=== PATIENT | male | born 1975 | race Caucasian/White ===

== ENCOUNTER 2018-03-09 13:47 | Inpatient (IN) | payer MEDICARE, OTHER, MEDICAID, SELFPAY ==
[2018-03-09] VITALS (19 sets, daily range): BP systolic 94–153; BP diastolic 53–87; PULSE 94–117; RESP 15–52; TEMP 37.1–37.5; O2SAT 89–100; BMI 18.5
--- NOTE | 2018-03-09 14:03 | ED.NEUROSD ---
HPI - Neuro Symptoms/Deficit General Chief Complaint: Seizure Stated Complaint: seizures Time Seen by Provider: 03/09/18 14:03 Source: family (His Mother) Mode of arrival: wheelchair Limitations: language barrier and altered mental status History of Present Illness HPI Narrative: The patient was born with cerebral palsy. He has been managed for decades with a seizure disorder. He is on valproic acid. He developed seizure activity yesterday, the 1st seizures he has had many years. His mom noted repeated tonoclonic activity, with motion toward the right side of his body he has a feeding tube in place. He can swallow. He has had no issue with swelling medication, and medications been giving the NG tube. He did vomit yesterday. He occasionally a gags when he does take in oral intake, but usually gags the item clear. He has no issue with aspiration in the past. He is experiencing low O2 sats upon arrival, requiring O2 supplementation. His mother tells me there has been no fever. He has been coughing, but does not have ongoing emesis. She has not perceived difficulty breathing. She does not think he has abdominal pain. He has recurrent UTIs, he requires repeat in out catheterization that she performs. There has been no fall or injury. Related Data Home Medications Medication Instructions Recorded Confirmed latanoprost 1 drp [facility] HS #2.5 ml 02/14/12 03/09/18 mirtazapine 15 mg PO HS #0 02/14/12 03/09/18 acetaminophen 500 mg PO BID #0 01/20/13 03/09/18 tamsulosin [Flomax] 0.4 mg PO QDAY #0 09/09/16 03/09/18 acetic acid 1 dose IRRIGATION BID PRN 03/09/18 03/09/18 baclofen 1 tab PO QPM 03/09/18 03/09/18 baclofen 5 mg PO BID 03/09/18 03/09/18 clonazepam 0.5 mg PO BID 03/09/18 03/09/18 clonazepam 1 mg PO BID 03/09/18 03/09/18 divalproex 1 cap PO QAM 03/09/18 03/09/18 divalproex 1 tab PO QAM 03/09/18 03/09/18 divalproex 1 tab PO QPM 03/09/18 03/09/18 meloxicam 1 tab PO DAILY 03/09/18 03/09/18 nitrofurantoin macrocrystal 1 cap PO DAILY 03/09/18 03/09/18 omeprazole 2 cap PO DAILY 03/09/18 03/09/18 Allergies Allergy/AdvReac Type Severity Reaction Status Date / Time codeine Allergy Intermediate FACIAL Verified 03/09/18 15:17 SWELLING, RASH phenobarbital Allergy Unknown Verified 03/09/18 15:17 Review of Systems Review of Systems other ( ROS is greater patient's medical condition. His mom reports vomiting and seizure activity. She does not perceive to be in pain. He has not vomited today. Bowel movements have been normal. There has been no fever or chills. RS was otherwise unobtainable due to the patient's medical condition.) PFSH Medical History Cervical vertebral fusion (Acute) Seizure (Acute) Congenital cerebral palsy (Acute) Surgical History History of thoracic spinal fusion (Acute) Social History Smoking Status: Never smoker Exam Initial Vital Signs Initial Vital Signs: Vital Signs Temperature 98.7 F 03/09/18 13:50 Pulse Rate 112 H 03/09/18 13:50 Respiratory Rate 20 03/09/18 13:50 Blood Pressure 116/78 03/09/18 13:50 Pulse Oximetry 89 L 03/09/18 13:50 Const General: well groomed, frail appearing and other ( the patient is having recurrent seizures upon arrival, eyes and the head deviating to the right.) Nutritional Appearance: thin and underweight [facility] Head: normocephalic and atraumatic Ears: external ears normal and TM's normal bilaterally Nose: external nose normal and No nasal discharge Face and sinus: face symmetric Mouth: oral mucosae normal and moist mucous membranes Throat: posterior oropharynx normal, tonsils normal and uvula midline Eyes General: appearance normal, both eyes and all related structures Eyelids: eyelids normal Conjunctivae: conjunctivae normal Sclera: sclerae normal Pupils: PERRL EOM: EOM intact bilaterally Neck Neck: normal visual inspection, no meningeal signs, trachea midline, No lymphadenopathy, No midline deformity and No JVD Chest Chest: normal inspection of the chest Resp Effort & Inspection: respiratory distress ( Low O2 sats.) Auscultation: breath sounds absent on the right ( Upper lung field only) Cardio Rate: regular rate Rhythm: regular rhythm Heart Sounds: no click, no gallops, no murmurs and no rubs Pulses: normal peripheral pulses GI Inspection: non-distended Palpation: soft, no hepatosplenomegaly, No guarding and No tender Auscultation: normal bowel sounds and other ( his feeding tube sees be functioning normally.) Back/Spine/Pelvis Back: No CVA tenderness Cervical Spine: No cervical ROM normal and No pain with cervical ROM Thoracic/Lumbar Spine: thoracic and lumbar spine normal to inspection Skin General: no rashes or lesions noted and No petechiae Neuro General: alert and other ( No verbal response. He communicates physical with his mother. Spasticity throughout all extremities. Recurrent seizure activity noted.) Extrem General: other ( Extremities are thin and frail. Spasticity noted in all extremities.) Course Orders Ordered: ED Orders 03/09/18 14:10 XR chest 1V Stat 03/09/18 14:34 Complete Blood Count AUTO DIFF Stat Comprehensive Metabolic Panel Stat Lactate (Lactic Acid) Stat Magnesium Stat Procalcitonin Stat Prolactin Stat Valproic Acid (Depakene) Total Stat 03/09/18 15:00 CT head/brain wo con Stat 03/09/18 15:28 Urine Culture Stat Urine Microscopic Stat 03/09/18 16:08 Blood Culture Stat 03/09/18 17:55 MRSA PCR Urgent Sodium Chloride (Normal Saline 0.9%) 1,000 mls @ 150 mls/hr IV CONT ARNOLDO Last Infusion: 03/09/18 16:18 Dose: 0 mls/hr Admin: 03/09/18 14:46 Dose: 150 mls/hr Sodium Chloride (Normal Saline 0.9%) 1,292.73 mls @ 430.91 mls/hr 30 ml/kg infuse over 3 hr (1292.73 ml) IV CONT ARNOLDO Last Infusion: 03/09/18 17:31 Dose: 430.91 mls/hr Admin: 03/09/18 16:20 Dose: 430.91 mls/hr Discontinued Medications Diazepam (Valium) 5 mg IV NOW ONE Stop: 03/09/18 14:11 Last Admin: 03/09/18 14:33 Dose: 5 mg Diazepam (Valium) 5 mg IV NOW ONE Stop: 03/09/18 14:55 Last Admin: 03/09/18 15:00 Dose: 5 mg Levetiracetam 500 mg/ Sodium (Chloride) 105 mls @ 420 mls/hr IV NOW ONE Stop: 03/09/18 14:55 Last Infusion: 03/09/18 15:45 Dose: 0 mls/hr Admin: 03/09/18 15:18 Dose: 420 mls/hr Levofloxacin (Levaquin) 500 mg in 100 mls @ 100 mls/hr IV NOW ONE Stop: 03/09/18 17:35 Last Infusion: 03/09/18 17:31 Dose: 100 mls/hr Admin: 03/09/18 16:46 Dose: 100 mls/hr Lorazepam (Ativan) 4 mg IV NOW ONE Stop: 03/09/18 17:25 Last Admin: 03/09/18 17:26 Dose: 4 mg Vital Signs - 8 hr 03/09/18 13:50 03/09/18 14:10 03/09/18 14:45 Temperature 98.7 F Pulse Rate 112 H 111 H Respiratory Rate 20 20 Blood Pressure 116/78 Blood Pressure [Right Arm] 100/71 Pulse Oximetry 89 L 98 100 03/09/18 14:50 03/09/18 14:55 03/09/18 15:00 Temperature Pulse Rate 103 H 117 H 109 H Respiratory Rate 15 18 16 Blood Pressure Blood Pressure [Right Arm] 109/69 100/66 Pulse Oximetry 100 99 99 03/09/18 15:05 03/09/18 15:20 03/09/18 15:31 Temperature Pulse Rate 100 H 96 H 98 H Respiratory Rate 15 27 H 17 Blood Pressure Blood Pressure [Right Arm] 100/66 110/83 103/72 Pulse Oximetry 99 98 98 03/09/18 16:00 03/09/18 16:31 03/09/18 17:17 Temperature Pulse Rate 95 H 96 H 94 H Respiratory Rate 20 19 18 Blood Pressure Blood Pressure [Right Arm] 113/64 108/53 L 119/68 Pulse Oximetry 98 100 98 MDM - Neuro Symptoms/Deficit Lab Data Result diagrams: 03/09/18 14:34 03/09/18 14:34 Lab Results 03/09/18 03/09/18 03/09/18 Range/Units 14:34 14:34 14:34 WBC 18.6 H (4.5-11.0) X10^3/uL RBC 4.72 (4.5-5.9) X10^6/uL Hgb 15.9 (13.5-17.5) g/dL Hct 50.0 (41-53) % MCV 106.0 H (80-100) fL MCH 33.7 (26-34) PG MCHC 31.7 (30-36) % RDW 15.3 H (11.6-14.8) % Plt Count 355 (150-400) X10^3/uL Neut % (Auto) 78.5 H (50-75) % Lymph % (Auto) 15.0 L (25-40) % [place] % (Auto) 6.3 (3-14) % Eos % (Auto) 0.0 L (2-4) % Baso % (Auto) 0.2 (0-2) % Neut # (Auto) 16332 H (5586-5839) /uL Sodium 158 H (137-145) mmol/L Potassium 4.1 (3.4-5.1) mmol/L Chloride 107 (98-107) mmol/L Carbon Dioxide 24 (22-32) mmol/L BUN 47 H (9-20) mg/dL Creatinine 1.20 (0.66-1.25) mg/dL Estimated GFR > 60.0 (>60) mL/min BUN/Creatinine Ratio 39.2 H (6-22) Glucose 149 H (70-100) mg/dL Lactate (0.7-2.1) mmol/L Calcium 10.0 (8.4-10.2) mg/dL Magnesium 2.6 H (1.6-2.3) mg/dL Total Bilirubin 0.3 (0.2-1.3) mg/dL AST 36 (17-59) IU/L ALT 16 L (21-72) IU/L Alkaline Phosphatase 73 (38-126) U/L Total Protein 9.3 H (6.3-8.2) g/dL Albumin 5.0 (3.5-5.0) g/dL Globulin 4.3 H (1.7-4.1) g/dL Albumin/Globulin Ratio 1.2 (1.0-2.8) Procalcitonin 0.06 (<0.5) ng/mL Prolactin 11.6 (3.7-17.9) ng/mL Urine RBC (0-5/HPF) Urine WBC (0-5/HPF) Ur Squamous Epith Cells Urine Bacteria (None) Ur Culture Indicated? Micro UA Comment 03/09/18 03/09/18 Range/Units 14:34 15:28 WBC (4.5-11.0) X10^3/uL RBC (4.5-5.9) X10^6/uL Hgb (13.5-17.5) g/dL Hct (41-53) % MCV (80-100) fL MCH (26-34) PG MCHC (30-36) % RDW (11.6-14.8) % Plt Count (150-400) X10^3/uL Neut % (Auto) (50-75) % Lymph % (Auto) (25-40) % [place] % (Auto) (3-14) % Eos % (Auto) (2-4) % Baso % (Auto) (0-2) % Neut # (Auto) (5295-4569) /uL Sodium (137-145) mmol/L Potassium (3.4-5.1) mmol/L Chloride (98-107) mmol/L Carbon Dioxide (22-32) mmol/L BUN (9-20) mg/dL Creatinine (0.66-1.25) mg/dL Estimated GFR (>60) mL/min BUN/Creatinine Ratio (6-22) Glucose (70-100) mg/dL Lactate 13.4 H (0.7-2.1) mmol/L Calcium (8.4-10.2) mg/dL Magnesium (1.6-2.3) mg/dL Total Bilirubin (0.2-1.3) mg/dL AST (17-59) IU/L ALT (21-72) IU/L Alkaline Phosphatase (38-126) U/L Total Protein (6.3-8.2) g/dL Albumin (3.5-5.0) g/dL Globulin (1.7-4.1) g/dL Albumin/Globulin Ratio (1.0-2.8) Procalcitonin (<0.5) ng/mL Prolactin (3.7-17.9) ng/mL Urine RBC 5-10/hpf H (0-5/HPF) Urine WBC 10-30/hpf H (0-5/HPF) Ur Squamous Epith Cells 0-1 /hpf Urine Bacteria Moderate (10-30) H (None) Ur Culture Indicated? Specimen cultured Micro UA Comment Not Reportable Point of Care Testing Glucose POC 97 Urine Dip Bedside Urine Glucose Negative Bedside Urine Bilirubin - Negative Bedside Urine Ketone - Negative Urine Specific [place] 1.025 Bedside Urine Occult Blood +++ Bedside Urine Protein +/- 15 Bedside Urine Urobilinogen - Negative Bedside Urine Nitrite - Negative Bedside Urine Leukocytes + [address] scan - head: Radiologist's impression: [address] [address] [address] Scan Report Signed Patient: Josh Weber [facility]#: [id number] : 1975Acct:[id number] Age/Sex: 42 / MDate of Service: 03/09/18 Loc: ED Accession Number: [id number] Procedure: CT head/brain wo con Ordering Provider: Mt Morales M.D. PROCEDURE: CT HEAD/BRAIN WO CON INDICATIONS: Seizures TECHNIQUE: Noncontrast 4.5 mm thick angled axial sections acquired from the foramen magnum to the vertex, with coronal and sagittal reformats. For radiation dose reduction, the following was used: automated exposure control, adjustment of mA and/or kV according to patient size. COMPARISON: [facility], CT, HEAD WITHOUT CONTRAST, 07/24/2014, 14:19. FINDINGS: Image quality: Excellent. CSF spaces: Basal cisterns are patent. No extra-axial fluid collections. Ventricles are enlarged, but not significantly changed compared to 07/24/2014. Nodularity noted along the margins of the lateral ventricles possibly related to heterotopia. 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 No midline shift. No intracranial hemorrhage. 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 Prakash-white matter interface is normal. Skull and face: Calvarium and visualized facial bones are intact, without suspicious lesions. Left globe phthisis bulbi is noted. Sinuses: Visualized sinuses and mastoids are clear. IMPRESSION: 1. No acute intracranial disease process. 2. 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 3. Severe hydrocephalus not significantly changed compared to prior examination. Dictated by: Rubi Serrano MD, PhD on 03/09/2018 at 14:51 Approved by: Rubi Serrano MD, PhD on 03/09/2018 at 15:07 Chest x-ray: Radiologist's impression: PROCEDURE: XR CHEST 1V INDICATIONS: Vomiting. Rule out aspiration TECHNIQUE: One view of the chest was acquired. COMPARISON: [facility], CHEST FOR PICC PLACEMENT, 10/11/2015, 14:05. FINDINGS: Surgical changes and devices: Extensive postsurgical changes are redemonstrated in the thoracic and visualized lumbar spine.. Lungs and pleura: There are right apical opacities consistent with consolidation, loculated effusion, or mass. Low lung finds are noted. No definite pneumothorax. Mediastinum: Mediastinal contours appear unchanged. Heart size is within normal limits. Bones and chest wall: No suspicious bony lesions. Overlying soft tissues appear unremarkable. IMPRESSION: 1. Right apical opacities consistent with consolidation, loculated effusion, or mass. Further evaluation may be obtained CT. [facility] Narrative Medical decision making narrative: The patient's mother assures me they have been compliant with medication dosing, he has not had seizure activity for years. He has been having recurrent seizures since yesterday. He did vomit. He was having frequent seizures upon arrival. He responded briefly to Valium 5 mg IV. The dose had to be repeated due to ongoing seizure activity. He was given Keppra 500 mg IV. Evaluation included a CT which showed no significant changes in the head/brain. Chest x-ray revealed a right upper lung loculation, consistent with pneumonia. This was strongly suspected by the examination. Labs confirm leukocytosis, and a significantly elevated lactate level confirming sepsis. He is having issues with O2 saturation. He has improved with oxygen. He is normotensive. He has received IV fluid boluses, IV Levaquin has been started. He will be admitted to Dr. Ric Oconnor. He is a full code. Critical Care Time Critical Care Time: Yes Total Critical Care Time: 40 Attestation: Patient's care required several assessments due to ongoing seizure activity. I interviewed his mother several times.Radiologic and lab data was interpreted. Past records were reviewed. The case was discussed with the eventual admitting physician, Dr. Oconnor. Discharge Plan Departure Patient Disposition: Admitted As Inpatient Clinical Impression: Sepsis, Pneumonia, Convulsions, status epilepticus, Cerebral palsy Discharge Date/Time: 03/09/18 17:30 Interventions: ED Discharge Assessment Last Done: 03/09/18 17:20 Admit Date/Time: 03/09/18 16:46 Admit Provider: Clem Oconnor
--- NOTE | 2018-03-09 14:10 | DI.RAD.S_ITS ---
PROCEDURE: XR CHEST 1V INDICATIONS: Vomiting. Rule out aspiration TECHNIQUE: One view of the chest was acquired. COMPARISON: [facility], , CHEST FOR PICC PLACEMENT, 10/11/2015, 14:05. FINDINGS: Surgical changes and devices: Extensive postsurgical changes are redemonstrated in the thoracic and visualized lumbar spine.. Lungs and pleura: There are right apical opacities consistent with consolidation, loculated effusion, or mass. Low lung finds are noted. No definite pneumothorax. Mediastinum: Mediastinal contours appear unchanged. Heart size is within normal limits. Bones and chest wall: No suspicious bony lesions. Overlying soft tissues appear unremarkable. IMPRESSION: 1. Right apical opacities consistent with consolidation, loculated effusion, or mass. Further evaluation may be obtained CT. Dictated by: Daniel Deleon M.D. on 03/09/2018 at 16:34 Approved by: Daniel Deleon M.D. on 03/09/2018 at 16:35
[2018-03-09] MEDS: diazePAM 10 MG/2 ML SYRINGE 5 MG IV ×2 (14:33→15:00)
[2018-03-09] MEDS: SODIUM CHLORIDE 0.9% 1,000 ML 150 ML IV (14:46)
[2018-03-09 14:57] LABS: Add Manual Diff / Slide Review NO; Basophils Percent Auto 0.2 % (0-2); Hemoglobin 15.9 g/dL (13.5-17.5); Mean Corpuscular HGB Conc 31.7 % (30-36); Mean Corpuscular Hemoglobin 33.7 PG (26-34); Monocytes Percent Auto 6.3 % (3-14); Neutrophils Absolute Auto 14600 /uL (3000-5900); Neutrophils Percent Auto 78.5 % (50-75); Platelet Count 355 X10^3/uL (150-400); Red Blood Cell Count 4.72 X10^6/uL (4.5-5.9); Red Cell Distribution Width 15.3 % (11.6-14.8); White Blood Cell Count 18.6 X10^3/uL (4.5-11.0)
--- NOTE | 2018-03-09 14:58 | PC.NURSE ---
pt has CP, neck fusion, history of seizures, chronic feeding tube x 3years, pt is having tonic clonic movements/ with gran mal seizures x 2 in [place]> pt has been seizuring all night.
--- NOTE | 2018-03-09 15:00 | DI.CT.S_ITS ---
PROCEDURE: CT HEAD/BRAIN WO CON INDICATIONS: Seizures TECHNIQUE: Noncontrast 4.5 mm thick angled axial sections acquired from the foramen magnum to the vertex, with coronal and sagittal reformats. For radiation dose reduction, the following was used: automated exposure control, adjustment of mA and/or kV according to patient size. COMPARISON: [facility], CT, HEAD WITHOUT CONTRAST, 07/24/2014, 14:19. FINDINGS: Image quality: Excellent. CSF spaces: Basal cisterns are patent. No extra-axial fluid collections. Ventricles are enlarged, but not significantly changed compared to 07/24/2014. Nodularity noted along the margins of the lateral ventricles possibly related to heterotopia. 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 No midline shift. No intracranial hemorrhage. 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 Prakash-white matter interface is normal. Skull and face: Calvarium and visualized facial bones are intact, without suspicious lesions. Left globe phthisis bulbi is noted. Sinuses: Visualized sinuses and mastoids are clear. IMPRESSION: 1. No acute intracranial disease process. 2. 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 3. Severe hydrocephalus not significantly changed compared to prior examination. Dictated by: Rubi Serrano MD, PhD on 03/09/2018 at 14:51 Approved by: Rubi Serrano MD, PhD on 03/09/2018 at 15:07
[2018-03-09] MEDS: levETIRAcetam 500 MG in SODIUM CHLORIDE 0.9% 100 ML 420 ML IV (15:18)
[2018-03-09 15:23] LABS: Alanine Aminotransferase 16 IU/L (21-72); Albumin Globulin Ratio 1.2 (1.0-2.8); Alkaline Phosphatase 73 U/L (38-126); Aspartate Aminotransferase 36 IU/L (17-59); BUN Creatinine Ratio 39.2 (6-22); Bilirubin Total 0.3 mg/dL (0.2-1.3); Blood Urea Nitrogen 47 mg/dL (9-20); Carbon Dioxide 24 mmol/L (22-32); Chloride 107 mmol/L (98-107); Estimated Glomerular Filt Rate > 60.0 mL/min (>60); Globulin 4.3 g/dL (1.7-4.1); Glucose 149 mg/dL (70-100); HEMOLYSIS < 15 (0-50); Magnesium 2.6 mg/dL (1.6-2.3); Potassium 4.1 mmol/L (3.4-5.1); Total Protein 9.3 g/dL (6.3-8.2)
[2018-03-09 15:31] LABS: Sodium 158 mmol/L (137-145)
[2018-03-09 15:32] LABS: Lactate (Lactic Acid) 13.4 mmol/L (0.7-2.1)
[2018-03-09 15:40] LABS: Prolactin 11.6 ng/mL (3.7-17.9)
[2018-03-09 15:47] LABS: Procalcitonin 0.06 ng/mL (<0.5)
[2018-03-09] MEDS: SODIUM CHLORIDE 0.9% 430.91 ML IV (16:20)
[2018-03-09 16:38] LABS: Bacteria Urine Moderate (10-30); Culture Indicated Urine Specimen Cultured; RBC Urine 5-10/HPF (0-5/HPF); Squamous Epithelial Cell Urine 0-1 /HPF; WBC Urine 10-30/HPF (0-5/HPF)
[2018-03-09] MEDS: levoFLOXacin 500 MG/100 ML PIGGYBACK 100 MG IV (16:46)
--- NOTE | 2018-03-09 16:48 | ED_ITS ---
HPI - Neuro Symptoms/Deficit General Chief Complaint: Seizure Stated Complaint: seizures Time Seen by Provider: 03/09/18 14:03 Source: family (His Mother) Mode of arrival: wheelchair Limitations: language barrier and altered mental status History of Present Illness HPI Narrative: The patient was born with cerebral palsy. He has been managed for decades with a seizure disorder. He is on valproic acid. He developed seizure activity yesterday, the 1st seizures he has had many years. His mom noted repeated tonoclonic activity, with motion toward the right side of his body he has a feeding tube in place. He can swallow. He has had no issue with swelling medication, and medications been giving the NG tube. He did vomit yesterday. He occasionally a gags when he does take in oral intake, but usually gags the item clear. He has no issue with aspiration in the past. He is experiencing low O2 sats upon arrival, requiring O2 supplementation. His mother tells me there has been no fever. He has been coughing, but does not have ongoing emesis. She has not perceived difficulty breathing. She does not think he has abdominal pain. He has recurrent UTIs, he requires repeat in out catheterization that she performs. There has been no fall or injury. Related Data Home Medications Medication Instructions Recorded Confirmed latanoprost 1 drp [facility] HS #2.5 ml 02/14/12 03/09/18 mirtazapine 15 mg PO HS #0 02/14/12 03/09/18 acetaminophen 500 mg PO BID #0 01/20/13 03/09/18 tamsulosin [Flomax] 0.4 mg PO QDAY #0 09/09/16 03/09/18 acetic acid 1 dose IRRIGATION BID PRN 03/09/18 03/09/18 baclofen 1 tab PO QPM 03/09/18 03/09/18 baclofen 5 mg PO BID 03/09/18 03/09/18 clonazepam 0.5 mg PO BID 03/09/18 03/09/18 clonazepam 1 mg PO BID 03/09/18 03/09/18 divalproex 1 cap PO QAM 03/09/18 03/09/18 divalproex 1 tab PO QAM 03/09/18 03/09/18 divalproex 1 tab PO QPM 03/09/18 03/09/18 meloxicam 1 tab PO DAILY 03/09/18 03/09/18 nitrofurantoin macrocrystal 1 cap PO DAILY 03/09/18 03/09/18 omeprazole 2 cap PO DAILY 03/09/18 03/09/18 Allergies Allergy/AdvReac Type Severity Reaction Status Date / Time codeine Allergy Intermediate FACIAL Verified 03/09/18 15:17 SWELLING, RASH phenobarbital Allergy Unknown Verified 03/09/18 15:17 Review of Systems Review of Systems other ( ROS is greater patient's medical condition. His mom reports vomiting and seizure activity. She does not perceive to be in pain. He has not vomited today. Bowel movements have been normal. There has been no fever or chills. RS was otherwise unobtainable due to the patient's medical condition.) PFSH Medical History Cervical vertebral fusion (Acute) Seizure (Acute) Congenital cerebral palsy (Acute) Surgical History History of thoracic spinal fusion (Acute) Social History Smoking Status: Never smoker Exam Initial Vital Signs Initial Vital Signs: Vital Signs Temperature 98.7 F 03/09/18 13:50 Pulse Rate 112 H 03/09/18 13:50 Respiratory Rate 20 03/09/18 13:50 Blood Pressure 116/78 03/09/18 13:50 Pulse Oximetry 89 L 03/09/18 13:50 Const General: well groomed, frail appearing and other ( the patient is having recurrent seizures upon arrival, eyes and the head deviating to the right.) Nutritional Appearance: thin and underweight [facility] Head: normocephalic and atraumatic Ears: external ears normal and TM's normal bilaterally Nose: external nose normal and No nasal discharge Face and sinus: face symmetric Mouth: oral mucosae normal and moist mucous membranes Throat: posterior oropharynx normal, tonsils normal and uvula midline Eyes General: appearance normal, both eyes and all related structures Eyelids: eyelids normal Conjunctivae: conjunctivae normal Sclera: sclerae normal Pupils: PERRL EOM: EOM intact bilaterally Neck Neck: normal visual inspection, no meningeal signs, trachea midline, No lymphadenopathy, No midline deformity and No JVD Chest Chest: normal inspection of the chest Resp Effort & Inspection: respiratory distress ( Low O2 sats.) Auscultation: breath sounds absent on the right ( Upper lung field only) Cardio Rate: regular rate Rhythm: regular rhythm Heart Sounds: no click, no gallops, no murmurs and no rubs Pulses: normal peripheral pulses GI Inspection: non-distended Palpation: soft, no hepatosplenomegaly, No guarding and No tender Auscultation: normal bowel sounds and other ( his feeding tube sees be functioning normally.) Back/Spine/Pelvis Back: No CVA tenderness Cervical Spine: No cervical ROM normal and No pain with cervical ROM Thoracic/Lumbar Spine: thoracic and lumbar spine normal to inspection Skin General: no rashes or lesions noted and No petechiae Neuro General: alert and other ( No verbal response. He communicates physical with his mother. Spasticity throughout all extremities. Recurrent seizure activity noted.) Extrem General: other ( Extremities are thin and frail. Spasticity noted in all extremities.) Course Orders Ordered: ED Orders 03/09/18 14:10 XR chest 1V Stat 03/09/18 14:34 Complete Blood Count AUTO DIFF Stat Comprehensive Metabolic Panel Stat Lactate (Lactic Acid) Stat Magnesium Stat Procalcitonin Stat Prolactin Stat Valproic Acid (Depakene) Total Stat 03/09/18 15:00 CT head/brain wo con Stat 03/09/18 15:28 Urine Culture Stat Urine Microscopic Stat 03/09/18 16:08 Blood Culture Stat 03/09/18 17:55 MRSA PCR Urgent Sodium Chloride (Normal Saline 0.9%) 1,000 mls @ 150 mls/hr IV CONT ARNOLDO Last Infusion: 03/09/18 16:18 Dose: 0 mls/hr Admin: 03/09/18 14:46 Dose: 150 mls/hr Sodium Chloride (Normal Saline 0.9%) 1,292.73 mls @ 430.91 mls/hr 30 ml/kg infuse over 3 hr (1292.73 ml) IV CONT ARNOLDO Last Infusion: 03/09/18 17:31 Dose: 430.91 mls/hr Admin: 03/09/18 16:20 Dose: 430.91 mls/hr Discontinued Medications Diazepam (Valium) 5 mg IV NOW ONE Stop: 03/09/18 14:11 Last Admin: 03/09/18 14:33 Dose: 5 mg Diazepam (Valium) 5 mg IV NOW ONE Stop: 03/09/18 14:55 Last Admin: 03/09/18 15:00 Dose: 5 mg Levetiracetam 500 mg/ Sodium (Chloride) 105 mls @ 420 mls/hr IV NOW ONE Stop: 03/09/18 14:55 Last Infusion: 03/09/18 15:45 Dose: 0 mls/hr Admin: 03/09/18 15:18 Dose: 420 mls/hr Levofloxacin (Levaquin) 500 mg in 100 mls @ 100 mls/hr IV NOW ONE Stop: 03/09/18 17:35 Last Infusion: 03/09/18 17:31 Dose: 100 mls/hr Admin: 03/09/18 16:46 Dose: 100 mls/hr Lorazepam (Ativan) 4 mg IV NOW ONE Stop: 03/09/18 17:25 Last Admin: 03/09/18 17:26 Dose: 4 mg Vital Signs - 8 hr 03/09/18 13:50 03/09/18 14:10 03/09/18 14:45 Temperature 98.7 F Pulse Rate 112 H 111 H Respiratory Rate 20 20 Blood Pressure 116/78 Blood Pressure [Right Arm] 100/71 Pulse Oximetry 89 L 98 100 03/09/18 14:50 03/09/18 14:55 03/09/18 15:00 Temperature Pulse Rate 103 H 117 H 109 H Respiratory Rate 15 18 16 Blood Pressure Blood Pressure [Right Arm] 109/69 100/66 Pulse Oximetry 100 99 99 03/09/18 15:05 03/09/18 15:20 03/09/18 15:31 Temperature Pulse Rate 100 H 96 H 98 H Respiratory Rate 15 27 H 17 Blood Pressure Blood Pressure [Right Arm] 100/66 110/83 103/72 Pulse Oximetry 99 98 98 03/09/18 16:00 03/09/18 16:31 03/09/18 17:17 Temperature Pulse Rate 95 H 96 H 94 H Respiratory Rate 20 19 18 Blood Pressure Blood Pressure [Right Arm] 113/64 108/53 L 119/68 Pulse Oximetry 98 100 98 MDM - Neuro Symptoms/Deficit Lab Data Result diagrams: 03/09/18 14:34 03/09/18 14:34 Lab Results 03/09/18 03/09/18 03/09/18 Range/Units 14:34 14:34 14:34 WBC 18.6 H (4.5-11.0) X10^3/uL RBC 4.72 (4.5-5.9) X10^6/uL Hgb 15.9 (13.5-17.5) g/dL Hct 50.0 (41-53) % MCV 106.0 H (80-100) fL MCH 33.7 (26-34) PG MCHC 31.7 (30-36) % RDW 15.3 H (11.6-14.8) % Plt Count 355 (150-400) X10^3/uL Neut % (Auto) 78.5 H (50-75) % Lymph % (Auto) 15.0 L (25-40) % [place] % (Auto) 6.3 (3-14) % Eos % (Auto) 0.0 L (2-4) % Baso % (Auto) 0.2 (0-2) % Neut # (Auto) 31126 H (5979-6416) /uL Sodium 158 H (137-145) mmol/L Potassium 4.1 (3.4-5.1) mmol/L Chloride 107 (98-107) mmol/L Carbon Dioxide 24 (22-32) mmol/L BUN 47 H (9-20) mg/dL Creatinine 1.20 (0.66-1.25) mg/dL Estimated GFR > 60.0 (>60) mL/min BUN/Creatinine Ratio 39.2 H (6-22) Glucose 149 H (70-100) mg/dL Lactate (0.7-2.1) mmol/L Calcium 10.0 (8.4-10.2) mg/dL Magnesium 2.6 H (1.6-2.3) mg/dL Total Bilirubin 0.3 (0.2-1.3) mg/dL AST 36 (17-59) IU/L ALT 16 L (21-72) IU/L Alkaline Phosphatase 73 (38-126) U/L Total Protein 9.3 H (6.3-8.2) g/dL Albumin 5.0 (3.5-5.0) g/dL Globulin 4.3 H (1.7-4.1) g/dL Albumin/Globulin Ratio 1.2 (1.0-2.8) Procalcitonin 0.06 (<0.5) ng/mL Prolactin 11.6 (3.7-17.9) ng/mL Urine RBC (0-5/HPF) Urine WBC (0-5/HPF) Ur Squamous Epith Cells Urine Bacteria (None) Ur Culture Indicated? Micro UA Comment 03/09/18 03/09/18 Range/Units 14:34 15:28 WBC (4.5-11.0) X10^3/uL RBC (4.5-5.9) X10^6/uL Hgb (13.5-17.5) g/dL Hct (41-53) % MCV (80-100) fL MCH (26-34) PG MCHC (30-36) % RDW (11.6-14.8) % Plt Count (150-400) X10^3/uL Neut % (Auto) (50-75) % Lymph % (Auto) (25-40) % [place] % (Auto) (3-14) % Eos % (Auto) (2-4) % Baso % (Auto) (0-2) % Neut # (Auto) (0860-8563) /uL Sodium (137-145) mmol/L Potassium (3.4-5.1) mmol/L Chloride (98-107) mmol/L Carbon Dioxide (22-32) mmol/L BUN (9-20) mg/dL Creatinine (0.66-1.25) mg/dL Estimated GFR (>60) mL/min BUN/Creatinine Ratio (6-22) Glucose (70-100) mg/dL Lactate 13.4 H (0.7-2.1) mmol/L Calcium (8.4-10.2) mg/dL Magnesium (1.6-2.3) mg/dL Total Bilirubin (0.2-1.3) mg/dL AST (17-59) IU/L ALT (21-72) IU/L Alkaline Phosphatase (38-126) U/L Total Protein (6.3-8.2) g/dL Albumin (3.5-5.0) g/dL Globulin (1.7-4.1) g/dL Albumin/Globulin Ratio (1.0-2.8) Procalcitonin (<0.5) ng/mL Prolactin (3.7-17.9) ng/mL Urine RBC 5-10/hpf H (0-5/HPF) Urine WBC 10-30/hpf H (0-5/HPF) Ur Squamous Epith Cells 0-1 /hpf Urine Bacteria Moderate (10-30) H (None) Ur Culture Indicated? Specimen cultured Micro UA Comment Not Reportable Point of Care Testing Glucose POC 97 Urine Dip Bedside Urine Glucose Negative Bedside Urine Bilirubin - Negative Bedside Urine Ketone - Negative Urine Specific [place] 1.025 Bedside Urine Occult Blood +++ Bedside Urine Protein +/- 15 Bedside Urine Urobilinogen - Negative Bedside Urine Nitrite - Negative Bedside Urine Leukocytes + [address] scan - head: Radiologist's impression: [address] [address] [address] Scan Report Signed Patient: Josh Weber BANNER#: [id number] : 1975Acct:[id number] Age/Sex: 42 / MDate of Service: 03/09/18 Loc: ED Accession Number: [id number] Procedure: CT head/brain wo con Ordering Provider: Mt Morales M.D. PROCEDURE: CT HEAD/BRAIN WO CON INDICATIONS: Seizures TECHNIQUE: Noncontrast 4.5 mm thick angled axial sections acquired from the foramen magnum to the vertex, with coronal and sagittal reformats. For radiation dose reduction, the following was used: automated exposure control, adjustment of mA and/or kV according to patient size. COMPARISON: [facility], CT, HEAD WITHOUT CONTRAST, 07/24/2014, 14:19. FINDINGS: Image quality: Excellent. CSF spaces: Basal cisterns are patent. No extra-axial fluid collections. Ventricles are enlarged, but not significantly changed compared to 07/24/2014. Nodularity noted along the margins of the lateral ventricles possibly related to heterotopia. 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 No midline shift. No intracranial hemorrhage. 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 Prakash-white matter interface is normal. Skull and face: Calvarium and visualized facial bones are intact, without suspicious lesions. Left globe phthisis bulbi is noted. Sinuses: Visualized sinuses and mastoids are clear. IMPRESSION: 1. No acute intracranial disease process. 2. 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 3. Severe hydrocephalus not significantly changed compared to prior examination. Dictated by: Rubi Serrano MD, PhD on 03/09/2018 at 14:51 Approved by: Rubi Serrano MD, PhD on 03/09/2018 at 15:07 Chest x-ray: Radiologist's impression: PROCEDURE: XR CHEST 1V INDICATIONS: Vomiting. Rule out aspiration TECHNIQUE: One view of the chest was acquired. COMPARISON: [facility], CHEST FOR PICC PLACEMENT, 10/11/2015, 14:05. FINDINGS: Surgical changes and devices: Extensive postsurgical changes are redemonstrated in the thoracic and visualized lumbar spine.. Lungs and pleura: There are right apical opacities consistent with consolidation, loculated effusion, or mass. Low lung finds are noted. No definite pneumothorax. Mediastinum: Mediastinal contours appear unchanged. Heart size is within normal limits. Bones and chest wall: No suspicious bony lesions. Overlying soft tissues appear unremarkable. IMPRESSION: 1. Right apical opacities consistent with consolidation, loculated effusion, or mass. Further evaluation may be obtained CT. [facility] Narrative Medical decision making narrative: The patient's mother assures me they have been compliant with medication dosing, he has not had seizure activity for years. He has been having recurrent seizures since yesterday. He did vomit. He was having frequent seizures upon arrival. He responded briefly to Valium 5 mg IV. The dose had to be repeated due to ongoing seizure activity. He was given Keppra 500 mg IV. Evaluation included a CT which showed no significant changes in the head/brain. Chest x-ray revealed a right upper lung loculation, consistent with pneumonia. This was strongly suspected by the examination. Labs confirm leukocytosis, and a significantly elevated lactate level confirming sepsis. He is having issues with O2 saturation. He has improved with oxygen. He is normotensive. He has received IV fluid boluses, IV Levaquin has been started. He will be admitted to Dr. Ric Oconnor. He is a full code. Critical Care Time Critical Care Time: Yes Total Critical Care Time: 40 Attestation: Patient's care required several assessments due to ongoing seizure activity. I interviewed his mother several times.Radiologic and lab data was interpreted. Past records were reviewed. The case was discussed with the eventual admitting physician, Dr. Oconnor. Discharge Plan Departure Patient Disposition: Admitted As Inpatient Clinical Impression: Sepsis, Pneumonia, Convulsions, status epilepticus, Cerebral palsy Discharge Date/Time: 03/09/18 17:30 Interventions: ED Discharge Assessment Last Done: 03/09/18 17:20 Admit Date/Time: 03/09/18 16:46 Admit Provider: Clem Oconnor
--- NOTE | 2018-03-09 16:50 | PC.NURSE ---
Pt continues to have twitching in upper face, eyes, to right. Lasting 5-10 min, then stops for 5-10 min. BS decreased on right significantly, left has increased airation comparatively. Pt does take po and mother states he may have aspirated but upper lobes are clear at this time. Appears to be tolerating oxygen wean to 6l via simple face mask. Continues to have upper airway noise which mother states is normal for patient. Discussed code status. Pt is currently full code. Mother states that she will revisit code status if / when it becomes necessary. Waiting transfer to ICU. Mother at bedside reading. Therapy dog on bed and comforting to patient, does not interfere w/ care.
--- NOTE | 2018-03-09 17:22 | PC.NURSE ---
Pt continues to have seizure activity which is face and eyes deviating to right w/ rythmic jaw clenching and swallowing. Spoke w/ Dr. Oconnor who ordered Lorazepam 4 mg iv push.
[2018-03-09] MEDS: LORazepam 2 MG/ML SYRINGE 4 MG IV (17:26)
[2018-03-09] MEDS: DEXTROSE 5% WATER 1,000 ML 100 ML IV (18:33)
[2018-03-09] MEDS: FOSPHENYTOIN IV (18:33)
[2018-03-09] MEDS: PIPERACILLIN-TAZO 3.375 GM/50 ML FROZ.PIGGY IV (18:33)
[2018-03-09] MEDS: SODIUM CHLORIDE IV (18:33)
--- NOTE | 2018-03-09 18:57 | P.HP_ITS ---
History of Present Illness Date Patient Seen: 03/09/18 Time Patient Seen: 17:00 Chief complaint: seizures Narrative: Patient is a 42-year-old male with history congenital quadriplegic cerebral palsy, epilepsy, dysphagia, peg tube, urinary retention requiring straight catheterization, recurrent UTI presented to the emergency department due to intractable seizures. He does not get frequent seizures. Mom noticed a seizure yesterday afternoon and evening. She kept a close eye on him. He did throw up as well. She kept a close eye on him during the night but since this morning he has been seizing nonstop. Seizures have presented as bilateral tonic colonic movements and gaze deviation. Head CT without acute findings. He was given several doses IV lorazepam and loaded with IV Keppra but continued to have persistent seizure activity while in the ER. Seizure did seem to calm down after dose of 4 mg IV lorazepam. Also noted to have right upper lung infiltrates on chest x-ray suspicious for aspiration. He appeared septic with tachypnea, hypotension, tachycardia, hypoxia, elevated WBC, lactic acidosis and elevated procalcitonin. Started on initial antibiotic management with Levaquin and transferred to ICU. In ICU he was started on loading dose of fosphenytoin and IV lorazepam being administered as needed for a current seizure activity. Also noted hypernatremic with serum sodium of 158. We do not have a recent serum sodium on him. Patient History Medical History Urinary retention (Acute) Cervical vertebral fusion (Acute) Seizure (Acute) Congenital cerebral palsy (Acute) UTI (urinary tract infection) (Acute) Surgical History S/P percutaneous endoscopic gastrostomy (PEG) tube placement (Acute) History of thoracic spinal fusion (Acute) Family & Social History Social History: household members family Prior Living Arrangements House Safety & Behavioral: Feels Safe in Current Yes Environment Been Physically Hurt or No Threatened By a Person Suicidal Ideation Description None Tobacco & Substance use: Smoking Status Never smoker alcohol intake never Substance Use Type does not use Meds Home Medications Medication Instructions Recorded Confirmed Type latanoprost 1 drp [facility] HS #2.5 ml 02/14/12 03/09/18 History mirtazapine 15 mg PO HS #0 02/14/12 03/09/18 History acetaminophen 500 mg PO BID #0 01/20/13 03/09/18 History tamsulosin [Flomax] 0.4 mg PO QDAY #0 09/09/16 03/09/18 History acetic acid 1 dose IRRIGATION BID PRN 03/09/18 03/09/18 History baclofen 1 tab PO QPM 03/09/18 03/09/18 History baclofen 5 mg PO BID 03/09/18 03/09/18 History clonazepam 0.5 mg PO BID 03/09/18 03/09/18 History clonazepam 1 mg PO BID 03/09/18 03/09/18 History divalproex 1 cap PO QAM 03/09/18 03/09/18 History divalproex 1 tab PO QAM 03/09/18 03/09/18 History divalproex 1 tab PO QPM 03/09/18 03/09/18 History meloxicam 1 tab PO DAILY 03/09/18 03/09/18 History nitrofurantoin macrocrystal 1 cap PO DAILY 03/09/18 03/09/18 History omeprazole 2 cap PO DAILY 03/09/18 03/09/18 History Allergies Allergy/AdvReac Type Severity Reaction Status Date / Time codeine Allergy Intermediate FACIAL Verified 03/09/18 15:17 SWELLING, RASH phenobarbital Allergy Unknown Verified 03/09/18 15:17 Review of Systems Review of Systems All systems reviewed & are unremarkable except as noted in HPI and below Exam Vital Signs (past 8 hours): - 03/09/18 13:50 03/09/18 14:10 03/09/18 14:45 Temperature 98.7 F Pulse Rate 112 H 111 H Respiratory Rate 20 20 Blood Pressure 116/78 Blood Pressure [Right Arm] 100/71 Pulse Oximetry 89 L 98 100 03/09/18 14:50 03/09/18 14:55 03/09/18 15:00 Temperature Pulse Rate 103 H 117 H 109 H Respiratory Rate 15 18 16 Blood Pressure Blood Pressure [Right Arm] 109/69 100/66 Pulse Oximetry 100 99 99 03/09/18 15:05 03/09/18 15:20 03/09/18 15:31 Temperature Pulse Rate 100 H 96 H 98 H Respiratory Rate 15 27 H 17 Blood Pressure Blood Pressure [Right Arm] 100/66 110/83 103/72 Pulse Oximetry 99 98 98 03/09/18 16:00 03/09/18 16:31 03/09/18 17:17 Temperature Pulse Rate 95 H 96 H 94 H Respiratory Rate 20 19 18 Blood Pressure Blood Pressure [Right Arm] 113/64 108/53 L 119/68 Pulse Oximetry 98 100 98 Oxygen Delivery Method Simple Mask Oxygen Flow Rate 6 Narrative Exam Narrative: GENERAL: Lethargic male with upper extremity tonic colonic movements HEAD: No acute trauma EYES: Right pupil round and reactive, left pupil unreactive and cloudy NECK: Trachea midline. No JVD or lymphadenopathy. CARDIOVASCULAR: Regular rate and rhythm without murmurs, gallops, or rubs. RESPIRATORY: Clear to auscultation bilaterally. GASTROINTESTINAL: Abdomen nondistended, soft, no hepatosplenomegaly. Peg tube site is clean and dry. EXTREMITIES: No edema. NEUROLOGICAL: Functional quadriplegic with contractures of upper and lower extremities, SKIN: warm, dry, no rash Objective Imaging CT scan - head: Radiologist's impression: 1. No acute intracranial disease process. 2. 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 3. Severe hydrocephalus not significantly changed compared to prior examination. Chest x-ray: Radiologist's impression: 1. Right apical opacities consistent with consolidation, loculated effusion, or mass. Further evaluation may be obtained CT. Labs Result Diagrams: 03/09/18 14:34 03/09/18 14:34 Labs: Laboratory Results - last 24 hr 03/09/18 03/09/18 03/09/18 14:34 14:34 14:34 WBC 18.6 H RBC 4.72 Hgb 15.9 Hct 50.0 MCV 106.0 H MCH 33.7 MCHC 31.7 RDW 15.3 H Plt Count 355 Neut % (Auto) 78.5 H Lymph % (Auto) 15.0 L [place] % (Auto) 6.3 Eos % (Auto) 0.0 L Baso % (Auto) 0.2 Neut # (Auto) 37430 H Sodium 158 H Potassium 4.1 Chloride 107 Carbon Dioxide 24 BUN 47 H Creatinine 1.20 Estimated GFR > 60.0 BUN/Creatinine Ratio 39.2 H Glucose 149 H Lactate Calcium 10.0 Magnesium 2.6 H Total Bilirubin 0.3 AST 36 ALT 16 L Alkaline Phosphatase 73 Total Protein 9.3 H Albumin 5.0 Globulin 4.3 H Albumin/Globulin Ratio 1.2 Procalcitonin 0.06 Prolactin 11.6 Urine RBC Urine WBC Ur Squamous Epith Cells Urine Bacteria Ur Culture Indicated? Micro UA Comment 03/09/18 03/09/18 14:34 15:28 WBC RBC Hgb Hct MCV MCH MCHC RDW Plt Count Neut % (Auto) Lymph % (Auto) [place] % (Auto) Eos % (Auto) Baso % (Auto) Neut # (Auto) Sodium Potassium Chloride Carbon Dioxide BUN Creatinine Estimated GFR BUN/Creatinine Ratio Glucose Lactate 13.4 H Calcium Magnesium Total Bilirubin AST ALT Alkaline Phosphatase Total Protein Albumin Globulin Albumin/Globulin Ratio Procalcitonin Prolactin Urine RBC 5-10/hpf H Urine WBC 10-30/hpf H Ur Squamous Epith Cells 0-1 /hpf Urine Bacteria Moderate (10-30) H Ur Culture Indicated? Specimen cultured Micro UA Comment Not Reportable Assessment & Plan Plan: Assessment/Plan Narrative: 1. Sepsis due to aspiration pneumonia: Patient had volume resuscitation and initial antibiotic in the ED. For continued antibiotics, he is on Zosyn 3.375 g q.6 hours and Levaquin 750 mg Q 24 hr. Repeat 4 hr lactic acid. Repeat CBC, procalcitonin in a.m.. Consider chest CT when patient more clinically stable to assess for loculations or abscess in the right upper lobe pneumonia. 2. Status epilepticus secondary to sepsis: Load with fosphenytoin 1 gm, lorazepam 4 mg IV every 30 min as needed, continuous pulse ox and cardiac monitoring in ICU. Patient is on valproic acid at home. Valproic acid level requested. 3. Hypernatremia, probably acute due to volume depletion: Also possible secondary cause of his acute seizures. Started on D5W at 100 cc/hour to gradually lower his serum sodium. Basic metabolic panel in a.m.. 4. DVT prophylaxis: Low-dose Lovenox 5. Code status: Full Code, per mom who is POA. 6. History of urinary retention: Boggs catheter in the hospital. Patient gets catheterized at home. Patient is critically ill due to sepsis, status epilepticus, with high risk of deterioration and mortality. Total time of 60 min in ICU Critical Care Floor management.
[2018-03-09 19:02] LABS: Reflexed Lactate in 2 Hours Y
[2018-03-09 19:26] LABS: Lactate 2HR (Lactic Acid Rflx) 1.2 mmol/L (0.7-2.1)
--- NOTE | 2018-03-09 21:24 | PC.NURSE ---
Addendum entered by Suad Dunn R.N. 03/09/18 21:50: 2150 - Offered to assist with repositioning pt. Pt mom states, not right now, it is not worth disturbing him. Original Note: Addendum entered by Suad Dunn R.N. 03/09/18 21:35: 2100 - Pt high on right side. Had been resting soundly for approximately 1.5 hours. Pt began arching head back. Pt sister states that he is trying to roll over on to abd. Pt hr increased to 120's, O2 sats decrease to 86%, O2 on simple mask increased to 8L. Attempt to assist pt for comfort. Pt mom arrived and states that he will need to be placed to abd. Discussed IV placement, Mask and Monitors, Pt mom state that she may reposition pt prn. Encourage her to call for assistance. Educated to positive MRSA swab, and contact isolation. Pt family verbalized understanding. Original Note: Addendum entered by Suad Dunn R.N. 03/09/18 21:30: 1900 - Pt turned to high left side. Intermittent weak cough. No current seizure activity. Original Note: 1744 - Pt to room from ER. Intermittent seizure type activity. Rythmic motion to the head and shoulders with eye deviation to the right. MD at bedside. 4mg of ativan given in ER prior to transfer. Seizure pads. Positioned for comfort. Pt family reports that pt snores when laying on back, routinely sleeps on abd r/t hip discomfort, which keeps his tongue forward and pt snores less. Currently on 6L simple mask at 98%. Discussed difficulty with abd sleeping with monitors and IV. Two IV's left hand and left forearm. LUE contracture. Family reports pt is able to say yes or no, however mostly non-verbal. Hr tachycardic 90-110.
[2018-03-10] VITALS (17 sets, daily range): BP systolic 79–148; BP diastolic 43–85; PULSE 84–124; RESP 13–42; TEMP 37.1–39; O2SAT 88–100
[2018-03-10] MEDS: PIPERACILLIN-TAZO 3.375 GM/50 ML FROZ.PIGGY IV ×2 (00:16→06:13)
--- NOTE | 2018-03-10 05:08 | PC.NURSE ---
Pts. mother does not want pt. to be turn at this time. She is aware of the consequences that a pressure ulcer could develop if pt. is left in same position for extended period of time. Pts. mother is the sole caregiver of pt.
[2018-03-10] MEDS: DEXTROSE 5% WATER 1,000 ML 100 ML IV ×2 (05:32→17:16)
[2018-03-10 05:40] LABS: Add Manual Diff / Slide Review NO; Basophils Percent Auto 0.1 % (0-2); Hematocrit 40.5 % (41-53); Hemoglobin 13.2 g/dL (13.5-17.5); Lymphocytes Percent Auto 6.4 % (25-40); Mean Corpuscular HGB Conc 32.5 % (30-36); Mean Corpuscular Hemoglobin 33.4 PG (26-34); Mean Corpuscular Volume 102.8 fL (80-100); Monocytes Percent Auto 2.7 % (3-14); Neutrophils Absolute Auto 13000 /uL (3000-5900); Neutrophils Percent Auto 90.8 % (50-75); Platelet Count 216 X10^3/uL (150-400); Red Blood Cell Count 3.94 X10^6/uL (4.5-5.9); Red Cell Distribution Width 14.6 % (11.6-14.8); White Blood Cell Count 14.3 X10^3/uL (4.5-11.0)
[2018-03-10 05:41] LABS: Blood Urea Nitrogen 34 mg/dL (9-20); Calcium 8.5 mg/dL (8.4-10.2); Carbon Dioxide 31 mmol/L (22-32); Chloride 107 mmol/L (98-107); Estimated Glomerular Filt Rate > 60.0 mL/min (>60); Glucose 148 mg/dL (70-100); HEMOLYSIS 46 (0-50); Potassium 4.5 mmol/L (3.4-5.1); Sodium 149 mmol/L (137-145)
--- NOTE | 2018-03-10 08:38 | CM.DANOTE ---
DCP: Case received, EMR reviewed. Information obtained from nurse and medical record. DCP template completed with information currently available. Patient is a 42 year old male who admitted yesterday afternoon via private vehicle, to the care of the hospitalist team. PCP: Dr. Oconnor. Payer: confirmed: Medicare/[employer] Patient came to hospital secondary to having seizures. Patient has history of congenital quadriplegia, cerebral palsey, as well as history of UTIs. Mom cares for patient at home, and is total care. Is a straight cath, has a peg tube as well. Mom sleeping at bedside, and patient in isolation at this time. Patient also has history of aspiration pneumonia. P: DCP to follow closely and offer any resources that family may need when getting close to discharge. Zamzam Almazan RN/[employer] President
[2018-03-10] MEDS: LORazepam 2 MG/ML SYRINGE 0.5 MG IV ×2 (08:49→22:25)
--- NOTE | 2018-03-10 11:16 | PM.PN.1 ---
Subjective Date Patient Seen: 03/10/18 Time Patient Seen: 11:16 Interval history: He has not had any seizures over the last 12 hr. His mother is at the bedside who is been caring for him diligently. Exam Vital Signs (past 8 hours): - 03/10/18 04:09 03/10/18 05:00 03/10/18 06:00 Temperature 99.0 F Pulse Rate 103 H 99 H 102 H Respiratory Rate 36 H 25 H 36 H Blood Pressure 104/62 105/65 104/59 L Pulse Oximetry 95 95 96 03/10/18 07:29 03/10/18 08:00 03/10/18 09:00 Temperature Pulse Rate 109 H 104 H 106 H Respiratory Rate 30 H 34 H 28 H Blood Pressure 101/60 99/65 107/60 Pulse Oximetry 95 94 94 03/10/18 10:00 03/10/18 10:53 Temperature Pulse Rate 104 H Respiratory Rate 34 H Blood Pressure 102/63 Pulse Oximetry 94 96 Oxygen Delivery Method Simple Mask Oxygen Flow Rate 6 Narrative Exam Narrative: Currently resting comfortably no active seizures. HEENT exam right pupil reactive round the left pupil unreactive and cloudy which is chronic Neck no JVD no bruit Heart tachycardic Lungs coarse breath sounds throughout Abdomen to PEG tube in place site clean and dry decreased bowel sounds but present Extremities no edema Neurological functional quadriplegia with contractures of upper and lower extremities Skin warm and dry Objective Labs Result Diagrams: 03/10/18 04:48 03/10/18 04:48 Labs: Laboratory Results - last 24 hr 03/09/18 03/09/18 03/09/18 14:34 14:34 14:34 WBC 18.6 H RBC 4.72 Hgb 15.9 Hct 50.0 MCV 106.0 H MCH 33.7 MCHC 31.7 RDW 15.3 H Plt Count 355 Neut % (Auto) 78.5 H Lymph % (Auto) 15.0 L [place] % (Auto) 6.3 Eos % (Auto) 0.0 L Baso % (Auto) 0.2 Neut # (Auto) 60397 H Sodium 158 H Potassium 4.1 Chloride 107 Carbon Dioxide 24 BUN 47 H Creatinine 1.20 Estimated GFR > 60.0 BUN/Creatinine Ratio 39.2 H Glucose 149 H Lactate Calcium 10.0 Magnesium 2.6 H Total Bilirubin 0.3 AST 36 ALT 16 L Alkaline Phosphatase 73 Total Protein 9.3 H Albumin 5.0 Globulin 4.3 H Albumin/Globulin Ratio 1.2 Procalcitonin 0.06 Prolactin 11.6 Urine RBC Urine WBC Ur Squamous Epith Cells Urine Bacteria Ur Culture Indicated? Micro UA Comment Nasal Screen MRSA (PCR) 03/09/18 03/09/18 03/09/18 14:34 15:28 18:00 WBC RBC Hgb Hct MCV MCH MCHC RDW Plt Count Neut % (Auto) Lymph % (Auto) [place] % (Auto) Eos % (Auto) Baso % (Auto) Neut # (Auto) Sodium Potassium Chloride Carbon Dioxide BUN Creatinine Estimated GFR BUN/Creatinine Ratio Glucose Lactate 13.4 H Calcium Magnesium Total Bilirubin AST ALT Alkaline Phosphatase Total Protein Albumin Globulin Albumin/Globulin Ratio Procalcitonin Prolactin Urine RBC 5-10/hpf H Urine WBC 10-30/hpf H Ur Squamous Epith Cells 0-1 /hpf Urine Bacteria Moderate (10-30) H Ur Culture Indicated? Specimen cultured Micro UA Comment Not Reportable Nasal Screen MRSA (PCR) Positive for mrsa H 03/09/18 03/10/18 03/10/18 19:02 04:48 04:48 WBC 14.3 H RBC 3.94 L Hgb 13.2 L Hct 40.5 L MCV 102.8 H D MCH 33.4 MCHC 32.5 RDW 14.6 Plt Count 216 Neut % (Auto) 90.8 H Lymph % (Auto) 6.4 L [place] % (Auto) 2.7 L Eos % (Auto) 0.0 L Baso % (Auto) 0.1 Neut # (Auto) 37480 H Sodium 149 H Potassium 4.5 Chloride 107 Carbon Dioxide 31 BUN 34 H Creatinine 1.00 Estimated GFR > 60.0 BUN/Creatinine Ratio 34.0 H Glucose 148 H Lactate 1.2 Calcium 8.5 Magnesium Total Bilirubin AST ALT Alkaline Phosphatase Total Protein Albumin Globulin Albumin/Globulin Ratio Procalcitonin Prolactin Urine RBC Urine WBC Ur Squamous Epith Cells Urine Bacteria Ur Culture Indicated? Micro UA Comment Nasal Screen MRSA (PCR) 03/10/18 04:48 WBC RBC Hgb Hct MCV MCH MCHC RDW Plt Count Neut % (Auto) Lymph % (Auto) [place] % (Auto) Eos % (Auto) Baso % (Auto) Neut # (Auto) Sodium Potassium Chloride Carbon Dioxide BUN Creatinine Estimated GFR BUN/Creatinine Ratio Glucose Lactate Calcium Magnesium Total Bilirubin AST ALT Alkaline Phosphatase Total Protein Albumin Globulin Albumin/Globulin Ratio Procalcitonin 0.10 Prolactin Urine RBC Urine WBC Ur Squamous Epith Cells Urine Bacteria Ur Culture Indicated? Micro UA Comment Nasal Screen MRSA (PCR) Assessment & Plan Plan: Assessment/Plan Narrative: 1. Sepsis due to aspiration pneumonia: Chest x-ray showing right apical opacities consistent with consolidation. He does have a history consistent with aspiration pneumonia with the vomiting. Plan to switch him to Unasyn antibiotic rankin continue an and oxygen as needed. 2. Status epilepticus secondary to sepsis: He did get a loading dose of fosphenytoin on the 09 of March he has had no seizures since then. The plan today is to put him back on his valproic acid. The level of valproic acid pending still 3. Hypernatremia, probably acute due to volume depletion: Also possible secondary cause of his acute seizures. Started on D5W at 100 cc/hour to gradually lower his serum sodium. Sodium mildly improved plan to continue D5W 4. DVT prophylaxis: Low-dose Lovenox 5. Code status: Full Code, per mom who is POA. 6. History of urinary retention: Boggs catheter in the hospital. Patient gets catheterized at home. 7. Urinary tract infection also possibly contributing to the sepsis. His urine growing out a gram-negative bacillus. Plan to watch for cultures continue current antibiotic the Unasyn 8. Nutrition plan to cautiously start him back on his home tube feeding regimen 9. Functional quadriplegia due to the cerebral palsy Patient is critically ill due to sepsis, status epilepticus, with high risk of deterioration and mortality. Total time of 60 min in ICU Critical Care Floor management. Time Spent With Patient Time with patient: 25 - 35 minutes
[2018-03-10] MEDS: AMPICILLIN/SULBACTAM 3 GM 3 GM in SODIUM CHLORIDE 0.9% 100 ML IV ×3 (12:02→23:19)
[2018-03-10] MEDS: ENOXAPARIN 40 MG/0.4 ML SYRINGE SUBCUT (12:02)
[2018-03-10] MEDS: VALPROIC ACID 250 MG/5 ML UDC 375 MG PO (12:02)
[2018-03-10] MEDS: ONDANSETRON 4 MG/2 ML INJ IV (12:29)
--- NOTE | 2018-03-10 13:56 | DIET.PN ---
Met w/mom who I've worked with in past. Mom is sole caregiver. Has lost wt w/not being able to eat for 2 days and has difficulty putting wt back on. Up until now has been able to maintain wt at about 90-100# w/PEG tube feedings (Nutren 2.0) plus PO intake. Is not able to take enough PO nutrition to meet needs. Wt: 81# (37kg) Lowest Wt: 74# BMI: 16 Wt Goal: 90-100# Assessment: Mom managing PEG feedings and very knowledgeable of pt's needs. Bringing in Nutren 2.0 for PEG feedings as well as some foods for PO intake. Intervention: Offered nutrition services; foods from kitchen - mom denies need plan: monitor for changes in status.
--- NOTE | 2018-03-10 14:41 | PC.NURSE ---
pt tolerates being turned prone as he does at home - staff turned with ease due to his size and his hr decreases and spo2 increased- skin looking good
[2018-03-10] MEDS: VALPROIC ACID 250 MG/5 ML UDC 500 MG PO (19:16)
--- NOTE | 2018-03-10 23:34 | PC.NURSE ---
rui note per family, pt usually sleeps prone with head turned to right. Pt found in this position. Turned pt to right side for assessment and care. Pt's RR up to 32, pt restless. Pt returned to prone position. later, pt turned to left side for care and he tolearated this positioning. Oral care done and some phegm removed after pt coughed during position change. Sister and/or mother at bedside assisting in pt's care.
[2018-03-11] VITALS (11 sets, daily range): BP systolic 88–131; BP diastolic 49–76; PULSE 90–105; RESP 16–28; TEMP 37.2–37.9; O2SAT 91–97
[2018-03-11] MEDS: DEXTROSE 5% WATER 1,000 ML 100 ML IV (04:40)
[2018-03-11] MEDS: AMPICILLIN/SULBACTAM 3 GM 3 GM in SODIUM CHLORIDE 0.9% 100 ML IV ×2 (04:40→09:56)
[2018-03-11 05:31] LABS: Add Manual Diff / Slide Review NO; Basophils Percent Auto 0.2 % (0-2); Eosinophils Percent Auto 0.1 % (2-4); Hematocrit 39.1 % (41-53); Hemoglobin 12.8 g/dL (13.5-17.5); Lymphocytes Percent Auto 10.4 % (25-40); Mean Corpuscular HGB Conc 32.7 % (30-36); Mean Corpuscular Hemoglobin 33.1 PG (26-34); Mean Corpuscular Volume 101.1 fL (80-100); Monocytes Percent Auto 2.4 % (3-14); Neutrophils Absolute Auto 13400 /uL (3000-5900); Neutrophils Percent Auto 86.9 % (50-75); Platelet Count 192 X10^3/uL (150-400); Red Blood Cell Count 3.87 X10^6/uL (4.5-5.9); Red Cell Distribution Width 14.3 % (11.6-14.8); White Blood Cell Count 15.4 X10^3/uL (4.5-11.0)
[2018-03-11 05:36] LABS: Alanine Aminotransferase 24 IU/L (21-72); Albumin 3.3 g/dL (3.5-5.0); Albumin Globulin Ratio 1.1 (1.0-2.8); Alkaline Phosphatase 55 U/L (38-126); Aspartate Aminotransferase 43 IU/L (17-59); BUN Creatinine Ratio 28.8 (6-22); Bilirubin Total 0.3 mg/dL (0.2-1.3); Blood Urea Nitrogen 23 mg/dL (9-20); Calcium 8.3 mg/dL (8.4-10.2); Carbon Dioxide 34 mmol/L (22-32); Chloride 100 mmol/L (98-107); Estimated Glomerular Filt Rate > 60.0 mL/min (>60); Glucose 146 mg/dL (70-100); HEMOLYSIS < 15 (0-50); Potassium 3.9 mmol/L (3.4-5.1); Sodium 142 mmol/L (137-145); Total Protein 6.3 g/dL (6.3-8.2)
[2018-03-11] MEDS: ENOXAPARIN 40 MG/0.4 ML SYRINGE SUBCUT (09:48)
[2018-03-11] MEDS: VALPROIC ACID 250 MG/5 ML UDC 375 MG PO (09:48)
[2018-03-11] MEDS: LORazepam 2 MG/ML SYRINGE 0.5 MG IV (09:57)
--- NOTE | 2018-03-11 10:26 | P.PN_ITS ---
Subjective Date Patient Seen: 03/11/18 Time Patient Seen: 10:20 Interval history: No seizures reported Exam Vital Signs (past 8 hours): - 03/11/18 05:00 03/11/18 05:48 03/11/18 05:52 Temperature 99.4 F Pulse Rate 99 H 94 H Respiratory Rate 26 H 27 H Blood Pressure 107/58 L Pulse Oximetry 97 95 92 03/11/18 09:49 Temperature 99.1 F Pulse Rate 90 Respiratory Rate 20 Blood Pressure 109/59 L Pulse Oximetry 97 Oxygen Delivery Method Simple Mask Oxygen Flow Rate 8 Narrative Exam Narrative: He has been afebrile he has been having normal saturations off of the oxygen this morning is currently not using oxygen and he is down about 95 % on room room air on saturation. He is more awake Exam Narrative: Currently resting comfortably no active seizures. HEENT exam right pupil reactive round the left pupil unreactive and cloudy which is chronic Neck no JVD no bruit Heart regular rhythm Lungs mild scattered rhonchi Abdomen to PEG tube in place site clean and dry decreased bowel sounds but present Extremities no edema Neurological functional quadriplegia with contractures of upper and lower extremities Skin warm and dry Objective Labs Result Diagrams: 03/11/18 04:45 03/11/18 04:45 Labs: Laboratory Results - last 24 hr 03/11/18 03/11/18 04:45 04:45 WBC 15.4 H RBC 3.87 L Hgb 12.8 L Hct 39.1 L MCV 101.1 H MCH 33.1 MCHC 32.7 RDW 14.3 Plt Count 192 Neut % (Auto) 86.9 H Lymph % (Auto) 10.4 L [place] % (Auto) 2.4 L Eos % (Auto) 0.1 L Baso % (Auto) 0.2 Neut # (Auto) 36971 H Sodium 142 Potassium 3.9 Chloride 100 Carbon Dioxide 34 H BUN 23 H Creatinine 0.80 Estimated GFR > 60.0 BUN/Creatinine Ratio 28.8 H Glucose 146 H Calcium 8.3 L Total Bilirubin 0.3 AST 43 ALT 24 Alkaline Phosphatase 55 Total Protein 6.3 Albumin 3.3 L Globulin 3.0 Albumin/Globulin Ratio 1.1 Assessment & Plan Plan: Assessment/Plan Narrative: 1. Sepsis due to aspiration pneumonia: Chest x-ray showing right apical opacities consistent with consolidation. He does have a history consistent with aspiration pneumonia with the vomiting. This has improved oxygenation is improving. He has been afebrile. The urine culture grew out enterobacter species that seems to be resistant to ampicillin it was tested against Augmentin and was resistance so I assume it is probably resistant to Unasyn so we will change antibiotic to cover both the aspiration pneumonia and urinary infection with moxifloxacin 2. Status epilepticus secondary to sepsis: He did get a loading dose of fosphenytoin on the 09 of March he has had no seizures since then. He is back on the oral valproic acid and he has had no fever no more seizures. The initial level still pending 3. Hypernatremia, probably acute due to volume depletion: Also possible secondary cause of his acute seizures. Sodium is now back to normal plan to cut back his IV fluids 4. DVT prophylaxis: Low-dose Lovenox 5. Code status: Full Code, per mom who is POA. 6. History of urinary retention: Boggs catheter in the hospital. Patient gets catheterized at home. 7. Urinary tract infection also possibly contributing to the sepsis. Enterobacter species resistant to Augmentin plan to switch him to moxifloxacin 8. Nutrition continue the tube feedings we are increasing the amount mother notes that he got a 1000 calories yesterday. 9. Functional quadriplegia due to the cerebral palsy Patient is critically ill due to sepsis, status epilepticus, with high risk of deterioration and mortality. Total time of 60 min in ICU Critical Care Floor management.
[2018-03-11] MEDS: Moxifloxacin 400 MG/250 ML PIGGYBACK 250 MG IV (11:16)
--- NOTE | 2018-03-11 13:51 | PC.NURSE ---
PT CAHNGED TO FLOOR CARE NO TELE- REQUIRING NO OXYGEN THIS ENTIRE SHIFT- WITH SPO2 92-97%, PT'S MOTHER FEEDING PT VIA HIS PEG TUBE AND LETTING US KNOW HOW MUCH TO DOCUMENT AMOUNTS IN OUR MEDICAL RECORD- HE IS TOLERATING INCREASED AMOUNTS OF LIQUID NUTRITION THAT HE RECEIVES AT HOME- ABOUT 240CC/ SHIFT - WISE PATENT AND DRAINING ADEQUATE AMOUNTS OF PALE YELLOW URINE- MORE INTERACTIVE THIS SHIFT COMPARED TO YESTERDAY AND NO EVIDENCE OF SEIZURE ACTIVITY
--- NOTE | 2018-03-11 17:50 | PC.NURSE ---
Addendum entered by Quin Gaston R.N. 03/11/18 21:18: Pt's mother feeding pt home tube feed formula via PEG tube. No oral intake. IVF at 40 ml/hr. PEG site leaked some watery tube feed around site. Area cleaned with soap and water, barrier cream applied. Pt tolerating being supine today. Has also tolerated both side laying positions. No discharge from meatus seen today. Original Note: rui note pt maintaining O2 sats of 93% on room air.
[2018-03-11] MEDS: VALPROIC ACID 250 MG/5 ML UDC 500 MG PO (20:16)
[2018-03-12] VITALS (15 sets, daily range): BP systolic 121–147; BP diastolic 71–92; PULSE 102–126; RESP 17–24; TEMP 36.8–38.4; O2SAT 91–97
[2018-03-12] MEDS: DEXTROSE 5% WATER 1,000 ML 40 ML IV (02:30)
[2018-03-12] MEDS: ACETAMINOPHEN 325 MG TABLET 650 MG PO ×2 (05:50→12:10)
[2018-03-12 06:02] LABS: Add Manual Diff / Slide Review NO; Basophils Percent Auto 0.2 % (0-2); Hematocrit 42.3 % (41-53); Hemoglobin 14.2 g/dL (13.5-17.5); Lymphocytes Percent Auto 14.3 % (25-40); Mean Corpuscular HGB Conc 33.6 % (30-36); Mean Corpuscular Hemoglobin 33.5 PG (26-34); Mean Corpuscular Volume 99.8 fL (80-100); Monocytes Percent Auto 4.6 % (3-14); Neutrophils Absolute Auto 12100 /uL (3000-5900); Neutrophils Percent Auto 80.9 % (50-75); Platelet Count 230 X10^3/uL (150-400); Red Blood Cell Count 4.24 X10^6/uL (4.5-5.9); Red Cell Distribution Width 13.8 % (11.6-14.8); White Blood Cell Count 14.9 X10^3/uL (4.5-11.0)
--- NOTE | 2018-03-12 06:08 | PC.NURSE ---
Pt. had 60 ml. of pureed pea soup last night and 120 ml of Nutrem this am per pts. mom. Pt. also mostly on prone position last night per pt's. mom discretion since she is pts. food services manager for the last 40 yrs. Repositioned pt. to semi fowlers this am. Pts. skin is intact. Temp this am is 101.2 axillary, 650 mg. of tylenol administered via pts. pegtube since pt. is NPO. Will reassess pts. temp., WBC this am is 14.9 and pt. is on Levaquin.
[2018-03-12] MEDS: levoFLOXacin 500 MG/100 ML PIGGYBACK 100 MG IV (11:18)
[2018-03-12] MEDS: ENOXAPARIN 40 MG/0.4 ML SYRINGE SUBCUT (11:18)
[2018-03-12] MEDS: VALPROIC ACID 250 MG/5 ML UDC 375 MG PO (11:19)
--- NOTE | 2018-03-12 11:30 | P.PN_ITS ---
Subjective Date Patient Seen: 03/12/18 Time Patient Seen: 11:26 Exam Vital Signs (past 8 hours): - 03/12/18 05:23 03/12/18 05:50 03/12/18 06:33 Temperature 100.5 F H 101.2 F H 100.8 F H Pulse Rate 110 H 119 H Respiratory Rate 19 Blood Pressure 131/71 Pulse Oximetry 92 93 03/12/18 08:00 Temperature 98.2 F Pulse Rate 123 H Respiratory Rate 17 Blood Pressure 141/77 H Pulse Oximetry 91 Oxygen Delivery Method Room Air Oxygen Flow Rate 0 Narrative Exam Narrative: Resting comfortably actually lying on his stomach. Mother feels that he is still little groggy less responsive than he usually is. She states that he got in about a 1000 calories yesterday HEENT exam the pupillary changes as noted before Lungs much more clear today Heart tachycardic Neuro exam he does have the contractures which are chronic for him for the cerebral pars palsy. No change there Objective Labs Result Diagrams: 03/12/18 05:32 03/11/18 04:45 Labs: Laboratory Results - last 24 hr 03/12/18 05:32 WBC 14.9 H RBC 4.24 L Hgb 14.2 Hct 42.3 MCV 99.8 MCH 33.5 MCHC 33.6 RDW 13.8 Plt Count 230 Neut % (Auto) 80.9 H Lymph % (Auto) 14.3 L [place] % (Auto) 4.6 Eos % (Auto) 0.0 L Baso % (Auto) 0.2 Neut # (Auto) 58210 H Assessment & Plan Plan: Assessment/Plan Narrative: 1. Sepsis due to aspiration pneumonia: Chest x-ray showing right apical opacities consistent with consolidation. He does have a history consistent with aspiration pneumonia with the vomiting. Clinically improving. Plan to stop the Avelox and switch him to Levaquin for better urinary coverage 2. Status epilepticus secondary to sepsis: He did get a loading dose of fosphenytoin on the 09 of March he has had no seizures since then. Now back on the valproic acid has had no seizures. The initial level that was drawn on admission still pending 3. Hypernatremia, probably acute due to volume depletion: Resolved plan to stop IV fluids 4. DVT prophylaxis: Low-dose Lovenox 5. Code status: Full Code, per mom who is POA. 6. History of urinary retention: Boggs catheter in the hospital. Patient gets catheterized at home. 7. Urinary tract infection also possibly contributing to the sepsis. Secondary to enterobacter we are switching him from the Avelox back to Levaquin for better urinary coverage. He is having some fevers over the last 12 hr so probably this needs to be treated aggressively as a pathogen. 8. Nutrition plan to cautiously start him back on his home tube feeding regimen and avoid diet as tolerated taking more orals. 9. Functional quadriplegia due to the cerebral palsy 10. Oral thrush plan to place him on nystatin 11. Cerebral palsy with muscle contractures plan to place him back on Klonopin and baclofen and the mirtazapine as at home.
--- NOTE | 2018-03-12 11:52 | PC.NURSE ---
Addendum entered by Blair Oliva R.N. 03/12/18 13:48: Report called to acute care RN. Pt transferring to 208. Original Note: Addendum entered by Blair Oliva R.N. 03/12/18 13:36: Pt has been resting comfortably since tylenol administration. Reassessed axillary temp at 99.2. No further myoclonic activity per mother. None observed by this nurse. Original Note: Addendum entered by Blair Oliva R.N. 03/12/18 12:31: 1210- Mother reports myoclonic seizure. Observed mild jerking/tremor to bilat upper thigh through bilat knee. SPO2 95% on RA, HR 110, BP 147/84, T 100.9 Axillary. Gave clonazepam per tube and then administered tylenol per tube. Will monitor. Original Note: Pt's mother (caregiver) at bedside during rounds with Dr. Perez. Dr. Perez states he will resume home medications according to home dose and schedule. Dr. Perez states pt may take PO and Per tube as tolerated. Pt's mother administered pt his home meds per tube from blister packs that were at bedside. Educated her that meds available through our pharmacy must be supplied by our pharmacy per policy. She verbalizes understanding and agrees not to administer home meds. I just wanted to get those in him. Will monitor.
[2018-03-12] MEDS: clonazePAM 0.5 MG TABLET 1.5 MG PO ×2 (12:06→20:16)
[2018-03-12] MEDS: NYSTATIN 500000 UNIT PO ×3 (12:08→20:13)
[2018-03-12 14:14] LABS: Valproic Acid (Depakene) Total 42.3 mg/L (50.0-100.0)
[2018-03-12] MEDS: VALPROIC ACID 250 MG/5 ML UDC 500 MG PO (16:37)
[2018-03-12] MEDS: ACETAMINOPHEN SUSP 650 MG/20.3 ML UDC PO ×2 (16:37→20:10)
[2018-03-12] MEDS: BACLOFEN 10 MG TABLET PO (16:41)
[2018-03-12] MEDS: LATANOPROST 0.005% OPHTH 2.5 ML 1 DROPS EYE-BOTH (20:13)
[2018-03-12] MEDS: TAMSULOSIN 0.4 MG CAPSULE PO (20:13)
[2018-03-12] MEDS: BACLOFEN 10 MG TABLET 5 MG PO (20:13)
[2018-03-12] MEDS: MIRTAZAPINE 15 MG TABLET PO (20:13)
[2018-03-12] MEDS: DEXTROSE 5%-0.45% NS 1,000 ML 65 ML IV (20:16)
--- NOTE | 2018-03-12 22:19 | PC.NURSE ---
SHIFT NOTE lethargic, occasionally responds to verbal stimuli (will nod yes to simple questions asked by mom). received pt with low-grade temp of 100.5F, tachycardic with HR in 120-130's, and slightly tachypneic with RR in 22-24. breath sounds with rhonchi throughout. Administered PRN tylenol with no effect. applied cooling measures (removed blankets and placed ice pack) also ineffective. Notified MD and received orders to restart IVF. pt's mother very involved with pt's care, prefers to administer TF and medications. during 1999 TF/med administration, pt with increased workload of breathing and with moist cough, pt's mother seen administering oral care using thin water and toothbrush. Pt desat to 84-85% and HR increased to 140's. pt orally suctioned by this RN via yan[place]ur and pt's mother asked to allow pt to rest to catch his breath to allow O2 sats to increase and HR to decrease. pt unable to bring sats up, 12L O2 applied via simple mask by RT with spO2 eventually increasing to 95% but respirations remained tachy and breath sounds with rhonchi throughout. pt's mother insisting pt be placed in prone position to help with breathing even with this RN voicing concern for pt's current status. had a meeting with RN coordinator to discuss mother's wishes. agreed to attempt to put pt in prone position, mother agreeable that if pt's respiratory/O2 status does not improve or HR increases, that pt will be placed back in semi-melgar position. pt current resting comfortably with sPo2 at 97% on 10L O2 and HR at 107. will continue to monitor.
[2018-03-13] VITALS (10 sets, daily range): BP systolic 132–145; BP diastolic 79–91; PULSE 92–126; RESP 16–19; TEMP 37.2–37.9; O2SAT 94–96
--- NOTE | 2018-03-13 | DI.RAD.S_ITS ---
PROCEDURE: XR CHEST 1V INDICATIONS: f/u pneumonia TECHNIQUE: One view of the chest was acquired. COMPARISON: [facility], , XR CHEST 1V, 03/09/2018, 15:14. FINDINGS: Surgical changes and devices: Extensive fixation hardware throughout the visualized thoracic and upper lumbar spine is seen. Lungs and pleura: No pleural effusions or pneumothorax. Ill-defined increased opacity in right lower lung field is seen suspicious for right lower lobe infiltrate. Left lung is clear. Mediastinum: Mediastinal contours appear normal. Heart size is normal. Bones and chest wall: No suspicious bony lesions. Overlying soft tissues appear unremarkable. IMPRESSION: Findings concerning for right lower lobe infiltrate. Dictated by: Joshua Sapp M.D. on 03/13/2018 at 13:25 Approved by: Joshua Sapp M.D. on 03/13/2018 at 13:26
[2018-03-13] MEDS: DEXTROSE 5%-0.45% NS 1,000 ML 65 ML IV (10:04)
[2018-03-13] MEDS: ENOXAPARIN 40 MG/0.4 ML SYRINGE SUBCUT (10:56)
[2018-03-13] MEDS: levoFLOXacin 500 MG/100 ML PIGGYBACK 100 MG IV (10:56)
[2018-03-13] MEDS: ACETAMINOPHEN SUSP 650 MG/20.3 ML UDC PO ×2 (11:12→20:55)
[2018-03-13] MEDS: NYSTATIN 500000 UNIT PO ×4 (11:13→20:55)
[2018-03-13] MEDS: BACLOFEN 10 MG TABLET 5 MG PO ×2 (11:13→20:55)
[2018-03-13] MEDS: PANTOPRAZOLE 40 MG VIAL 20 MG IV (11:13)
[2018-03-13] MEDS: MELOXICAM 7.5 MG TABLET 15 MG PO (11:13)
[2018-03-13] MEDS: VALPROIC ACID 250 MG/5 ML UDC 375 MG PO (11:14)
[2018-03-13] MEDS: clonazePAM 0.5 MG TABLET 1.5 MG PO ×2 (11:18→20:59)
--- NOTE | 2018-03-13 13:18 | PM.PN.1 ---
Subjective Date Patient Seen: 03/13/18 Time Patient Seen: 13:18 Interval history: Patient is slightly drowsy. He appears to be comfortable. He currently is satting 96% on room air. His heart rate is 116. His mother said he is heart rate is usually around 110 at home. Exam Vital Signs (past 8 hours): - 03/13/18 08:00 03/13/18 11:12 Temperature 99.4 F 99.4 F Pulse Rate 104 H Respiratory Rate 18 Blood Pressure 132/80 Pulse Oximetry 95 Oxygen Delivery Method Room Air Oxygen Flow Rate 0 Narrative Exam Narrative: General: Thin middle-aged man in no acute distress. He appears to be lethargic. : Slightly coarse breath sound bilaterally Heart: Tachycardic, no murmur appreciated Abdomen: Soft, nontender Neuro: Lethargic, muscle atrophy from cerebral palsy and contractures which is chronic for him secondary to his cerebral palsy. Objective Labs Result Diagrams: 03/12/18 05:32 03/11/18 04:45 Assessment & Plan Plan: Assessment/Plan Narrative: 1. Sepsis due to aspiration pneumonia: Chest x-ray showing right apical opacities consistent with consolidation. He does have a history consistent with aspiration pneumonia with the vomiting. Clinically improving with improvement of oxygenation and tachycardia. Plan to continue Levaquin. Recheck chest x-ray today 2. Status epilepticus secondary to sepsis: He did get a loading dose of fosphenytoin on the 09 of March he has had no seizures since then. Now back on the valproic acid has had no seizures. The initial level that was drawn on admission still pending 3. Urinary tract infection: Urine culture grew enterobacter. Continue IV Levaquin 4. Hypernatremia, probably acute due to volume depletion: Resolved after IV hydration. 5. DVT prophylaxis: Low-dose Lovenox 6. Disposition: Possible discharge home tomorrow if he continues to improve. 5. Code status: Full Code, per mom who is POA. 6. History of urinary retention: Boggs catheter in the hospital. Patient gets catheterized at home. 7. Urinary tract infection also possibly contributing to the sepsis. Secondary to enterobacter we are switching him from the Avelox back to Levaquin for better urinary coverage. He is having some fevers over the last 12 hr so probably this needs to be treated aggressively as a pathogen. 8. Nutrition plan to cautiously start him back on his home tube feeding regimen and avoid diet as tolerated taking more orals. 9. Functional quadriplegia due to the cerebral palsy 10. Oral thrush plan to place him on nystatin 11. Cerebral palsy with muscle contractures plan to place him back on Klonopin and baclofen and the mirtazapine as at home.
[2018-03-13] MEDS: BACLOFEN 10 MG TABLET PO (14:25)
--- NOTE | 2018-03-13 14:50 | PC.NURSE ---
Day Shift- Pt's mother Shara is primary caregiver in pt's room, She performs tube feedings, Med crushed by this law writer and observed Shara giving through PEG tube. Pt repositioned several times this AM by law writer and Shara, Pt sat on side of bed while Shara held Josh in front of her. Pt sat for approx 15-20 mins. IVF infusing well to left hand PIV. No seizure activity noted. Pt attempted to have liquids by mouth and after 1 sip pt had severe coughing episode. No further liquids by mouth. HR regular and 104bpm upon auscultation. Pt has anterior upper lobe coarseness and exp rhonchi. Posterior diminished with exp rhonchi. Pt/Shara has service dog in room throughout day. AM PEG TF around 1130 was liquid food/fluid volume/water flush in was a total of 240mls and approx 350 calories. Next TF around 1430 was 240 volume in and approx 160 calories.
--- NOTE | 2018-03-13 15:40 | CM.DPC ---
DCP: met at length yesterday with pt's Shara as she was caring for pt in the ICU room (pt today has moved to room 208). Confirmed the plan for a return to home with Shara's continued care. Shara says she is currently having a disagreement with the home care agency but we will work it out. She admits she is fiercely protective of pt and we have our own way of doing things.. P: home when stable for same...anticipate Shara will transport as per her usual process.
[2018-03-13] MEDS: MIRTAZAPINE 15 MG TABLET PO (20:54)
[2018-03-13] MEDS: VALPROIC ACID 250 MG/5 ML UDC 500 MG PO (20:55)
[2018-03-13] MEDS: TAMSULOSIN 0.4 MG CAPSULE PO (20:56)
[2018-03-13] MEDS: LATANOPROST 0.005% OPHTH 2.5 ML 1 DROPS EYE-BOTH (20:56)
--- NOTE | 2018-03-13 21:59 | PC.NURSE ---
SHIFT NOTE drowsy but more vocal (will occasional moan/groan/laugh) today compared to yesterday evening. respirations unlabored. breath sounds continue to have rhonchi intermittently. HR in 100-120's. Pt placed in wheelchair at approximately 2200 and mother noticed some myclonic ticks initially to RUE but only lasted briefly. mother remains at bedside to assist with care and TF/med administration.
[2018-03-14] VITALS (8 sets, daily range): BP systolic 123–142; BP diastolic 75–95; PULSE 109–124; RESP 16–22; TEMP 36.8–38.7; O2SAT 95–96
[2018-03-14] MEDS: DEXTROSE 5%-0.45% NS 1,000 ML 65 ML IV (02:43)
--- NOTE | 2018-03-14 02:46 | PC.NURSE ---
Shift: Pt mothers at bedside and doing almost all of pt's care including turning and transferring him. Pt to bed at beginning of shift in the prone position. Offered assistance to mother and she makes pt's needs known readily.
[2018-03-14] MEDS: levoFLOXacin 500 MG/100 ML PIGGYBACK 100 MG IV (11:32)
--- NOTE | 2018-03-14 12:07 | PM.PN.1 ---
Subjective Date Patient Seen: 03/14/18 Time Patient Seen: 11:45 Interval history: Patient had low-grade temp up to 100.3 last night. His mother has noticed some mild chronic contractions yesterday. Exam Vital Signs (past 8 hours): - 03/14/18 08:00 Temperature 98.2 F Pulse Rate 109 H Respiratory Rate 18 Blood Pressure 138/90 Pulse Oximetry 96 Oxygen Delivery Method Room Air Oxygen Flow Rate 0 Narrative Exam Narrative: General: Thin middle-aged man in no acute distress. He appears to be lethargic. Lungs: Slightly coarse breath sound bilaterally Heart: Tachycardic, no murmur appreciated Abdomen: Soft, nontender Neuro: Lethargic, muscle atrophy from cerebral palsy and contractures which is chronic for him secondary to his cerebral palsy. Objective Labs Result Diagrams: 03/12/18 05:32 03/11/18 04:45 Assessment & Plan Plan: Assessment/Plan Narrative: 1. Sepsis due to aspiration pneumonia: Chest x-ray from March 13, 2018 showed right lower lobe infiltrate. He did have history of vomiting prior to the onset of pneumonia. Clinically improving with improvement of oxygenation and tachycardia. Plan to continue Levaquin. 2. Status epilepticus secondary to sepsis: He did get a loading dose of fosphenytoin on the 09 of March he has had no seizures since then. Now back on the valproic acid has had no seizures. Valproic acid level on March 09, 2018 was 42.3, which was low. The normal range was 50-100 mg/L. We will draw another the valproic acid level tomorrow morning. 3. Urinary tract infection: Urine culture grew enterobacter. Continue IV Levaquin 4. Hypernatremia, probably acute due to volume depletion: Resolved after IV hydration. He is on D5 half normal saline at 65 cc an hour. Recheck electrolytes in the morning. 5. DVT prophylaxis: on Low-dose Lovenox 6. History of urinary retention: Boggs catheter in the hospital. Patient gets catheterized at home. 7. Nutrition: He is on tube feeding with nutritional supplements. 8. Functional quadriplegia due to the cerebral palsy 9. Oral thrush continue nystatin 10. Cerebral palsy with muscle contractures continue Klonopin and baclofen and the mirtazapine as at home. 11. Disposition: Possible discharge home tomorrow if he continues to improve. 12. Code status: Full Code, per mom who is POA.
[2018-03-14] MEDS: VALPROIC ACID 250 MG/5 ML UDC 375 MG PO (12:36)
[2018-03-14] MEDS: PANTOPRAZOLE 40 MG VIAL 20 MG IV (12:36)
[2018-03-14] MEDS: NYSTATIN 500000 UNIT PO (12:37)
[2018-03-14] MEDS: ACETAMINOPHEN SUSP 650 MG/20.3 ML UDC PO ×2 (12:37→22:54)
[2018-03-14] MEDS: MELOXICAM 7.5 MG TABLET 15 MG PO (12:38)
[2018-03-14] MEDS: clonazePAM 0.5 MG TABLET 1.5 MG PO ×2 (12:38→22:54)
[2018-03-14] MEDS: BACLOFEN 10 MG TABLET 5 MG PO ×2 (12:38→22:54)
[2018-03-14] MEDS: ENOXAPARIN 40 MG/0.4 ML SYRINGE SUBCUT (12:38)
[2018-03-14] MEDS: PIPERACILLIN-TAZO 3.375 GM/50 ML FROZ.PIGGY IV ×2 (13:51→21:29)
--- NOTE | 2018-03-14 14:23 | PC.NURSE ---
day shift was helping mother clean and reposition pt in bed. took temp and was 101.7 axillary. notified MD and started new IV abx and blood cultures obtained. pt remained in bed, sleepy this shift.
[2018-03-14] MEDS: VANCOMYCIN 1,000 MG/200 ML FROZ.PIGGY 200 MG IV ×2 (14:29→22:34)
--- NOTE | 2018-03-14 14:32 | CM.DPC ---
DCP Cont: Checked in with patient and his mother. Patient's eyes open. Mother stated that there was not anything she needed at this time. Did not voice any concerns of when patient is to be discharged at this time. Introduced self, and put name on white board if she has any questions, as patient gets closer to discharge. P: DCP to continue to follow closely, and offer any resources that patient's mom may need. Zamzam Almazan RN/Filler In
[2018-03-14] MEDS: VALPROIC ACID 250 MG/5 ML UDC 500 MG PO (19:08)
[2018-03-14] MEDS: MIRTAZAPINE 15 MG TABLET PO (22:55)
[2018-03-14] MEDS: TAMSULOSIN 0.4 MG CAPSULE PO (22:55)
[2018-03-14] MEDS: LATANOPROST 0.005% OPHTH 2.5 ML 1 DROPS EYE-BOTH (22:55)
--- NOTE | 2018-03-15 02:52 | PC.NURSE ---
shift note- pt has been sleeping most of the shift. Has called out a couple of times when being moved. Mother roaming in and does most of the care.
[2018-03-15] MEDS: PIPERACILLIN-TAZO 3.375 GM/50 ML FROZ.PIGGY IV ×3 (04:27→21:05)
[2018-03-15] MEDS: VANCOMYCIN 1,000 MG/200 ML FROZ.PIGGY 200 MG IV (06:11)
[2018-03-15 08:20] LABS: Add Manual Diff / Slide Review NO; Basophils Percent Auto 0.5 % (0-2); Eosinophils Percent Auto 1.7 % (2-4); Hematocrit 38.7 % (41-53); Hemoglobin 13.2 g/dL (13.5-17.5); Lymphocytes Percent Auto 21.8 % (25-40); Mean Corpuscular HGB Conc 34.2 % (30-36); Mean Corpuscular Hemoglobin 34.2 PG (26-34); Monocytes Percent Auto 10.3 % (3-14); Neutrophils Absolute Auto 6800 /uL (3000-5900); Neutrophils Percent Auto 65.7 % (50-75); Platelet Count 237 X10^3/uL (150-400); Red Blood Cell Count 3.87 X10^6/uL (4.5-5.9); Red Cell Distribution Width 13.9 % (11.6-14.8); White Blood Cell Count 10.4 X10^3/uL (4.5-11.0)
[2018-03-15 08:21] LABS: Blood Urea Nitrogen 18 mg/dL (9-20); Calcium 8.9 mg/dL (8.4-10.2); Carbon Dioxide 30 mmol/L (22-32); Chloride 102 mmol/L (98-107); Estimated Glomerular Filt Rate > 60.0 mL/min (>60); Glucose 112 mg/dL (70-100); HEMOLYSIS < 15 (0-50); Potassium 3.3 mmol/L (3.4-5.1); Sodium 141 mmol/L (137-145)
[2018-03-15 08:31] VITALS: BP 132/76; PULSE 107; RESP 19; TEMP 38.1; O2SAT 96
[2018-03-15] MEDS: VALPROIC ACID 250 MG/5 ML UDC 375 MG PO (10:50)
[2018-03-15] MEDS: ACETAMINOPHEN SUSP 650 MG/20.3 ML UDC PO ×2 (10:50→21:16)
[2018-03-15] MEDS: PANTOPRAZOLE 40 MG VIAL 20 MG IV (10:51)
[2018-03-15] MEDS: MELOXICAM 7.5 MG TABLET 15 MG PO (10:52)
[2018-03-15] MEDS: BACLOFEN 10 MG TABLET 5 MG PO (10:52)
[2018-03-15] MEDS: clonazePAM 0.5 MG TABLET 1.5 MG PO ×2 (10:53→21:52)
[2018-03-15] MEDS: VANCOMYCIN TROUGH 1 REQUEST MISC (14:51)
[2018-03-15 15:56] LABS: Vancomycin Trough 30.7 ug/mL (10-20)
[2018-03-15 16:00] VITALS: BP 121/81; PULSE 116; RESP 18; TEMP 37.5; O2SAT 97
--- NOTE | 2018-03-15 17:10 | P.PN_ITS ---
Subjective Date Patient Seen: 03/15/18 Interval history: Patient appears more back to his baseline usual self. Tolerating tube feeds. However, he is continuing to have mainly low-grade fevers on antibiotic therapy. Exam Vital Signs (past 8 hours): Oxygen Delivery Method Room Air Oxygen Flow Rate 0 Narrative Exam Narrative: General: At times dozing off but easily awakens Lungs: Crackles in the right lower lobe, no wheeze Heart: Regular rhythm Abdomen: Soft and nontender Extremities: No edema Neurological: At baseline with CP, has some very mild myoclonus in the right upper extremity Objective Labs Result Diagrams: 03/15/18 06:45 03/15/18 06:45 Labs: Laboratory Results - last 24 hr 03/15/18 03/15/18 03/15/18 06:45 06:45 14:10 WBC 10.4 RBC 3.87 L Hgb 13.2 L Hct 38.7 L MCV 100.0 MCH 34.2 H MCHC 34.2 RDW 13.9 Plt Count 237 Neut % (Auto) 65.7 Lymph % (Auto) 21.8 L [place] % (Auto) 10.3 Eos % (Auto) 1.7 L Baso % (Auto) 0.5 Neut # (Auto) 6800 H Sodium 141 Potassium 3.3 L Chloride 102 Carbon Dioxide 30 BUN 18 Creatinine 0.90 Estimated GFR > 60.0 BUN/Creatinine Ratio 20.0 Glucose 112 H Calcium 8.9 Vancomycin Trough 30.7 H* Assessment & Plan Plan: Assessment/Plan Narrative: 1. Sepsis due to aspiration pneumonia: Clinically improving though still has low-grade fever. WBC back to normal. Blood cultures negative. Antibiotic regimen was switched from Levaquin to vancomycin and Zosyn on 03/14/2018. I would like to reassess him after 48 hr on this antibiotic regimen. Repeat chest x-ray from March 13, 2018 showed right lower lobe infiltrate. He did have history of vomiting prior to the onset of pneumonia. 2. Status epilepticus secondary to sepsis: He received loading dose of fosphenytoin on the 09 of March and he has had no seizures since then. Now back on the valproic acid has had no seizures. Valproic acid level on March 09, 2018 was 42.3, which was low. The normal range was 50-100 mg/L. Repeat valproic acid level from 03/15/2018 is pending. 3. Urinary tract infection due to chronic urinary retention: Urine culture grew pansensitive enterobacter. This is covered by current antibiotic. 4. Hypernatremia, probably acute due to volume depletion: Resolved after IV hydration. He is on D5 half normal saline at 65 cc an hour. 5. DVT prophylaxis: Discontinued low-dose Lovenox in light of patient's quadriplegia without history of DVT 6. History of urinary retention: Boggs catheter in the hospital. Patient gets catheterized at home. 7. Nutrition: He is on tube feeding with nutritional supplements. 8. Functional quadriplegia due to the cerebral palsy. Continue patient's Klonopin, baclofen and other routine home medications. 9. Code status: Full Code, per mom who is POA. 10. Disposition: Continue inpatient care with IV antibiotics due to persistent fever.
[2018-03-15 20:01] VITALS: O2SAT 94
[2018-03-15] MEDS: LATANOPROST 0.005% OPHTH 2.5 ML 1 DROPS EYE-BOTH (21:49)
[2018-03-15] MEDS: BACLOFEN 10 MG TABLET PO (21:52)
[2018-03-15] MEDS: MIRTAZAPINE 15 MG TABLET PO (21:53)
[2018-03-15] MEDS: TAMSULOSIN 0.4 MG CAPSULE PO (21:54)
[2018-03-15] MEDS: VALPROIC ACID 250 MG/5 ML UDC 500 MG PO (21:57)
[2018-03-15] MEDS: POTASSIUM CHLORIDE 20 MEQ/15 ML UDC PO (21:58)
[2018-03-15 22:12] LABS: Vancomycin Random 21.1 ug/mL (10-40)
[2018-03-15 23:20] VITALS: BP 113/70; PULSE 106; RESP 16; TEMP 37.6; O2SAT 97
--- NOTE | 2018-03-16 | DI.RAD.S_ITS ---
PROCEDURE: XR CHEST 1V INDICATIONS: pneumonia TECHNIQUE: One view of the chest was acquired. COMPARISON: [facility], CR, XR CHEST 1V, 03/13/2018, 13:03. [facility], CR, XR CHEST 1V, 03/09/2018, 15:14. FINDINGS: Surgical changes and devices: Stable real-time with a visible fracture involving the bilateral Shipley rods with no appreciable change in angulation at the fracture planes. Lungs and pleura: No pleural effusions or pneumothorax. Lungs are clear. Mediastinum: Mediastinal contours appear normal. Heart size is normal. Bones and chest wall: No suspicious bony lesions. Overlying soft tissues appear unremarkable. IMPRESSION: Mildly reduced inspiratory volume, no pneumonia found. Bilateral Shipley rods are again seen to be fractured lower on the right than the left as has been previously the case. No change in malalignment. Dictated by: Som Green M.D. on 03/16/2018 at 12:05 Approved by: Som Green M.D. on 03/16/2018 at 12:14
[2018-03-16] MEDS: PIPERACILLIN-TAZO 3.375 GM/50 ML FROZ.PIGGY IV ×2 (05:33→12:58)
[2018-03-16] MEDS: DEXTROSE 5%-0.45% NS 1,000 ML 65 ML IV (05:37)
[2018-03-16 08:00] VITALS: BP 153/75; PULSE 109; RESP 16; TEMP 38.2; O2SAT 98
[2018-03-16 08:14] LABS: Vancomycin Random 12.5 ug/mL (10-40)
[2018-03-16 08:22] VITALS: TEMP 38.1
[2018-03-16] MEDS: PANTOPRAZOLE 40 MG VIAL 20 MG IV (10:10)
[2018-03-16] MEDS: clonazePAM 0.5 MG TABLET 1.5 MG PO ×2 (10:10→22:35)
[2018-03-16] MEDS: ACETAMINOPHEN SUSP 650 MG/20.3 ML UDC PO ×3 (10:10→22:34)
[2018-03-16] MEDS: VANCOMYCIN 1,250 MG in SODIUM CHLORIDE 0.9% 250 ML IV (10:10)
[2018-03-16] MEDS: BACLOFEN 10 MG TABLET PO ×2 (10:10→22:35)
[2018-03-16] MEDS: MELOXICAM 7.5 MG TABLET 15 MG PO (10:10)
[2018-03-16] MEDS: VALPROIC ACID 250 MG/5 ML UDC 375 MG PO (10:11)
--- NOTE | 2018-03-16 12:46 | PM.PN.1 ---
Subjective Date Patient Seen: 03/16/18 Interval history: Patient is clinically improving in that he seems more like himself. Tolerating tube feeds. However, he has persistent low-grade fever for unknown reason. Chest x-ray indicates mostly clearing of the right lower lobe infiltrate. Exam Vital Signs (past 8 hours): - 03/16/18 08:00 03/16/18 08:22 Temperature 100.7 F H 100.6 F H Pulse Rate 109 H Respiratory Rate 16 Blood Pressure 153/75 H Pulse Oximetry 98 Oxygen Delivery Method Room Air Oxygen Flow Rate 0 Narrative Exam Narrative: Exam Narrative: General: Alert Lungs: Difficult to examine, breathing nonlabored, Uncooperative with taking breaths but previously crackles right lower lobe on yesterday's exam Heart: Regular rhythm Abdomen: Soft and nontender Extremities: No edema Neurological: At baseline with CP, has some mild myoclonus in the right upper extremity Objective Labs Result Diagrams: 03/15/18 06:45 03/15/18 06:45 Labs: Laboratory Results - last 24 hr 03/15/18 03/15/18 03/16/18 14:10 21:37 07:42 Vancomycin Trough 30.7 H* Random Vancomycin 21.1 12.5 Assessment & Plan Plan: Assessment/Plan Narrative: 1. Sepsis due to aspiration pneumonia: Sepsis resolved but concerning he has persistent low-grade fever in spite of obvious clinical improvement. WBC back to normal. He is not actively coughing. Blood cultures from admission 03/09/2018 and and repeat cultures 03/14/2018 have been negative. Follow-up chest x-ray on 03/16/2018 shows mostly clearing of the right lower infiltrate with perhaps slight residual infiltrate. Antibiotic regimen was switched from Levaquin to vancomycin and Zosyn on 03/14/2018 but persistent fevers remain. He is having loose bowel movements associated with tube feeds but not true diarrhea. Ordered C.diff assay just to be sure. Differential diagnosis of fever is broad. He may have a drug associated fever secondary to 1 of the antibiotics. He has extensive hardware in his spine so possible he became transiently bacteremic and infected the rods. He does not have PICC line. Plan: Discontinue IV antibiotics. Obtain blood cultures for temp 101.5? or above. CBC, procalcitonin in a.m.. 2. Status epilepticus secondary to sepsis: He received loading dose of fosphenytoin on the 09 of March and he has had no seizures since then. Now back on the valproic acid has had no seizures. Valproic acid level on March 09, 2018 was 42.3, which was low. The normal range was 50-100 mg/L. Repeat valproic acid level from 03/15/2018 is pending. He has right upper extremity movements typical of myoclonus versus focal seizures. 3. Urinary tract infection due to chronic urinary retention: Urine culture grew pansensitive enterobacter. This should be adequately treated at this point. 4. Hypernatremia, probably acute due to volume depletion: Resolved after IV hydration. He is on D5 half normal saline at 65 cc an hour for maintenance IV. 5. DVT prophylaxis: Discontinued low-dose Lovenox in light of patient's quadriplegia without history of DVT 6. History of urinary retention: Boggs catheter in the hospital. Patient gets catheterized at home. 7. Nutrition: He is on tube feeding with nutritional supplements. 8. Functional quadriplegia due to the cerebral palsy. Continue patient's Klonopin, baclofen and other routine home medications. 9. Code status: Full Code, per mom who is POA. 10. Disposition: Continue inpatient care.
--- NOTE | 2018-03-16 12:57 | P.PN_ITS ---
Subjective Date Patient Seen: 03/16/18 Interval history: Patient is clinically improving in that he seems more like himself. Tolerating tube feeds. However, he has persistent low-grade fever for unknown reason. Chest x-ray indicates mostly clearing of the right lower lobe infiltrate. Exam Vital Signs (past 8 hours): - 03/16/18 08:00 03/16/18 08:22 Temperature 100.7 F H 100.6 F H Pulse Rate 109 H Respiratory Rate 16 Blood Pressure 153/75 H Pulse Oximetry 98 Oxygen Delivery Method Room Air Oxygen Flow Rate 0 Narrative Exam Narrative: Exam Narrative: General: Alert Lungs: Difficult to examine, breathing nonlabored, Uncooperative with taking breaths but previously crackles right lower lobe on yesterday's exam Heart: Regular rhythm Abdomen: Soft and nontender Extremities: No edema Neurological: At baseline with CP, has some mild myoclonus in the right upper extremity Objective Labs Result Diagrams: 03/15/18 06:45 03/15/18 06:45 Labs: Laboratory Results - last 24 hr 03/15/18 03/15/18 03/16/18 14:10 21:37 07:42 Vancomycin Trough 30.7 H* Random Vancomycin 21.1 12.5 Assessment & Plan Plan: Assessment/Plan Narrative: 1. Sepsis due to aspiration pneumonia: Sepsis resolved but concerning he has persistent low-grade fever in spite of obvious clinical improvement. WBC back to normal. He is not actively coughing. Blood cultures from admission 2017 and and repeat cultures 03/14/2018 have been negative. Follow-up chest x- ray on 03/16/2018 shows mostly clearing of the right lower infiltrate with perhaps slight residual infiltrate. Antibiotic regimen was switched from Levaquin to vancomycin and Zosyn on 03/14/2018 but persistent fevers remain. He is having loose bowel movements associated with tube feeds but not true diarrhea. Ordered C.diff assay just to be sure. Differential diagnosis of fever is broad. He may have a drug associated fever secondary to 1 of the antibiotics. He has extensive hardware in his spine so possible he became transiently bacteremic and infected the rods. He does not have PICC line. Plan : Discontinue IV antibiotics. Obtain blood cultures for temp 101.5? or above. CBC, procalcitonin in a.m.. 2. Status epilepticus secondary to sepsis: He received loading dose of fosphenytoin on the 09 of March and he has had no seizures since then. Now back on the valproic acid has had no seizures. Valproic acid level on March 09, 2018 was 42.3, which was low. The normal range was 50-100 mg/L. Repeat valproic acid level from 03/15/2018 is pending. He has right upper extremity movements typical of myoclonus versus focal seizures. 3. Urinary tract infection due to chronic urinary retention: Urine culture grew pansensitive enterobacter. This should be adequately treated at this point. 4. Hypernatremia, probably acute due to volume depletion: Resolved after IV hydration. He is on D5 half normal saline at 65 cc an hour for maintenance IV. 5. DVT prophylaxis: Discontinued low-dose Lovenox in light of patient's quadriplegia without history of DVT 6. History of urinary retention: Boggs catheter in the hospital. Patient gets catheterized at home. 7. Nutrition: He is on tube feeding with nutritional supplements. 8. Functional quadriplegia due to the cerebral palsy. Continue patient's Klonopin, baclofen and other routine home medications. 9. Code status: Full Code, per mom who is POA. 10. Disposition: Continue inpatient care.
[2018-03-16 13:07] VITALS: TEMP 38.4
--- NOTE | 2018-03-16 15:03 | CM.DPC ---
DCP: continued: Dr. Loera ok'd pt for d/c home today. Met briefly with pt and her daughter Vanessa, here to take pt home. Went over [facility]. Pt accepts RN/OT/PT/[employer]ACER. no bath aide. I do my own bathing. Pt expressed eagerness to go home and she and Vanessa left earlier today as planned. [facility] is alerted to d/c and [facility] summary as well as Face/Face and HH orders.
[2018-03-16 15:53] VITALS: BP 126/77; PULSE 105; RESP 20; TEMP 36.9; O2SAT 99
[2018-03-16 18:00] VITALS: TEMP 37.3
[2018-03-16] MEDS: VALPROIC ACID 250 MG/5 ML UDC 500 MG PO (22:34)
[2018-03-16] MEDS: TAMSULOSIN 0.4 MG CAPSULE PO (22:35)
[2018-03-16] MEDS: MIRTAZAPINE 15 MG TABLET PO (22:36)
[2018-03-16] MEDS: LATANOPROST 0.005% OPHTH 2.5 ML 1 DROPS EYE-BOTH (22:36)
[2018-03-16 23:45] VITALS: BP 130/91; PULSE 109; RESP 22; TEMP 37.1; O2SAT 97
[2018-03-17] MEDS: DEXTROSE 5%-0.45% NS 1,000 ML 65 ML IV (01:48)
[2018-03-17 09:12] LABS: Add Manual Diff / Slide Review NO; Basophils Percent Auto 0.6 % (0-2); Hematocrit 34.8 % (41-53); Lymphocytes Percent Auto 20.6 % (25-40); Mean Corpuscular HGB Conc 34.4 % (30-36); Mean Corpuscular Hemoglobin 34.5 PG (26-34); Mean Corpuscular Volume 100.3 fL (80-100); Monocytes Percent Auto 10.5 % (3-14); Neutrophils Absolute Auto 6800 /uL (3000-5900); Neutrophils Percent Auto 66.3 % (50-75); Platelet Count 312 X10^3/uL (150-400); Red Blood Cell Count 3.47 X10^6/uL (4.5-5.9); Red Cell Distribution Width 13.9 % (11.6-14.8); White Blood Cell Count 10.3 X10^3/uL (4.5-11.0)
[2018-03-17 09:15] LABS: BUN Creatinine Ratio 21.4 (6-22); Blood Urea Nitrogen 15 mg/dL (9-20); Calcium 8.8 mg/dL (8.4-10.2); Carbon Dioxide 29 mmol/L (22-32); Chloride 104 mmol/L (98-107); Estimated Glomerular Filt Rate > 60.0 mL/min (>60); Glucose 107 mg/dL (70-100); HEMOLYSIS < 15 (0-50); Potassium 3.6 mmol/L (3.4-5.1); Sodium 144 mmol/L (137-145)
[2018-03-17 09:41] LABS: Vancomycin Trough 10.8 ug/mL (10-20)
[2018-03-17 09:55] VITALS: BP 135/61; PULSE 107; RESP 16; TEMP 37; O2SAT 98
[2018-03-17] MEDS: ACETAMINOPHEN SUSP 650 MG/20.3 ML UDC PO (10:02)
[2018-03-17] MEDS: VALPROIC ACID 250 MG/5 ML UDC 375 MG PO (10:04)
[2018-03-17] MEDS: MELOXICAM 7.5 MG TABLET 15 MG PO (10:04)
[2018-03-17] MEDS: BACLOFEN 10 MG TABLET PO (10:04)
[2018-03-17] MEDS: PANTOPRAZOLE 40 MG VIAL 20 MG IV (10:05)
[2018-03-17] MEDS: clonazePAM 0.5 MG TABLET 1.5 MG PO (10:10)
[2018-03-17] MEDS: SODIUM CHLORIDE 0.9% FLUSH 10 ML IV (10:11)
--- NOTE | 2018-03-17 10:21 | PM.DS.1 ---
History of Present Illness Chief complaint: seizures Narrative: Patient is a 42-year-old male with history congenital quadriplegic cerebral palsy, epilepsy, dysphagia, peg tube, urinary retention requiring straight catheterization, recurrent UTI presented to the emergency department due to intractable seizures. He does not get frequent seizures. Mom noticed a seizure yesterday afternoon and evening. She kept a close eye on him. He did throw up as well. She kept a close eye on him during the night but since this morning he has been seizing nonstop. Seizures have presented as bilateral tonic colonic movements and gaze deviation. Head CT without acute findings. He was given several doses IV lorazepam and loaded with IV Keppra but continued to have persistent seizure activity while in the ER. Seizure did seem to calm down after dose of 4 mg IV lorazepam. Also noted to have right upper lung infiltrates on chest x-ray suspicious for aspiration. He appeared septic with tachypnea, hypotension, tachycardia, hypoxia, elevated WBC, lactic acidosis and elevated procalcitonin. Started on initial antibiotic management with Levaquin and transferred to ICU. In ICU he was started on loading dose of fosphenytoin and IV lorazepam being administered as needed for a current seizure activity. Also noted hypernatremic with serum sodium of 158. We do not have a recent serum sodium on him. Discharge Providers Date of admission: 03/09/18 16:46 Primary care physician: Clem Oconnor MD Consults: 03/09/18 18:02 Consult to Dietitian, Adult Routine Comment: Reason For Exam: assessed at high risk, peg tube. 03/09/18 21:13 Consult to Respiratory Therapy Evaluate & Treat Comment: Physician Instructions: Evaluate and treat Discharge provider: Shruthi Gaona MD Discharge Date: 03/17/18 Summary Discharge Diagnosis: 1. Sepsis due to aspiration pneumonia 2. Status epilepticus secondary to sepsis 3. Urinary tract infection due to chronic urinary tension 4. Hypernatremia 5. Fever Hospital Course: 1. Sepsis due to aspiration pneumonia: Blood cultures were negative. He was treated with IV Levaquin. Antibiotics was changed to IV vancomycin and Zosyn on March 14, 2018 due to persistent fever. He received total of 8 days of and IV antibiotics treatment. His white blood cell count normalized. Chest x-ray also showed improvement. Antibiotics was discontinued on March 16, 2018. 2. Status epilepticus secondary to sepsis: He received loading dose of fosphenytoin on March 09. He has not had seizures since hospital admission. He was continued on valproic acid per outpatient dosing. The valproic acid level on February to 2017 was 42.3, which was low. The normal range was 50-100. Repeat Valproic acid level on March 15, 2018 is pending. 3. Urinary tract infection due to chronic urinary tension: Urine culture grew aggarwal sensitive Enterobacter. He was treated with IV antibiotics as stated above 4. Hypernatremia: Secondary to free water deficit. He received IV hydration on admission. He also received D5 half normal saline at 65 cc an hour. His sodium normalized within the 1st few days of hospital admission. 5. Fever: He was noted to have fever on March 14 2018. The etiology of the fever is not quite clear. His white blood cell count remained to be normal. He clinically appears to be normal as well. Chest x-ray did not show worsening of pneumonia. Antibiotics was discontinued on March 16, 2018. He remains to be afebrile since discontinuation of the antibiotics. It is possible that he could have drug fever. He was on IV Levaquin when the fever started. Status at Discharge Cognitive/behavioral status at discharge: Back to baseline Overall status at discharge: patient is back to baseline Time Spent with Patient Greater than 30 minutes Exam Vital Signs (past 8 hours): - 03/17/18 09:55 Temperature 98.6 F Pulse Rate 107 H Respiratory Rate 16 Blood Pressure 135/61 Pulse Oximetry 98 Oxygen Delivery Method Room Air Oxygen Flow Rate 0 Objective Imaging Chest x-ray: Radiologist's impression: March 09, 2018: 1. Right apical opacities consistent with consolidation, loculated effusion, or mass. Further evaluation may be obtained CT. March 13, 2018: No pleural effusions or pneumothorax. Ill-defined increased opacity in right lower lung field is seen suspicious for right lower lobe infiltrate. Left lung is clear. March 16, 2018 Mildly reduced inspiratory volume, no pneumonia found. Bilateral Shipley rods are again seen to be fractured lower on the right than the left as has been previously the case. No change in malalignment. Labs Result Diagrams: 03/17/18 08:40 03/17/18 08:40 Labs: Laboratory Results - last 24 hr 03/17/18 03/17/18 03/17/18 08:40 08:40 08:40 WBC 10.3 RBC 3.47 L Hgb 12.0 L Hct 34.8 L MCV 100.3 H MCH 34.5 H MCHC 34.4 RDW 13.9 Plt Count 312 Neut % (Auto) 66.3 Lymph % (Auto) 20.6 L [place] % (Auto) 10.5 Eos % (Auto) 2.0 Baso % (Auto) 0.6 Neut # (Auto) 6800 H Sodium 144 Potassium 3.6 Chloride 104 Carbon Dioxide 29 BUN 15 Creatinine 0.70 Estimated GFR > 60.0 BUN/Creatinine Ratio 21.4 Glucose 107 H Calcium 8.8 Vancomycin Trough 10.8 Discharge Plan Discharge Plan Discharge Problem: Sepsis, Pneumonia, Convulsions, status epilepticus, Cerebral palsy Patient Disposition: Home Discharge Med Rec/Prescriptions Prescriptions: Continue mirtazapine 15 MG tablet 15 mg PO HS Qty: 0 RF: 0 latanoprost 0.005 % Drops 1 drp OPHTH HS Qty: 2.5 RF: 0 acetaminophen 500 mg Tablet 500 mg PO BID Qty: 0 RF: 0 tamsulosin [Flomax] 0.4 MG capsule,extended release 24hr 0.4 mg PO QDAY Qty: 0 RF: 0 nitrofurantoin macrocrystal 50 mg capsule 1 cap PO DAILY RF: 0 divalproex 250 mg tablet,delayed release (DR/EC) 1 tab PO QAM RF: 0 meloxicam 15 mg tablet 1 tab PO DAILY RF: 0 clonazepam 0.5 mg tablet 0.5 mg PO BID RF: 0 clonazepam 1 mg tablet 1 mg PO BID RF: 0 baclofen 10 mg tablet 1 tab PO QPM RF: 0 baclofen 10 mg tablet 5 mg PO BID RF: 0 divalproex 500 mg tablet extended release 24 hr 1 tab PO QPM RF: 0 acetic acid 0.25 % solution 1 dose Irrigation BID PRN (Reason: bladder irrigation) RF: 0 omeprazole 20 mg capsule,delayed release(DR/EC) 2 cap PO DAILY RF: 0 divalproex 125 mg capsule, delayed rel sprinkle 1 cap PO QAM RF: 0 Follow up/Referrals: Clem Oconnor MD [Primary Care Provider] - Provider Discharge Instructions Diet: Tube Feeding Activity: as tolerated Skin/Wound/Dressing Care Report to your healthcare provider any signs of infection, such as:: chills, fever Discharge Data Primary Care Provider: Clem Oconnor Attending Provider: Clem Oconnor Admit Date/Time: 03/09/18 16:46
[2018-03-17 12:22] LABS: Procalcitonin < 0.05 ng/mL (<0.5)
--- NOTE | 2018-03-17 13:19 | CM.DANOTE ---
DCP: continued: met with pt and his mother Shara after Dr. Gaona confirmed the d/c to home orders for today. Shara was organizing pt's items for home. His w/c was in the room and she will drive him home in their w/c van as per their usual routine. She confirmed she felt comfortable with the d/c for today. Received a call from [employer], [employer] (they provide enteral feeding supplies). He is updated re the d/c today and will reach out to Shara to see what will be needed. Shara is updated, says she did bring in pt's TF formula as [facility] does not provide the type her son uses. She will talk with [facility] when she returns home and they get settled. Family therapy dog on pt's bed, joining in on prep for the trip home.
--- NOTE | 2018-03-17 13:33 | PC.NURSE ---
Pt is dressed and ready for discharge home. Boggs and IV removed. Has been given a tube feed by his mother and tolerated well. Dressing around peg site was changed and skin cleaned. Went over d/c instructions with Pt's Mother, discussed follow up and no change in meds or diet. Pt's Mother/Caregiver denies further questions. Pt out via w/c by [employer] and Mother with all belongings.
== END 2018-03-17 13:33 | disposition home or self-care (01) | DRG 871 ==
LOC: ED 14:03 → ICU 16:47 → AC 03-12 14:56 → ICU 01-16 14:09
PROVIDERS: Internal Medicine; Admitting Provider Internal Medicine; Emergency Provider Emergency Medicine; Family Provider Internal Medicine; PCP Internal Medicine; Visit Provider Internal Medicine
DX: A41.9 Sepsis, unspecified organism (principal); J69.0 Pneumonitis due to inhalation of food and vomit; R40.2212 Coma scale, best verbal response, none, at arrival to emergency department; J96.01 Acute respiratory failure with hypoxia; J15.212 Pneumonia due to Methicillin resistant Staphylococcus aureus; R53.2 Functional quadriplegia; E87.0 Hyperosmolality and hypernatremia; G40.411 Other generalized epilepsy and epileptic syndromes, intractable, with status epilepticus; Z68.1 Body mass index [BMI] 19.9 or less, adult; N39.0 Urinary tract infection, site not specified; B37.0 Candidal stomatitis; R65.20 Severe sepsis without septic shock; R13.10 Dysphagia, unspecified; G80.8 Other cerebral palsy; Z93.1 Gastrostomy status; R33.9 Retention of urine, unspecified; E86.0 Dehydration; R40.2332 Coma scale, best motor response, abnormal flexion, at arrival to emergency department; R40.2142 Coma scale, eyes open, spontaneous, at arrival to emergency department; R63.6 Underweight; B95.2 Enterococcus as the cause of diseases classified elsewhere
CPT/HCPCS: 36415; 51701; 70450; 71045; 80048; 80053; 80164; 80202; 81003; 81015; 82962; 83605; 83735; 84145; 84146; 85025; 87040; 87077; 87086; 87186; 87797; 94762; 96361; 96365; 96366; 96375; 96376; 99285; 99291; C9113; J0295; J1650; J1953; J1956; J2060; J2280; J2405; J2543; J3360; J3370; Q2009

== ENCOUNTER → 2018-05-27 17:04 | Outpatient (CLI) | payer MEDICARE, OTHER, MEDICAID, SELFPAY ==
[2018-03-09 18:03] VITALS: BMI 18.5
--- NOTE | 2018-05-27 17:12 | DI.RAD.S_ITS ---
PROCEDURE: XR PELVIS 1-2V INDICATIONS: HIP PAIN TECHNIQUE: Single view(s) of the pelvis acquired. COMPARISON: None. FINDINGS: Bones: There is posterior dislocation of the right hip. 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 Lumbosacral hardware is grossly intact. No acute fracture. Soft tissues: Visualized bowel gas pattern is normal. No suspicious soft tissue calcifications. IMPRESSION: Dislocation of the right hip. Dictated by: Indy Lawson M.D. on 05/27/2018 at 19:24 Approved by: Indy Lawson M.D. on 05/27/2018 at 19:25
--- NOTE | 2018-05-27 17:12 | DI.RAD.S_ITS ---
PROCEDURE: XR HIP W PEL IF DONE LT 2V INDICATIONS: HIP PAIN TECHNIQUE: 2 views of the hip were acquired. COMPARISON: [facility], CR, XR PELVIS 1-2V, 05/27/2018, 17:17. FINDINGS: Bones: No fractures or dislocations. No suspicious bony lesions. The visualized pelvic ring appears intact. Soft tissues: No suspicious soft tissue calcifications or masses. A large amount of inspissated appearing stool is present in the rectosigmoid. IMPRESSION: No acute radiographic findings. Dictated by: Indy Lawson M.D. on 05/27/2018 at 19:31 Approved by: Indy Lawson M.D. on 05/27/2018 at 19:32
== END ==
PROVIDERS: Family Provider Internal Medicine; PCP Internal Medicine; Visit Provider Internal Medicine
DX: S73.014A Posterior dislocation of right hip, initial encounter (principal); M25.552 Pain in left hip
CPT/HCPCS: 72170; 73502

== ENCOUNTER 2019-10-21 22:29 | Emergency (ER) | payer MEDICARE, OTHER, MEDICAID, SELFPAY ==
[2018-03-09 18:03] VITALS: BMI 18.5
[2019-10-21 22:45] VITALS: BP 143/86; PULSE 113; RESP 20; O2SAT 97
--- NOTE | 2019-10-21 22:57 | ED.SEIZURE ---
HPI - Seizure General Chief Complaint: Seizure Stated Complaint: Seizures Time Seen by Provider: 10/21/19 22:57 History of Present Illness HPI Narrative: Patient is a 42-year-old male with history congenital quadriplegic cerebral palsy, epilepsy, dysphagia, peg tube, urinary retention requiring straight catheterization, recurrent UTI followed by urologist and treated with t.i.d. straight cathing and acid bladder rinse. He presents to the ER tonight with increased seizures. Mom notes that he frequently has seizures and typically she is able to control them with his valproic acid dosing. Recently she has been using 500 mg morning and night with 250 mg during the day as needed. The seizures are mostly controlled at this point and she is wondering if a prophylactic prescription of diazepam to use on days when seizures are particularly severe might be appropriate. She notes that he has not had significant pain behaviors, increased agitation, fevers, cough,, vomiting, diarrhea. Related Data Home Medications Medication Instructions Recorded Confirmed latanoprost 1 drp OPHTH HS #2.5 ml 02/14/12 03/09/18 mirtazapine 15 mg PO HS #0 02/14/12 03/09/18 acetaminophen 500 mg PO BID #0 01/20/13 03/09/18 tamsulosin [Flomax] 0.4 mg PO QDAY #0 09/09/16 03/09/18 acetic acid 1 dose IRRIGATION BID PRN 03/09/18 03/09/18 baclofen 1 tab PO QPM 03/09/18 03/09/18 baclofen 5 mg PO BID 03/09/18 03/09/18 clonazepam 0.5 mg PO BID 03/09/18 03/09/18 clonazepam 1 mg PO BID 03/09/18 03/09/18 divalproex 1 cap PO QAM 03/09/18 03/09/18 divalproex 1 tab PO QAM 03/09/18 03/09/18 divalproex 1 tab PO QPM 03/09/18 03/09/18 meloxicam 1 tab PO DAILY 03/09/18 03/09/18 nitrofurantoin macrocrystal 1 cap PO DAILY 03/09/18 03/09/18 omeprazole 2 cap PO DAILY 03/09/18 03/09/18 Previous Rx's Medication Instructions Recorded diazepam 5 mg PO QID PRN #30 tab 10/22/19 Allergies Allergy/AdvReac Type Severity Reaction Status Date / Time codeine Allergy Intermediate FACIAL Verified 03/09/18 15:17 SWELLING, RASH phenobarbital Allergy Unknown Verified 03/09/18 15:17 Review of Systems Review of Systems Narrative: Pertinent positive and negative findings as per HPI. Complete review of somewhat limited by patient's nonverbal status. His mother is his primary caregiver and provides excellent supplementary information Remainder of review of systems is otherwise unremarkable for Constitutional: Fevers, chills, Respiratory: Cough, wheeze, dyspnea GI: Nausea, vomiting, diarrhea, change in bowel habits, black or bloody stools : hematuria, Skin: Rashes, nonhealing lesions Neuro: Syncope, Heme: Easy bruising or bleeding Allergy: Seasonal rhinorrhea, itchy eyes Patient History Medical History (Updated 10/22/19 @ 01:45 by Lacie Macias MD) Cervical vertebral fusion (Acute) Congenital cerebral palsy (Acute) Seizure (Acute) Urinary retention (Acute) UTI (urinary tract infection) (Acute) Surgical History (Updated 03/09/18 @ 18:46 by Clem Oconnor MD) History of thoracic spinal fusion (Acute) S/P percutaneous endoscopic gastrostomy (PEG) tube placement (Acute) Social History household members: family Smoking Status: Never smoker alcohol intake: never Smoking Status: Never smoker Substance Use Type: does not use Exam Narrative Exam Narrative: General: Nonverbal severe cerebral palsy with multiple contractures. Dry and obviously clean and well cared for HEENT: Very narrow arch, mucous membranes are appropriate Neck: Torticollis to the right, chronic Chest: Clear to auscultation without wheezing or rhonchi Cardiac: Regular rate and rhythm no murmurs Abdomen: Scaphoid, no pain behaviors with palpation, peg tube site is clean and dry Skin: No skin breakdown, no rashes Neurologic: Increased overall tone. Extremities: Contractures in all extremities Psych: Nonverbal, eyes are alert Initial Vital Signs Initial Vital Signs: Vital Signs Pulse Rate 113 H 10/21/19 22:45 Respiratory Rate 20 10/21/19 22:45 Blood Pressure 143/86 H 10/21/19 22:45 Pulse Oximetry 97 10/21/19 22:45 Course Orders Ordered: ED Orders 10/21/19 23:00 Urinalysis and Microscopic Stat Urine Culture Stat 10/21/19 23:27 Complete Blood Count AUTO DIFF Stat Comprehensive Metabolic Panel Stat Magnesium Stat 10/22/19 01:14 Valproic Acid (Depakene) Total Stat Discontinued Medications Diazepam (Valium) 5 mg IV NOW ONE Stop: 10/21/19 23:08 Last Admin: 10/21/19 23:36 Dose: 5 mg Documented by: ESTEPHANIE Divalproex Sodium (Depakote Sprinkle) 500 mg PO NOW ONE Stop: 10/22/19 01:15 Last Admin: 10/22/19 01:28 Dose: 500 mg Documented by: CATIA Vital Signs Vital signs: Vital Signs - 8 hr 10/21/19 22:45 10/21/19 23:30 10/22/19 00:30 Pulse Rate 113 H 91 H 92 H Respiratory Rate 20 18 18 Blood Pressure 143/86 H Blood Pressure [Left Arm] 133/90 124/62 Pulse Oximetry 97 98 98 MDM - Seizure Medical Records Attestation: I reviewed the patient's medical records. Lab Data Attestation: I reviewed the patient's lab results. Result diagrams: 10/21/19 23:27 10/21/19 23:27 Labs: Lab Results 10/21/19 10/21/19 10/21/19 Range/Units 23:00 23:27 23:27 WBC 8.8 (4.5-11.0) X10^3/uL RBC 4.43 L (4.5-5.9) X10^6/uL Hgb 15.1 (13.5-17.5) g/dL Hct 44.6 (41-53) % MCV 100.8 H (80-100) fL MCH 34.1 H (26-34) PG MCHC 33.8 (30-36) % RDW 14.2 (11.6-14.8) % Plt Count 272 (150-400) X10^3/uL Neut % (Auto) 61.8 (50-75) % Lymph % (Auto) 28.1 (25-40) % [place] % (Auto) 8.2 (3-14) % Eos % (Auto) 1.3 L (2-4) % Baso % (Auto) 0.6 (0-2) % Neut # (Auto) 5500 (8201-4311) /uL Lymph # (Auto) 2500 (5701-5515) /uL [place] # (Auto) 700 (0-900) /uL Eos # (Auto) 100 (0-450) /uL Baso # (Auto) 0 (0-100) /uL Sodium 139 (137-145) mmol/L Potassium 4.6 (3.4-5.1) mmol/L Chloride 101 (98-107) mmol/L Carbon Dioxide 34 H (22-32) mmol/L BUN 39 H (9-20) mg/dL Creatinine 0.92 (0.66-1.25) mg/dL Estimated GFR > 60.0 (>60) mL/min BUN/Creatinine Ratio 42.4 H (6-22) Glucose 97 (70-100) mg/dL Calcium 9.7 (8.4-10.2) mg/dL Magnesium 1.9 (1.6-2.3) mg/dL Total Bilirubin 0.2 (0.2-1.3) mg/dL AST 27 (17-59) IU/L ALT 17 (<50) IU/L Alkaline Phosphatase 66 (38-126) U/L Total Protein 7.6 (6.3-8.2) g/dL Albumin 4.0 (3.5-5.0) g/dL Globulin 3.6 (1.7-4.1) g/dL Albumin/Globulin Ratio 1.1 (1.0-2.8) Urine Color Yellow Urine Appearance Clear Urine pH 7.0 (4.5-8.0) Ur Specific [place] <=1.005 (1.000-1.035) Urine Protein Negative (Negative) Urine Glucose (UA) Negative (Negative) g/dL Urine Ketones Negative (NEGATIVE) Urine Occult Blood 2+ H (Negative) Urine Nitrate Negative (Negative) Urine Bilirubin Negative (NEGATIVE) Urine Urobilinogen 0.2 (0.2) E.U./dL Ur Leukocyte Esterase 1+ H (NEGATIVE) Urine RBC 5-10/hpf H (0-5/HPF) Urine WBC 5-10/hpf H (0-5/HPF) Ur Squamous Epith Cells 0-1 /hpf (0-5/HPF) Urine Bacteria Occasional (0-1) D (None) Ur Culture Indicated? Specimen cultured Urine Dip Bedside Urine Glucose Negative Bedside Urine Bilirubin - Negative Bedside Urine Ketone +/- 5 Urine Specific [place] 1.015 Bedside Urine Occult Blood +/- Bedside Urine pH 6.5 Bedside Urine Protein +/- 15 Bedside Urine Urobilinogen - Negative Bedside Urine Nitrite - Negative Bedside Urine Leukocytes ++ 125 Esterase MDM Narrative Medical decision making narrative: 44-year-old gentleman with multiple chronic medical problems including cerebral palsy and seizure disorder. Increased tonus over the course of today. He currently is not in status and does appear closer to his baseline with just increased tone. Responded nicely to 5 mg of IV Valium in the emergency department. He was given his usual nighttime dose of valproic acid through his PEG tube. Discussed options for slightly altering his valproic acid and levels are obtained to help guide that period patient will need to follow-up with his primary care physician Dr. Mccauley to look at the valproic acid levels and make sure interventions have been appropriate. In the meantime I have given mom a prescription for 5 mg of Valium that can be crushed in administered through his PEG tube should he have days with overall increased tonus and seizure-like activity. There is no evidence for acute infection sepsis at this time. Questions are answered and patient is safe to be discharged home with his family. Discharge Plan Departure Patient Disposition: Home Clinical Impression: Seizure, Congenital cerebral palsy Instructions: DI for Seizure Disorder -- Adult Activity Restrictions/Additional Instructions: Thank you for bringing Johs in this evening His labs are reassuring and I am not seeing any evidence at an acute infection to explain the increase in his seizure activity today. We gave him Valium in the emergency department with some relief of his symptoms and then his usual 500 mg of divalproex. I think your plan to increase the divalproex to 750 mg morning and night with an additional 250 mg during the middle of the day with increased muscle tonus/seizure activity is very appropriate. I will also give you a prescription of 5 mg of diazepam/Valium to use as needed if you feel he is having increasing muscle tonus/seizure activity. I would recommend 1-2 tablets via PEG tube as needed up to 4 doses per day. Please review this medication change of Dr. Mccauley with your next visit Regarding Josh's urine test. There were some abnormalities however in light of current management with catheterization 3 times a day and bladder washes I would like to wait and see if this truly grows out bacteria suggesting a bladder infection before any additional treatment is added. If the culture comes back positive we will give you a call. You are doing a fantastic job of taking care of Josh. I wish you the best Prescriptions: New diazepam 5 mg tablet 5 mg PO QID PRN (Reason: seizure activity) Qty: 30 RF: 0 No Action mirtazapine 15 MG tablet 15 mg PO HS Qty: 0 RF: 0 latanoprost 0.005 % Drops 1 drp OPHTH HS Qty: 2.5 RF: 0 acetaminophen 500 mg Tablet 500 mg PO BID Qty: 0 RF: 0 tamsulosin [Flomax] 0.4 MG capsule,extended release 24hr 0.4 mg PO QDAY Qty: 0 RF: 0 nitrofurantoin macrocrystal 50 mg capsule 1 cap PO DAILY RF: 0 divalproex 250 mg tablet,delayed release (DR/EC) 1 tab PO QAM RF: 0 meloxicam 15 mg tablet 1 tab PO DAILY RF: 0 clonazepam 0.5 mg tablet 0.5 mg PO BID RF: 0 clonazepam 1 mg tablet 1 mg PO BID RF: 0 baclofen 10 mg tablet 1 tab PO QPM RF: 0 baclofen 10 mg tablet 5 mg PO BID RF: 0 divalproex 500 mg tablet extended release 24 hr 1 tab PO QPM RF: 0 acetic acid 0.25 % solution 1 dose Irrigation BID PRN (Reason: bladder irrigation) RF: 0 omeprazole 20 mg capsule,delayed release(DR/EC) 2 cap PO DAILY RF: 0 divalproex 125 mg capsule, delayed rel sprinkle 1 cap PO QAM RF: 0 Referrals: Clem Oconnor MD [Primary Care Provider] -
[2019-10-21 23:05] LABS: Appearance Urine UA CLEAR; Bilirubin Urine UA NEGATIVE (NEGATIVE); Color Urine UA YELLOW; Glucose Urine UA NEGATIVE (Negative); Ketones Urine UA NEGATIVE (NEGATIVE); Leukocyte Esterase Urine UA 1+ (NEGATIVE); Nitrite Urine UA NEGATIVE (Negative); Occult Blood Urine UA 2+ (Negative); Protein Urine UA NEGATIVE (Negative); Specific Gravity Urine UA <=1.005 (1.000-1.035); Urobilinogen Urine UA 0.2 E.U./dL (0.2)
[2019-10-21 23:14] LABS: Bacteria Urine Occasional (0-1); RBC Urine 5-10/HPF (0-5/HPF); Squamous Epithelial Cell Urine 0-1 /HPF (0-5/HPF); WBC Urine 5-10/HPF (0-5/HPF)
[2019-10-21 23:15] LABS: Culture Indicated Urine Specimen Cultured
[2019-10-21 23:30] VITALS: BP 133/90; PULSE 91; RESP 18; O2SAT 98
[2019-10-21] MEDS: diazePAM 10 MG/2 ML SYRINGE 5 MG IV (23:36)
[2019-10-21 23:38] LABS: Add Manual Diff / Slide Review NO; Basophils Absolute Auto 0 /uL (0-100); Basophils Percent Auto 0.6 % (0-2); Eosinophils Absolute Auto 100 /uL (0-450); Eosinophils Percent Auto 1.3 % (2-4); Hematocrit 44.6 % (41-53); Hemoglobin 15.1 g/dL (13.5-17.5); Lymphocytes Absolute Auto 2500 /uL (1100-4500); Lymphocytes Percent Auto 28.1 % (25-40); Mean Corpuscular HGB Conc 33.8 % (30-36); Mean Corpuscular Hemoglobin 34.1 PG (26-34); Mean Corpuscular Volume 100.8 fL (80-100); Monocytes Absolute Auto 700 /uL (0-900); Monocytes Percent Auto 8.2 % (3-14); Neutrophils Absolute Auto 5500 /uL (1500-7000); Neutrophils Percent Auto 61.8 % (50-75); Platelet Count 272 X10^3/uL (150-400); Red Blood Cell Count 4.43 X10^6/uL (4.5-5.9); Red Cell Distribution Width 14.2 % (11.6-14.8); White Blood Cell Count 8.8 X10^3/uL (4.5-11.0)
[2019-10-21 23:46] LABS: Alanine Aminotransferase 17 IU/L (<50); Albumin Globulin Ratio 1.1 (1.0-2.8); Alkaline Phosphatase 66 U/L (38-126); Aspartate Aminotransferase 27 IU/L (17-59); BUN Creatinine Ratio 42.4 (6-22); Bilirubin Total 0.2 mg/dL (0.2-1.3); Blood Urea Nitrogen 39 mg/dL (9-20); Calcium 9.7 mg/dL (8.4-10.2); Carbon Dioxide 34 mmol/L (22-32); Chloride 101 mmol/L (98-107); Estimated Glomerular Filt Rate > 60.0 mL/min (>60); Globulin 3.6 g/dL (1.7-4.1); Glucose 97 mg/dL (70-100); HEMOLYSIS 17 (0-50); Magnesium 1.9 mg/dL (1.6-2.3); Potassium 4.6 mmol/L (3.4-5.1); Sodium 139 mmol/L (137-145); Total Protein 7.6 g/dL (6.3-8.2)
[2019-10-22 00:30] VITALS: BP 124/62; PULSE 92; RESP 18; O2SAT 98
--- NOTE | 2019-10-22 01:02 | PC.NURSE ---
Pt mother states pt had subsided with tremors for approximately 30 minutes, however is noticing a fine tremor to his R hand and R cheek. VSS and noted, ED provider Dr. Macias made aware.
[2019-10-22] MEDS: DIVALPROEX 125 MG CAP 500 MG PO (01:28)
[2019-10-22] MEDS: diazePAM 5 MG TABLET PO (02:06)
[2019-10-22 02:07] VITALS: BP 146/69; PULSE 93; RESP 16; O2SAT 97
[2019-10-23 06:36] LABS: Valproic Acid (Depakene) Total 78 ug/mL (50-100)
== END 2019-10-22 02:07 | disposition home or self-care (01) ==
PROVIDERS: Emergency Provider Emergency Medicine; Family Provider Internal Medicine; PCP Internal Medicine
DX: G80.9 Cerebral palsy, unspecified (principal); R56.9 Unspecified convulsions
CPT/HCPCS: 36415; 80053; 80164; 81001; 81003; 83735; 85025; 87077; 87086; 87147; 87186; 96374; 99284; J3360

== ENCOUNTER 2020-02-28 23:13 | Emergency (ER) | payer MEDICARE, OTHER, MEDICAID, SELFPAY ==
[2018-03-09 18:03] VITALS: BMI 18.5
[2020-02-28] VITALS (8 sets, daily range): BP systolic 131–140; BP diastolic 70–87; PULSE 120–170; RESP 20–31; TEMP 36.8; O2SAT 96–100
[2020-02-28] MEDS: FAMOTIDINE 20 MG/50 ML PIGGYBACK 200 MG IV (23:20)
[2020-02-28] MEDS: dexAMETHasone 20 MG in SODIUM CHLORIDE 0.9% 50 ML 208 ML IV (23:21)
--- NOTE | 2020-02-28 23:21 | ED.ALLEREA ---
HPI - Allergic Reaction General Chief complaint: Allergic Reaction Stated complaint: Allergic Reaction Time Seen by Provider: 02/28/20 23:14 Source: EMS Mode of arrival: EMS Limitations: altered mental status History of Present Illness HPI narrative: 44-year-old male nonsmoker with history of cerebral palsy and various sequela presents by EMS due to an apparent allergic reaction. The patient had been in his normal state of health except for current treatment of urinary tract infection with Bactrim. His only known allergy is to codeine which his mother states he clearly has not had. This evening he started having some swelling of his face and EMS was called. On their arrival they found him to be in significant respiratory distress and noted tongue swelling and trouble managing secretions. He was given epinephrine, put on a non-rebreather and transported here for definitive care. There is no report of new food, lotion, soap her medication. Mother, who was his caregiver, states that he frequently has trouble managing his secretions and ?gurgles often, but states it is a bit worse today. In addition to epinephrine x2, EMS gave Benadryl 50 mg MD complaint: allergic reaction and facial swelling Onset (ago): minute(s) Exposure: unknown Symptoms: facial swelling, difficulty swallowing and tongue swelling Severity: moderate Treatment prior to arrival: benadryl and epinephrine Related Data Home Medications Medication Instructions Recorded Confirmed latanoprost 1 drp OPHTH HS #2.5 ml 02/14/12 03/09/18 mirtazapine 15 mg PO HS #0 02/14/12 02/29/20 acetaminophen 500 mg PO BID #0 01/20/13 02/29/20 tamsulosin [Flomax] 0.4 mg PO BID #0 09/09/16 02/29/20 acetic acid 1 dose IRRIGATION BID PRN 03/09/18 03/09/18 baclofen 1 tab PO DIRECTED 03/09/18 02/29/20 clonazepam 1.5 mg PO BID 03/09/18 02/29/20 divalproex 1 cap PO QAM 03/09/18 02/29/20 divalproex 1 tab PO BID 03/09/18 02/29/20 divalproex 1 tab PO QPM 03/09/18 02/29/20 meloxicam See Rx Instructions .ROUTE .COMPLEX 03/09/18 02/29/20 omeprazole 20 mg PO BID 03/09/18 02/29/20 divalproex 125 mg PO PRN PRN 02/29/20 02/29/20 levetiracetam 500 mg PO BID 02/29/20 02/29/20 midazolam [Nayzilam] 5 mg INTRANASAL PRN PRN 02/29/20 02/29/20 Previous Rx's Medication Instructions Recorded epinephrine [EpiPen 2-Guicho] 0.3 mg IM Q5-15M PRN #2 each 02/29/20 Allergies Allergy/AdvReac Type Severity Reaction Status Date / Time codeine Allergy Intermediate FACIAL Verified 03/09/18 15:17 SWELLING, RASH phenobarbital Allergy Unknown Verified 03/09/18 15:17 Review of Systems Review of Systems Narrative: Review of systems is through EMS and mother as patient is nonverbal ROS Unobtainable: Unobtainable due to medical condition Constitutional Constitutional: Denies chills, Denies fatigue, Denies fever(s), Denies frequent falls, Denies lethargy and Denies weakness Eyes Eyes: Denies change in vision, Denies eye discharge, Denies irritation and Denies loss of vision ENT Ears, Nose, Mouth, and Throat: Denies change in voice, Denies dizziness, Denies neck pain, Denies sore throat and Reports throat swelling Comments: Tongue swelling Cardiovascular Cardiovascular: Denies chest pain, Denies irregular heart rhythm, Denies lightheadedness, Denies palpitations, Reports dyspnea, Denies dyspnea on exertion and Denies orthopnea Respiratory Respiratory: Reports cough, Reports dyspnea, Denies dyspnea on exertion and Denies wheezing Gastrointestinal Gastrointestinal: Denies abdominal pain, Denies change in bowel habits, Denies diarrhea, Denies nausea and Denies vomiting Musculoskeletal Musculoskeletal: Denies neck pain and Denies numbness Integumentary/Breasts Skin/Breast: Denies pruritus, Denies erythema, Denies rash and Denies wounds Neurologic Neurologic: Denies behavioral changes, Denies confusion, Denies dizziness, Denies frequent falls, Denies loss of vision, Denies numbness and Denies weakness Psychiatric Psychiatric: Denies anxiety, Denies behavioral changes, Denies confusion, Denies depression, Denies homicidal ideation and Denies suicidal ideation Endocrine Endocrine: Denies fatigue, Denies flushing and Denies palpitations Hematologic/Lymphatic Hematologic/Lymphatic: Denies easy bruising Allergic/Immunologic Allergic/Immunologic: Denies urticaria, Reports throat swelling and Denies wheezing Patient History Medical History Cervical vertebral fusion (Acute) Congenital cerebral palsy (Acute) Seizure (Acute) Urinary retention (Acute) UTI (urinary tract infection) (Acute) Surgical History History of thoracic spinal fusion (Acute) S/P percutaneous endoscopic gastrostomy (PEG) tube placement (Acute) Social History household members: family Smoking Status: Never smoker alcohol intake: never Smoking Status: Never smoker Substance Use Type: does not use Exam Narrative Exam Narrative: GENERAL: [44] year old patient appears stated age. Thin, chronically ill, no obvious, significant respiratory distress, non-rebreather and place HEAD: Atraumatic. Normocephalic. EYES: Pupils equal round and reactive. Extraocular motions intact. No scleral icterus. No injection or drainage. ENT: No facial, tongue, lip or obvious throat swelling, airway patent, patient is gurgling some with secretions, apparently at baseline per mother Nose without bleeding, purulent drainage. Throat without erythema, tonsillar hypertrophy or exudate. Airway patent. NECK: Trachea midline. Non tender CARDIOVASCULAR: Tachycardic but regular rhythm without murmurs, gallops, or rubs. RESPIRATORY: Clear to auscultation. Breath sounds equal bilaterally. No wheezes, rales, or rhonchi. GASTROINTESTINAL: Abdomen soft, non-tender, nondistended. EXTREMITIES: No apparent edema or joint tenderness. BACK: Nontender without deformity or crepitance. No flank tenderness. SKIN: No rash or erythema of visible areas Initial Vital Signs Initial Vital Signs: Vital Signs Temperature 98.2 F 02/28/20 23:14 Pulse Rate 146 H 02/28/20 23:14 Respiratory Rate 31 H 02/28/20 23:14 Blood Pressure 131/87 02/28/20 23:14 Pulse Oximetry 99 02/28/20 23:14 Course Orders Ordered: ED Orders 02/28/20 23:25 Basic Metabolic Panel Urgent Complete Blood Count AUTO DIFF Stat 02/28/20 23:34 XR chest 1V Stat 02/29/20 01:07 Urinalysis and Microscopic Stat Sodium Chloride (Normal Saline 0.9%) 1,000 mls @ 150 mls/hr IV CONT ARNOLDO Last Infusion: 02/29/20 01:19 Dose: 0 mls/hr Documented by: Admin: 02/28/20 23:54 Dose: 1,000 mls/hr Documented by: AMIRA Discontinued Medications Famotidine (Pepcid) 20 mg in 50 mls @ 200 mls/hr IV NOW ONE Stop: 02/28/20 23:29 Last Infusion: 02/28/20 23:34 Dose: 0 mls/hr Documented by: Admin: 02/28/20 23:20 Dose: 200 mls/hr Documented by: AMIRA Dexamethasone 20 mg/ Sodium (Chloride) 52 mls @ 208 mls/hr IV NOW ONE Stop: 02/28/20 23:16 Last Infusion: 02/28/20 23:51 Dose: 0 mls/hr Documented by: Infusion: 02/28/20 23:34 Dose: 208 mls/hr Documented by: Infusion: 02/28/20 23:31 Dose: 0 mls/hr Documented by: Admin: 02/28/20 23:21 Dose: 208 mls/hr Documented by: AMIRA Reevaluation(s) Reevaluation #1: patient doing well, HR down to the 120s now. No longer needing supplemental oxygen. No rash or swelling hoted. Patient observed for over 2 hours, much of the time his mother is at the bedside and states he is at his baseline. His heart rate is always slightly elevated any always has some choking and sputtering with secretions. She states this is very normal for him. He has got no ongoing suggestion of allergic type symptoms. He did have a slight increase in his creatinine and as a result was given IV fluids. Urine was retract and it would appear that the antibiotics are doing job for his urinary tract infection. Return precautions are given and questions answered to her apparent satisfaction. Vital Signs Vital signs: Vital Signs - 8 hr 02/28/20 23:14 02/28/20 23:18 02/28/20 23:20 Temperature 98.2 F Pulse Rate 146 H 148 H 170 H Respiratory Rate 31 H 25 H 24 Blood Pressure 131/87 131/87 Pulse Oximetry 99 100 100 02/28/20 23:30 02/28/20 23:40 02/28/20 23:44 Temperature Pulse Rate 150 H 131 H 127 H Respiratory Rate 22 22 22 Blood Pressure 140/85 135/76 Pulse Oximetry 100 96 96 02/28/20 23:45 02/28/20 23:50 02/29/20 00:00 Temperature Pulse Rate 120 H 126 H 120 H Respiratory Rate 20 20 19 Blood Pressure 131/70 134/63 Pulse Oximetry 96 97 97 02/29/20 00:10 02/29/20 00:20 02/29/20 00:30 Temperature Pulse Rate 125 H 117 H 121 H Respiratory Rate 21 20 20 Blood Pressure 129/71 134/73 134/72 Pulse Oximetry 97 96 97 02/29/20 00:40 02/29/20 00:48 02/29/20 00:50 Temperature Pulse Rate 120 H 113 H 113 H Respiratory Rate 17 16 Blood Pressure 130/74 135/74 Pulse Oximetry 98 97 02/29/20 01:00 02/29/20 01:10 02/29/20 01:20 Temperature Pulse Rate 134 H 105 H 104 H Respiratory Rate 28 H 30 H 20 Blood Pressure 133/70 135/67 133/62 Pulse Oximetry 96 97 96 02/29/20 01:30 Temperature Pulse Rate 103 H Respiratory Rate 21 Blood Pressure 134/65 Pulse Oximetry 96 MDM - Allergic Reaction Lab Data Result diagrams: 02/28/20 23:25 02/28/20 23:25 Labs: Lab Results 02/28/20 02/28/20 02/29/20 Range/Units 23:25 23:25 01:07 WBC 13.0 H (4.5-11.0) X10^3/uL RBC 4.54 (4.5-5.9) X10^6/uL Hgb 15.4 (13.5-17.5) g/dL Hct 46.9 (41-53) % MCV 103.1 H (80-100) fL MCH 33.8 (26-34) PG MCHC 32.8 (30-36) % RDW 13.2 (11.6-14.8) % Plt Count 333 (150-400) X10^3/uL Neut % (Auto) 54.7 (50-75) % Lymph % (Auto) 34.3 (25-40) % [place] % (Auto) 10.1 (3-14) % Eos % (Auto) 0.6 L (2-4) % Baso % (Auto) 0.3 (0-2) % Neut # (Auto) 7100 H (7822-2500) /uL Lymph # (Auto) 4500 (2200-2696) /uL [place] # (Auto) 1300 H (0-900) /uL Eos # (Auto) 100 (0-450) /uL Baso # (Auto) 0 (0-100) /uL Sodium 144 (137-145) mmol/L Potassium 5.1 (3.4-5.1) mmol/L Chloride 102 (98-107) mmol/L Carbon Dioxide 35 H (22-32) mmol/L BUN 51 H (9-20) mg/dL Creatinine 1.68 H (0.66-1.25) mg/dL Estimated GFR 44.4 L (>60) mL/min BUN/Creatinine Ratio 30.4 H (6-22) Glucose 162 H (70-100) mg/dL Calcium 9.4 (8.4-10.2) mg/dL Urine Color Yellow Urine Appearance Clear Urine pH 6.5 (4.5-8.0) Ur Specific [place] 1.010 (1.000-1.035) Urine Protein Negative (Negative) Urine Glucose (UA) Negative (Negative) g/dL Urine Ketones Negative (NEGATIVE) Urine Occult Blood 1+ H (Negative) Urine Nitrate Negative (Negative) Urine Bilirubin Negative (NEGATIVE) Urine Urobilinogen 0.2 (0.2) E.U./dL Ur Leukocyte Esterase Negative (NEGATIVE) Urine RBC 1-5/hpf (0-5/HPF) Urine WBC 1-5/hpf (0-5/HPF) Ur Squamous Epith Cells 0-1 /hpf (0-5/HPF) Urine Bacteria None seen (None) Ur Culture Indicated? Cult not indicated Discharge Plan Departure Patient Disposition: Home Clinical Impression: Acute dehydration Allergic reaction Qualifiers: Encounter type: initial encounter Qualified Code(s): T78.40XA - Allergy, unspecified, initial encounter Instructions: DI for General Allergic Reactions Activity Restrictions/Additional Instructions: *You have been diagnosed with [tongue swelling, likely a consequence of an unknown allergic reaction. Very reassuring response to medications and ongoing observation. Additionally, moderate dehydration] *What to do: *Take medications as directed: A prescription for an EpiPen 2 pack was sent to [facility]. Additionally please consider using over the counter antihistamines such as benadryl, lenora, zyrtec or claritin for the next few days. *Follow up with your primary care provider in 2-3 days, call for an appointment. Let them know you were seen in the Emergency Department and that we ask that you be seen in follow up *Return to ER if you should have any new, worsening or concerning symptoms Prescriptions: New epinephrine [EpiPen 2-Guicho] 0.3 mg/0.3 mL auto-injector 0.3 mg IM Q5-15M PRN (Reason: anaphylaxis) Qty: 2 RF: 0 No Action mirtazapine 15 MG tablet 15 mg PO HS Qty: 0 RF: 0 latanoprost 0.005 % Drops 1 drp OPHTH HS Qty: 2.5 RF: 0 acetaminophen 500 mg Tablet 500 mg PO BID Qty: 0 RF: 0 tamsulosin [Flomax] 0.4 MG capsule,extended release 24hr 0.4 mg PO BID Qty: 0 RF: 0 divalproex 250 mg tablet,delayed release (DR/EC) 1 tab PO QPM RF: 0 meloxicam 15 mg tablet See Rx Instructions .ROUTE .COMPLEX RF: 0 clonazepam 1 mg tablet 1.5 mg PO BID RF: 0 baclofen 10 mg tablet 1 tab PO DIRECTED RF: 0 divalproex 500 mg tablet extended release 24 hr 1 tab PO BID RF: 0 acetic acid 0.25 % solution 1 dose Irrigation BID PRN (Reason: bladder irrigation) RF: 0 omeprazole 20 mg capsule,delayed release(DR/EC) 20 mg PO BID RF: 0 divalproex 125 mg capsule, delayed rel sprinkle 1 cap PO QAM RF: 0 levetiracetam 500 mg Tablet 500 mg PO BID RF: 0 divalproex 125 mg Tablet,Delayed Release (Dr/Ec) 125 mg PO PRN PRN (Reason: Seizure Activity) RF: 0 Nayzilam 5 mg/spray (0.1 mL) [place],Non-Aerosol 5 mg INTRANASAL PRN PRN (Reason: Seizure Activity) RF: 0 Referrals: Clem Oconnor MD [Primary Care Provider] -
[2020-02-28 23:29] LABS: Add Manual Diff / Slide Review NO; Basophils Absolute Auto 0 /uL (0-100); Basophils Percent Auto 0.3 % (0-2); Eosinophils Absolute Auto 100 /uL (0-450); Eosinophils Percent Auto 0.6 % (2-4); Hematocrit 46.9 % (41-53); Hemoglobin 15.4 g/dL (13.5-17.5); Lymphocytes Absolute Auto 4500 /uL (1100-4500); Lymphocytes Percent Auto 34.3 % (25-40); Mean Corpuscular HGB Conc 32.8 % (30-36); Mean Corpuscular Hemoglobin 33.8 PG (26-34); Mean Corpuscular Volume 103.1 fL (80-100); Monocytes Absolute Auto 1300 /uL (0-900); Monocytes Percent Auto 10.1 % (3-14); Neutrophils Absolute Auto 7100 /uL (1500-7000); Neutrophils Percent Auto 54.7 % (50-75); Platelet Count 333 X10^3/uL (150-400); Red Blood Cell Count 4.54 X10^6/uL (4.5-5.9); Red Cell Distribution Width 13.2 % (11.6-14.8)
--- NOTE | 2020-02-28 23:34 | DI.RAD.S_ITS ---
PROCEDURE: XR CHEST 1V INDICATIONS: cough, Shortness of breath TECHNIQUE: One view of the chest was acquired. COMPARISON: [facility], CR, XR CHEST 1V, 03/13/2018, 13:03. [facility], CR, XR HIP W PEL IF DONE LT 2V, 05/27/2018, 17:17. [facility], CR, XR CHEST 1V, 03/09/2018, 15:14. [facility], CR, XR PELVIS 1-2V, 05/27/2018, 17:17. [facility], CR, XR CHEST 1V, 03/16/2018, 11:37. FINDINGS: Surgical changes and devices: None. Lungs and pleura: Shallow inspiration. There is interstitial prominence. No pleural effusions or pneumothorax. Mediastinum: Suspect pneumomediastinum. Mediastinal contours appear normal. Heart size is normal. Bones and chest wall: Shipley rods and surgical fusion in thoracic and lumbar spine. The [place] rods are fractured but bilaterally but unchanged from the last exam. No suspicious bony lesions. Overlying soft tissues appear unremarkable. Subcutaneous emphysema in the upper thorax and lower neck. IMPRESSION: 1. Shallow inspiration and interstitial prominence. No focal consolidation or pleural effusions. 2. Suspect pneumomediastinum. Subcutaneous emphysema in the upper thorax and lower neck. 3. Fractured head internal rods, which appear chronic. The result was discussed with Dr. Sterling. Dictated by: Xavier Light M.D. on 02/29/2020 at 8:28 Approved by: Xavier Light M.D. on 02/29/2020 at 8:37
[2020-02-28 23:39] LABS: BUN Creatinine Ratio 30.4 (6-22); Blood Urea Nitrogen 51 mg/dL (9-20); Calcium 9.4 mg/dL (8.4-10.2); Carbon Dioxide 35 mmol/L (22-32); Chloride 102 mmol/L (98-107); Estimated Glomerular Filt Rate 44.4 mL/min (>60); Glucose 162 mg/dL (70-100); Sodium 144 mmol/L (137-145)
[2020-02-28 23:43] LABS: HEMOLYSIS 77 (0-50)
[2020-02-28 23:44] LABS: Potassium 5.1 mmol/L (3.4-5.1)
[2020-02-28] MEDS: SODIUM CHLORIDE 0.9% 1,000 ML 1000 ML IV (23:54)
[2020-02-29] VITALS (11 sets, daily range): BP systolic 129–135; BP diastolic 62–74; PULSE 103–134; RESP 16–30; O2SAT 96–98
[2020-02-29 01:23] LABS: Bacteria Urine None Seen
[2020-02-29 01:27] LABS: Appearance Urine UA CLEAR; Bilirubin Urine UA NEGATIVE (NEGATIVE); Color Urine UA YELLOW; Glucose Urine UA NEGATIVE (Negative); Ketones Urine UA NEGATIVE (NEGATIVE); Leukocyte Esterase Urine UA NEGATIVE (NEGATIVE); Nitrite Urine UA NEGATIVE (Negative); Occult Blood Urine UA 1+ (Negative); Protein Urine UA NEGATIVE (Negative); Urobilinogen Urine UA 0.2 E.U./dL (0.2); pH Urine UA 6.5 (4.5-8.0)
[2020-02-29 01:28] LABS: Culture Indicated Urine Cult Not Indicated; RBC Urine 1-5/HPF (0-5/HPF); Squamous Epithelial Cell Urine 0-1 /HPF (0-5/HPF); WBC Urine 1-5/HPF (0-5/HPF)
== END 2020-02-29 02:00 | disposition home or self-care (01) ==
PROVIDERS: Emergency Provider Emergency Medicine; Family Provider Internal Medicine; PCP Internal Medicine
DX: E86.0 Dehydration (principal); T78.40XA Allergy, unspecified, initial encounter; R05 Cough; R06.00 Dyspnea, unspecified
CPT/HCPCS: 71045; 80048; 81001; 85025; 94760; 96361; 96365; 96375; 99284; J1100

== ENCOUNTER 2020-02-29 16:15 | Emergency (ER) | payer MEDICARE, OTHER, MEDICAID, SELFPAY ==
[2018-03-09 18:03] VITALS: BMI 18.5
[2020-02-29] VITALS (12 sets, daily range): BP systolic 109–138; BP diastolic 58–75; PULSE 71–125; RESP 12–21; TEMP 37; O2SAT 87–98
--- NOTE | 2020-02-29 16:35 | DI.CT.S_ITS ---
PROCEDURE: CT CHEST W CON INDICATIONS: concern for pneumomediastinum TECHNIQUE: After the administration of intravenous contrast, 5 mm thick sections acquired from the pulmonary apices to the posterior costophrenic angles. 1 mm axial lung, 5 mm thick coronal and sagittal reformats and 7 mm axial MIP were acquired. For radiation dose reduction, the following was used: automated exposure control, adjustment of mA and/or kV according to patient size. COMPARISON: [facility], CR, XR CHEST 1V, 02/28/2020, 23:35. FINDINGS: Image quality: Excellent. Lungs and pleura: No acute air space opacities. Subpleural blebs are noted at the left lung base adjacent to the diaphragm. No pleural effusions or pneumothorax. Central and peripheral airways are patent and normal in caliber. No focal airway perforation is seen. Mediastinum: Air is seen dissecting along the fascia planes of the anterior and middle mediastinum, compatible with pneumomediastinum. Heart size is normal. No pericardial effusion or pneumopericardium. No mediastinal or hilar adenopathy by size criteria. Thoracic aorta and central pulmonary arteries are normal in size. Esophagus is normal in caliber, but not well evaluated due to metallic streak artifact. No hiatal hernia. Bones and chest wall: There is extensive subcutaneous emphysema dissecting along the fascial planes of the neck and right anterior chest. There is marked S-shaped curvature of the spine. Thoracolumbar spinal fixation hardware is seen with fractured interbody rods at the level of T9 on the right in the level of T7 on the left. There is extensive surrounding metallic artifact that limits evaluation of the adjacent structures. A cervical fusion hardware is noted at the C5-6 level. No vertebral body compression fractures. No axillary or supraclavicular adenopathy by size criteria. Thyroid gland appears normal. Abdomen: No definite pneumoperitoneum is seen in the upper abdomen. Visualized upper abdominal solid organs appear normal. Upper abdominal bowel loops are normal in caliber. IMPRESSION: 1. Pneumomediastinum and extensive subcutaneous emphysema in the right anterior chest, bilateral supraclavicular area, and extending upwards into the neck and face. No definite cause for pneumomediastinum or subcutaneous emphysema is seen. The airways are grossly patent. There is no pneumothorax or pneumopericardium or pneumoperitoneum. The esophagus is not well evaluated due to streak artifact related to spinal hardware. No acute fracture is seen. 2. Extensive spinal fixation hardware with chronic fractures of the metallic interbody rods. Dictated by: Morris Meredith M.D. on 02/29/2020 at 17:26 Approved by: Morris Meredith M.D. on 02/29/2020 at 17:43
--- NOTE | 2020-02-29 16:38 | ED.GENADULT ---
HPI - General Adult <Nafisa Sterling, DO - Last Filed: 03/03/20 07:10> General Chief complaint: Upper Respiratory Symptoms Stated complaint: issues with alleriges Time Seen by Provider: 02/29/20 16:30 Source: patient, family and other (prior note) Mode of arrival: Ambulatory Limitations: no limitations History of Present Illness HPI narrative: This is a 44-year-old male comes to the emergency department after being contacted by myself. Overnight Radiology noted there seemed to be subcutaneous emphysema on his chest x-ray. Patient last night was given of pill of Bactrim and his mother stated he had quite a bit of coughing, then he developed swelling of his right face and eye. Was suspected to be an allergic reaction was given epinephrine and Benadryl he has improved although he still has some swelling. He has not had any fevers. He has not had any change in baseline mental status. Patient has not had any new or worsening swelling. Patient has not had any vomiting or other new GI or urinary symptoms. His mother is not appreciated any worsening breathing. Patient has cerebral palsy and history of seizure disorder. Related Data Home Medications Medication Instructions Recorded Confirmed latanoprost 1 drp [facility] HS #2.5 ml 02/14/12 03/09/18 mirtazapine 15 mg PO HS #0 02/14/12 02/29/20 acetaminophen 500 mg PO BID #0 01/20/13 02/29/20 tamsulosin [Flomax] 0.4 mg PO BID #0 09/09/16 02/29/20 acetic acid 1 dose IRRIGATION BID PRN 03/09/18 03/09/18 baclofen 1 tab PO DIRECTED 03/09/18 02/29/20 clonazepam 1.5 mg PO BID 03/09/18 02/29/20 divalproex 1 cap PO QAM 03/09/18 02/29/20 divalproex 1 tab PO BID 03/09/18 02/29/20 divalproex 1 tab PO QPM 03/09/18 02/29/20 meloxicam See Rx Instructions .ROUTE .COMPLEX 03/09/18 02/29/20 omeprazole 20 mg PO BID 03/09/18 02/29/20 divalproex 125 mg PO PRN PRN 10/22/20 10/22/20 levetiracetam 500 mg PO BID 02/29/20 02/29/20 midazolam [Nayzilam] 5 mg INTRANASAL PRN PRN 02/29/20 02/29/20 Previous Rx's Medication Instructions Recorded epinephrine [EpiPen 2-Guicho] 0.3 mg IM Q5-15M PRN #2 each 02/29/20 Allergies Allergy/AdvReac Type Severity Reaction Status Date / Time codeine Allergy Intermediate FACIAL Verified 03/09/18 15:17 SWELLING, RASH phenobarbital Allergy Unknown Verified 03/09/18 15:17 Review of Systems <Nafisa Sterling DO - Last Filed: 03/03/20 07:10> Review of Systems ROS Unobtainable: Unobtainable due to medical condition Patient History <Nafisa Sterling DO - Last Filed: 03/03/20 07:10> Medical History Cervical vertebral fusion (Acute) Congenital cerebral palsy (Acute) Seizure (Acute) Urinary retention (Acute) UTI (urinary tract infection) (Acute) Surgical History History of thoracic spinal fusion (Acute) S/P percutaneous endoscopic gastrostomy (PEG) tube placement (Acute) Social History household members: family Smoking Status: Never smoker alcohol intake: never Smoking Status: Never smoker Substance Use Type: does not use Exam <Nafisa Sterling DO - Last Filed: 03/03/20 07:10> Narrative Exam Narrative: GENERAL: Alert male appearing stated age. Thin, chronically ill with no respiratory distress in motorized wheelchair. HEENT: Head normocephalic, atraumatic, EOMI, pupils reactive, patient has some swelling on the right periorbital region, moist mucous membranes, no swelling of lips or oropharynx appreciated. NECK: Supple, full range of motion CARDIOVASCULAR: Tachycardic but regular rate and rhythm without murmurs, rubs or gallops. RESPIRATORY: Breath sounds equal bilaterally, no wheezes rales or rhonchi. ABDOMEN: Soft, nontender. Normoactive bowel sounds all 4 quadrants. No guarding or rebound, rigidity, no mass EXTREMITIES: Patient has decreased use of his upper extremities particularly the right side, he has muscle atrophy in upper and lower extremities. NEUROLOGICAL: Cranial nerves II through XII grossly intact. Moving all extremities SKIN: Warm, dry, no petechiae, no rashes or lesions appreciated. Initial Vital Signs Initial Vital Signs: Vital Signs Pulse Rate 111 H 02/29/20 16:30 Respiratory Rate 21 02/29/20 16:30 Blood Pressure 109/69 02/29/20 16:30 Pulse Oximetry 97 02/29/20 16:30 <Ramesh Rodriguez, DO - Last Filed: 02/29/20 23:10> Initial Vital Signs Initial Vital Signs: Vital Signs Pulse Rate 111 H 02/29/20 16:30 Respiratory Rate 21 02/29/20 16:30 Blood Pressure 109/69 02/29/20 16:30 Pulse Oximetry 97 02/29/20 16:30 Course <Nafisa Sterling, DO - Last Filed: 03/03/20 07:10> Orders Ordered: Discontinued Medications Diphenhydramine HCl (Benadryl) 50 mg IV NOW ONE Stop: 02/29/20 17:08 Last Admin: 02/29/20 18:18 Dose: Not Given Documented by: YASMIN Piperacillin/Tazobactam/Dextrose (Zosyn) 3.375 gm in 50 mls @ 100 mls/hr IV NOW ONE Stop: 02/29/20 18:07 Last Infusion: 02/29/20 18:48 Dose: 0 mls/hr Documented by: Admin: 02/29/20 18:00 Dose: 100 mls/hr Documented by: LUCAS Sodium Chloride (Normal Saline 0.9%) 1,000 mls @ 1,000 mls/hr IV BOLUS ONE Stop: 02/29/20 18:37 Last Infusion: 02/29/20 20:18 Dose: 0 mls/hr Documented by: Admin: 02/29/20 18:01 Dose: 1,000 mls/hr Documented by: LUCAS Sodium Chloride (Normal Saline 0.9%) 1,000 mls @ 1,000 mls/hr IV BOLUS ONE Stop: 02/29/20 21:17 Last Infusion: 02/29/20 23:27 Dose: 0 mls/hr Documented by: Admin: 02/29/20 20:21 Dose: 1,000 mls/hr Documented by: YASMIN Lorazepam (Ativan) 1 mg IV NOW ONE Stop: 02/29/20 17:01 Last Admin: 02/29/20 17:03 Dose: 1 mg Documented by: YASMIN Methylprednisolone (Solu-Medrol 125 Mg Vial) 125 mg IV NOW ONE Stop: 02/29/20 17:08 Last Admin: 02/29/20 18:18 Dose: Not Given Documented by: YASMIN Consultations Consultation #1: Spoke with Dr. Duckworth, discussed CT findings and patient history. Plan for transfer, he recommends [facility] if available. Vital Signs Vital signs: Vital Signs - 8 hr 02/29/20 16:30 02/29/20 16:45 02/29/20 17:21 Temperature 98.6 F Pulse Rate 111 H 125 H 104 H Respiratory Rate 21 16 Blood Pressure 109/69 109/69 138/65 Pulse Oximetry 97 96 97 <Ramesh Rodriguez DO - Last Filed: 02/29/20 23:10> Orders Ordered: Discontinued Medications Diphenhydramine HCl (Benadryl) 50 mg IV NOW ONE Stop: 02/29/20 17:08 Last Admin: 02/29/20 18:18 Dose: Not Given Documented by: YASMIN Piperacillin/Tazobactam/Dextrose (Zosyn) 3.375 gm in 50 mls @ 100 mls/hr IV NOW ONE Stop: 02/29/20 18:07 Last Infusion: 02/29/20 18:48 Dose: 0 mls/hr Documented by: Admin: 02/29/20 18:00 Dose: 100 mls/hr Documented by: LUCAS Sodium Chloride (Normal Saline 0.9%) 1,000 mls @ 1,000 mls/hr IV BOLUS ONE Stop: 02/29/20 18:37 Last Infusion: 02/29/20 20:18 Dose: 0 mls/hr Documented by: Admin: 02/29/20 18:01 Dose: 1,000 mls/hr Documented by: AMARILYSNSO Sodium Chloride (Normal Saline 0.9%) 1,000 mls @ 1,000 mls/hr IV BOLUS ONE Stop: 02/29/20 21:17 Last Infusion: 02/29/20 23:27 Dose: 0 mls/hr Documented by: Admin: 02/29/20 20:21 Dose: 1,000 mls/hr Documented by: YASMIN Lorazepam (Ativan) 1 mg IV NOW ONE Stop: 02/29/20 17:01 Last Admin: 02/29/20 17:03 Dose: 1 mg Documented by: YASMIN Methylprednisolone (Solu-Medrol 125 Mg Vial) 125 mg IV NOW ONE Stop: 02/29/20 17:08 Last Admin: 02/29/20 18:18 Dose: Not Given Documented by: YASMIN Consultations Consultation #1: [facility] hospitalist would prefer we discuss case with denture processor given apparent illness of patient call to [facility] denture processor who agrees with need for hospitalization and transfer, but patient does not need ICU services call back to hospitalist who asks that we send patient to the ED for eyes on prior to deciding best location for admission in the hospital call to [facility] ED provider (Dr. Mendez) who is happy to accept patient. ALS transport called to provide continuous cardiac monitoring during transport. Vital Signs Vital signs: Vital Signs - 8 hr 02/29/20 16:30 02/29/20 16:45 02/29/20 17:21 Temperature 98.6 F Pulse Rate 111 H 125 H 104 H Respiratory Rate 21 16 Blood Pressure 109/69 109/69 138/65 Pulse Oximetry 97 96 97 Medical Decision Making <Nafisa Sterling DO - Last Filed: 03/03/20 07:10> Lab Data Lab results reviewed: Yes I reviewed the patient's lab results. Result diagrams: 02/29/20 16:54 02/29/20 16:54 Labs: Lab Results 02/29/20 02/29/20 02/29/20 Range/Units 16:54 16:54 16:54 WBC 9.0 (4.5-11.0) X10^3/uL RBC 4.37 L (4.5-5.9) X10^6/uL Hgb 14.9 (13.5-17.5) g/dL Hct 45.3 (41-53) % MCV 103.8 H (80-100) fL MCH 34.0 (26-34) PG MCHC 32.8 (30-36) % RDW 13.1 (11.6-14.8) % Plt Count 240 (150-400) X10^3/uL Neut % (Auto) 72.8 (50-75) % Lymph % (Auto) 16.4 L (25-40) % Blair % (Auto) 10.7 (3-14) % Eos % (Auto) 0.0 L (2-4) % Baso % (Auto) 0.1 (0-2) % Neut # (Auto) 6600 (3405-3979) /uL Lymph # (Auto) 1500 (7079-8213) /uL Blair # (Auto) 1000 H (0-900) /uL Eos # (Auto) 0 (0-450) /uL Baso # (Auto) 0 (0-100) /uL Sodium 145 (137-145) mmol/L Potassium 5.2 H (3.4-5.1) mmol/L Chloride 108 H (98-107) mmol/L Carbon Dioxide 26 (22-32) mmol/L BUN 47 H (9-20) mg/dL Creatinine 1.30 H (0.66-1.25) mg/dL Estimated GFR 59.7 L (>60) mL/min BUN/Creatinine Ratio 36.2 H (6-22) Glucose 135 H (70-100) mg/dL Lactate (0.7-2.1) mmol/L Calcium 9.6 (8.4-10.2) mg/dL Procalcitonin 0.19 (<0.5) ng/mL COVID-19 PCR (Negative) 02/29/20 02/29/20 02/29/20 Range/Units 16:54 19:22 19:57 WBC (4.5-11.0) X10^3/uL RBC (4.5-5.9) X10^6/uL Hgb (13.5-17.5) g/dL Hct (41-53) % MCV (80-100) fL MCH (26-34) PG MCHC (30-36) % RDW (11.6-14.8) % Plt Count (150-400) X10^3/uL Neut % (Auto) (50-75) % Lymph % (Auto) (25-40) % Blair % (Auto) (3-14) % Eos % (Auto) (2-4) % Baso % (Auto) (0-2) % Neut # (Auto) (7851-5044) /uL Lymph # (Auto) (6750-8989) /uL Blair # (Auto) (0-900) /uL Eos # (Auto) (0-450) /uL Baso # (Auto) (0-100) /uL Sodium (137-145) mmol/L Potassium (3.4-5.1) mmol/L Chloride (98-107) mmol/L Carbon Dioxide (22-32) mmol/L BUN (9-20) mg/dL Creatinine (0.66-1.25) mg/dL Estimated GFR (>60) mL/min BUN/Creatinine Ratio (6-22) Glucose (70-100) mg/dL Lactate 4.5 H* 2.8 H (0.7-2.1) mmol/L Calcium (8.4-10.2) mg/dL Procalcitonin (<0.5) ng/mL COVID-19 PCR Negative (Negative) Imaging Data CT scan - chest: Radiologist's Impression: [place] [address] CT Scan Report Signed Patient: Josh Weber [facility]#: [id number] : 1975Acct:[id number] Age/Sex: 44 / MDate of Service: 02/29/20 Loc: ED Accession Number: [id number] Procedure: CT chest w con Ordering Provider: Nafisa Sterling D.O. PROCEDURE: CT CHEST W CON INDICATIONS: concern for pneumomediastinum TECHNIQUE: After the administration of intravenous contrast, 5 mm thick sections acquired from the pulmonary apices to the posterior costophrenic angles. 1 mm axial lung, 5 mm thick coronal and sagittal reformats and 7 mm axial MIP were acquired. For radiation dose reduction, the following was used: automated exposure control, adjustment of mA and/or kV according to patient size. COMPARISON: [facility], CR, XR CHEST 1V, 02/28/2020, 23:35. FINDINGS: Image quality: Excellent. Lungs and pleura: No acute air space opacities. Subpleural blebs are noted at the left lung base adjacent to the diaphragm. No pleural effusions or pneumothorax. Central and peripheral airways are patent and normal in caliber. No focal airway perforation is seen. Mediastinum: Air is seen dissecting along the fascia planes of the anterior and middle mediastinum, compatible with pneumomediastinum. Heart size is normal. No pericardial effusion or pneumopericardium. No mediastinal or hilar adenopathy by size criteria. Thoracic aorta and central pulmonary arteries are normal in size. Esophagus is normal in caliber, but not well evaluated due to metallic streak artifact. No hiatal hernia. Bones and chest wall: There is extensive subcutaneous emphysema dissecting along the fascial planes of the neck and right anterior chest. There is marked S-shaped curvature of the spine. Thoracolumbar spinal fixation hardware is seen with fractured interbody rods at the level of T9 on the right in the level of T7 on the left. There is extensive surrounding metallic artifact that limits evaluation of the adjacent structures. A cervical fusion hardware is noted at the C5-6 level. No vertebral body compression fractures. No axillary or supraclavicular adenopathy by size criteria. Thyroid gland appears normal. Abdomen: No definite pneumoperitoneum is seen in the upper abdomen. Visualized upper abdominal solid organs appear normal. Upper abdominal bowel loops are normal in caliber. IMPRESSION: 1. Pneumomediastinum and extensive subcutaneous emphysema in the right anterior chest, bilateral supraclavicular area, and extending upwards into the neck and face. No definite cause for pneumomediastinum or subcutaneous emphysema is seen. The airways are grossly patent. There is no pneumothorax or pneumopericardium or pneumoperitoneum. The esophagus is not well evaluated due to streak artifact related to spinal hardware. No acute fracture is seen. 2. Extensive spinal fixation hardware with chronic fractures of the metallic interbody rods. Dictated by: Morris Meredith M.D. on 02/29/2020 at 17:26 Approved by: Morris Meredith M.D. on 02/29/2020 at 17:43 [facility] Narrative Medical decision making narrative: Patient is not currently in significant distress, labs were repeated with CBC, BMP and lactate included. CT of the chest with contrast was ordered after discussion with Radiology to evaluate for pneumomediastinum. Per patient's mother he will need some sedation for his CT. Patient CT shows extensive subcutaneous air with no clear definitive source. Meet septic criteria but does have an elevated heart rate although his mother states that is typical, he does have an elevated lactate lower, potassium is slightly elevated 5.2 with a creatinine of 1.3 and a BUN of 47. Procalcitonin is 0.19. Patient was started on fluids 30 cc/kilos and Zosyn IV. Discussed with general surgery who recommends transfer to [facility] in particular but mother is adamant she does not wish to go there. We will try [facility] first, patient vitals currently stable. Spoke with hospitalist who feels patient should be ICU, awaiting call back from ICU and signed out to Dr. Rodriguez. <Ramesh Rodriguez DO - Last Filed: 02/29/20 23:10> Lab Data Labs: Lab Results 02/29/20 02/29/20 02/29/20 Range/Units 16:54 16:54 16:54 WBC 9.0 (4.5-11.0) X10^3/uL RBC 4.37 L (4.5-5.9) X10^6/uL Hgb 14.9 (13.5-17.5) g/dL Hct 45.3 (41-53) % MCV 103.8 H (80-100) fL MCH 34.0 (26-34) PG MCHC 32.8 (30-36) % RDW 13.1 (11.6-14.8) % Plt Count 240 (150-400) X10^3/uL Neut % (Auto) 72.8 (50-75) % Lymph % (Auto) 16.4 L (25-40) % Blair % (Auto) 10.7 (3-14) % Eos % (Auto) 0.0 L (2-4) % Baso % (Auto) 0.1 (0-2) % Neut # (Auto) 6600 (0348-3894) /uL Lymph # (Auto) 1500 (7723-3219) /uL Blair # (Auto) 1000 H (0-900) /uL Eos # (Auto) 0 (0-450) /uL Baso # (Auto) 0 (0-100) /uL Sodium 145 (137-145) mmol/L Potassium 5.2 H (3.4-5.1) mmol/L Chloride 108 H (98-107) mmol/L Carbon Dioxide 26 (22-32) mmol/L BUN 47 H (9-20) mg/dL Creatinine 1.30 H (0.66-1.25) mg/dL Estimated GFR 59.7 L (>60) mL/min BUN/Creatinine Ratio 36.2 H (6-22) Glucose 135 H (70-100) mg/dL Lactate (0.7-2.1) mmol/L Calcium 9.6 (8.4-10.2) mg/dL Procalcitonin 0.19 (<0.5) ng/mL COVID-19 PCR (Negative) 02/29/20 02/29/20 02/29/20 Range/Units 16:54 19:22 19:57 WBC (4.5-11.0) X10^3/uL RBC (4.5-5.9) X10^6/uL Hgb (13.5-17.5) g/dL Hct (41-53) % MCV (80-100) fL MCH (26-34) PG MCHC (30-36) % RDW (11.6-14.8) % Plt Count (150-400) X10^3/uL Neut % (Auto) (50-75) % Lymph % (Auto) (25-40) % Blair % (Auto) (3-14) % Eos % (Auto) (2-4) % Baso % (Auto) (0-2) % Neut # (Auto) (0738-7177) /uL Lymph # (Auto) (0935-8778) /uL Blair # (Auto) (0-900) /uL Eos # (Auto) (0-450) /uL Baso # (Auto) (0-100) /uL Sodium (137-145) mmol/L Potassium (3.4-5.1) mmol/L Chloride (98-107) mmol/L Carbon Dioxide (22-32) mmol/L BUN (9-20) mg/dL Creatinine (0.66-1.25) mg/dL Estimated GFR (>60) mL/min BUN/Creatinine Ratio (6-22) Glucose (70-100) mg/dL Lactate 4.5 H* 2.8 H (0.7-2.1) mmol/L Calcium (8.4-10.2) mg/dL Procalcitonin (<0.5) ng/mL COVID-19 PCR Negative (Negative) Critical Care Time <Nafisa C Asher, DO - Last Filed: 03/03/20 07:10> Critical Care Time Critical Care Time: Yes Attestation: The high probability of a clinically significant, sudden or life threatening deterioration of the [cardiac, respiratory] system(s) required my full and direct attention, intervention and personal management. The aggregate critical care time was [] minutes. This time is in addition to time spent performing reported procedures but includes the following: [x] Data Review and interpretation [x] Patient assessment and monitoring of vital signs [x] Documentation [x] Medication orders and management <Ramesh Michael, DO - Last Filed: 02/29/20 23:10> Critical Care Time Critical Care Time: Yes Total Critical Care Time: 45 Attestation: The high probability of a clinically significant, sudden or life threatening deterioration of the [CV] system(s) required my full and direct attention, intervention and personal management. The aggregate critical care time was [45] minutes. This time is in addition to time spent performing reported procedures but includes the following: [x] Data Review and interpretation [x] Patient assessment and monitoring of vital signs [x] Documentation [x] Medication orders and management Discharge Plan Departure Patient Disposition: [facility] Clinical Impression: Pneumomediastinum Discharge Date/Time: 02/29/20 23:29 Prescriptions: No Action mirtazapine 15 MG tablet 15 mg PO HS Qty: 0 RF: 0 latanoprost 0.005 % Drops 1 drp OPHTH HS Qty: 2.5 RF: 0 acetaminophen 500 mg Tablet 500 mg PO BID Qty: 0 RF: 0 tamsulosin [Flomax] 0.4 MG capsule,extended release 24hr 0.4 mg PO BID Qty: 0 RF: 0 divalproex 250 mg tablet,delayed release (DR/EC) 1 tab PO QPM RF: 0 meloxicam 15 mg tablet See Rx Instructions .ROUTE .COMPLEX RF: 0 clonazepam 1 mg tablet 1.5 mg PO BID RF: 0 baclofen 10 mg tablet 1 tab PO DIRECTED RF: 0 divalproex 500 mg tablet extended release 24 hr 1 tab PO BID RF: 0 acetic acid 0.25 % solution 1 dose Irrigation BID PRN (Reason: bladder irrigation) RF: 0 omeprazole 20 mg capsule,delayed release(DR/EC) 20 mg PO BID RF: 0 divalproex 125 mg capsule, delayed rel sprinkle 1 cap PO QAM RF: 0 levetiracetam 500 mg Tablet 500 mg PO BID RF: 0 divalproex 125 mg Tablet,Delayed Release (Dr/Ec) 125 mg PO PRN PRN (Reason: Seizure Activity) RF: 0 Nayzilam 5 mg/spray (0.1 mL) Catherine,Non-Aerosol 5 mg INTRANASAL PRN PRN (Reason: Seizure Activity) RF: 0 epinephrine [EpiPen 2-Guicho] 0.3 mg/0.3 mL auto-injector 0.3 mg IM Q5-15M PRN (Reason: anaphylaxis) Qty: 2 RF: 0 Referrals: Prateek Mccauley MD [Primary Care Provider] -
[2020-02-29 17:00] LABS: Add Manual Diff / Slide Review NO; Basophils Absolute Auto 0 /uL (0-100); Basophils Percent Auto 0.1 % (0-2); Eosinophils Absolute Auto 0 /uL (0-450); Hematocrit 45.3 % (41-53); Hemoglobin 14.9 g/dL (13.5-17.5); Lymphocytes Absolute Auto 1500 /uL (1100-4500); Lymphocytes Percent Auto 16.4 % (25-40); Mean Corpuscular HGB Conc 32.8 % (30-36); Mean Corpuscular Volume 103.8 fL (80-100); Monocytes Absolute Auto 1000 /uL (0-900); Monocytes Percent Auto 10.7 % (3-14); Neutrophils Absolute Auto 6600 /uL (1500-7000); Neutrophils Percent Auto 72.8 % (50-75); Platelet Count 240 X10^3/uL (150-400); Red Blood Cell Count 4.37 X10^6/uL (4.5-5.9); Red Cell Distribution Width 13.1 % (11.6-14.8)
[2020-02-29] MEDS: LORazepam 2 MG/ML INJ 1 MG IV (17:03)
[2020-02-29 17:13] LABS: BUN Creatinine Ratio 36.2 (6-22); Blood Urea Nitrogen 47 mg/dL (9-20); Calcium 9.6 mg/dL (8.4-10.2); Carbon Dioxide 26 mmol/L (22-32); Chloride 108 mmol/L (98-107); Estimated Glomerular Filt Rate 59.7 mL/min (>60); Glucose 135 mg/dL (70-100); HEMOLYSIS 29 (0-50); Potassium 5.2 mmol/L (3.4-5.1); Sodium 145 mmol/L (137-145)
[2020-02-29 17:27] LABS: Lactate (Lactic Acid) 4.5 mmol/L (0.7-2.1)
[2020-02-29 17:43] LABS: Procalcitonin 0.19 ng/mL (<0.5)
[2020-02-29] MEDS: PIPERACILLIN-TAZO 3.375 GM/50 ML FROZ.PIGGY IV (18:00)
[2020-02-29] MEDS: SODIUM CHLORIDE 0.9% 1,000 ML 1000 ML IV ×2 (18:01→20:21)
[2020-02-29 18:57] LABS: Reflexed Lactate in 2 Hours Y
[2020-02-29 20:11] LABS: Lactate 2HR (Lactic Acid Rflx) 2.8 mmol/L (0.7-2.1)
[2020-02-29 20:24] LABS: COVID19 -Nasal RAPID Negative (Negative)
== END 2020-02-29 23:29 | disposition short-term general hospital (02) ==
PROVIDERS: Emergency Medicine; Emergency Provider Emergency Medicine; Family Provider Internal Medicine; PCP Internal Medicine
DX: J98.2 Interstitial emphysema (principal); T78.40XA Allergy, unspecified, initial encounter; E86.0 Dehydration; R00.0 Tachycardia, unspecified; R79.89 Other specified abnormal findings of blood chemistry
CPT/HCPCS: 36415; 71260; 80048; 83605; 84145; 85025; 87635; 96361; 96365; 96375; 99284; 99291; J2060; J2543; Q9967

== ENCOUNTER → 2020-04-21 15:10 | Outpatient (CLI) | payer MEDICARE, OTHER, MEDICAID, SELFPAY ==
[2018-03-09 18:03] VITALS: BMI 18.5
[2020-04-21 15:55] LABS: Bilirubin Urine UA NEGATIVE (NEGATIVE); Color Urine UA YELLOW; Glucose Urine UA NEGATIVE (Negative); Ketones Urine UA NEGATIVE (NEGATIVE); Leukocyte Esterase Urine UA 1+ (NEGATIVE); Nitrite Urine UA NEGATIVE (Negative); Occult Blood Urine UA 1+ (Negative); Protein Urine UA NEGATIVE (Negative); Urobilinogen Urine UA 0.2 E.U./dL (0.2); pH Urine UA 6.5 (4.5-8.0)
[2020-04-21 15:58] LABS: Appearance Urine UA Slightly Cloudy
[2020-04-21 16:03] LABS: Amorphous Sediment Urine 1+; Bacteria Urine Moderate (10-30); Culture Indicated Urine Specimen Cultured; RBC Urine 0-1/HPF (0-5/HPF); Renal Epithelial Cells Urine 0-1/HPF (0-1/HPF); Squamous Epithelial Cell Urine 0-1 /HPF (0-5/HPF); WBC Urine 30-100/HPF (0-5/HPF)
== END ==
PROVIDERS: Family Provider Internal Medicine; PCP Internal Medicine; Referring Provider Internal Medicine; Visit Provider Internal Medicine
DX: R33.9 Retention of urine, unspecified (principal)
CPT/HCPCS: 81001; 87086

== ENCOUNTER → 2020-05-31 18:50 | Outpatient (ROUT) | payer MEDICARE, OTHER, MEDICAID, SELFPAY ==
[2018-03-09 18:03] VITALS: BMI 18.5
== END ==
PROVIDERS: Family Provider Internal Medicine; PCP Internal Medicine; Visit Provider Internal Medicine
DX: N39.0 Urinary tract infection, site not specified (principal)
CPT/HCPCS: 87077; 87086; 87186

== ENCOUNTER → 2020-08-07 13:11 | Outpatient (CLI) | payer MEDICARE, OTHER, MEDICAID, SELFPAY ==
[2018-03-09 18:03] VITALS: BMI 18.5
--- NOTE | 2020-08-07 | DI.US.S_ITS ---
PROCEDURE: US RENAL COMPLETE INDICATIONS: URINARY RETENTION AND INCREASED CREATININE TECHNIQUE: Real-time scanning was performed of the kidneys and bladder, with image documentation. COMPARISON: None. FINDINGS: Kidneys: Kidneys are normal in size. Right kidney measures 8.1 cm long; left kidney could not be accurately visualized over its length and therefore exact craniocaudad dimension is not available.. Right renal cortical thickness is 0.5 cm; left renal cortical thickness is 1.0 cm. Renal cortical echotexture is normal. No hydronephrosis or nephrolithiasis. No suspicious solid mass lesions. Scattered hepatic cysts are present, the largest which measures 2.1 cm on the right and 2.7 cm on the left. Bladder: Pre-void bladder volume is 72 mL. Post-void residual is 0 mL, via caregiver catheterization. Pre-void images demonstrate no intraluminal masses or stones. On pre-void images, left but not the right ureteral jets are noted with color Doppler interrogation. (Of note, ureteral jets may not be detectable in up to 25% of cases due to insufficient differences in specific gravity between ureteral and bladder urine). Miscellaneous: No free pelvic fluid. IMPRESSION: Bowel gas and inability to suspend respiration reduced quality of visualization is specially of the left kidney. Relative renal cortical thinning to 5 mm on the right, 1 cm on the left. Several scattered simple renal cortical cysts are present. No hydronephrosis found. Bladder emptying the a caregiver catheterization was effective, with 72 cc prevoid bladder volume and 0 postvoid bladder volume. Dictated by: Som Green M.D. on 08/07/2020 at 16:12 Approved by: Som Green M.D. on 08/07/2020 at 16:15
== END ==
PROVIDERS: Family Provider Internal Medicine; PCP Internal Medicine; Referring Provider Urology; Visit Provider Urology
DX: R33.9 Retention of urine, unspecified (principal); N28.1 Cyst of kidney, acquired
CPT/HCPCS: 76770

== ENCOUNTER → 2020-09-16 20:16 | Outpatient (ROUT) | payer MEDICARE, OTHER, MEDICAID, SELFPAY ==
[2018-03-09 18:03] VITALS: BMI 18.5
[2020-09-16 22:00] LABS: Bilirubin Urine UA NEGATIVE (NEGATIVE); Color Urine UA YELLOW; Glucose Urine UA NEGATIVE (Negative); Ketones Urine UA NEGATIVE (NEGATIVE); Leukocyte Esterase Urine UA 2+ (NEGATIVE); Nitrite Urine UA NEGATIVE (Negative); Occult Blood Urine UA 2+ (Negative); Protein Urine UA TRACE (Negative); Urobilinogen Urine UA 0.2 E.U./dL (0.2)
[2020-09-16 22:02] LABS: Appearance Urine UA Cloudy
[2020-09-16 22:19] LABS: Bacteria Urine Few (2-10); RBC Urine 0-1/HPF (0-5/HPF); WBC Urine 30-100/HPF (0-5/HPF)
[2020-09-16 22:20] LABS: Culture Indicated Urine Specimen Cultured
== END ==
PROVIDERS: Family Provider Internal Medicine; PCP Internal Medicine; Visit Provider Internal Medicine
DX: N39.0 Urinary tract infection, site not specified (principal)
CPT/HCPCS: 81001; 87086

== ENCOUNTER 2021-08-21 22:41 | Emergency (ER) | payer MEDICARE, OTHER, MEDICAID, SELFPAY ==
[2018-03-09 18:03] VITALS: BMI 18.5
[2021-08-21 22:45] VITALS: BP 148/81; PULSE 102; RESP 20; TEMP 36.2; O2SAT 93
[2021-08-21 23:09] LABS: Appearance Urine UA CLEAR; Bilirubin Urine UA NEGATIVE (NEGATIVE); Color Urine UA YELLOW; Glucose Urine UA NEGATIVE (Negative); Ketones Urine UA NEGATIVE (NEGATIVE); Leukocyte Esterase Urine UA 1+ (NEGATIVE); Nitrite Urine UA NEGATIVE (Negative); Occult Blood Urine UA 3+ (Negative); Protein Urine UA TRACE (Negative); Urobilinogen Urine UA 0.2 E.U./dL (0.2); pH Urine UA 5.5 (4.5-8.0)
--- NOTE | 2021-08-21 23:09 | ED.GENADULT ---
HPI - General Adult General Chief complaint: Seizure Stated complaint: seizures Time Seen by Provider: 08/21/21 22:49 Source: family Mode of arrival: Wheelchair History of Present Illness HPI narrative: Patient is a 45-year-old male. Has a history of CP. Also has a history of seizures. Is here with his mother for concerns of potential urinary tract infection. Mother states that there is the potential that if he has an infection and is not treated that he will have he seizure. She feels like that he has been having some twitching another clonic movements throughout the day. She also thought that he had a urinary tract infection because he had some blood in his urine earlier today. No fevers. Patient is currently unable to provide any Hpi or review of systems. Related Data Home Medications Medication Instructions Recorded Confirmed latanoprost 0.005 % eye drops 1 drp OPHTH HS #2.5 ml 02/14/12 03/09/18 mirtazapine 15 mg tablet 15 mg PO HS #0 02/14/12 02/29/20 acetaminophen 500 mg tablet 500 mg PO BID #0 01/20/13 02/29/20 tamsulosin 0.4 mg capsule (Flomax) 0.4 mg PO BID #0 09/09/16 02/29/20 acetic acid 0.25 % irrigation 1 dose IRRIGATION BID PRN 03/09/18 03/09/18 solution baclofen 10 mg tablet 1 tab PO DIRECTED 03/09/18 02/29/20 clonazepam 1 mg tablet 1.5 mg PO BID 03/09/18 02/29/20 divalproex 125 mg capsule,delayed 1 cap PO QAM 03/09/18 02/29/20 release sprinkle divalproex 250 mg tablet,delayed 1 tab PO QPM 03/09/18 02/29/20 release divalproex 500 mg tablet,extended 1 tab PO BID 03/09/18 02/29/20 release 24 hr meloxicam 15 mg tablet See Rx Instructions .ROUTE .COMPLEX 03/09/18 02/29/20 omeprazole 20 mg capsule,delayed 20 mg PO BID 03/09/18 02/29/20 release divalproex 125 mg tablet,delayed 125 mg PO PRN PRN 02/29/20 02/29/20 release levetiracetam 500 mg tablet 500 mg PO BID 02/29/20 02/29/20 midazolam 5 mg/spray (0.1 mL) 5 mg INTRANASAL PRN PRN 02/29/20 02/29/20 nasal spray (Nayzilam) Previous Rx's Medication Instructions Recorded epinephrine 0.3 mg/0.3 mL 0.3 mg (0.3 mL) IM Q5-15M PRN #2 02/29/20 injection, auto-injector (EpiPen each 2-Guicho) nitrofurantoin 100 mg PO Q12H 5 Days #10 cap 08/22/21 monohydrate/macrocrystals 100 mg capsule (Macrobid) Allergies Allergy/AdvReac Type Severity Reaction Status Date / Time codeine Allergy Intermediate FACIAL Verified 03/09/18 15:17 SWELLING, RASH phenobarbital Allergy Unknown Verified 03/09/18 15:17 cephalexin Allergy Verified 08/21/21 23:25 Review of Systems Review of Systems ROS Unobtainable: Unobtainable due to medical condition Patient History Medical History Cervical vertebral fusion Congenital cerebral palsy Seizure Urinary retention UTI (urinary tract infection) Surgical History History of thoracic spinal fusion S/P percutaneous endoscopic gastrostomy (PEG) tube placement Social History household members: family Smoking Status: Never smoker alcohol intake: never Smoking Status: Never smoker Substance Use Type: does not use Exam Initial Vital Signs Initial Vital Signs: Vital Signs Temperature 97.1 F L 08/21/21 22:45 Pulse Rate 102 H 08/21/21 22:45 Respiratory Rate 20 08/21/21 22:45 Blood Pressure 148/81 H 08/21/21 22:45 Pulse Oximetry 93 08/21/21 22:45 Const General: frail appearing and No ill appearing HENMT Head: normal to inspection and normocephalic Resp Effort & Inspection: normal respiratory effort Cardio Rate: regular rate GI Other: G-tube in place left side abdomen Other: Normal external male genitalia Neuro Other: Patient did have some periods of time where it appeared that he had twitching movements specifically turning his head to the right. He did squeeze with his right hand on command. Other neurologic findings consistent with his chronic CP. Course Orders Ordered: ED Orders 08/21/21 23:00 Urinalysis and Microscopic Stat Urine Culture Stat 08/21/21 23:15 Basic Metabolic Panel Stat Complete Blood Count AUTO DIFF Stat Discontinued Medications Lorazepam (Lorazepam 2 Mg/Ml Inj) 1 mg IV NOW ONE Stop: 08/21/21 23:11 Last Admin: 08/21/21 23:20 Dose: 1 mg Documented by: RUBEN Lorazepam (Lorazepam 2 Mg/Ml Inj) 0.5 mg IV NOW ONE Stop: 08/22/21 00:21 Last Admin: 08/22/21 00:28 Dose: 0.5 mg Documented by: RUBEN Nitrofurantoin Macrocrystals (Nitrofurantoin Er 100 Mg Capsule) 100 mg PO NOW ONE Stop: 08/21/21 23:36 Last Admin: 08/21/21 23:48 Dose: 100 mg Documented by: RUBEN Vital Signs Vital signs: Vital Signs - 8 hr 08/21/21 22:45 08/22/21 00:00 08/22/21 00:30 Temperature 97.1 F L Pulse Rate 102 H 85 72 Respiratory Rate 20 16 14 Blood Pressure 148/81 H 119/70 117/77 Pulse Oximetry 93 99 98 08/22/21 01:00 08/22/21 01:04 08/22/21 01:30 Temperature Pulse Rate 72 69 67 Respiratory Rate 16 15 18 Blood Pressure 115/66 115/72 Pulse Oximetry 96 96 96 Medical Decision Making Lab Data Result diagrams: 08/21/21 23:15 08/21/21 23:15 Labs: Lab Results 08/21/21 08/21/21 08/21/21 Range/Units 23:00 23:15 23:15 WBC 6.9 (4.5-11.0) X10^3/uL RBC 4.61 (4.5-5.9) X10^6/uL Hgb 15.4 (13.5-17.5) g/dL Hct 46.7 (41-53) % MCV 101.4 H (80-100) fL MCH 33.5 (26-34) PG MCHC 33.1 (30-36) % RDW 14.0 (11.6-14.8) % Plt Count 235 (150-400) X10^3/uL Neut % (Auto) 54.0 (50-75) % Lymph % (Auto) 38.8 (25-40) % Garden % (Auto) 5.5 (3-14) % Eos % (Auto) 1.4 L (2-4) % Baso % (Auto) 0.3 (0-2) % Neut # (Auto) 3700 (3139-6743) /uL Lymph # (Auto) 2700 (4522-2905) /uL [place] # (Auto) 400 (0-900) /uL Eos # (Auto) 100 (0-450) /uL Baso # (Auto) 0 (0-100) /uL Sodium 144 (137-145) mmol/L Potassium 4.8 (3.4-5.1) mmol/L Chloride 103 (98-107) mmol/L Carbon Dioxide 35 H (22-32) mmol/L BUN 44 H (9-20) mg/dL Creatinine 1.22 (0.66-1.25) mg/dL Estimated GFR > 60 (>60) mL/min BUN/Creatinine Ratio 36.1 H (6-22) Glucose 132 H (70-100) mg/dL Calcium 9.2 (8.4-10.2) mg/dL Urine Color Yellow Urine Appearance Clear Urine pH 5.5 (4.5-8.0) Ur Specific [place] 1.010 (1.000-1.035) Urine Protein Trace H (Negative) Urine Glucose (UA) Negative (Negative) g/dL Urine Ketones Negative (NEGATIVE) Urine Occult Blood 3+ H (Negative) Urine Nitrate Negative (Negative) Urine Bilirubin Negative (NEGATIVE) Urine Urobilinogen 0.2 (0.2) E.U./dL Ur Leukocyte Esterase 1+ H (NEGATIVE) Urine RBC 30-100/hpf H (0-5/HPF) Urine WBC 10-30/hpf H (0-5/HPF) Ur Squamous Epith Cells 0-1 /hpf (0-5/HPF) Urine Bacteria Few (2-10) H (None) Ur Culture Indicated? Specimen cultured MDM Narrative Medical decision making narrative: Patient is afebrile. Not tachycardic. Not hypotensive. No leukocytosis. Urinalysis which is a cath urine is consistent with an infection. Review of his prior urine cultures shows that he has Staph aureus that does have quite a few resistance his but is susceptible to Macrobid. Patient's mother states that he is able to take oral tablets but not currently so a dose of Macrobid was given here through his G-tube. After period of time and Ativan his twitching seem to stop. Mother was comfortable taking patient home to continue to give him his home medication and provide antibiotics at home. Mother was given return precautions. She expressed understanding and agreement. Discharge Plan Departure Patient Disposition: Home Clinical Impression: UTI (urinary tract infection) Instructions: DI for Urinary Tract Infection (UTI) Activity Restrictions/Additional Instructions: A prescription for antibiotics was transmitted to [facility]. Please start taking them as directed. Urine culture was pending at the time of Josh's discharge that we will contact you we need to change any antibiotics. Return to the emergency department for any new or worsening symptoms. Prescriptions: New nitrofurantoin monohyd/m-cryst [Macrobid] 100 mg capsule 100 mg PO Q12H 5 Days Qty: 10 0RF Rx Instructions: must administer with a meal/food No Action mirtazapine 15 MG tablet 15 mg PO HS Qty: 0 0RF latanoprost 0.005 % Drops 1 drp OPHTH HS Qty: 2.5 0RF acetaminophen 500 mg Tablet 500 mg PO BID Qty: 0 0RF tamsulosin [Flomax] 0.4 MG capsule,extended release 24hr 0.4 mg PO BID Qty: 0 0RF divalproex 250 mg tablet,delayed release (DR/EC) 1 tab PO QPM 0RF Label Comments: mother indicated 3 given meloxicam 15 mg tablet See Rx Instructions .ROUTE .COMPLEX 0RF Rx Instructions: Half tab in AM One tab afternoon One tab PM clonazepam 1 mg tablet 1.5 mg PO BID 0RF Label Comments: TAKE 1 TABLET BY MOUTH TWICE DAILY ALONG WITH 0.5MG TABLET baclofen 10 mg tablet 1 tab PO DIRECTED 0RF Label Comments: Takes at 3PM divalproex 500 mg tablet extended release 24 hr 1 tab PO BID 0RF acetic acid 0.25 % solution 1 dose Irrigation BID PRN (Reason: bladder irrigation) 0RF Label Comments: 60CC FLUSH INTO BLADDER TWICE DAILY NEEDED omeprazole 20 mg capsule,delayed release(DR/EC) 20 mg PO BID 0RF Label Comments: TAKE 2 CAPSULES EVERY DAY divalproex 125 mg capsule, delayed rel sprinkle 1 cap PO QAM 0RF Label Comments: TAKE 1 CAPSULE BY MOUTH EVERY MORNING levetiracetam 500 mg Tablet 500 mg PO BID 0RF divalproex 125 mg Tablet,Delayed Release (Dr/Ec) 125 mg PO PRN PRN (Reason: Seizure Activity) 0RF Nayzilam 5 mg/spray (0.1 mL) [place],Non-Aerosol 5 mg INTRANASAL PRN PRN (Reason: Seizure Activity) 0RF epinephrine [EpiPen 2-Guicho] 0.3 mg/0.3 mL auto-injector 0.3 mg IM Q5-15M PRN (Reason: anaphylaxis) Qty: 2 0RF Rx Instructions: do not exceed 3 doses per episode Referrals: Prateek Mccauley MD [Primary Care Provider] -
[2021-08-21] MEDS: LORazepam 2 MG/ML INJ 1 MG IV (23:20)
[2021-08-21 23:21] LABS: Bacteria Urine Few (2-10); Culture Indicated Urine Specimen Cultured; RBC Urine 30-100/HPF (0-5/HPF); Squamous Epithelial Cell Urine 0-1 /HPF (0-5/HPF); WBC Urine 10-30/HPF (0-5/HPF)
[2021-08-21 23:29] LABS: Add Manual Diff / Slide Review NO; Basophils Absolute Auto 0 /uL (0-100); Basophils Percent Auto 0.3 % (0-2); Eosinophils Absolute Auto 100 /uL (0-450); Eosinophils Percent Auto 1.4 % (2-4); Hematocrit 46.7 % (41-53); Hemoglobin 15.4 g/dL (13.5-17.5); Lymphocytes Absolute Auto 2700 /uL (1100-4500); Lymphocytes Percent Auto 38.8 % (25-40); Mean Corpuscular HGB Conc 33.1 % (30-36); Mean Corpuscular Hemoglobin 33.5 PG (26-34); Mean Corpuscular Volume 101.4 fL (80-100); Monocytes Absolute Auto 400 /uL (0-900); Monocytes Percent Auto 5.5 % (3-14); Neutrophils Absolute Auto 3700 /uL (1500-7000); Platelet Count 235 X10^3/uL (150-400); Red Blood Cell Count 4.61 X10^6/uL (4.5-5.9); White Blood Cell Count 6.9 X10^3/uL (4.5-11.0)
[2021-08-21 23:41] LABS: BUN Creatinine Ratio 36.1 (6-22); Blood Urea Nitrogen 44 mg/dL (9-20); Calcium 9.2 mg/dL (8.4-10.2); Carbon Dioxide 35 mmol/L (22-32); Chloride 103 mmol/L (98-107); Estimated Glomerular Filt Rate > 60 mL/min (>60); Glucose 132 mg/dL (70-100); HEMOLYSIS 16 (0-50); Potassium 4.8 mmol/L (3.4-5.1); Sodium 144 mmol/L (137-145)
[2021-08-21] MEDS: NITROFURANTOIN ER 100 MG CAPSULE PO (23:48)
[2021-08-22] VITALS: BP 119/70; PULSE 85; RESP 16; O2SAT 99
[2021-08-22] MEDS: LORazepam 2 MG/ML INJ 0.5 MG IV (00:28)
[2021-08-22 00:30] VITALS: BP 117/77; PULSE 72; RESP 14; O2SAT 98
[2021-08-22 01:00] VITALS: BP 115/66; PULSE 72; RESP 16; O2SAT 96
[2021-08-22 01:04] VITALS: PULSE 69; RESP 15; O2SAT 96
[2021-08-22 01:30] VITALS: BP 115/72; PULSE 67; RESP 18; O2SAT 96
--- NOTE | 2021-08-22 02:08 | PC.NURSE ---
0130: Pt's episodes or body tremors has decreased and pt is sleeping calmly in bed. Pt's mother agrees that she sees an improvement.
== END 2021-08-22 01:55 | disposition home or self-care (01) ==
PROVIDERS: Emergency Provider Emergency Medicine; Family Provider Internal Medicine; PCP Internal Medicine
DX: N39.0 Urinary tract infection, site not specified (principal); R25.3 Fasciculation
CPT/HCPCS: 36415; 80048; 81001; 85025; 87086; 96374; 96376; 99284; J2060

== ENCOUNTER → 2021-10-15 14:36 | Outpatient (CLI) | payer MEDICARE, OTHER, MEDICAID, SELFPAY ==
[2018-03-09 18:03] VITALS: BMI 18.5
--- NOTE | 2021-10-15 14:40 | DI.US.S_ITS ---
PROCEDURE: US RENAL COMPLETE INDICATIONS: NEURODYSFUNCTION OF BLADDER TECHNIQUE: Real-time scanning was performed of the kidneys and bladder, with image documentation. COMPARISON: [facility], , US RENAL COMPLETE, 08/07/2020, 13:38. FINDINGS: Limited examination secondary to body habitus and inability to communicate with the examination. Kidneys: Kidneys are normal in size. Right kidney measures 7.5 cm long; left kidney measures 6.8 cm long. Right renal cortical thickness is 0.7 cm; left renal cortical thickness is 0.8 cm. Renal cortical echotexture is normal. No hydronephrosis or nephrolithiasis. No suspicious solid mass lesions. Anechoic focus within the superior pole right kidney with internal septations measuring 22 mm. Anechoic region within the right interpolar kidney measuring 7 mm. Anechoic focus within the superior left kidney measuring 29 mm. Inferior left kidney not well seen. Bladder: Pre-void bladder volume is 150 mL. Post-void residual is 0 mL. Pre-void images demonstrate no intraluminal masses or stones. On pre-void images, no ureteral jets are noted with color Doppler interrogation. (Of note, ureteral jets may not be detectable in up to 25% of cases due to insufficient differences in specific gravity between ureteral and bladder urine). Miscellaneous: No free pelvic fluid. IMPRESSION: No hydronephrosis. Bilateral renal cysts. Dictated by: Garrett Leal M.D. on 10/15/2021 at 16:16 Approved by: Garrett Leal M.D. on 10/15/2021 at 16:50
== END ==
PROVIDERS: Family Provider Internal Medicine; PCP Internal Medicine; Referring Provider Physician Assistant; Visit Provider Physician Assistant
DX: N31.9 Neuromuscular dysfunction of bladder, unspecified (principal); N39.0 Urinary tract infection, site not specified; Q61.02 Congenital multiple renal cysts
CPT/HCPCS: 76770

== ENCOUNTER 2022-01-22 00:08 | Emergency (ER) | payer MEDICARE, OTHER, MEDICAID, SELFPAY ==
[2018-03-09 18:03] VITALS: BMI 18.5
[2022-01-22 00:36] VITALS: BP 143/83; PULSE 79; RESP 22; TEMP 36.6; O2SAT 98
[2022-01-22 01:40] LABS: Appearance Urine UA CLEAR; Bilirubin Urine UA NEGATIVE (NEGATIVE); Color Urine UA YELLOW; Glucose Urine UA NEGATIVE (Negative); Ketones Urine UA NEGATIVE (NEGATIVE); Leukocyte Esterase Urine UA TRACE (NEGATIVE); Nitrite Urine UA NEGATIVE (Negative); Occult Blood Urine UA 3+ (Negative); Protein Urine UA NEGATIVE (Negative); Urobilinogen Urine UA 0.2 E.U./dL (0.2); pH Urine UA 7.5 (4.5-8.0)
[2022-01-22 02:10] LABS: RBC Urine 30-100/HPF (0-5/HPF); WBC Urine 1-5/HPF (0-5/HPF)
[2022-01-22 02:11] LABS: Bacteria Urine Few (2-10); Culture Indicated Urine Specimen Cultured
--- NOTE | 2022-01-22 03:18 | ED_ITS ---
HPI - Male Genitourinary General Chief complaint: Urogenital-Male Stated complaint: UTI AND PRESEIZURE SHAKES Time Seen by Provider: 01/22/22 00:42 Source: family Mode of arrival: Wheelchair Limitations: no limitations History of Present Illness HPI Narrative: This is a 46-year-old male with history of cerebral palsy and seizures. Mom presents with concerns for for potential urinary tract infection. She states that she is noticed some changes to the smell of his urine and that he seemed a little bit more twitchy she has not appreciated any actual seizures but states sort of prodromal changes that she expects. No fevers at home, she has not appreciated any respiratory infection, nasal congestion, no vomiting, he does seem like he is had some abdominal discomfort. She has not changes noticed changes to stooling. Patient is unable to provide any HPI review of systems patient's history is provided fully by his mother who is his main caregiver. Related Data Home Medications Medication Instructions Recorded Confirmed latanoprost 0.005 % eye drops 1 drp OPHTH HS #2.5 mL 02/14/12 03/09/18 mirtazapine 15 mg tablet 15 mg PO HS ##0 02/14/12 02/29/20 acetaminophen 500 mg tablet 500 mg PO BID ##0 01/20/13 02/29/20 tamsulosin 0.4 mg capsule (Flomax) 0.4 mg PO BID ##0 09/09/16 02/29/20 acetic acid 0.25 % irrigation 1 dose irrigation BID PRN bladder 03/09/18 03/09/18 solution irrigation baclofen 10 mg tablet 1 tab PO DIRECTED 03/09/18 02/29/20 clonazepam 1 mg tablet 1.5 mg PO BID 03/09/18 02/29/20 divalproex 125 mg capsule,delayed 1 cap PO QAM 03/09/18 02/29/20 release sprinkle divalproex 250 mg tablet,delayed 1 tab PO QPM 03/09/18 02/29/20 release divalproex 500 mg tablet,extended 1 tab PO BID 03/09/18 02/29/20 release 24 hr meloxicam 15 mg tablet See Rx Instructions .Route .COMPLEX 03/09/18 02/29/20 omeprazole 20 mg capsule,delayed 20 mg PO BID 03/09/18 02/29/20 release divalproex 125 mg tablet,delayed 125 mg PO PRN PRN Seizure Activity 02/29/20 02/29/20 release levetiracetam 500 mg tablet 500 mg PO BID 02/29/20 02/29/20 midazolam 5 mg/spray (0.1 mL) 5 mg intranasal PRN PRN Seizure 02/29/20 02/29/20 nasal spray (Nayzilam) Activity Previous Rx's Medication Instructions Recorded epinephrine 0.3 mg/0.3 mL 0.3 mg (0.3 mL) IM Q5-15M PRN 02/29/20 injection, auto-injector (EpiPen anaphylaxis #2 ea 2-Guicho) levofloxacin 500 mg tablet 500 mg PO DAILY 7 days #7 tabs 01/22/22 Allergies Allergy/AdvReac Type Severity Reaction Status Date / Time codeine Allergy Intermediate FACIAL Verified 03/09/18 15:17 SWELLING, RASH phenobarbital Allergy Unknown Verified 03/09/18 15:17 cephalexin Allergy Verified 08/21/21 23:25 Review of Systems Review of Systems ROS Unobtainable: All systems reviewed & are unremarkable except as noted in HPI and below Patient History Medical History Cervical vertebral fusion Congenital cerebral palsy Seizure Urinary retention UTI (urinary tract infection) Surgical History History of thoracic spinal fusion S/P percutaneous endoscopic gastrostomy (PEG) tube placement Social History household members: family Smoking Status: Never smoker alcohol intake: never Smoking Status: Never smoker Substance Use Type: does not use Exam Narrative Exam Narrative: GENERAL: Frail appearing male in mild distress. HEENT: Head atraumatic, face symmetric, moist mucous membranes NECK: Supple, full range of motion CARDIOVASCULAR: Regular rate and rhythm without murmurs, rubs or gallops. No JVD. RESPIRATORY: Breath sounds equal bilaterally, no wheezes rales or rhonchi. No tachypnea accessory muscle use. ABDOMEN: Soft, nontender to palpation. Nondistended. Normoactive bowel sounds all 4 quadrants. No guarding or rebound, rigidity, no mass, G-tube place on the abdomen. : No CVA tenderness EXTREMITIES: Patient does have contractures bilateral lower extremities. Patient is gripping a cell phone with his right upper extremity. Neurovascularly intact NEUROLOGICAL: Cranial nerves II through XII grossly intact. Patient's neuro exam appears consistent with prior visits when seen by myself. SKIN: Warm, dry, no petechiae, no rashes or lesions. Initial Vital Signs Initial Vital Signs: Vital Signs Temperature 97.9 F 01/22/22 00:36 Pulse Rate 79 01/22/22 00:36 Respiratory Rate 22 01/22/22 00:36 Blood Pressure 143/83 H 01/22/22 00:36 Pulse Oximetry 98 01/22/22 00:36 Oxygen Delivery Method 01/22/22 00:36 Course Orders Ordered: ED Orders 01/22/22 00:30 Urinalysis and Microscopic Stat Urine Culture Stat Vital Signs Vital signs: Vital Signs - 8 hr 01/22/22 00:36 01/22/22 03:27 Temperature 97.9 F 97.1 F L Pulse Rate 79 Respiratory Rate 22 Blood Pressure 143/83 H Pulse Oximetry 98 Oxygen Delivery Method Room Air MDM - Male Genitourinary Lab Data Labs: Lab Results 01/22/22 Range/Units 00:30 Urine Color Yellow Urine Appearance Clear Urine pH 7.5 (4.5-8.0) Ur Specific [place] 1.020 (1.000-1.035) Urine Protein Negative (Negative) Urine Glucose (UA) Negative (Negative) g/dL Urine Ketones Negative (NEGATIVE) Urine Occult Blood 3+ H (Negative) Urine Nitrate Negative (Negative) Urine Bilirubin Negative (NEGATIVE) Urine Urobilinogen 0.2 (0.2) E.U./dL Ur Leukocyte Esterase Trace H (NEGATIVE) Urine RBC 30-100/hpf H (0-5/HPF) Urine WBC 1-5/hpf (0-5/HPF) Urine Bacteria Few (2-10) H (None) Ur Culture Indicated? Specimen cultured MDM Narrative Medical decision making narrative: This is a 46-year-old male who presents with concern for UTI. Patient's urine does show leuks, bacteria and has been cultured and is suspicious for infection. Patient is unable to give much history based on his current neurologic state which is his baseline. He is afebrile. Vitals and exam do not suggest any signs of sepsis. Discussed with mother about further workup but defers she has initial dose of Levaquin 500 mg at home will send a prescription for additional x1 week. Return precautions discussed. Discharge Plan Departure Patient Disposition: Home Clinical Impression: UTI (urinary tract infection) Instructions: DI for Urinary Tract Infection (UTI) Activity Restrictions/Additional Instructions: You may start Levaquin 500 mg at home this evening. Prescription sent to [facility]. Please return for worsening symptoms, changes in mental status, persistent vomiting, new or increasing pain, new changes or difficulty with urination or black or bloody stools. Prescriptions: New levofloxacin 500 mg tablet 500 mg PO DAILY 7 Days Qty: 7 0RF No Action mirtazapine 15 MG tablet 15 mg PO HS Qty: 0 latanoprost 0.005 % Drops 1 drp OPHTH HS Qty: 2.5 acetaminophen 500 mg Tablet 500 mg PO BID Qty: 0 tamsulosin [Flomax] 0.4 MG capsule,extended release 24hr 0.4 mg PO BID Qty: 0 divalproex 250 mg tablet,delayed release (DR/EC) 1 tab PO QPM Label Comments: mother indicated 3 given meloxicam 15 mg tablet See Rx Instructions .ROUTE .COMPLEX Rx Instructions: Half tab in AM One tab afternoon One tab PM clonazepam 1 mg tablet 1.5 mg PO BID Label Comments: TAKE 1 TABLET BY MOUTH TWICE DAILY ALONG WITH 0.5MG TABLET baclofen 10 mg tablet 1 tab PO DIRECTED Label Comments: Takes at 3PM divalproex 500 mg tablet extended release 24 hr 1 tab PO BID acetic acid 0.25 % solution 1 dose Irrigation BID PRN (Reason: bladder irrigation) Label Comments: 60CC FLUSH INTO BLADDER TWICE DAILY NEEDED omeprazole 20 mg capsule,delayed release(DR/EC) 20 mg PO BID Label Comments: TAKE 2 CAPSULES EVERY DAY divalproex 125 mg capsule, delayed rel sprinkle 1 cap PO QAM Label Comments: TAKE 1 CAPSULE BY MOUTH EVERY MORNING levetiracetam 500 mg Tablet 500 mg PO BID divalproex 125 mg Tablet,Delayed Release (Dr/Ec) 125 mg PO PRN PRN (Reason: Seizure Activity) Nayzilam 5 mg/spray (0.1 mL) [place],Non-Aerosol 5 mg INTRANASAL PRN PRN (Reason: Seizure Activity) epinephrine [EpiPen 2-Guicho] 0.3 mg/0.3 mL auto-injector 0.3 mg IM Q5-15M PRN (Reason: anaphylaxis) Qty: 2 0RF Rx Instructions: do not exceed 3 doses per episode Referrals: Prateek Mccauley MD [Primary Care Provider] - Visit Report Forms: Patient Portal/API
[2022-01-22 03:27] VITALS: TEMP 36.2
== END 2022-01-22 03:57 | disposition home or self-care (01) ==
PROVIDERS: Emergency Provider Emergency Medicine; Family Provider Internal Medicine; PCP Internal Medicine
DX: N39.0 Urinary tract infection, site not specified (principal)
CPT/HCPCS: 81001; 87077; 87086; 87186; 99282

== ENCOUNTER → 2022-05-29 15:45 | Outpatient (CLI) | payer MEDICARE, OTHER, MEDICAID, SELFPAY ==
[2018-03-09 18:03] VITALS: BMI 18.5
[2022-05-29 17:58] LABS: Hematocrit 46.9 % (41-53); Hemoglobin 15.5 g/dL (13.5-17.5); Mean Corpuscular HGB Conc 33.1 % (30-36); Mean Corpuscular Hemoglobin 34.2 PG (26-34); Mean Corpuscular Volume 103.2 fL (80-100); Platelet Count 199 X10^3/uL (150-400); Red Blood Cell Count 4.55 X10^6/uL (4.5-5.9); Red Cell Distribution Width 14.4 % (11.6-14.8); White Blood Cell Count 6.1 X10^3/uL (4.5-11.0)
[2022-05-29 19:24] LABS: Alanine Aminotransferase 17 IU/L (<50); Albumin Globulin Ratio 1.2 (1.0-2.8); Alkaline Phosphatase 66 U/L (38-126); Aspartate Aminotransferase 20 IU/L (17-59); BUN Creatinine Ratio 41.2 (6-22); Bilirubin Total 0.2 mg/dL (0.2-1.3); Blood Urea Nitrogen 40 mg/dL (9-20); Calcium 9.6 mg/dL (8.4-10.2); Carbon Dioxide 36 mmol/L (22-32); Chloride 102 mmol/L (98-107); Cholesterol 194 mg/dL (140-199); Estimated Glomerular Filt Rate > 60 mL/min (>60); Globulin 3.4 g/dL (1.7-4.1); Glucose 101 mg/dL (70-100); HDL Cholesterol 39 mg/dL (40-60); HEMOLYSIS < 15 (0-50); LDL Cholesterol Calculated 117 mg/dL (<100); Potassium 4.9 mmol/L (3.4-5.1); Sodium 147 mmol/L (137-145); Total Protein 7.4 g/dL (6.3-8.2); Triglycerides 192 mg/dL (35-150)
[2022-05-29 19:54] LABS: Prostate Specific Antigen Scrn 0.509 ng/mL (0.1-4.0)
[2022-05-29 19:57] LABS: TSH w/ Reflex to FT4 1.72 uIU/mL (0.47-4.68)
[2022-05-31 09:07] LABS: Valproic Acid (Depakene) Total 63 ug/mL (50-100)
== END ==
PROVIDERS: Family Provider Internal Medicine; PCP Internal Medicine; Referring Provider Internal Medicine; Visit Provider Internal Medicine
DX: Z00.00 Encounter for general adult medical examination without abnormal findings (principal); G40.909 Epilepsy, unspecified, not intractable, without status epilepticus; Z12.5 Encounter for screening for malignant neoplasm of prostate; G91.9 Hydrocephalus, unspecified
CPT/HCPCS: 36415; 80053; 80061; 80164; 84443; 85027; G0103

== ENCOUNTER → 2022-06-13 19:51 | Outpatient (ROUT) | payer MEDICARE, OTHER, MEDICAID, SELFPAY ==
[2018-03-09 18:03] VITALS: BMI 18.5
[2022-06-13 19:54] LABS: Appearance Urine UA SL CLOUDY; Bilirubin Urine UA NEGATIVE (NEGATIVE); Color Urine UA YELLOW; Glucose Urine UA NEGATIVE (Negative); Ketones Urine UA NEGATIVE (NEGATIVE); Leukocyte Esterase Urine UA 2+ (NEGATIVE); Nitrite Urine UA POSITIVE (Negative); Occult Blood Urine UA TRACE-INTACT (Negative); Protein Urine UA NEGATIVE (Negative); Urobilinogen Urine UA 0.2 E.U./dL (0.2)
[2022-06-13 20:05] LABS: Bacteria Urine Many (>30); Culture Indicated Urine Specimen Cultured; RBC Urine 0-1/HPF (0-5/HPF); Renal Epithelial Cells Urine 0-1/HPF (0-1/HPF); Squamous Epithelial Cell Urine 0-1 /HPF (0-5/HPF); Transitional Epi Cells Urine 0-1/HPF (0-5/HPF); WBC Urine 30-100/HPF (0-5/HPF)
== END ==
PROVIDERS: Family Provider Internal Medicine; PCP Internal Medicine; Visit Provider Internal Medicine
DX: N39.0 Urinary tract infection, site not specified (principal)
CPT/HCPCS: 81001; 87077; 87086; 87186

== ENCOUNTER → 2022-10-12 15:36 | Outpatient (CLI) | payer MEDICARE, OTHER, MEDICAID, SELFPAY ==
[2018-03-09 18:03] VITALS: BMI 18.5
[2022-10-12 16:22] LABS: Ammonia (NH3) 31 umol/L (9-30)
[2022-10-12 17:08] LABS: Add Manual Diff / Slide Review NO; Basophils Absolute Auto 0 /uL (0-100); Basophils Percent Auto 0.3 % (0-2); Eosinophils Absolute Auto 100 /uL (0-450); Eosinophils Percent Auto 1.1 % (2-4); Hematocrit 44.9 % (41-53); Hemoglobin 15.1 g/dL (13.5-17.5); Lymphocytes Absolute Auto 3000 /uL (1100-4500); Lymphocytes Percent Auto 41.4 % (25-40); Mean Corpuscular HGB Conc 33.7 % (30-36); Mean Corpuscular Volume 101.1 fL (80-100); Monocytes Absolute Auto 600 /uL (0-900); Monocytes Percent Auto 8.5 % (3-14); Neutrophils Absolute Auto 3500 /uL (1500-7000); Neutrophils Percent Auto 48.7 % (50-75); Platelet Count 173 X10^3/uL (150-400); Red Blood Cell Count 4.44 X10^6/uL (4.5-5.9); Red Cell Distribution Width 14.2 % (11.6-14.8); White Blood Cell Count 7.2 X10^3/uL (4.5-11.0)
[2022-10-12 17:22] LABS: Alanine Aminotransferase 18 IU/L (<50); Albumin Globulin Ratio 1.1 (1.0-2.8); Alkaline Phosphatase 63 U/L (38-126); Aspartate Aminotransferase 19 IU/L (17-59); BUN Creatinine Ratio 41.9 (6-22); Bilirubin Total 0.3 mg/dL (0.2-1.3); Blood Urea Nitrogen 39 mg/dL (9-20); Calcium 9.5 mg/dL (8.4-10.2); Carbon Dioxide 34 mmol/L (22-32); Chloride 101 mmol/L (98-107); Estimated Glomerular Filt Rate > 60 mL/min (>60); Globulin 3.5 g/dL (1.7-4.1); Glucose 118 mg/dL (70-100); HEMOLYSIS < 15 (0-50); Potassium 4.4 mmol/L (3.4-5.1); Sodium 143 mmol/L (137-145); Total Protein 7.5 g/dL (6.3-8.2)
[2022-10-13 05:18] LABS: Valproic Acid (Depakene) Total 38 ug/mL (50-100)
[2022-10-14 14:24] LABS: Levetiracetam Keppra 38.3 ug/mL (10.0-40.0)
[2022-10-26 17:06] LABS: 1,25-Dihydroxy, Vitamin D-2 <10 pg/mL (.)
== END ==
PROVIDERS: Family Provider Internal Medicine; PCP Internal Medicine; Referring Provider Psychiatry & Neurology Neurology; Visit Provider Psychiatry & Neurology Neurology
DX: Z51.81 Encounter for therapeutic drug level monitoring (principal); E55.9 Vitamin D deficiency, unspecified; G40.319 Generalized idiopathic epilepsy and epileptic syndromes, intractable, without status epilepticus
CPT/HCPCS: 36415; 80053; 80164; 80177; 82140; 82306; 82652; 85025

== ENCOUNTER 2023-02-05 00:58 | Emergency (ER) | payer MEDICARE, OTHER, MEDICAID, SELFPAY ==
[2018-03-09 18:03] VITALS: BMI 18.5
[2023-02-05] VITALS (12 sets, daily range): BP systolic 115–175; BP diastolic 56–68; PULSE 74–123; RESP 18–24; TEMP 37.2; O2SAT 95–98; BMI 17.6
--- NOTE | 2023-02-05 01:02 | ED_ITS ---
HPI - General Adult General Chief complaint: Urogenital-Male Stated complaint: Seizures, possible UTI Time Seen by Provider: 02/05/23 01:02 History of Present Illness HPI narrative: 47-year-old male nonsmoker is wheelchair-bound, blind, with history of agenesis of the corpus callosum, cerebellar and cerebral atrophy and frequent UTIs presents with his mother and caregiver and the concern for a UTI. She provides excellent care and frequently will test his urine at home for signs of infection when he shows his classic symptoms and she performed a POC at home that was convincing for infection. He typically does not get fever and has a heart rate in the upper 90s which has been slightly higher than normal lately. She denies any upper respiratory complaints such as nasal congestion, sneezing, cough or perception of pain. He is had no vomiting or diarrhea. Related Data Home Medications Medication Instructions Recorded Confirmed latanoprost 0.005 % eye drops 1 drp OPHTH HS #2.5 mL 02/14/12 05/29/22 mirtazapine 15 mg tablet 15 mg PO HS ##0 02/14/12 05/29/22 acetaminophen 500 mg tablet 500 mg PO BID ##0 01/20/13 05/29/22 tamsulosin 0.4 mg capsule (Flomax) 0.4 mg PO BID ##0 09/09/16 05/29/22 acetic acid 0.25 % irrigation 1 dose irrigation BID PRN bladder 03/09/18 05/29/22 solution irrigation baclofen 10 mg tablet 1 tab PO DIRECTED 03/09/18 05/29/22 midazolam 5 mg/spray (0.1 mL) 5 mg intranasal PRN PRN Seizure 02/29/20 05/29/22 nasal spray (Nayzilam) Activity ascorbic acid (vitamin C) 500 mg 500 mg PO DAILY 05/29/22 05/29/22 tablet clonazepam 1 mg tablet 1 mg PO .COMPLEX 05/29/22 05/29/22 divalproex 500 mg tablet,delayed 500 mg PO BID 05/29/22 05/29/22 release folic acid 400 mcg tablet 0.4 mg PO DAILY 05/29/22 05/29/22 levetiracetam 750 mg tablet 750 mg PO BID 05/29/22 05/29/22 methenamine hippurate 1 gram tablet 1 g feeding tube DAILY 05/29/22 05/29/22 nutritional supplements 0.08 1 ea feeding tube DAILY 05/29/22 05/29/22 gram-2 kcal/mL liquid for tube feed (Nutren 2.0) water for irrigation, sterile ml irrigation 05/29/22 05/29/22 Previous Rx's Medication Instructions Recorded epinephrine 0.3 mg/0.3 mL 0.3 mg (0.3 mL) IM Q5-15M PRN 02/29/20 injection, auto-injector (EpiPen anaphylaxis #2 ea 2-Guicho) sulfamethoxazole 800 1 tab PO BID #14 tabs 06/15/22 mg-trimethoprim 160 mg tablet omeprazole 20 mg capsule,delayed 20 mg PO BID #180 caps 06/24/22 release sulfamethoxazole 800 1 tab PO BID #14 tabs 09/11/22 mg-trimethoprim 160 mg tablet levofloxacin 500 mg tablet 500 mg PO DAILY UTI #7 tabs 10/16/22 meloxicam 15 mg tablet 15 mg PO .daily with meal #90 tabs 10/16/22 levofloxacin 750 mg tablet 750 mg PO DAILY 7 days #7 tabs 02/05/23 Allergies Allergy/AdvReac Type Severity Reaction Status Date / Time codeine Allergy Intermediate FACIAL Verified 02/05/23 01:40 SWELLING, RASH phenobarbital Allergy Unknown Verified 02/05/23 01:40 cephalexin Allergy Verified 02/05/23 01:40 Review of Systems Review of Systems ROS Unobtainable: Unobtainable due to mental status/LOC Patient History Medical History 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 Cataracts, bilateral Cerebellar atrophy Cerebral atrophy Cervical spine disease Cervical vertebral fusion Chicken pox (~1977) History of developmental delay Hydrocephalus, adult Impaired mobility and ADLs Leukomalacia, periventricular Neurogenic bladder Recurrent UTI Seizure disorder Spastic quadriplegia Total blindness Urinary retention Surgical History Anesthesia History of thoracic spinal fusion S/P percutaneous endoscopic gastrostomy (PEG) tube placement Family History Mother Hyperlipidemia Autoimmune disorder Sister Multiple myeloma History of kidney cancer History of Graves' disease Grandfather Diabetes mellitus Grandmother Alcoholism Tuberculosis Social History household members: family Smoking Status: Never smoker alcohol intake: never Smoking Status: Never smoker Substance Use Type: does not use Exam Narrative Exam Narrative: GENERAL: [47] year old patient appears stated age. Mild resting tremor, typical when he is agitated or feels unwell per mother HEAD: Atraumatic. Normocephalic. EYES: Pupils equal round and reactive. Extraocular motions intact. No scleral icterus. No injection or drainage. ENT: Nose without bleeding, purulent drainage. Throat without erythema, tonsillar hypertrophy or exudate. Airway patent. NECK: Trachea midline. Non tender CARDIOVASCULAR: Tachycardic but regular rhythm without murmurs, gallops, or rubs. RESPIRATORY: Clear to auscultation. Breath sounds equal bilaterally. No wheezes, rales, or rhonchi. GASTROINTESTINAL: Abdomen soft, non-tender, nondistended. EXTREMITIES: No edema or joint tenderness. BACK: Nontender without deformity or crepitance. No flank tenderness. SKIN: No rash or erythema of visible areas Initial Vital Signs Initial Vital Signs: Vital Signs Temperature 99 F 02/05/23 01:15 Pulse Rate 123 H 02/05/23 01:15 Respiratory Rate 24 02/05/23 01:15 Blood Pressure 175/65 H 02/05/23 01:15 Pulse Oximetry 95 02/05/23 01:15 Oxygen Delivery Method Room Air 02/05/23 01:15 Course Orders Ordered: ED Orders 02/05/23 01:25 BMP [Basic Metabolic Panel] Stat Complete Blood Count AUTO DIFF Stat D Dimer Stat Lactate (Lactic Acid) Stat Troponin & CK Cardiac Panel Stat 02/05/23 01:33 Urine Culture Stat Urine Microscopic Stat 02/05/23 02:17 Covid-19 + FLU A/B + RSV - PCR Stat 02/05/23 02:25 Blood Culture Stat 02/05/23 02:33 CT angio chest PE protocol Stat Ondansetron HCl (Ondansetron 4 Mg/2 Ml Inj) 4 mg IV NOW PRN PRN Reason: Nausea And Vomiting Ondansetron HCl (Ondansetron 4 Mg Odt) 4 mg SL NOW PRN PRN Reason: Nausea And Vomiting Discontinued Medications Sodium Chloride (Normal Saline 0.9%) 1,230.15 mls @ 410.05 mls/hr 30 ml/kg infuse over 3 hr (1230.15 ml) IV NOW ONE Stop: 02/05/23 04:55 Last Admin: 02/05/23 02:13 Dose: 410.05 mls/hr Documented By: RACHEL Levofloxacin (Levaquin) 500 mg in 100 mls @ 100 mls/hr IV NOW ONE Stop: 02/05/23 02:55 Last Admin: 02/05/23 03:00 Dose: 100 mls/hr Documented By: RACHEL Midazolam HCl (Midazolam 2 Mg/2 Ml Vial) 2 mg IV NOW ONE Stop: 02/05/23 02:34 Last Admin: 02/05/23 03:10 Dose: 2 mg Documented By: RACHEL Vital Signs Vital signs: Vital Signs - 8 hr 02/05/23 01:15 02/05/23 03:19 02/05/23 03:21 Temperature 99 F Pulse Rate 123 H 104 H Respiratory Rate 24 Blood Pressure 175/65 H 115/59 L Pulse Oximetry 95 97 Oxygen Delivery Method Room Air 02/05/23 03:21 02/05/23 03:30 02/05/23 03:30 Temperature Pulse Rate 104 H 101 H Respiratory Rate Blood Pressure 122/57 L Pulse Oximetry 96 96 Oxygen Delivery Method 02/05/23 04:00 02/05/23 04:00 Temperature Pulse Rate 102 H Respiratory Rate Blood Pressure 132/56 L Pulse Oximetry 96 Oxygen Delivery Method Medical Decision Making Lab Data 02/05/23 01:25 02/05/23 01:25 Labs: Lab Results 02/05/23 02/05/23 02/05/23 Range/Units 01:25 01:25 01:25 WBC 7.4 (4.5-11.0) X10^3/uL RBC 4.28 L (4.5-5.9) X10^6/uL Hgb 14.8 (13.5-17.5) g/dL Hct 44.0 (41-53) % MCV 102.9 H (80-100) fL MCH 34.6 H (26-34) PG MCHC 33.6 (30-36) % RDW 13.4 (11.6-14.8) % Plt Count 304 (150-400) X10^3/uL Neut % (Auto) 50.2 (50-75) % Lymph % (Auto) 41.5 H (25-40) % [place] % (Auto) 6.2 (3-14) % Eos % (Auto) 1.7 L (2-4) % Baso % (Auto) 0.4 (0-2) % Neut # (Auto) 3700 (3274-7113) /uL Lymph # (Auto) 3100 (7617-6927) /uL [place] # (Auto) 500 (0-900) /uL Eos # (Auto) 100 (0-450) /uL Baso # (Auto) 0 (0-100) /uL D-Dimer (<500) ng/ml Sodium 141 (137-145) mmol/L Potassium 4.6 (3.4-5.1) mmol/L Chloride 101 (98-107) mmol/L Carbon Dioxide 30 (22-32) mmol/L BUN 34 H (9-20) mg/dL Creatinine 0.86 (0.66-1.25) mg/dL Estimated GFR > 60 (>60) mL/min BUN/Creatinine Ratio 39.5 H (6-22) Glucose 110 H (70-100) mg/dL Lactate 3.2 H (0.7-2.1) mmol/L Calcium 9.8 (8.4-10.2) mg/dL Total Creatine Kinase (55-170) U/L Troponin I (0.01-0.034) ng/mL Urine RBC (0-5/HPF) Urine WBC (0-5/HPF) Ur Squamous Epith Cells (0-5/HPF) Urine Bacteria (None) Ur Culture Indicated? SARS-CoV-2 (PCR) (Negative) Influenza A (RT-PCR) (NEGATIVE) Influenza B (RT-PCR) (NEGATIVE) RSV (PCR) (Negative) 02/05/23 02/05/23 02/05/23 Range/Units 01:25 01:25 01:33 WBC (4.5-11.0) X10^3/uL RBC (4.5-5.9) X10^6/uL Hgb (13.5-17.5) g/dL Hct (41-53) % MCV (80-100) fL MCH (26-34) PG MCHC (30-36) % RDW (11.6-14.8) % Plt Count (150-400) X10^3/uL Neut % (Auto) (50-75) % Lymph % (Auto) (25-40) % [place] % (Auto) (3-14) % Eos % (Auto) (2-4) % Baso % (Auto) (0-2) % Neut # (Auto) (6177-6851) /uL Lymph # (Auto) (6873-0356) /uL [place] # (Auto) (0-900) /uL Eos # (Auto) (0-450) /uL Baso # (Auto) (0-100) /uL D-Dimer 624 H (<500) ng/ml Sodium (137-145) mmol/L Potassium (3.4-5.1) mmol/L Chloride (98-107) mmol/L Carbon Dioxide (22-32) mmol/L BUN (9-20) mg/dL Creatinine (0.66-1.25) mg/dL Estimated GFR (>60) mL/min BUN/Creatinine Ratio (6-22) Glucose (70-100) mg/dL Lactate (0.7-2.1) mmol/L Calcium (8.4-10.2) mg/dL Total Creatine Kinase 47 L (55-170) U/L Troponin I < 0.012 (0.01-0.034) ng/mL Urine RBC 1-5/hpf (0-5/HPF) Urine WBC 10-30/hpf H (0-5/HPF) Ur Squamous Epith Cells 0-1 /hpf (0-5/HPF) Urine Bacteria Many (>30) H (None) Ur Culture Indicated? Specimen cultured SARS-CoV-2 (PCR) (Negative) Influenza A (RT-PCR) (NEGATIVE) Influenza B (RT-PCR) (NEGATIVE) RSV (PCR) (Negative) 02/05/23 02/05/23 Range/Units 02:17 04:06 WBC (4.5-11.0) X10^3/uL RBC (4.5-5.9) X10^6/uL Hgb (13.5-17.5) g/dL Hct (41-53) % MCV (80-100) fL MCH (26-34) PG MCHC (30-36) % RDW (11.6-14.8) % Plt Count (150-400) X10^3/uL Neut % (Auto) (50-75) % Lymph % (Auto) (25-40) % [place] % (Auto) (3-14) % Eos % (Auto) (2-4) % Baso % (Auto) (0-2) % Neut # (Auto) (1414-3772) /uL Lymph # (Auto) (6159-3656) /uL [place] # (Auto) (0-900) /uL Eos # (Auto) (0-450) /uL Baso # (Auto) (0-100) /uL D-Dimer (<500) ng/ml Sodium (137-145) mmol/L Potassium (3.4-5.1) mmol/L Chloride (98-107) mmol/L Carbon Dioxide (22-32) mmol/L BUN (9-20) mg/dL Creatinine (0.66-1.25) mg/dL Estimated GFR (>60) mL/min BUN/Creatinine Ratio (6-22) Glucose (70-100) mg/dL Lactate 1.4 (0.7-2.1) mmol/L Calcium (8.4-10.2) mg/dL Total Creatine Kinase (55-170) U/L Troponin I (0.01-0.034) ng/mL Urine RBC (0-5/HPF) Urine WBC (0-5/HPF) Ur Squamous Epith Cells (0-5/HPF) Urine Bacteria (None) Ur Culture Indicated? SARS-CoV-2 (PCR) Negative (Negative) Influenza A (RT-PCR) Flu a negative (NEGATIVE) Influenza B (RT-PCR) Flu b negative (NEGATIVE) RSV (PCR) Negative (Negative) Urine Dip Bedside Urine Glucose Negative Bedside Urine Bilirubin - Negative Bedside Urine Ketone - Negative Urine Specific [place] 1.01 Bedside Urine Occult Blood ++ Bedside Urine pH 6 Bedside Urine Protein - Negative Bedside Urine Urobilinogen - Negative Bedside Urine Nitrite + Positive Bedside Urine Leukocytes +/- 15 Esterase Point of care testing: Urine Dip Bedside Urine Glucose Negative Bedside Urine Bilirubin - Negative Bedside Urine Ketone - Negative Urine Specific [place] 1.01 Bedside Urine Occult Blood ++ Bedside Urine pH 6 Bedside Urine Protein - Negative Bedside Urine Urobilinogen - Negative Bedside Urine Nitrite + Positive Bedside Urine Leukocytes +/- 15 Esterase MDM Narrative Medical decision making narrative: CC: 47-year-old male with concern for UTI Complicating co-morbidities: Wheelchair-bound, agenesis of corpus callosum, frequent UTI Data collected from: Patient's mother Medical records reviewed: Prior notes reviewed in our EMR Differential considered, but not limited to: UTI versus viral infection versus pulmonary embolism versus other Exam documented above, pertinent findings include: Resting tremor, tachycardic but regular heart rate, no labored breathing, abdomen soft, no obvious skin breakdown Lab Test results independently reviewed as above. Pertinent findings: No leukocytosis or left shift, no anemia, D-dimer elevated at 624, lactate elevated at 3.2 Imaging studies independently reviewed: CTA demonstrates no infiltrate or pulm onary embolism Treatments: Sepsis fluids at 30 cc/kilogram, Levaquin, Versed 4 CT Re-evaluations: Patient with improved vitals over the course of the visit, initially heart rate in the 120s and 130s and improves to the low 1 100s and upper 90s which mother states is baseline Discussion: Patient presents with concern for UTI, initially does meet septic criteria, treated with 30 cc/kilogram of IV fluids, blood cultures, lactate, early antibiotics. Multiple diagnoses considered, UTI seemingly most likely, patient does have a slightly elevated D-dimer and CT angiogram demonstrates no evidence of infiltrate or pulmonary embolism. Vital signs improved. I did have a discussion with mother about admission criteria and she understands the concern but is very worried about him being in the hospital and possible exposure to other infectious ailments. Over the course of the visit is vital signs improve, Disposition: see below, along with detailed discharge instructions that have been reviewed with patient as well as indications for ED re-evaluation and additional outpatient follow up Discharge Plan Departure Patient Disposition: Home Clinical Impression: Recurrent UTI Instructions: DI for Urinary Tract Infection (UTI) Activity Restrictions/Additional Instructions: *You have been diagnosed with [urinary tract infection] *What to do: *Please continue to take your regular medications as directed. [ x] New medication prescriptions sent to your pharmacy: [[facility] ] [ ] New medication written as a paper prescription [ ] No new medications given *Please follow up with your primary care provider in 2-3 days, call for an appointment. Let them know you were seen in the Emergency Department and that we ask that you be seen in follow up. We will electronically transmit a record of today's note if your PCP is in our system *If you do not have a primary care provider please contact the [facility] Resource line at [phone]. They will ask some questions about your medical history and help get you set up with a doctor in the community. *Return to Emergency Department if you should have any new, worsening or concerning symptoms, such as [fever greater than 101 F, shaking chills, worsening pain, persistent vomiting or other bothersome symptoms] Prescriptions: New levofloxacin 750 mg tablet 750 mg PO DAILY 7 Days Qty: 7 0RF No Action mirtazapine 15 MG tablet 15 mg PO HS Qty: 0 latanoprost 0.005 % Drops 1 drp OPHTH HS Qty: 2.5 acetaminophen 500 mg Tablet 500 mg PO BID Qty: 0 tamsulosin [Flomax] 0.4 MG capsule,extended release 24hr 0.4 mg PO BID Qty: 0 sulfamethoxazole-trimethoprim 800-160 mg tablet 1 tab PO BID Qty: 14 2RF omeprazole 20 mg capsule,delayed release(DR/EC) 20 mg PO BID Qty: 180 3RF sulfamethoxazole-trimethoprim 800-160 mg tablet 1 tab PO BID Qty: 14 2RF meloxicam 15 mg tablet 15 mg PO .daily with meal Qty: 90 3RF levofloxacin 500 mg tablet 500 mg PO DAILY Qty: 7 0RF ascorbic acid (vitamin C) 500 mg tablet 500 mg PO DAILY folic acid 400 mcg tablet 0.4 mg PO DAILY Nutren 2.0 0.08 gram-2 kcal/mL liquid 1 ea feeding tube DAILY water for irrigation, sterile Solution irrigation methenamine hippurate 1 gram tablet 1 g feeding tube DAILY levetiracetam 750 mg tablet 750 mg PO BID divalproex 500 mg tablet,delayed release (DR/EC) 500 mg PO BID baclofen 10 mg tablet 1 tab PO DIRECTED Patient Comments: Takes at 3PM acetic acid 0.25 % solution 1 dose Irrigation BID PRN (Reason: bladder irrigation) Patient Comments: 60CC FLUSH INTO BLADDER TWICE DAILY NEEDED clonazepam 1 mg tablet 1 mg PO .COMPLEX Rx Instructions: 1 mg in am and 1.5 mg in pm. Nayzilam 5 mg/spray (0.1 mL) [place],Non-Aerosol 5 mg INTRANASAL PRN PRN (Reason: Seizure Activity) epinephrine [EpiPen 2-Guicho] 0.3 mg/0.3 mL auto-injector 0.3 mg IM Q5-15M PRN (Reason: anaphylaxis) Qty: 2 0RF Rx Instructions: do not exceed 3 doses per episode Referrals: Prateek Mccauley MD [Primary Care Provider] - Stand Alone Forms: Patient Portal/API
[2023-02-05 01:49] LABS: Add Manual Diff / Slide Review NO; Basophils Absolute Auto 0 /uL (0-100); Basophils Percent Auto 0.4 % (0-2); Eosinophils Absolute Auto 100 /uL (0-450); Eosinophils Percent Auto 1.7 % (2-4); Hemoglobin 14.8 g/dL (13.5-17.5); Lymphocytes Absolute Auto 3100 /uL (1100-4500); Lymphocytes Percent Auto 41.5 % (25-40); Mean Corpuscular HGB Conc 33.6 % (30-36); Mean Corpuscular Hemoglobin 34.6 PG (26-34); Mean Corpuscular Volume 102.9 fL (80-100); Monocytes Absolute Auto 500 /uL (0-900); Monocytes Percent Auto 6.2 % (3-14); Neutrophils Absolute Auto 3700 /uL (1500-7000); Neutrophils Percent Auto 50.2 % (50-75); Platelet Count 304 X10^3/uL (150-400); Red Blood Cell Count 4.28 X10^6/uL (4.5-5.9); Red Cell Distribution Width 13.4 % (11.6-14.8); White Blood Cell Count 7.4 X10^3/uL (4.5-11.0)
[2023-02-05 01:53] LABS: Bacteria Urine Many (>30); Culture Indicated Urine Specimen Cultured; RBC Urine 1-5/HPF (0-5/HPF); Squamous Epithelial Cell Urine 0-1 /HPF (0-5/HPF); WBC Urine 10-30/HPF (0-5/HPF)
[2023-02-05 01:53] LABS: BUN Creatinine Ratio 39.5 (6-22); Blood Urea Nitrogen 34 mg/dL (9-20); Calcium 9.8 mg/dL (8.4-10.2); Carbon Dioxide 30 mmol/L (22-32); Chloride 101 mmol/L (98-107); Estimated Glomerular Filt Rate > 60 mL/min (>60); Glucose 110 mg/dL (70-100); HEMOLYSIS < 15 (0-50); Potassium 4.6 mmol/L (3.4-5.1); Sodium 141 mmol/L (137-145)
[2023-02-05] MEDS: SODIUM CHLORIDE 0.9% 410.05 ML IV (02:13)
[2023-02-05 02:16] LABS: Creatine Kinase 47 U/L (55-170)
[2023-02-05 02:17] LABS: Lactate (Lactic Acid) 3.2 mmol/L (0.7-2.1)
[2023-02-05 02:19] LABS: D Dimer 624 ng/ml (<500)
[2023-02-05 02:29] LABS: Troponin I < 0.012 ng/mL (0.01-0.034)
--- NOTE | 2023-02-05 02:33 | DI.CT.S_ITS ---
PROCEDURE: CT ANGIO CHEST PE PROTOCOL INDICATIONS: tachycardia, tachypnea, sedentary, elevated Dimer TECHNIQUE: After the administration of intravenous contrast, 2 mm thick sections acquired from the pulmonary apices to the posterior costophrenic angles. 3-dimensional maximum intensity projection (MIP) coronal and sagittal reformats were then acquired through the thorax. For radiation dose reduction, the following was used: automated exposure control, adjustment of mA and/or kV according to patient size. COMPARISON: [facility], CR, XR CHEST 1V, 02/28/2020, 23:35. [facility], CR, XR CHEST 1V, 03/16/2018, 11:37. [facility], CT, CT CHEST W CON, 02/29/2020, 17:11. FINDINGS: Image quality: Excellent. Pulmonary arteries: Pulmonary outflow tract is enlarged measuring 3.2 cm. There are no intraluminal filling defects to suggest central pulmonary embolism. Lungs and pleura: Lungs are clear. No pleural effusions or pneumothorax. Central and peripheral airways are patent. Mediastinum: Heart size is normal, without pericardial effusion. No mediastinal or hilar adenopathy. Thoracic aorta is normal in caliber and enhancement. Esophagus is normal in caliber, without hiatal hernia. Bones and chest wall: No suspicious bony lesions. Ribs and thoracic spine appear intact throughout. Thyroid gland is unremarkable. No axillary or supraclavicular adenopathy. Abdomen: Visualized upper abdominal solid organs appear normal in the early arterial phase of enhancement. IMPRESSION: 1. No evidence for pulmonary embolism. 2. Mild enlargement of central pulmonary outflow tract suggesting mild pulmonary hypertension. Recommend clinical correlation. 3. Mild bronchial wall thickening suggesting bronchitis or reactive airway disease. 4. Scoliosis. Degenerative changes in thoracic and lumbar spine. There are chronic fractures of the surgical rods. No significant discrepancy with the cage shift manager radiology preliminary report. Dictated by: Xavier Light M.D. on 02/05/2023 at 8:25 Approved by: Xavier Light M.D. on 02/05/2023 at 8:35
[2023-02-05] MEDS: levoFLOXacin 500 MG/100 ML PIGGYBACK 100 MG IV (03:00)
[2023-02-05 03:01] LABS: Influenza A - CEPHEID Flu A NEGATIVE (NEGATIVE); Influenza B - CEPHEID Flu B NEGATIVE (NEGATIVE); Respiratory Syncytial Virus Negative (Negative)
[2023-02-05 03:05] LABS: COVID-19 CEPHEID 4-PLEX PCR Negative (Negative)
[2023-02-05] MEDS: MIDAZOLAM 2 MG/2 ML VIAL IV (03:10)
[2023-02-05 04:08] LABS: Reflexed Lactate in 2 Hours Y
[2023-02-05 04:36] LABS: Lactate 2HR (Lactic Acid Rflx) 1.4 mmol/L (0.7-2.1)
== END 2023-02-05 07:06 | disposition home or self-care (01) ==
PROVIDERS: Emergency Provider Emergency Medicine; Family Provider Internal Medicine; PCP Internal Medicine
DX: N39.0 Urinary tract infection, site not specified (principal); R00.0 Tachycardia, unspecified; Z79.899 Other long term (current) drug therapy; Z20.822 Contact with and (suspected) exposure to COVID-19
CPT/HCPCS: 0241U; 36415; 71275; 80048; 81003; 81015; 82550; 83605; 84484; 85025; 85379; 87040; 87077; 87086; 87186; 96365; 96375; 99284; J1956; J2250; Q9967

== ENCOUNTER → 2023-03-01 14:22 | Outpatient (CLI) | payer MEDICARE, OTHER, MEDICAID, SELFPAY ==
[2018-03-09 18:03] VITALS: BMI 18.5
[2023-03-01 16:12] LABS: Add Manual Diff / Slide Review NO; Basophils Absolute Auto 0 /uL (0-100); Basophils Percent Auto 0.4 % (0-2); Eosinophils Absolute Auto 300 /uL (0-450); Hemoglobin 16.8 g/dL (13.5-17.5); Lymphocytes Absolute Auto 2800 /uL (1100-4500); Lymphocytes Percent Auto 26.2 % (25-40); Mean Corpuscular HGB Conc 33.6 % (30-36); Mean Corpuscular Hemoglobin 34.8 PG (26-34); Mean Corpuscular Volume 103.3 fL (80-100); Monocytes Absolute Auto 700 /uL (0-900); Monocytes Percent Auto 6.5 % (3-14); Neutrophils Absolute Auto 6800 /uL (1500-7000); Neutrophils Percent Auto 63.9 % (50-75); Platelet Count 223 X10^3/uL (150-400); Red Blood Cell Count 4.84 X10^6/uL (4.5-5.9); Red Cell Distribution Width 13.2 % (11.6-14.8); White Blood Cell Count 10.6 X10^3/uL (4.5-11.0)
[2023-03-01 16:32] LABS: Alanine Aminotransferase 18 IU/L (<50); Albumin 4.2 g/dL (3.5-5.0); Albumin Globulin Ratio 1.1 (1.0-2.8); Alkaline Phosphatase 64 U/L (38-126); Aspartate Aminotransferase 23 IU/L (17-59); BUN Creatinine Ratio 59.7 (6-22); Bilirubin Total 0.4 mg/dL (0.2-1.3); Blood Urea Nitrogen 74 mg/dL (9-20); Calcium 10.2 mg/dL (8.4-10.2); Carbon Dioxide 33 mmol/L (22-32); Chloride 113 mmol/L (98-107); Estimated Glomerular Filt Rate > 60 mL/min (>60); Globulin 3.7 g/dL (1.7-4.1); Glucose 135 mg/dL (70-100); HEMOLYSIS 21 (0-50); Potassium 4.5 mmol/L (3.4-5.1); Sodium 158 mmol/L (137-145); Total Protein 7.9 g/dL (6.3-8.2)
[2023-03-02 02:35] LABS: Valproic Acid (Depakene) Total 38 ug/mL (50-100)
[2023-03-04 08:54] LABS: Levetiracetam Keppra 45.9 ug/mL (10.0-40.0)
[2023-03-06 14:34] LABS: Calcitonin 5.8 pg/mL (0.0-8.4)
== END ==
PROVIDERS: Family Provider Internal Medicine; PCP Internal Medicine; Referring Provider Psychiatry & Neurology Neurology; Visit Provider Psychiatry & Neurology Neurology
DX: Z51.81 Encounter for therapeutic drug level monitoring (principal); E55.9 Vitamin D deficiency, unspecified; G40.319 Generalized idiopathic epilepsy and epileptic syndromes, intractable, without status epilepticus
CPT/HCPCS: 36415; 80053; 80164; 80177; 82308; 85025

== ENCOUNTER 2023-03-20 22:24 | Inpatient (IN) | payer MEDICARE, OTHER, MEDICAID, SELFPAY ==
[2018-03-09 18:03] VITALS: BMI 18.5
[2023-03-20 22:30] VITALS: BP 111/79; PULSE 108; TEMP 36.6; O2SAT 96
--- NOTE | 2023-03-20 22:31 | DI.RAD.S_ITS ---
PROCEDURE: XR CHEST 1V INDICATIONS: lethargy TECHNIQUE: One view of the chest was acquired. COMPARISON: [facility], CR, XR CHEST 1V, 02/28/2020, 23:35. [facility], CR, XR CHEST 1V, 03/16/2018, 11:37. FINDINGS: Surgical changes and devices: None. Lungs and pleura: Lungs are abnormal with a pneumonia pattern mild on the left and moderate on the right.. No pleural effusions or pneumothorax. Mediastinum: Mediastinal contours appear normal. Heart size is normal. Bones and chest wall: No suspicious bony lesions. Overlying soft tissues appear unremarkable. Bilateral Shipley rods noted with a previously identified fracture at the middle 3rd of the right Shipley jorge l. A left-sided jorge l fracture also has been previously present on plain film imaging from 2018 IMPRESSION: Bilateral pneumonia, right greater than left. Incidental note again made of previously documented bilateral [place]ley jorge l fractures at the low thoracic and thoracolumbar junction areas. Dictated by: Som Green M.D. on 03/20/2023 at 22:52 Approved by: Som Green M.D. on 03/20/2023 at 22:54
[2023-03-20 22:35] VITALS: BP 113/76
[2023-03-20 22:57] LABS: Add Manual Diff / Slide Review YES; Hematocrit 55.1 % (41-53); Hemoglobin 17.7 g/dL (13.5-17.5); Mean Corpuscular HGB Conc 32.2 % (30-36); Mean Corpuscular Hemoglobin 34.3 PG (26-34); Mean Corpuscular Volume 106.5 fL (80-100); Platelet Count 202 X10^3/uL (150-400); Red Blood Cell Count 5.17 X10^6/uL (4.5-5.9); Red Cell Distribution Width 15.5 % (11.6-14.8); White Blood Cell Count 14.1 X10^3/uL (4.5-11.0)
[2023-03-20 23:00] VITALS: BP 109/81; PULSE 109; RESP 16; O2SAT 93
[2023-03-20 23:04] LABS: Alanine Aminotransferase 44 IU/L (<50); Albumin 3.7 g/dL (3.5-5.0); Albumin Globulin Ratio 0.9 (1.0-2.8); Alkaline Phosphatase 99 U/L (38-126); Aspartate Aminotransferase 41 IU/L (17-59); Bilirubin Total 0.5 mg/dL (0.2-1.3); Carbon Dioxide 32 mmol/L (22-32); Estimated Glomerular Filt Rate 44 mL/min (>60); Globulin 4.1 g/dL (1.7-4.1); Glucose 248 mg/dL (70-100); Lipase 155 U/L (23-300); Magnesium 3.8 mg/dL (1.6-2.3); Potassium 4.9 mmol/L (3.4-5.1); Total Protein 7.8 g/dL (6.3-8.2)
[2023-03-20 23:07] LABS: Ketones (Beta-Hydroxybutyrate) 0.36 mmol/L (<0.27)
[2023-03-20] MEDS: SODIUM CHLORIDE 0.9% 1,000 ML 1000 ML IV (23:17)
[2023-03-20 23:18] LABS: Troponin I 0.019 ng/mL (0.01-0.034)
[2023-03-20 23:21] LABS: Neutrophils Absolute Manual 12549 /uL (3000-5900); Total Cells Counted 100
[2023-03-20 23:22] LABS: Anisocytosis 1+; Macrocytosis 1+
[2023-03-20 23:23] LABS: Procalcitonin 0.55 ng/mL (<0.5)
[2023-03-20 23:26] LABS: BUN Creatinine Ratio 76.6 (6-22)
[2023-03-20 23:27] LABS: Sodium 172 mmol/L (137-145)
[2023-03-20 23:28] LABS: Blood Urea Nitrogen 144 mg/dL (9-20); Chloride 126 mmol/L (98-107); HEMOLYSIS 32 (0-50)
[2023-03-20 23:30] VITALS: BP 117/75; PULSE 98; O2SAT 96
[2023-03-20 23:37] LABS: Lactate (Lactic Acid) 3.7 mmol/L (0.7-2.1)
[2023-03-20 23:46] LABS: Appearance Urine UA CLOUDY; Bilirubin Urine UA NEGATIVE (NEGATIVE); Color Urine UA YELLOW; Glucose Urine UA NEGATIVE (Negative); Ketones Urine UA NEGATIVE (NEGATIVE); Leukocyte Esterase Urine UA 2+ (NEGATIVE); Nitrite Urine UA NEGATIVE (Negative); Occult Blood Urine UA 2+ (Negative); Protein Urine UA NEGATIVE (Negative); Urobilinogen Urine UA 0.2 E.U./dL (0.2)
--- NOTE | 2023-03-20 23:46 | ED_ITS ---
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 He has been increasingly lethargic according to his mother over the last 3 days and she eventually called 911 to transport him to the emergency department for further evaluation. Mom notes that he finished a course of Keflex for recurrent urinary tract infections approximately 24 hours ago. She has been in increasingly concerned with his hydration status and has been increasing his fluid intake per his G-tube. She also notes that he has been drinking less and she is worried that his oral thrush is now esophageal thrush. She is been using nystatin and allowing swallowing to prevent esophageal thrush. She has not noticed any fevers. She notes that he had a large volume of urine this morning but was still concerned about increasing dehydration. Related Data Home Medications Medication Instructions Recorded Confirmed latanoprost 0.005 % eye drops 1 drp OPHTH HS #2.5 mL 02/14/12 05/29/22 mirtazapine 15 mg tablet 15 mg PO HS ##0 02/14/12 05/29/22 acetaminophen 500 mg tablet 500 mg PO BID ##0 01/20/13 05/29/22 tamsulosin 0.4 mg capsule (Flomax) 0.4 mg PO BID ##0 09/09/16 05/29/22 acetic acid 0.25 % irrigation 1 dose irrigation BID PRN bladder 03/09/18 05/29/22 solution irrigation baclofen 10 mg tablet 1 tab PO DIRECTED 03/09/18 05/29/22 midazolam 5 mg/spray (0.1 mL) 5 mg intranasal PRN PRN Seizure 02/29/20 05/29/22 nasal spray (Nayzilam) Activity ascorbic acid (vitamin C) 500 mg 500 mg PO DAILY 05/29/22 05/29/22 tablet clonazepam 1 mg tablet 1 mg PO .COMPLEX 05/29/22 05/29/22 divalproex 500 mg tablet,delayed 500 mg PO BID 05/29/22 05/29/22 release folic acid 400 mcg tablet 0.4 mg PO DAILY 05/29/22 05/29/22 levetiracetam 750 mg tablet 750 mg PO BID 05/29/22 05/29/22 methenamine hippurate 1 gram tablet 1 g feeding tube DAILY 05/29/22 05/29/22 nutritional supplements 0.08 1 ea feeding tube DAILY 05/29/22 05/29/22 gram-2 kcal/mL liquid for tube feed (Nutren 2.0) water for irrigation, sterile ml irrigation 05/29/22 05/29/22 Previous Rx's Medication Instructions Recorded epinephrine 0.3 mg/0.3 mL 0.3 mg (0.3 mL) IM Q5-15M PRN 02/29/20 injection, auto-injector (EpiPen anaphylaxis #2 ea 2-[place]) sulfamethoxazole 800 1 tab PO BID #14 tabs 06/15/22 mg-trimethoprim 160 mg tablet omeprazole 20 mg capsule,delayed 20 mg PO BID #180 caps 06/24/22 release sulfamethoxazole 800 1 tab PO BID #14 tabs 09/11/22 mg-trimethoprim 160 mg tablet levofloxacin 500 mg tablet 500 mg PO DAILY UTI #7 tabs 10/16/22 meloxicam 15 mg tablet 15 mg PO .daily with meal #90 tabs 10/16/22 nystatin 100,000 unit/mL oral 1 ml PO QID #60 mL 03/15/23 suspension Allergies Allergy/AdvReac Type Severity Reaction Status Date / Time codeine Allergy Intermediate FACIAL Verified 02/05/23 01:40 SWELLING, RASH phenobarbital Allergy Unknown unknow Verified 03/21/23 00:16 Review of Systems Review of Systems Narrative: Pertinent positive and negative findings as per HPI Patient History Medical History (Updated 03/21/23 @ 00:24 by Lacie Macias MD) Recurrent urinary tract infection Benign familial tremor History of developmental delay Cervical spine disease Chicken pox (~1977) Cataracts, bilateral Total blindness Impaired mobility and ADLs Spastic quadriplegia Neurogenic bladder Hydrocephalus, adult Leukomalacia, periventricular Cerebral atrophy Cerebellar atrophy Agenesis of corpus callosum Seizure disorder Recurrent UTI Urinary retention Cervical vertebral fusion Surgical History Anesthesia S/P percutaneous endoscopic gastrostomy (PEG) tube placement History of thoracic spinal fusion Family History (Updated 03/18/23 @ 15:22 by Antolin Newsome MA) Mother Hyperlipidemia Autoimmune disorder Gout Irritable bowel syndrome History of Graves' disease Sister Multiple myeloma History of kidney cancer History of Graves' disease Grandfather Diabetes mellitus Grandmother Alcoholism Tuberculosis Brother Irritable bowel syndrome Social History (Updated 03/18/23 @ 15:25 by Antolin Newsome MA) marital status: unmarried,single household members: family Smoking Status: Never smoker alcohol intake: current caffeine: Yes Smoking Status: Never smoker Substance Use Type: does not use Exam Initial Vital Signs Initial Vital Signs: Vital Signs Temperature 97.8 F 03/20/23 22:30 Pulse Rate 108 H 03/20/23 22:30 Blood Pressure 111/79 03/20/23 22:30 Pulse Oximetry 96 03/20/23 22:30 Oxygen Delivery Method Room Air 03/20/23 22:30 General: Chronically ill-appearing, cachectic multiple contractures minimally responsive HEENT: Dramatically dry mucous membranes tongue posterior pharynx with concerns for white plaque consistent with thrush. No cervical adenopathy. Scleral and pupillary abnormalities to both eyes Neck: No JVD, supple Respiratory: Lungs without wheeze but right-sided rhonchi are appreciated. Cardiac: Slight tachycardia but regular Abdomen: Soft, no pain behaviors with deep palpation. G-tube in the left lower quadrant appears appropriate. Mom is concerned with some minor red blood around the G-tube tract that to my evaluation looks like it is well cared for and not infected Skin: Pale, dry no skin breakdown, no rashes Neurologic: Spastic quadriplegia multiple contractures significant muscle wasting Extremities: No skin breakdown or evidence of cellulitis Psych: Minimally Course Orders Ordered: ED Orders 03/20/23 22:00 VBG [Venous Blood Gas] Stat 03/20/23 22:31 XR chest 1V Stat EKG-12 Lead Stat 03/20/23 22:40 Complete Blood Count AUTO DIFF Stat Comprehensive Metabolic Panel Stat Ketones (Beta-Hydroxybutyrate) Stat Lactate (Lactic Acid) Stat Lipase Stat Magnesium Stat Procalcitonin Stat Thyroid Stimulating Hormone Stat Troponin I Stat 03/20/23 23:02 Blood Culture Stat 03/20/23 23:20 Respiratory Panel (Film Array) Stat 03/20/23 23:35 Urinalysis and Microscopic Stat Urine Culture Stat 03/21/23 02:50 Complete Blood Count AUTO DIFF Stat Comprehensive Metabolic Panel Stat Lactate (Lactic Acid) Stat Discontinued Medications Sodium Chloride (Normal Saline 0.9%) 1,000 mls @ 1,000 mls/hr IV BOLUS ONE Stop: 03/20/23 23:29 Last Infusion: 03/21/23 00:16 Dose: Infused Documented By: Admin: 03/20/23 23:17 Dose: 1,000 mls/hr Documented By: SHASHANK Sodium Chloride (Normal Saline 0.9%) 1,000 mls @ 1,000 mls/hr IV BOLUS ONE Stop: 03/21/23 01:05 Last Infusion: 03/21/23 01:15 Dose: Infused Documented By: Admin: 03/21/23 00:15 Dose: 1,000 mls/hr Documented By: SHASHANK Piperacillin Sod/Tazobactam (Sod 3.375 gm/ Sodium Chloride) 100 mls @ 25 mls/hr IV NOW ONE Stop: 03/21/23 00:16 Last Infusion: 03/21/23 01:13 Dose: Infused Documented By: Admin: 03/21/23 00:43 Dose: 25 mls/hr Documented By: SHASHANK Vital Signs Vital signs: Vital Signs - 8 hr 03/20/23 22:30 03/20/23 22:30 03/20/23 22:35 Temperature 97.8 F Pulse Rate 108 H 108 H Respiratory Rate Blood Pressure 111/79 113/76 Pulse Oximetry 96 96 Oxygen Delivery Method Room Air 03/20/23 23:00 03/20/23 23:00 03/20/23 23:30 Temperature Pulse Rate 109 H 98 H Respiratory Rate 16 Blood Pressure 109/81 Pulse Oximetry 93 96 Oxygen Delivery Method 03/20/23 23:30 03/21/23 00:00 03/21/23 00:00 Temperature Pulse Rate 92 H Respiratory Rate Blood Pressure 117/75 119/75 Pulse Oximetry 97 Oxygen Delivery Method 03/21/23 00:30 03/21/23 00:30 03/21/23 01:00 Temperature Pulse Rate 88 Respiratory Rate Blood Pressure 137/81 138/76 Pulse Oximetry 94 Oxygen Delivery Method 03/21/23 01:00 03/21/23 01:30 03/21/23 01:30 Temperature Pulse Rate 89 92 H Respiratory Rate 20 16 Blood Pressure 132/81 Pulse Oximetry 95 95 Oxygen Delivery Method 03/21/23 02:00 03/21/23 02:00 03/21/23 02:30 Temperature Pulse Rate 75 Respiratory Rate Blood Pressure 114/74 116/78 Pulse Oximetry 95 Oxygen Delivery Method 03/21/23 02:30 03/21/23 03:00 Temperature Pulse Rate 82 81 Respiratory Rate Blood Pressure Pulse Oximetry 95 97 Oxygen Delivery Method Medical Decision Making Lab Data 03/21/23 02:50 03/21/23 02:50 Labs: Lab Results 03/20/23 03/20/23 03/20/23 Range/Units 22:00 22:40 23:20 WBC 14.1 H (4.5-11.0) X10^3/uL RBC 5.17 (4.5-5.9) X10^6/uL Hgb 17.7 H (13.5-17.5) g/dL Hct 55.1 H (41-53) % MCV 106.5 H (80-100) fL MCH 34.3 H (26-34) PG MCHC 32.2 (30-36) % RDW 15.5 H (11.6-14.8) % Plt Count 202 (150-400) X10^3/uL Neut % (Auto) Not Reportable Lymph % (Auto) Not Reportable [place] % (Auto) Not Reportable Eos % (Auto) Not Reportable Baso % (Auto) Not Reportable Lymph # (Auto) Not Reportable [place] # (Auto) Not Reportable Baso # (Auto) Not Reportable Total Counted 100 Seg Neutrophils % 84.0 H (38-70) % Band Neutrophils % 5.0 (3-7) % Lymphocytes % (Manual) 7.0 L (25-45) % Monocytes % (Manual) 3.0 (2-11) % Metamyelocytes % 1.0 H (-0) % Neutrophils # (Manual) 80550 H (7279-1233) /uL RBC Morphology See below Anisocytosis 1+ H Macrocytosis 1+ H VBG pH 7.35 (7.33-7.43) VBG pCO2 61.5 H (45-50) mmHg VBG pO2 27 L (35-45) mmHg VBG HCO3 34 H (24-28) mmol/L VBG Total CO2 36 H (24-29) mmol/L VBG O2 Saturation 44 L (70-75) % VBG Base Excess 8.0 H (0-4) mmol/L FiO2 21 Sodium 172 H* (137-145) mmol/L Potassium 4.9 (3.4-5.1) mmol/L Chloride 126 H* (98-107) mmol/L Carbon Dioxide 32 (22-32) mmol/L BUN 144 H* (9-20) mg/dL Creatinine 1.88 H (0.66-1.25) mg/dL Estimated GFR 44 L (>60) mL/min BUN/Creatinine Ratio 76.6 H (6-22) Glucose 248 H (70-100) mg/dL Lactate 3.7 H (0.7-2.1) mmol/L Calcium 10.0 (8.4-10.2) mg/dL Magnesium 3.8 H (1.6-2.3) mg/dL Total Bilirubin 0.5 (0.2-1.3) mg/dL AST 41 (17-59) IU/L ALT 44 (<50) IU/L Alkaline Phosphatase 99 (38-126) U/L Troponin I 0.019 (0.01-0.034) ng/mL Total Protein 7.8 (6.3-8.2) g/dL Albumin 3.7 (3.5-5.0) g/dL Globulin 4.1 (1.7-4.1) g/dL Albumin/Globulin Ratio 0.9 L (1.0-2.8) Lipase 155 (23-300) U/L Procalcitonin 0.55 H (<0.5) ng/mL TSH 1.26 (0.47-4.68) uIU/mL Urine Color Urine Appearance Urine pH (4.5-8.0) Ur Specific [place] (1.000-1.035) Urine Protein (Negative) Urine Glucose (UA) (Negative) g/dL Urine Ketones (NEGATIVE) Urine Occult Blood (Negative) Urine Nitrate (Negative) Urine Bilirubin (NEGATIVE) Urine Urobilinogen (0.2) E.U./dL Ur Leukocyte Esterase (NEGATIVE) Urine RBC (0-5/HPF) Urine WBC (0-5/HPF) Ur Squamous Epith Cells (0-5/HPF) Urine Bacteria (None) Urine Yeast (None) Ur Culture Indicated? Ketones 0.36 H (<0.27) mmol/L Chlamy pneumoniae PCR Not detected (Not Detect) Adenovirus (PCR) Not detected (Not Detect) B.parapertussis DNA PCR Not detected (Not Detecte) Coronavirus OC43 (PCR) Not detected (Not Detect) Coronavirus HKU1 (PCR) Not detected (Not Detect) Coronavirus 229E (PCR) Not detected (Not Detect) SARS-CoV-2 (PCR) Not detected (Not Detecte) Coronavirus NL63 (PCR) Not detected (Not Detect) Human Metapneumovir PCR Not detected (Not Detect) Influenza Type A (PCR) Not detected (Not Detect) Influenza Type B (PCR) Not detected (Not Detect) M. pneumoniae (PCR) Not detected (Not Detect) Parainfluenza 1 (PCR) Not detected (Not Detect) Parainfluenza 2 (PCR) Not detected (Not Detect) Parainfluenza 3 (PCR) Not detected (Not Detect) Parainfluenza 4 (PCR) Not detected (Not Detect) RSV (PCR) Not detected (Not Detect) Entero/Rhino (PCR) Not detected (Not Detect) 03/20/23 03/21/23 03/21/23 Range/Units 23:35 00:25 02:50 WBC 12.9 H (4.5-11.0) X10^3/uL RBC 4.35 L (4.5-5.9) X10^6/uL Hgb 15.0 (13.5-17.5) g/dL Hct 46.8 (41-53) % MCV 107.5 H (80-100) fL MCH 34.4 H (26-34) PG MCHC 32.0 (30-36) % RDW 15.9 H (11.6-14.8) % Plt Count 206 (150-400) X10^3/uL Neut % (Auto) Not Reportable Lymph % (Auto) Not Reportable [place] % (Auto) Not Reportable Eos % (Auto) Not Reportable Baso % (Auto) Not Reportable Lymph # (Auto) Not Reportable [place] # (Auto) Not Reportable Baso # (Auto) Not Reportable Total Counted 100 Seg Neutrophils % 81.0 H (38-70) % Band Neutrophils % 5.0 (3-7) % Lymphocytes % (Manual) 10.0 L (25-45) % Monocytes % (Manual) 3.0 (2-11) % Metamyelocytes % 1.0 H (-0) % Neutrophils # (Manual) 09837 H (1143-9440) /uL RBC Morphology See below Anisocytosis 1+ H Macrocytosis 1+ H VBG pH (7.33-7.43) VBG pCO2 (45-50) mmHg VBG pO2 (35-45) mmHg VBG HCO3 (24-28) mmol/L VBG Total CO2 (24-29) mmol/L VBG O2 Saturation (70-75) % VBG Base Excess (0-4) mmol/L FiO2 Sodium 171 H* (137-145) mmol/L Potassium 4.4 (3.4-5.1) mmol/L Chloride 134 H* (98-107) mmol/L Carbon Dioxide 30 (22-32) mmol/L BUN 122 H* (9-20) mg/dL Creatinine 1.35 H (0.66-1.25) mg/dL Estimated GFR > 60 (>60) mL/min BUN/Creatinine Ratio 90.4 H (6-22) Glucose 105 H D (70-100) mg/dL Lactate 3.3 H 1.3 (0.7-2.1) mmol/L Calcium 8.4 (8.4-10.2) mg/dL Magnesium (1.6-2.3) mg/dL Total Bilirubin 0.6 (0.2-1.3) mg/dL AST 36 (17-59) IU/L ALT 38 (<50) IU/L Alkaline Phosphatase 79 (38-126) U/L Troponin I (0.01-0.034) ng/mL Total Protein 6.2 L (6.3-8.2) g/dL Albumin 2.9 L (3.5-5.0) g/dL Globulin 3.3 (1.7-4.1) g/dL Albumin/Globulin Ratio 0.9 L (1.0-2.8) Lipase (23-300) U/L Procalcitonin (<0.5) ng/mL TSH (0.47-4.68) uIU/mL Urine Color Yellow Urine Appearance Cloudy Urine pH 6.0 (4.5-8.0) Ur Specific [place] 1.010 (1.000-1.035) Urine Protein Negative (Negative) Urine Glucose (UA) Negative (Negative) g/dL Urine Ketones Negative (NEGATIVE) Urine Occult Blood 2+ H (Negative) Urine Nitrate Negative (Negative) Urine Bilirubin Negative (NEGATIVE) Urine Urobilinogen 0.2 (0.2) E.U./dL Ur Leukocyte Esterase 2+ H (NEGATIVE) Urine RBC 0-1/hpf (0-5/HPF) Urine WBC 30-100/hpf H (0-5/HPF) Ur Squamous Epith Cells 0-1 /hpf (0-5/HPF) Urine Bacteria Moderate (10-30) H (None) Urine Yeast 1-5/hpf H (None) Ur Culture Indicated? Specimen cultured Ketones (<0.27) mmol/L Chlamy pneumoniae PCR (Not Detect) Adenovirus (PCR) (Not Detect) B.parapertussis DNA PCR (Not Detecte) Coronavirus OC43 (PCR) (Not Detect) Coronavirus HKU1 (PCR) (Not Detect) Coronavirus 229E (PCR) (Not Detect) SARS-CoV-2 (PCR) (Not Detecte) Coronavirus NL63 (PCR) (Not Detect) Human Metapneumovir PCR (Not Detect) Influenza Type A (PCR) (Not Detect) Influenza Type B (PCR) (Not Detect) M. pneumoniae (PCR) (Not Detect) Parainfluenza 1 (PCR) (Not Detect) Parainfluenza 2 (PCR) (Not Detect) Parainfluenza 3 (PCR) (Not Detect) Parainfluenza 4 (PCR) (Not Detect) RSV (PCR) (Not Detect) Entero/Rhino (PCR) (Not Detect) MDM Narrative Medical decision making narrative: CC: Cerebral palsy, wheelchair bound, nonverbal with increasing lethargy Complicating co-morbidities: Complications from his neurocognitive dysfunction, spastic quadriplegia, neurogenic bladder and seizure disorder Data collected from: Mother, medics Medical records reviewed: Recent notes from primary care internal Medicine establishing care notes are reviewed Differential considered: Sepsis, infection, stroke, worsening hydrocephalus, acute coronary syndrome Exam documented above, pertinent findings include: 47-year-old gentleman who is cachectic with multiple contractures, 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 Slight tachycardia, rhonchi in his right bases. No pain behaviors with abdominal palpation and feeding tube in place in the lower left portion of the abdomen that appears appropriate with no drainage or other concerns Lab Test results independently reviewed as above. Pertinent findings: CBC shows leukocytosis at 14.1. Also moderate dehydration with H&H 17.7 and 55.1. He has a baseline macrocytosis Chemistries are notable for severe hyper natremia at 172, hyper kalemia with sodium at 1:26 a.m., BUN at 144, acute kidney injury with creatinine at 1.88 a month ago he was at 1.2. Glucose is elevated at 248 with no prior history of diabetes. Liver studies are reassuring Magnesium is elevated at 3.8 Lactic acid is elevated at 3.7, repeat shows lactic is trending down at 3.3 Procalcitonin is slightly elevated at 0.55 VBG is obtained and shows pH of 7.37, CO2 is elevated at 61.5 Ketones are elevated at 0.36 Urinalysis shows leukocyte esterase white cells moderate bacteria occasional yeast specimen has been cultured. Prior urine culture from February 05 shows Klebsiella that is sensitive to both ceftriaxone and piperacillin tazobactam. Respiratory panel shows no viruses Independently reviewed EKG sinus tachycardia at 108. Nonspecific T-wave abnormalities no acute ischemia Imaging studies independently reviewed: Chest x-ray suggests bilateral pneumonia Consultations: brianne Landin hospitalist will admit to hospital. Code status: Nice discussion with his mother regarding code status. They have had this discussion multiple times. She states that he should be intubated if required and if he were to code she would like to keep him alive if it were possible that any of his organs would be appropriate for transplant. Treatments: Fluids are initiated straight cath for urine sample is obtained. Once blood cultures and urine have been obtained he is started on ceftriaxone and azithromycin for presumed community-acquired pneumonia with concerns for developing sepsis. 2 L of fluid is given for severe dehydration with acute kidney injury. Piperacillin tazobactam has been added for expanded coverage with concerns for aspiration pneumonia Re-evaluations: After a L of fluid Josh actually clinically looks much improved. His heart rate is coming down his blood pressure remains appropriately stable. Long discussion with his mother. She is concerned about esophageal thrush. She notes that she had to do a manual bowel disimpaction yesterday and there was some mucousy red blood on the outside of the stool. She is noticed a minor amount of bleeding around his G-tube but no blood coming from the G-tube itself. She states that he does occasionally eat or drink has not had any aspiration episodes recently but he is at risk for aspiration pneumonia as well. Because of this I will add piperacillin tazobactam to expand antibiotic coverage to include aspiration pneumonia. Discussion: 47-year-old gentleman with cerebral palsy and spastic quadriplegia bed/wheelchair-bound, nonverbal with increasing lethargy over the last couple of days. Workup indicates a pneumonia bilateral with significant dehydration causing hypernatremia, acute kidney injury and increased lethargy. He is doing better after 2 L of fluid is given. Third lactic acid after the 2 L of fluid as well as repeat blood work after hydration is being ordered. This point he does need hospitalization for his multiple issues and continued IV antibiotics. Mom is his primary caregiver and has done an amazing job of keeping him healthy. She does have concerns for oral and esophageal thrush. I am concerned that he may be aspirating. We will discuss treatment of his thrush with the admitting physician. We will also place a Boggs catheter for more accurate evaluation of fluid output. He does have chronic urinary tract infections and Boggs catheter sample today shows that he may still have a urinary tract infection. He just completed a seven-day course of Keflex discontinued 24 hours ago. Antibiotics already in use for the bilateral pneumonia should cover presumed infection. Additional Information: Severe Sepsis Criteria [ x] bacterial source of infection suspected and documented [ x] 2 SIRS Criteria met [ x] HR >90 [ ] RR >20 [ ] fever or hypothermia [x ] leukocytosis/leukopenia/bandemia [ x ] Evidence of at least 1 organ system dysfunction [ x] Lactate > 2 [ ] BP < 90 or MAP <65, >40mm decrease from normal baseline [ ] Creat > 2.0 [ ] T. Bili > 2.0 [ ] platelet count < 100k [x ] altered mental status [ ] mechanical ventilation [ ] provider documentation of severe sepsis Severe Sepsis Determination. the patient has been screened and [ x ] DOES meet criteria for severe sepsis [ ] DOES NOT meet criteria for severe sepsis Goal directed treatment Within 3 hours [ x] blood cx drawn prior to abx [ x] broad spectrum abx started [ x ] lactic acid level checked [ x] lactic redrawn within 6 hours if >2.0 Septic Shock Criteria [ ] lactic > 4 at any time [ ] SBP ,90 or MAP , 65 [ ] documentation of septic shock Time Septic Shock diagnosed: [ ] Septic Shock Determination. the patient has been screened and [ ] DOES meet criteria for septic shock [ x ] DOES NOT meet criteria for septic shock Goal directed therapy within 3 hours of septic shock or initial hypotension [ ] 30ml/kg fluid [ ] ABW used [ ] IBW (33.6) used due to BMI > 30 [ ] patient or advocate declining fluid administration after shared decision making conversation Clinical reason for NOT initiating fluid bolus: Within 6 hours (if continued hypotension after fluids or initial lactate >4) [ ] repeat volume status and tissue perfusion assessment documented after fluid bolus was completed at [Date/Time] Must include vital signs, cardiopulmonary exam, capillary refill, peripheral pulse evaluation, skin exam [ ] Initiate vasopressor therapy if persistent hypotension after adequate fluid bolus Critical Care Time Critical Care Time Critical Care Time: Yes Total Critical Care Time: 33 Attestation: Critical care time is separate from other billable procedures. There is a high probability of a significant, sudden or life-threatening deterioration that requires my full and direct attention, intervention and personal management. This critical care time includes consultation with family and other consulting doctors, review of records, and interpretation of data from labs, EKGs and imaging as well as managements of acute kidney injury, significant electrolyte abnormalities, pneumonia and consultation with mother regarding appropriate goals of care. Discharge Plan Departure Patient Disposition: Admitted As Inpatient Clinical Impression: Acute kidney injury, Acute dehydration, Acute hypernatremia, Hypermagnesemia, Acute hyperglycemia, Thrush of mouth and esophagus, History of recurrent UTIs Pneumonia Qualifiers: Pneumonia type: due to unspecified organism Sepsis Qualifiers: Sepsis type: sepsis due to unspecified organism Sepsis acute organ dysfunction status: with acute organ dysfunction Severe sepsis acute organ dysfunction type: acute renal failure Acute renal failure type: unspecified Admit Date/Time: 03/21/23 03:08 Admit Provider: Daren Griffiths
[2023-03-21] VITALS (44 sets, daily range): BP systolic 92–138; BP diastolic 56–81; PULSE 58–93; RESP 11–39; TEMP 36.1–36.5; O2SAT 87–100; BMI 17.4
[2023-03-21 00:01] LABS: Bacteria Urine Moderate (10-30); RBC Urine 0-1/HPF (0-5/HPF); Squamous Epithelial Cell Urine 0-1 /HPF (0-5/HPF); WBC Urine 30-100/HPF (0-5/HPF)
[2023-03-21 00:04] LABS: Culture Indicated Urine Specimen Cultured
[2023-03-21 00:08] LABS: Thyroid Stimulating Hormone 1.26 uIU/mL (0.47-4.68)
[2023-03-21 00:12] LABS: Adenovirus Not Detected (Not Detect); B. parapertussis Not Detected (Not Detecte); Bordetella pertussis Not Detected (Not Detect); Chlamydophila pneumoniae Not Detected (Not Detect); Coronavirus 229E Not Detected (Not Detect); Coronavirus HKU1 Not Detected (Not Detect); Coronavirus NL 63 Not Detected (Not Detect); Coronavirus OC43 Not Detected (Not Detect); Human Metapneumovirus Not Detected (Not Detect); Human Rhinovirus/Enterovirus Not Detected (Not Detect); Influenza A Not Detected (Not Detect); Influenza B Not Detected (Not Detect); Mycoplasma pneumoniae Not Detected (Not Detect); Parainfluenza Virus 1 Not Detected (Not Detect); Parainfluenza Virus 2 Not Detected (Not Detect); Parainfluenza Virus 3 Not Detected (Not Detect); Parainfluenza Virus 4 Not Detected (Not Detect); Respiratory Syncytial Virus Not Detected (Not Detect); SARS- CoV-2 Not Detected (Not Detecte)
[2023-03-21] MEDS: SODIUM CHLORIDE 0.9% 1,000 ML 1000 ML IV (00:15)
[2023-03-21 00:28] LABS: Reflexed Lactate in 2 Hours Y
[2023-03-21] MEDS: PIPERACILLIN/TAZO 3.375 GM in SODIUM CHLORIDE 0.9% 100 ML IV ×4 (00:43→22:59)
[2023-03-21 00:48] LABS: Lactate 2HR (Lactic Acid Rflx) 3.3 mmol/L (0.7-2.1)
[2023-03-21 01:02] LABS: HCO3 VBG 34 mmol/L (24-28); Oxygen Saturation VBG 44 % (70-75); PCO2 VBG 61.5 mmHg (45-50); PO2 VBG 27 mmHg (35-45); Total CO2 VBG 36 mmol/L (24-29); pH VBG 7.35 (7.33-7.43)
[2023-03-21 01:03] LABS: Fractionated Inspired Oxygen 21
[2023-03-21 03:11] LABS: Alanine Aminotransferase 38 IU/L (<50); Albumin 2.9 g/dL (3.5-5.0); Albumin Globulin Ratio 0.9 (1.0-2.8); Bilirubin Total 0.6 mg/dL (0.2-1.3); Calcium 8.4 mg/dL (8.4-10.2); Carbon Dioxide 30 mmol/L (22-32); Estimated Glomerular Filt Rate > 60 mL/min (>60); Globulin 3.3 g/dL (1.7-4.1); Glucose 105 mg/dL (70-100); Lactate (Lactic Acid) 1.3 mmol/L (0.7-2.1); Total Protein 6.2 g/dL (6.3-8.2)
[2023-03-21 03:12] LABS: Hematocrit 46.8 % (41-53); Mean Corpuscular Hemoglobin 34.4 PG (26-34); Mean Corpuscular Volume 107.5 fL (80-100); Platelet Count 206 X10^3/uL (150-400); Red Blood Cell Count 4.35 X10^6/uL (4.5-5.9); Red Cell Distribution Width 15.9 % (11.6-14.8); White Blood Cell Count 12.9 X10^3/uL (4.5-11.0)
[2023-03-21 03:18] LABS: BUN Creatinine Ratio 90.4 (6-22); HEMOLYSIS 64 (0-50)
[2023-03-21 03:19] LABS: Aspartate Aminotransferase 36 IU/L (17-59); Potassium 4.4 mmol/L (3.4-5.1)
[2023-03-21 03:20] LABS: Alkaline Phosphatase 79 U/L (38-126)
[2023-03-21 03:22] LABS: Sodium 171 mmol/L (137-145)
[2023-03-21 03:23] LABS: Blood Urea Nitrogen 122 mg/dL (9-20); Chloride 134 mmol/L (98-107)
[2023-03-21 03:28] LABS: Add Manual Diff / Slide Review YES
[2023-03-21 03:31] LABS: Neutrophils Absolute Manual 11094 /uL (3000-5900); Total Cells Counted 100
[2023-03-21 03:32] LABS: Anisocytosis 1+; Macrocytosis 1+
[2023-03-21] MEDS: ACETAMINOPHEN 325 MG TABLET 650 MG PO ×2 (04:59→16:49)
[2023-03-21] MEDS: levoFLOXacin 500 MG/100 ML PIGGYBACK 100 MG IV (04:59)
[2023-03-21] MEDS: SODIUM CHLORIDE 0.9% 1,000 ML 100 ML IV (05:00)
--- NOTE | 2023-03-21 05:45 | PC.NURSE ---
Pt. arrived to the unit via stretcher accompanied by pts. mother Gabriela Olmedo but prefers to be called Shara. Pt. is alert but is not following commands. He has hx of cerebral palsy and is bed/wheelchair bound. Pt. transferred to bed using a transfer board. Pt. is nonverbal at this time, did open his eyes. Pt. appears to be comfortable. VSS, afebrile. Pt. does not have any open sores but is repositioned and bridged with pillows.
--- NOTE | 2023-03-21 06:01 | PM.HP.1 ---
History of Present Illness History of Present Illness Date Patient Seen: 03/21/23 Time Patient Seen: 06:02 Chief complaint: lethargy Narrative: The pt is a 47 yo with severe cerebral palsy who lives at home with his mother and has a chronic indwelling branham catheter and is bedbound since who was brought to the ER for concerns about decreased level of consciousness. The pt has recurrent UTI's and just finished a course of Keflex for a UTI 24 hours prior to coming to the ER. She has been giving him tube feeds with unknown quanity of free water but is concerned that he is getting dehydrated. Today, he is non-verbal, not following commands, mom at bedside. [facility] Medical History (Updated 03/21/23 @ 00:24 by Lacie Macias MD) Recurrent urinary tract infection Benign familial tremor History of developmental delay Cervical spine disease Chicken pox (~1977) Cataracts, bilateral Total blindness Impaired mobility and ADLs Spastic quadriplegia Neurogenic bladder Hydrocephalus, adult Leukomalacia, periventricular Cerebral atrophy Cerebellar atrophy Agenesis of corpus callosum Seizure disorder Recurrent UTI Urinary retention Cervical vertebral fusion Surgical History Anesthesia S/P percutaneous endoscopic gastrostomy (PEG) tube placement History of thoracic spinal fusion Family History (Updated 03/18/23 @ 15:22 by Antolin Newsome MA) Mother Hyperlipidemia Autoimmune disorder Gout Irritable bowel syndrome History of Graves' disease Sister Multiple myeloma History of kidney cancer History of Graves' disease Grandfather Diabetes mellitus Grandmother Alcoholism Tuberculosis Brother Irritable bowel syndrome Social History (Updated 03/18/23 @ 15:25 by Antolin Newsome MA) marital status: unmarried,single household members: family Smoking Status: Never smoker alcohol intake: current caffeine: Yes Meds Home Medications and Allergies Home Medications Medication Instructions Recorded Confirmed Type latanoprost 0.005 % eye drops 1 drp OPHTH HS #2.5 mL 02/14/12 03/21/23 History mirtazapine 15 mg tablet 15 mg PO HS ##0 02/14/12 03/21/23 History acetaminophen 500 mg tablet 500 mg PO BID ##0 01/20/13 03/21/23 History tamsulosin 0.4 mg capsule (Flomax) 0.4 mg PO BID ##0 09/09/16 03/21/23 History acetic acid 0.25 % irrigation 1 dose irrigation BID PRN bladder 03/09/18 03/21/23 History solution irrigation baclofen 10 mg tablet 1 tab PO 3XD 03/09/18 03/21/23 History midazolam 5 mg/spray (0.1 mL) 5 mg intranasal PRN PRN Seizure 02/29/20 03/21/23 History nasal spray (Nayzilam) Activity ascorbic acid (vitamin C) 500 mg 500 mg PO DAILY 05/29/22 03/21/23 History tablet clonazepam 1 mg tablet 1.5 mg PO 2XD 05/29/22 03/21/23 History divalproex 500 mg tablet,delayed 500 mg PO BID 05/29/22 03/21/23 History release folic acid 400 mcg tablet 200 mcg PO DAILY 05/29/22 03/21/23 History levetiracetam 750 mg tablet 750 mg PO BID 05/29/22 03/21/23 History methenamine hippurate 1 gram tablet 1 g feeding tube DAILY 05/29/22 03/21/23 History nutritional supplements 0.08 1 ea feeding tube BID 05/29/22 03/21/23 History gram-2 kcal/mL liquid for tube feed (Nutren 2.0) water for irrigation, sterile 180 ml irrigation 3XD 05/29/22 03/21/23 History omeprazole 20 mg capsule,delayed 20 mg PO BID #180 caps 06/24/22 03/21/23 Rx release meloxicam 15 mg tablet 15 mg PO .daily with meal #90 tabs 10/16/22 03/21/23 Rx nystatin 100,000 unit/mL oral 1 ml PO QID #60 mL 03/15/23 03/21/23 Rx suspension Allergies Allergy/AdvReac Type Severity Reaction Status Date / Time codeine Allergy Intermediate FACIAL Verified 02/05/23 01:40 SWELLING, RASH phenobarbital Allergy Unknown unknow Verified 03/21/23 00:16 Exam Vital Signs (past 8 hours): - 03/20/23 22:30 03/20/23 22:30 03/20/23 22:35 Temperature 97.8 F Pulse Rate 108 H 108 H Respiratory Rate Blood Pressure 111/79 113/76 Pulse Oximetry 96 96 Oxygen Delivery Method Room Air Oxygen Flow Rate 03/20/23 23:00 03/20/23 23:00 03/20/23 23:30 Temperature Pulse Rate 109 H 98 H Respiratory Rate 16 Blood Pressure 109/81 Pulse Oximetry 93 96 Oxygen Delivery Method Oxygen Flow Rate 03/20/23 23:30 03/21/23 00:00 03/21/23 00:00 Temperature Pulse Rate 92 H Respiratory Rate Blood Pressure 117/75 119/75 Pulse Oximetry 97 Oxygen Delivery Method Oxygen Flow Rate 03/21/23 00:30 03/21/23 00:30 03/21/23 01:00 Temperature Pulse Rate 88 Respiratory Rate Blood Pressure 137/81 138/76 Pulse Oximetry 94 Oxygen Delivery Method Oxygen Flow Rate 03/21/23 01:00 03/21/23 01:30 03/21/23 01:30 Temperature Pulse Rate 89 92 H Respiratory Rate 20 16 Blood Pressure 132/81 Pulse Oximetry 95 95 Oxygen Delivery Method Oxygen Flow Rate 03/21/23 02:00 03/21/23 02:00 03/21/23 02:30 Temperature Pulse Rate 75 Respiratory Rate Blood Pressure 114/74 116/78 Pulse Oximetry 95 Oxygen Delivery Method Oxygen Flow Rate 03/21/23 02:30 03/21/23 03:00 03/21/23 03:30 Temperature Pulse Rate 82 81 84 Respiratory Rate 16 Blood Pressure Pulse Oximetry 95 97 97 Oxygen Delivery Method Oxygen Flow Rate 03/21/23 03:30 03/21/23 03:55 03/21/23 05:00 Temperature 97.7 F Pulse Rate 79 Respiratory Rate 17 Blood Pressure 137/73 106/59 L Pulse Oximetry 94 Oxygen Delivery Method Oximask Oxygen Flow Rate 03/21/23 05:45 Temperature Pulse Rate 77 Respiratory Rate 39 H Blood Pressure 114/56 L Pulse Oximetry 95 Oxygen Delivery Method Oxygen Flow Rate 4 Oxygen Delivery Method Oximask Oxygen Flow Rate 4 Const Other: spastic paraylsis, non-verbal, contracted extremities, PEG tube in place. Resp Other: very coarse rhonchi per RN report Cardio Other: RRR with murmur per RN report Objective Labs 03/21/23 02:50 03/21/23 02:50 Labs: Laboratory Results - last 24 hr 03/20/23 03/20/23 03/20/23 22:00 22:40 23:20 WBC 14.1 H RBC 5.17 Hgb 17.7 H Hct 55.1 H MCV 106.5 H MCH 34.3 H MCHC 32.2 RDW 15.5 H Plt Count 202 Neut % (Auto) Not Reportable Lymph % (Auto) Not Reportable [place] % (Auto) Not Reportable Eos % (Auto) Not Reportable Baso % (Auto) Not Reportable Lymph # (Auto) Not Reportable [place] # (Auto) Not Reportable Baso # (Auto) Not Reportable Total Counted 100 Seg Neutrophils % 84.0 H Band Neutrophils % 5.0 Lymphocytes % (Manual) 7.0 L Monocytes % (Manual) 3.0 Metamyelocytes % 1.0 H Neutrophils # (Manual) 07298 H RBC Morphology See below Anisocytosis 1+ H Macrocytosis 1+ H VBG pH 7.35 VBG pCO2 61.5 H VBG pO2 27 L VBG HCO3 34 H VBG Total CO2 36 H VBG O2 Saturation 44 L VBG Base Excess 8.0 H FiO2 21 Sodium 172 H* Potassium 4.9 Chloride 126 H* Carbon Dioxide 32 BUN 144 H* Creatinine 1.88 H Estimated GFR 44 L BUN/Creatinine Ratio 76.6 H Glucose 248 H Lactate 3.7 H Calcium 10.0 Magnesium 3.8 H Total Bilirubin 0.5 AST 41 ALT 44 Alkaline Phosphatase 99 Troponin I 0.019 Total Protein 7.8 Albumin 3.7 Globulin 4.1 Albumin/Globulin Ratio 0.9 L Lipase 155 Procalcitonin 0.55 H TSH 1.26 Urine Color Urine Appearance Urine pH Ur Specific [place] Urine Protein Urine Glucose (UA) Urine Ketones Urine Occult Blood Urine Nitrate Urine Bilirubin Urine Urobilinogen Ur Leukocyte Esterase Urine RBC Urine WBC Ur Squamous Epith Cells Urine Bacteria Urine Yeast Ur Culture Indicated? Ketones 0.36 H Chlamy pneumoniae PCR Not detected Adenovirus (PCR) Not detected B.parapertussis DNA PCR Not detected Coronavirus OC43 (PCR) Not detected Coronavirus HKU1 (PCR) Not detected Coronavirus 229E (PCR) Not detected SARS-CoV-2 (PCR) Not detected Coronavirus NL63 (PCR) Not detected Human Metapneumovir PCR Not detected Influenza Type A (PCR) Not detected Influenza Type B (PCR) Not detected M. pneumoniae (PCR) Not detected Parainfluenza 1 (PCR) Not detected Parainfluenza 2 (PCR) Not detected Parainfluenza 3 (PCR) Not detected Parainfluenza 4 (PCR) Not detected RSV (PCR) Not detected Entero/Rhino (PCR) Not detected 03/20/23 03/21/23 03/21/23 23:35 00:25 02:50 WBC 12.9 H RBC 4.35 L Hgb 15.0 Hct 46.8 MCV 107.5 H MCH 34.4 H MCHC 32.0 RDW 15.9 H Plt Count 206 Neut % (Auto) Not Reportable Lymph % (Auto) Not Reportable [place] % (Auto) Not Reportable Eos % (Auto) Not Reportable Baso % (Auto) Not Reportable Lymph # (Auto) Not Reportable [place] # (Auto) Not Reportable Baso # (Auto) Not Reportable Total Counted 100 Seg Neutrophils % 81.0 H Band Neutrophils % 5.0 Lymphocytes % (Manual) 10.0 L Monocytes % (Manual) 3.0 Metamyelocytes % 1.0 H Neutrophils # (Manual) 97984 H RBC Morphology See below Anisocytosis 1+ H Macrocytosis 1+ H VBG pH VBG pCO2 VBG pO2 VBG HCO3 VBG Total CO2 VBG O2 Saturation VBG Base Excess FiO2 Sodium 171 H* Potassium 4.4 Chloride 134 H* Carbon Dioxide 30 BUN 122 H* Creatinine 1.35 H Estimated GFR > 60 BUN/Creatinine Ratio 90.4 H Glucose 105 H D Lactate 3.3 H 1.3 Calcium 8.4 Magnesium Total Bilirubin 0.6 AST 36 ALT 38 Alkaline Phosphatase 79 Troponin I Total Protein 6.2 L Albumin 2.9 L Globulin 3.3 Albumin/Globulin Ratio 0.9 L Lipase Procalcitonin TSH Urine Color Yellow Urine Appearance Cloudy Urine pH 6.0 Ur Specific [place] 1.010 Urine Protein Negative Urine Glucose (UA) Negative Urine Ketones Negative Urine Occult Blood 2+ H Urine Nitrate Negative Urine Bilirubin Negative Urine Urobilinogen 0.2 Ur Leukocyte Esterase 2+ H Urine RBC 0-1/hpf Urine WBC 30-100/hpf H Ur Squamous Epith Cells 0-1 /hpf Urine Bacteria Moderate (10-30) H Urine Yeast 1-5/hpf H Ur Culture Indicated? Specimen cultured Ketones Chlamy pneumoniae PCR Adenovirus (PCR) B.parapertussis DNA PCR Coronavirus OC43 (PCR) Coronavirus HKU1 (PCR) Coronavirus 229E (PCR) SARS-CoV-2 (PCR) Coronavirus NL63 (PCR) Human Metapneumovir PCR Influenza Type A (PCR) Influenza Type B (PCR) M. pneumoniae (PCR) Parainfluenza 1 (PCR) Parainfluenza 2 (PCR) Parainfluenza 3 (PCR) Parainfluenza 4 (PCR) RSV (PCR) Entero/Rhino (PCR) Assessment & Plan Assessment and plan (1) History of recurrent UTIs: Status: Acute (2) Acute hypernatremia: Status: Acute (3) Hypermagnesemia: Status: Acute (4) Acute kidney injury: Status: Acute (5) Sepsis: Qualifiers: Acute renal failure type: unspecified Sepsis acute organ dysfunction status: with acute organ dysfunction Sepsis type: sepsis due to unspecified organism Severe sepsis acute organ dysfunction type: acute renal failure Status: Acute (6) Pneumonia: Qualifiers: Pneumonia type: due to unspecified organism Status: Acute (7) Spastic quadriplegia: Status: Acute (8) Neurogenic bladder: Status: Acute (9) S/P percutaneous endoscopic gastrostomy (PEG) tube placement: Status: Acute Plan Will admit the pt to the ICU, I discussed the pt's condition with the ER provider, agree with admission. We discussed that the pt is a full code, will monitor sodium very closely, labs reviewed by myself, Na- 172, currently giving IV NS at 100cc/hr, given 2 liters NS bolus, Cr is 1.88 - checking BMP q4 hours, Will need to address nutrition and increasing free water in PEG once Na is more stable. CXR reviewed showing Right sided infiltrates, starting on Vanco, pharmacy managed, Levofloxacin, and zosyn since he is chronically infected, blood and urine cultures are pending, Poor prognosis, Quality VTE Deep Vein Thrombosis/Pulmonary Embolism Present on Admission: Yes
[2023-03-21 06:34] LABS: MRSA (Nasal) PCR DETECTED (Not Detect)
[2023-03-21 07:37] LABS: Magnesium 3.2 mg/dL (1.6-2.3)
[2023-03-21 07:44] LABS: Prealbumin 20.3 mg/dL (17.6-36.0)
[2023-03-21 08:45] LABS: Lactate (Lactic Acid) 0.9 mmol/L (0.7-2.1)
[2023-03-21 08:46] LABS: BUN Creatinine Ratio 81.6 (6-22); Calcium 8.6 mg/dL (8.4-10.2); Carbon Dioxide 34 mmol/L (22-32); Estimated Glomerular Filt Rate > 60 mL/min (>60); Glucose 93 mg/dL (70-100); HEMOLYSIS < 15 (0-50); Potassium 4.2 mmol/L (3.4-5.1)
[2023-03-21 08:59] LABS: Hematocrit 43.9 % (41-53); Mean Corpuscular HGB Conc 31.9 % (30-36); Mean Corpuscular Hemoglobin 34.5 PG (26-34); Mean Corpuscular Volume 108.2 fL (80-100); Platelet Count 176 X10^3/uL (150-400); Red Blood Cell Count 4.05 X10^6/uL (4.5-5.9); Red Cell Distribution Width 15.9 % (11.6-14.8); White Blood Cell Count 12.1 X10^3/uL (4.5-11.0)
[2023-03-21] MEDS: PANTOPRAZOLE 40 MG VIAL IV (09:10)
[2023-03-21 09:11] LABS: Chloride 134 mmol/L (98-107); Sodium 172 mmol/L (137-145)
[2023-03-21 09:12] LABS: Add Manual Diff / Slide Review YES; Blood Urea Nitrogen 111 mg/dL (9-20)
[2023-03-21 09:37] LABS: Neutrophils Absolute Manual 9317 /uL (3000-5900); RBC Morphology Normal Morphology; Total Cells Counted 100
[2023-03-21] MEDS: VANCOMYCIN 750 MG/150 ML PIGGYBACK 150 MG IV ×2 (10:22→22:06)
--- NOTE | 2023-03-21 13:00 | CM.DANOTE ---
DCP: Case received, EMR reviewed. Patient's mother, Gabriela, is at bedside. Was able to obtain information regarding patient's care needs at home prior to admission. DCP assessment completed with information currently available. Patient is a 47 year old male who admitted early this morning to the care of the hospitalist team. PCP: Dr. bradford. Payer: conformed: Medicare/[employer]. Patient came to the hospital via ambulance secondary to having increased lethargy, according to patient's mother, for she is patient's primary caregiver. Patient has history of cerebral palsy, neurogenic bladder with recurrent UTIs, spastic quadriplegia, blind, chronically wheelchair-bound. Patient's mother had called 911, due to concerns about his increased weakness and lethargy. Patient receives his fluid intake through his G-tube. Patient's mother had continued to attempt increasing his fluid intake through his G-tube. Notes indicate that patient occasionally eats and drinks, no recent aspiration, per mom. Patient admitted for pneumonia, hypernatremia, acute kidney injury. Patient is a full code. Met with patient's mother at bedside. Patient sleeping. Confirmed that his mother, Gabriela, is his primary [employer] caregiver. Tends to most needs, is wheel-chair bound, is able to transport via van to appointments, she indicated that patent is in and out cathed. She is looking into respite care as well. Has a daughter that was also going to assist in being patient's caregiver, but developed cancer. Mentioned home health services to patient's mom, feels she is certified to tend to his needs. P: DCP to follow closely, plan most likely will be home with mother, so far, she had declined home health services. Zamzam Almazan RN/Graphotype Operator Discharge Planning/Care Management CM Discharge Assessment Start: 03/21/23 12:58 Freq: Status: Active Protocol: Document 03/21/23 12:58 (Rec: 03/21/23 13:00 [id number]) Discharge Planning Assessment Assigned Shellfish Weigher Zamzam Almazan RN/Graphotype Operator Advance Directives? No History Provided By Parents,Medical Record Prior Living Arrangements House Household Members family Type of transporation used prior to Relies on Others admit Independent with ADL's No Is patient alert and oriented? Alert to self at baseline, and place Needs Assistance With Bathing,Eating,Grooming,Meal Prep,Toileting,Managing Medications,Home Chores / Shopping Caregiver for Another No DME Already Rented / Owned Wheelchair,FWW / Walker Barriers to Discharge No Comment Has supportive mother. Discharge Plan Home Transportation Arrangement Family Referrals Initiated None needed Whiteboard Updated in Patient Room with Yes name and ext. # of Shellfish Weigher Review Status In Process Next Review Type Continued Stay Review
[2023-03-21 13:39] LABS: BUN Creatinine Ratio 83.3 (6-22); Blood Urea Nitrogen 105 mg/dL (9-20); Calcium 8.7 mg/dL (8.4-10.2); Carbon Dioxide 31 mmol/L (22-32); Estimated Glomerular Filt Rate > 60 mL/min (>60); Glucose 87 mg/dL (70-100); HEMOLYSIS < 15 (0-50); Potassium 4.5 mmol/L (3.4-5.1)
[2023-03-21 13:42] LABS: Chloride 133 mmol/L (98-107); Sodium 170 mmol/L (137-145)
[2023-03-21 16:35] LABS: BUN Creatinine Ratio 88.9 (6-22); Blood Urea Nitrogen 104 mg/dL (9-20); Calcium 8.6 mg/dL (8.4-10.2); Carbon Dioxide 32 mmol/L (22-32); Estimated Glomerular Filt Rate > 60 mL/min (>60); Glucose 90 mg/dL (70-100); HEMOLYSIS 28 (0-50); Potassium 4.7 mmol/L (3.4-5.1)
[2023-03-21 16:37] LABS: Chloride 132 mmol/L (98-107); Sodium 169 mmol/L (137-145)
--- NOTE | 2023-03-21 16:49 | P.PN_ITS ---
Subjective Subjective Interval history: 47-year-old male with congenital quadriplegic cerebral palsy, epilepsy, dysphagia requiring a peg tube, and urinary retention who was admitted overnight with severe hypernatremia, acute kidney injury, and bilateral pneumonia, right greater than left. Overnight, he was made NPO and placed on normal saline at 100 cc/hour. His sodium level decreased from 172-171. His mom notes that at baseline he does drink fluids. He would recently had a UTI and had been on antibiotics and appeared to be drinking a bit less. She notes due to her other child being critically ill, she is been very stressed and had not taken notice of it. In retrospect though, she realizes he likely should have had more free water through his PEG tube. She states the amount she gives is variable. She does give water flushes with medications and after receiving his tube feeds. Exam Vital Signs (past 8 hours): - 03/21/23 09:00 03/21/23 09:30 03/21/23 10:00 Temperature Pulse Rate 72 77 83 Respiratory Rate 17 19 32 H Blood Pressure Pulse Oximetry 100 97 87 L 03/21/23 10:30 03/21/23 11:00 03/21/23 11:07 Temperature Pulse Rate 80 76 72 Respiratory Rate 28 H 29 H 22 Blood Pressure Pulse Oximetry 93 98 98 03/21/23 11:07 03/21/23 11:30 03/21/23 12:00 Temperature Pulse Rate 80 76 Respiratory Rate 25 H 26 H Blood Pressure 101/59 L Pulse Oximetry 94 91 03/21/23 12:00 03/21/23 12:30 03/21/23 13:00 Temperature Pulse Rate 73 68 Respiratory Rate 18 Blood Pressure 109/67 Pulse Oximetry 98 99 03/21/23 13:01 03/21/23 13:01 03/21/23 13:30 Temperature Pulse Rate 70 58 L Respiratory Rate 22 17 Blood Pressure 103/62 Pulse Oximetry 99 100 03/21/23 14:00 03/21/23 14:30 03/21/23 14:49 Temperature 97.1 F L Pulse Rate 66 61 Respiratory Rate 11 L 16 Blood Pressure 103/62 Pulse Oximetry 100 100 03/21/23 15:00 03/21/23 15:30 03/21/23 15:41 Temperature Pulse Rate 65 61 67 Respiratory Rate 14 16 17 Blood Pressure Pulse Oximetry 100 100 100 03/21/23 15:41 03/21/23 16:00 03/21/23 16:00 Temperature Pulse Rate 64 Respiratory Rate 16 Blood Pressure 98/61 100/60 Pulse Oximetry 100 Oxygen Delivery Method Oximask Oxygen Flow Rate 4 Narrative Exam Narrative: GEN: Chronically ill-appearing middle-aged male, lying prone, oxygen mask in place HEENT:NC, Face appears symmetric CHEST: Respiratory excursions symmetric, coarse with scattered rhonchi CV: RRR, no M/R/G ABD: Unable to examine EXTR: Unable to examine SKIN: warm and dry, no rash NEURO: Sleeping Objective Labs 03/21/23 08:25 03/21/23 16:10 Labs: Laboratory Results - last 24 hr 03/20/23 03/20/23 03/20/23 22:00 22:40 23:20 WBC 14.1 H RBC 5.17 Hgb 17.7 H Hct 55.1 H MCV 106.5 H MCH 34.3 H MCHC 32.2 RDW 15.5 H Plt Count 202 Neut % (Auto) Not Reportable Lymph % (Auto) Not Reportable [place] % (Auto) Not Reportable Eos % (Auto) Not Reportable Baso % (Auto) Not Reportable Lymph # (Auto) Not Reportable [place] # (Auto) Not Reportable Baso # (Auto) Not Reportable Total Counted 100 Seg Neutrophils % 84.0 H Band Neutrophils % 5.0 Lymphocytes % (Manual) 7.0 L Monocytes % (Manual) 3.0 Metamyelocytes % 1.0 H Myelocytes % Neutrophils # (Manual) 79112 H RBC Morphology See below Anisocytosis 1+ H Macrocytosis 1+ H VBG pH 7.35 VBG pCO2 61.5 H VBG pO2 27 L VBG HCO3 34 H VBG Total CO2 36 H VBG O2 Saturation 44 L VBG Base Excess 8.0 H FiO2 21 Sodium 172 H* Potassium 4.9 Chloride 126 H* Carbon Dioxide 32 BUN 144 H* Creatinine 1.88 H Estimated GFR 44 L BUN/Creatinine Ratio 76.6 H Glucose 248 H Lactate 3.7 H Calcium 10.0 Magnesium 3.8 H Total Bilirubin 0.5 AST 41 ALT 44 Alkaline Phosphatase 99 Troponin I 0.019 Total Protein 7.8 Albumin 3.7 Globulin 4.1 Albumin/Globulin Ratio 0.9 L Prealbumin Lipase 155 Procalcitonin 0.55 H TSH 1.26 Urine Color Urine Appearance Urine pH Ur Specific [place] Urine Protein Urine Glucose (UA) Urine Ketones Urine Occult Blood Urine Nitrate Urine Bilirubin Urine Urobilinogen Ur Leukocyte Esterase Urine RBC Urine WBC Ur Squamous Epith Cells Urine Bacteria Urine Yeast Ur Culture Indicated? Nasal Screen MRSA (PCR) Ketones 0.36 H Chlamy pneumoniae PCR Not detected Adenovirus (PCR) Not detected B.parapertussis DNA PCR Not detected Coronavirus OC43 (PCR) Not detected Coronavirus HKU1 (PCR) Not detected Coronavirus 229E (PCR) Not detected SARS-CoV-2 (PCR) Not detected Coronavirus NL63 (PCR) Not detected Human Metapneumovir PCR Not detected Influenza Type A (PCR) Not detected Influenza Type B (PCR) Not detected M. pneumoniae (PCR) Not detected Parainfluenza 1 (PCR) Not detected Parainfluenza 2 (PCR) Not detected Parainfluenza 3 (PCR) Not detected Parainfluenza 4 (PCR) Not detected RSV (PCR) Not detected Entero/Rhino (PCR) Not detected 03/20/23 03/21/23 03/21/23 23:35 00:25 02:50 WBC 12.9 H RBC 4.35 L Hgb 15.0 Hct 46.8 MCV 107.5 H MCH 34.4 H MCHC 32.0 RDW 15.9 H Plt Count 206 Neut % (Auto) Not Reportable Lymph % (Auto) Not Reportable [place] % (Auto) Not Reportable Eos % (Auto) Not Reportable Baso % (Auto) Not Reportable Lymph # (Auto) Not Reportable [place] # (Auto) Not Reportable Baso # (Auto) Not Reportable Total Counted 100 Seg Neutrophils % 81.0 H Band Neutrophils % 5.0 Lymphocytes % (Manual) 10.0 L Monocytes % (Manual) 3.0 Metamyelocytes % 1.0 H Myelocytes % Neutrophils # (Manual) 94816 H RBC Morphology See below Anisocytosis 1+ H Macrocytosis 1+ H VBG pH VBG pCO2 VBG pO2 VBG HCO3 VBG Total CO2 VBG O2 Saturation VBG Base Excess FiO2 Sodium 171 H* Potassium 4.4 Chloride 134 H* Carbon Dioxide 30 BUN 122 H* Creatinine 1.35 H Estimated GFR > 60 BUN/Creatinine Ratio 90.4 H Glucose 105 H D Lactate 3.3 H 1.3 Calcium 8.4 Magnesium 3.2 H Total Bilirubin 0.6 AST 36 ALT 38 Alkaline Phosphatase 79 Troponin I Total Protein 6.2 L Albumin 2.9 L Globulin 3.3 Albumin/Globulin Ratio 0.9 L Prealbumin 20.3 Lipase Procalcitonin TSH Urine Color Yellow Urine Appearance Cloudy Urine pH 6.0 Ur Specific [place] 1.010 Urine Protein Negative Urine Glucose (UA) Negative Urine Ketones Negative Urine Occult Blood 2+ H Urine Nitrate Negative Urine Bilirubin Negative Urine Urobilinogen 0.2 Ur Leukocyte Esterase 2+ H Urine RBC 0-1/hpf Urine WBC 30-100/hpf H Ur Squamous Epith Cells 0-1 /hpf Urine Bacteria Moderate (10-30) H Urine Yeast 1-5/hpf H Ur Culture Indicated? Specimen cultured Nasal Screen MRSA (PCR) Ketones Chlamy pneumoniae PCR Adenovirus (PCR) B.parapertussis DNA PCR Coronavirus OC43 (PCR) Coronavirus HKU1 (PCR) Coronavirus 229E (PCR) SARS-CoV-2 (PCR) Coronavirus NL63 (PCR) Human Metapneumovir PCR Influenza Type A (PCR) Influenza Type B (PCR) M. pneumoniae (PCR) Parainfluenza 1 (PCR) Parainfluenza 2 (PCR) Parainfluenza 3 (PCR) Parainfluenza 4 (PCR) RSV (PCR) Entero/Rhino (PCR) 03/21/23 03/21/23 03/21/23 05:17 08:25 13:20 WBC 12.1 H RBC 4.05 L Hgb 14.0 Hct 43.9 MCV 108.2 H MCH 34.5 H MCHC 31.9 RDW 15.9 H Plt Count 176 Neut % (Auto) Not Reportable Lymph % (Auto) Not Reportable [place] % (Auto) Not Reportable Eos % (Auto) Not Reportable Baso % (Auto) Not Reportable Lymph # (Auto) Not Reportable [place] # (Auto) Not Reportable Baso # (Auto) Not Reportable Total Counted 100 Seg Neutrophils % 70.0 Band Neutrophils % 7.0 Lymphocytes % (Manual) 17.0 L Monocytes % (Manual) 3.0 Metamyelocytes % Myelocytes % 3.0 H Neutrophils # (Manual) 9317 H RBC Morphology Normal morphology Anisocytosis Macrocytosis VBG pH VBG pCO2 VBG pO2 VBG HCO3 VBG Total CO2 VBG O2 Saturation VBG Base Excess FiO2 Sodium 172 H* 170 H* Potassium 4.2 4.5 Chloride 134 H* 133 H* Carbon Dioxide 34 H 31 BUN 111 H* 105 H Creatinine 1.36 H 1.26 H Estimated GFR > 60 > 60 BUN/Creatinine Ratio 81.6 H 83.3 H Glucose 93 87 Lactate 0.9 Calcium 8.6 8.7 Magnesium Total Bilirubin AST ALT Alkaline Phosphatase Troponin I Total Protein Albumin Globulin Albumin/Globulin Ratio Prealbumin Lipase Procalcitonin TSH Urine Color Urine Appearance Urine pH Ur Specific [place] Urine Protein Urine Glucose (UA) Urine Ketones Urine Occult Blood Urine Nitrate Urine Bilirubin Urine Urobilinogen Ur Leukocyte Esterase Urine RBC Urine WBC Ur Squamous Epith Cells Urine Bacteria Urine Yeast Ur Culture Indicated? Nasal Screen MRSA (PCR) Detected H Ketones Chlamy pneumoniae PCR Adenovirus (PCR) B.parapertussis DNA PCR Coronavirus OC43 (PCR) Coronavirus HKU1 (PCR) Coronavirus 229E (PCR) SARS-CoV-2 (PCR) Coronavirus NL63 (PCR) Human Metapneumovir PCR Influenza Type A (PCR) Influenza Type B (PCR) M. pneumoniae (PCR) Parainfluenza 1 (PCR) Parainfluenza 2 (PCR) Parainfluenza 3 (PCR) Parainfluenza 4 (PCR) RSV (PCR) Entero/Rhino (PCR) 03/21/23 16:10 WBC RBC Hgb Hct MCV MCH MCHC RDW Plt Count Neut % (Auto) Lymph % (Auto) [place] % (Auto) Eos % (Auto) Baso % (Auto) Lymph # (Auto) [place] # (Auto) Baso # (Auto) Total Counted Seg Neutrophils % Band Neutrophils % Lymphocytes % (Manual) Monocytes % (Manual) Metamyelocytes % Myelocytes % Neutrophils # (Manual) RBC Morphology Anisocytosis Macrocytosis VBG pH VBG pCO2 VBG pO2 VBG HCO3 VBG Total CO2 VBG O2 Saturation VBG Base Excess FiO2 Sodium 169 H* Potassium 4.7 Chloride 132 H* Carbon Dioxide 32 BUN 104 H Creatinine 1.17 Estimated GFR > 60 BUN/Creatinine Ratio 88.9 H Glucose 90 Lactate Calcium 8.6 Magnesium Total Bilirubin AST ALT Alkaline Phosphatase Troponin I Total Protein Albumin Globulin Albumin/Globulin Ratio Prealbumin Lipase Procalcitonin TSH Urine Color Urine Appearance Urine pH Ur Specific [place] Urine Protein Urine Glucose (UA) Urine Ketones Urine Occult Blood Urine Nitrate Urine Bilirubin Urine Urobilinogen Ur Leukocyte Esterase Urine RBC Urine WBC Ur Squamous Epith Cells Urine Bacteria Urine Yeast Ur Culture Indicated? Nasal Screen MRSA (PCR) Ketones Chlamy pneumoniae PCR Adenovirus (PCR) B.parapertussis DNA PCR Coronavirus OC43 (PCR) Coronavirus HKU1 (PCR) Coronavirus 229E (PCR) SARS-CoV-2 (PCR) Coronavirus NL63 (PCR) Human Metapneumovir PCR Influenza Type A (PCR) Influenza Type B (PCR) M. pneumoniae (PCR) Parainfluenza 1 (PCR) Parainfluenza 2 (PCR) Parainfluenza 3 (PCR) Parainfluenza 4 (PCR) RSV (PCR) Entero/Rhino (PCR) [facility] Medical History (Updated 03/21/23 @ 00:24 by Lacie Macias MD) Recurrent urinary tract infection Benign familial tremor History of developmental delay Cervical spine disease Chicken pox (~1977) Cataracts, bilateral Total blindness Impaired mobility and ADLs Spastic quadriplegia Neurogenic bladder Hydrocephalus, adult Leukomalacia, periventricular Cerebral atrophy Cerebellar atrophy Agenesis of corpus callosum Seizure disorder Recurrent UTI Urinary retention Cervical vertebral fusion Surgical History Anesthesia S/P percutaneous endoscopic gastrostomy (PEG) tube placement History of thoracic spinal fusion Family History (Updated 03/18/23 @ 15:22 by Antolin Newsome MA) Mother Hyperlipidemia Autoimmune disorder Gout Irritable bowel syndrome History of Graves' disease Sister Multiple myeloma History of kidney cancer History of Graves' disease Grandfather Diabetes mellitus Grandmother Alcoholism Tuberculosis Brother Irritable bowel syndrome Social History (Updated 03/18/23 @ 15:25 by Antolin Newsome MA) marital status: unmarried,single household members: family Smoking Status: Never smoker alcohol intake: current caffeine: Yes Assessment & Plan Assessment & Plan narrative: 1. Severe hypernatremia Likely secondary to inadequate oral fluid intake and limited free water through his PEG tube. Current estimated fluid deficit is 1.8 L to achieve a reduction of sodium by 12 points. An additional 1 L is added to this for typical losses. Goal is to replace a total of 2.8 L over the next 24 hours. Will give free water boluses 400 cc every 4 hours. Continue Q 4 hour electrolyte panels. We will continue the IV fluids for now, though they are likely not contributing to his electrolyte correction in any significant way. 2. Bilateral pneumonia Patient is high risk for aspiration. He was placed on Zosyn, vancomycin, and IV Levaquin 500 mg daily. As his creatinine has been improving, will titrate his Levaquin dosing up to 750 mg IV daily. Continue Zosyn and vancomycin with pharmacy managing dosing. MRSA screen was positive. 3. RACHEL On Admission his creatinine was 1.88. It has gradually improved and is now 1.17. Will continue to monitor. Suspect it was secondary to hypovolemia. 4. Hypoxic respiratory failure, acute Due to pneumonia. Patient does tend to obstruct his airway due to his large tongue when he lays on his back. He is typically prone when sleeping. Continue supplementing with oxygen via face mask to maintain his saturations. 5. 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 6. Neurogenic bladder We will resume his methenamine and tamsulosin. 7. Epilepsy Resume Keppra and Depakote per his usual home schedule. Code status Full. Patient would greatly benefit from a palliative care consult. I am uncertain if this is available in the [facility]. Prophylaxis On Lovenox Disposition Intensive care unit Quality VTE Deep Vein Thrombosis/Pulmonary Embolism Present on Admission: Yes
--- NOTE | 2023-03-21 17:40 | PC.NURSE ---
Day shift: Pt on back, VSS, 93% on 4L oxymask. O2 desaturation to 86%, pt proned, oxygen 95% on 2L oxymask. Assisted up in personal wheelchair, pt able to tolerate for approximately one hour before oxygen desaturation to 84% on 6L oxymask. Pt assisted back to bed via mechanical lift and sling, pt proned, oxygen at 98% on 2L oxymask. Pt appears to be leaking around urinary catheter (brief wet, underwear wet, linens wet). Brief and linen changed, pt able to assist in turn very minimally when verbally prompted. Bed tilted with pt proning to facilitate repositioning and pressure relief efforts. Critical lab values notified to provider. Pt proning, 98% on 2L oxymask. Care ongoing, will continue to monitor.
[2023-03-21] MEDS: ACETAMINOPHEN SUSP 650 MG/20.3 ML UDC 500 MG PO (20:37)
[2023-03-21] MEDS: PANTOPRAZOLE DR 20 MG TABLET PO (20:38)
[2023-03-21] MEDS: BACLOFEN 10 MG TABLET PO (20:38)
[2023-03-21] MEDS: NYSTATIN SUSP 500,000 UNIT/5 ML UDC 500000 UNIT PO (20:38)
[2023-03-21] MEDS: MIRTAZAPINE 15 MG TABLET PO (20:38)
[2023-03-21] MEDS: levETIRAcetam 250 MG TABLET 750 MG PO (20:38)
[2023-03-21] MEDS: clonazePAM 0.5 MG TABLET 1.5 MG PO (20:38)
[2023-03-21] MEDS: DIVALPROEX DR 250 MG TABLET 500 MG PO (20:38)
[2023-03-21] MEDS: LATANOPROST 0.005% OPHTH 2.5 ML 1 DROPS EYE-BOTH (21:29)
[2023-03-21 21:42] LABS: BUN Creatinine Ratio 83.1 (6-22); Blood Urea Nitrogen 98 mg/dL (9-20); Carbon Dioxide 34 mmol/L (22-32); Estimated Glomerular Filt Rate > 60 mL/min (>60); Glucose 81 mg/dL (70-100)
[2023-03-21 21:43] LABS: HEMOLYSIS 69 (0-50); Potassium 5.3 mmol/L (3.4-5.1)
[2023-03-21 21:45] LABS: Sodium 169 mmol/L (137-145)
[2023-03-21 21:46] LABS: Chloride 130 mmol/L (98-107)
[2023-03-22] VITALS (27 sets, daily range): BP systolic 89–138; BP diastolic 50–76; PULSE 74–106; RESP 14–33; TEMP 36.4–37.1; O2SAT 91–98
[2023-03-22] MEDS: levoFLOXacin 750 MG/150 ML PIGGYBACK 100 MG IV (05:23)
[2023-03-22] MEDS: PIPERACILLIN/TAZO 3.375 GM in SODIUM CHLORIDE 0.9% 100 ML IV ×3 (06:00→22:51)
[2023-03-22 06:57] LABS: BUN Creatinine Ratio 76.9 (6-22); Blood Urea Nitrogen 80 mg/dL (9-20); Calcium 8.8 mg/dL (8.4-10.2); Carbon Dioxide 32 mmol/L (22-32); Estimated Glomerular Filt Rate > 60 mL/min (>60); Glucose 84 mg/dL (70-100); HEMOLYSIS 21 (0-50); Potassium 4.7 mmol/L (3.4-5.1)
[2023-03-22 07:13] LABS: Sodium 163 mmol/L (137-145)
[2023-03-22 07:14] LABS: Chloride 128 mmol/L (98-107)
[2023-03-22] MEDS: clonazePAM 0.5 MG TABLET 1.5 MG PO (08:47)
[2023-03-22] MEDS: levETIRAcetam 250 MG TABLET 750 MG PO ×2 (08:47→20:52)
[2023-03-22] MEDS: NYSTATIN SUSP 500,000 UNIT/5 ML UDC 500000 UNIT PO ×3 (08:48→16:00)
[2023-03-22] MEDS: ENOXAPARIN 30 MG/0.3 ML SYRINGE SUBCUT (08:50)
[2023-03-22] MEDS: BACLOFEN 10 MG TABLET PO (09:02)
--- NOTE | 2023-03-22 09:03 | PC.NURSE ---
Addendum entered by Mikki Arroyo R.N. 03/22/23 19:34: Blood sugar taken in afternoon around 1400 normal : 108. Addendum entered by Mikik Arroyo R.N. 03/22/23 17:46: Boggs removed [id number] - Dr Jerome galindo. Addendum entered by Mikki Arroyo R.N. 03/22/23 16:13: In am, noticed order for NS@100, provider said NS did not need to be running. Because patient is dehydrated, emphasized to caregiver need to give ordered free water via PEG. Also asked provider when they wanted next sodium to be drawn. Addendum entered by Mikki Arroyo R.N. 03/22/23 11:00: Before med pass, spoke with caregiver about not crushing depakote per pharmacy. Caregiver says that their neurologist said to crush and that they have been crushing for years. Clarified with provider in am that provider is okay with 200ml free water through PEG every 2 hours. Emphasized several times to caregiver importance of administering the water to help with patient's hypernatremia and dehydration. RN said that she can give the 200 or caregiver can give the 200. Caregiver said she administered the 200ml with the am feeds. Caregiver said that giving too much water at once is too much for patients stomach. RN wrote schedule on white board to assist with giving 200 ml water through PEG and showed caregiver to ensure patient receives the water as ordered. Original Note: Called pharmacy to verify that all meds could be crushed and put in PEG tube. Pharmacy said not to crush protonix and depakote. Following up with family if their depakote is liquid or can be crushed.
[2023-03-22] MEDS: ACETAMINOPHEN SUSP 650 MG/20.3 ML UDC 500 MG PO (09:06)
[2023-03-22] MEDS: DIVALPROEX DR 250 MG TABLET 500 MG PO ×2 (09:16→20:54)
[2023-03-22] MEDS: VANCOMYCIN 750 MG/150 ML PIGGYBACK 150 MG IV ×2 (09:42→21:30)
[2023-03-22] MEDS: PANTOPRAZOLE 40 MG VIAL 20 MG IV ×2 (09:42→20:44)
[2023-03-22] MEDS: DIVALPROEX DR 250 MG TABLET PO (09:48)
--- NOTE | 2023-03-22 12:12 | DIET.CONS2 ---
Dietary Inpatient Consultation Note Admission Date: 03/21/2023 03:08 47y M with congenital quadriplegic cerebral palsy, epilepsy, dysphagia requiring a peg tube, and urinary retention who was admitted overnight with severe hypernatremia, acute kidney injury, and bilateral pneumonia, right greater than left. Per MAR pt taking Nutren 2.0 via peg tube for nutrition at home, chronically. Recommendations using home formula include 720mL formula per day providing 1440 kcals (36kcal/kg), 60g PRO (1.5g/kg), 156g CHO, 66g fat and 497mL fluids (12mL/kg). Pt should have an additional 660mL fluids as free fluid flushes daily. OK to seperate feed and flushes as pt tends to not handle too much fluid in stomach at one time. Note: Nutren 2.0 not available formula at on formulary. Diet: 03/21/23 04:06 NPO Diet Diet Modifications: NPO Type: NPO except for Meds 03/21/23 Dinner [employer] (Peds, comfort care) Diet Modifications: Electronically Signed by: Micaela Oliveros 03/22/23 12:12 Clinical Dietitian [address] [id number]
--- NOTE | 2023-03-22 14:55 | CM.DPC ---
DCP Cont: Pt's PCP Dr. Mccauley rounded on pt today and checked in with Care Management/this SW and states pt quite dehydrated but making some improvements and family provides good care and attention to the pt but feels pt's mother could benefit from additional assist in the home but she historically feels she can manage the pt well herself. SW met bedside with pt who is not able to verbally communicate and was sleeping and his brother and explained role and brother states their mom has left for a quick break/rest. Pt's brother also feels that their mother is getting to the point of not managing pt well on her own and he is agreeable to assisting mom with completing the LTC Medicaid application for [employer] CGs but feels mother will likely be resistant at first. Pt's brother will continue to encourage her to seek additional support but thinks she may need to be told by various members of pt's team (Care Mngmt, PCP, etc..). Plan: SW to follow for mother to return and further discussion regarding the importance of additional in-home support (likely through Medicaid [employer]) to reduce risk of CG burnout etc... Family continues to plan to have pt d/c back to their home when medically stable. CRAY Joseph
--- NOTE | 2023-03-22 15:02 | PM.PN.1 ---
Subjective Subjective Interval history: 47-year-old male with congenital quadriplegic cerebral palsy, epilepsy, dysphagia requiring a peg tube, and urinary retention who was admitted with severe hypernatremia, acute kidney injury, and bilateral pneumonia, right greater than left. Sodium has improved to 163, will stop normal saline, continue free water feeds via tube. Exam Vital Signs (past 8 hours): - 03/22/23 08:00 03/22/23 08:00 03/22/23 09:00 Temperature Pulse Rate 83 90 Respiratory Rate 33 H 32 H Blood Pressure 99/64 Pulse Oximetry 98 93 Oxygen Delivery Method 03/22/23 09:00 03/22/23 10:00 03/22/23 10:00 Temperature Pulse Rate 93 H Respiratory Rate 24 Blood Pressure 104/62 106/65 Pulse Oximetry 92 Oxygen Delivery Method 03/22/23 10:47 03/22/23 11:00 03/22/23 11:00 Temperature 98.8 F Pulse Rate 96 H Respiratory Rate 14 Blood Pressure 98/57 L Pulse Oximetry 95 Oxygen Delivery Method 03/22/23 11:11 03/22/23 12:00 03/22/23 12:00 Temperature Pulse Rate 93 H Respiratory Rate 16 Blood Pressure 108/68 Pulse Oximetry 96 Oxygen Delivery Method Room Air 03/22/23 13:00 03/22/23 13:00 03/22/23 14:00 Temperature Pulse Rate 100 H 102 H Respiratory Rate 25 H 26 H Blood Pressure 99/56 L Pulse Oximetry 91 92 Oxygen Delivery Method 03/22/23 14:00 Temperature Pulse Rate Respiratory Rate Blood Pressure 109/62 Pulse Oximetry Oxygen Delivery Method Oxygen Delivery Method Room Air Oxygen Flow Rate 2 Narrative Exam Narrative: GEN: Chronically ill-appearing middle-aged male, lying prone, oxygen mask in place HEENT:NC, Face appears symmetric CHEST: Respiratory excursions symmetric, coarse with scattered rhonchi CV: RRR, no M/R/G ABD: Unable to examine due to positioning EXTR: no peipehral edema SKIN: warm and dry, no rash NEURO: Sleeping Objective Labs 03/21/23 08:25 03/22/23 06:35 Labs: Laboratory Results - last 24 hr 03/21/23 03/21/23 03/22/23 16:10 21:15 06:35 Sodium 169 H* 169 H* 163 H* Potassium 4.7 5.3 H 4.7 Chloride 132 H* 130 H* 128 H* Carbon Dioxide 32 34 H 32 BUN 104 H 98 H 80 H Creatinine 1.17 1.18 1.04 Estimated GFR > 60 > 60 > 60 BUN/Creatinine Ratio 88.9 H 83.1 H 76.9 H Glucose 90 81 84 Calcium 8.6 9.0 8.8 PFSH Medical History (Updated 03/21/23 @ 00:24 by Lacie Macias MD) Recurrent urinary tract infection Benign familial tremor History of developmental delay Cervical spine disease Chicken pox (~1977) Cataracts, bilateral Total blindness Impaired mobility and ADLs Spastic quadriplegia Neurogenic bladder Hydrocephalus, adult Leukomalacia, periventricular Cerebral atrophy Cerebellar atrophy Agenesis of corpus callosum Seizure disorder Recurrent UTI Urinary retention Cervical vertebral fusion Surgical History Anesthesia S/P percutaneous endoscopic gastrostomy (PEG) tube placement History of thoracic spinal fusion Family History (Updated 03/18/23 @ 15:22 by Antolin Newsome MA) Mother Hyperlipidemia Autoimmune disorder Gout Irritable bowel syndrome History of Graves' disease Sister Multiple myeloma History of kidney cancer History of Graves' disease Grandfather Diabetes mellitus Grandmother Alcoholism Tuberculosis Brother Irritable bowel syndrome Social History (Updated 03/18/23 @ 15:25 by Antolin Newsome MA) marital status: unmarried,single household members: family Smoking Status: Never smoker alcohol intake: current caffeine: Yes Assessment & Plan Assessment & Plan narrative: 1. Severe hypernatremia Likely secondary to inadequate oral fluid intake and limited free water through his PEG tube. Continue 200 cc free water per PEG. With Na of 163 can decrease frequency of BMP. Recheck later today. Will stop IV fluids today, if worsening Na later can restart D5W for additional free fluid. 2. sepsis secondary to Bilateral aspiration pneumonia with RACHEL, acute respiratory failure with hypoxia Patient is high risk for aspiration. He was placed on Zosyn, vancomycin, and IV Levaquin 500 mg daily. Will stop superfluous levquin today. Continue Zosyn and vancomycin with pharmacy managing dosing. MRSA screen was positive. Cultures are negative thus far, if they remain negative can discontinue vancomycin tomorrow. - concern for aspiration, assess with HEEL PRICKER evaluation, continue NPO for now, once sodium is in a more normal range. 3. RACHEL On Admission his creatinine was 1.88. It has gradually improved and is now 1.04. Will continue to monitor. Suspect it was secondary to hypovolemia. 4. Hypoxic respiratory failure, acute Due to pneumonia. Patient does tend to obstruct his airway due to his large tongue when he lays on his back. He is typically prone when sleeping. Continue supplementing with oxygen via face mask to maintain his saturations. Currently on 2L. 5. 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 6. Neurogenic bladder We will resume his methenamine and tamsulosin. 7. Epilepsy Resume Keppra and Depakote per his usual home schedule. Code status Full. Patient would greatly benefit from a palliative care consult as an outpatient, currently full code. Prophylaxis On Lovenox Disposition: remains ICU given level of hypernatremia for now, likely stable for regular floor tomorrow if sodium continues to improve I spent 35 minutes providing critical care management this patient. This excludes time spent in performing separately billed procedures. Quality VTE Deep Vein Thrombosis/Pulmonary Embolism Present on Admission: Yes
[2023-03-22] MEDS: BACLOFEN 10 MG TABLET TUBE ×2 (15:30→20:51)
[2023-03-22 19:05] LABS: BUN Creatinine Ratio 58.6 (6-22); Blood Urea Nitrogen 58 mg/dL (9-20); Calcium 8.5 mg/dL (8.4-10.2); Carbon Dioxide 29 mmol/L (22-32); Estimated Glomerular Filt Rate > 60 mL/min (>60); Glucose 105 mg/dL (70-100); HEMOLYSIS 32 (0-50); Potassium 3.8 mmol/L (3.4-5.1); Sodium 157 mmol/L (137-145)
[2023-03-22 19:08] LABS: Chloride 123 mmol/L (98-107)
[2023-03-22] MEDS: FLUCONAZOLE 100 MG/50 ML PIGGYBACK IV (20:07)
[2023-03-22] MEDS: clonazePAM 0.5 MG TABLET 1.5 MG TUBE (20:51)
[2023-03-22] MEDS: MIRTAZAPINE 15 MG TABLET PO (20:52)
[2023-03-22] MEDS: ACETAMINOPHEN SUSP 650 MG/20.3 ML UDC 500 MG TUBE (20:55)
[2023-03-22] MEDS: LATANOPROST 0.005% OPHTH 2.5 ML 1 DROPS EYE-BOTH (20:57)
[2023-03-22] MEDS: VANCOMYCIN TROUGH 1 REQUEST MISC (21:30)
[2023-03-22 22:38] LABS: Vancomycin Trough 21.1 ug/mL (10-20)
[2023-03-23] VITALS (14 sets, daily range): BP systolic 84–119; BP diastolic 52–75; PULSE 72–112; RESP 16–38; TEMP 36.3; O2SAT 91–99
[2023-03-23] MEDS: VANCOMYCIN PEAK 1 REQUEST MISC
[2023-03-23 01:07] LABS: Vancomycin Peak 40.4 ug/mL (20-40)
[2023-03-23 05:18] LABS: BUN Creatinine Ratio 49.5 (6-22); Blood Urea Nitrogen 45 mg/dL (9-20); Calcium 8.8 mg/dL (8.4-10.2); Carbon Dioxide 29 mmol/L (22-32); Chloride 121 mmol/L (98-107); Estimated Glomerular Filt Rate > 60 mL/min (>60); Glucose 83 mg/dL (70-100); HEMOLYSIS 18 (0-50); Potassium 4.5 mmol/L (3.4-5.1); Sodium 153 mmol/L (137-145)
[2023-03-23 05:19] LABS: Hemoglobin 13.3 g/dL (13.5-17.5); Mean Corpuscular HGB Conc 32.4 % (30-36); Mean Corpuscular Hemoglobin 34.5 PG (26-34); Mean Corpuscular Volume 106.4 fL (80-100); Platelet Count 168 X10^3/uL (150-400); Red Blood Cell Count 3.85 X10^6/uL (4.5-5.9); White Blood Cell Count 14.2 X10^3/uL (4.5-11.0)
[2023-03-23 05:24] LABS: Add Manual Diff / Slide Review YES
[2023-03-23] MEDS: PIPERACILLIN/TAZO 3.375 GM in SODIUM CHLORIDE 0.9% 100 ML IV (05:58)
[2023-03-23 06:11] LABS: Neutrophils Absolute Manual 10366 /uL (3000-5900); Nucleated Red Blood Cells 1 #/Diff; Total Cells Counted 100
[2023-03-23 06:12] LABS: RBC Morphology Normal Morphology
[2023-03-23] MEDS: PANTOPRAZOLE 40 MG VIAL 20 MG IV (09:47)
[2023-03-23] MEDS: ENOXAPARIN 30 MG/0.3 ML SYRINGE SUBCUT (09:48)
[2023-03-23] MEDS: VANCOMYCIN 500 MG in SODIUM CHLORIDE 0.9% 100 ML 100 MG IV (09:48)
[2023-03-23] MEDS: levETIRAcetam 250 MG TABLET 750 MG TUBE (09:49)
[2023-03-23] MEDS: clonazePAM 0.5 MG TABLET 1.5 MG TUBE (09:49)
[2023-03-23] MEDS: ACETAMINOPHEN SUSP 650 MG/20.3 ML UDC 500 MG TUBE (09:49)
[2023-03-23] MEDS: BACLOFEN 10 MG TABLET TUBE (09:49)
--- NOTE | 2023-03-23 10:47 | CM.DPC ---
DCP Cont. Reviewed EMR for status updates. Pt is cleared to d/c home after meeting with Speech Therapy, mom will transport home in her van. No further DCP needs indicated at this time.
--- NOTE | 2023-03-23 11:36 | P.DS_ITS ---
History of Present Illness History of Present Illness Date Patient Seen: 03/23/23 Time Patient Seen: 11:36 Chief complaint: lethargy Narrative: Per admitting provider, The pt is a 47 yo with severe cerebral palsy who lives at home with his mother and has a chronic indwelling branham catheter and is bedbound since who was brought to the ER for concerns about decreased level of consciousness. The pt has recurrent UTI's and just finished a course of Keflex for a UTI 24 hours prior to coming to the ER. She has been giving him tube feeds with unknown quanity of free water but is concerned that he is getting dehydrated. Today, he is non-verbal, not following commands, mom at bedside. Discharge Providers Provider Date of admission: 03/21/23 03:08 Discharge Date: 03/23/23 Primary care physician: Prateek Mccauley MD Consults: 03/21/23 10:06 Consult to Dietitian, Adult Routine Comment: Reason For Exam: Free water recommendations 03/22/23 19:09 Consult to Speech Therapy Evaluate & Treat Comment: Physician Instructions: Evaluate and treat Discharge provider: Boubacar Cano DO Summary Hospital Course Discharge Diagnosis: 1. Severe hypernatremia with acute metabolic encephalopathy. 2. sepsis secondary to Bilateral aspiration pneumonia with RACHEL, acute respiratory failure with hypoxia 3. RACHEL 4. Hypoxic respiratory failure, acute, resolved 5. 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 Neurogenic bladder 7. Epilepsy 8. Thrush, not present on admission Hospital Course: The pt is a 47 yo with severe cerebral palsy who lives at home with his mother and has a chronic indwelling branham catheter and is bed and wheelchair bound since who was admitted with severe hypernatremia. Initial sodium was >172. He was more lethargic per his mother on admission which slowly improved over the course of his admission. He was also treated for probable aspiration pneumonia and sepsis which improved with zosyn and was transitioned to augmentin at discharge. He was on oxygen initially, which improved with treatments. With antibiotics he did develop some thrush and was treated with fluconazole. He was started on fluids and controlled amounts of free water repletion via tube feeds. With improvement and mentation, and improvement in his sodium to near normal levels, discussed continued treatment in the hospital vs home and mother wished to discharge home. We discussed continuing at least 1200 cc total free water daily via his PEG tube after discharge. Speech evaluated the patient and he is recommended for strict NPO. This was discussed with his mother, whom despite recommendations will continue to provide food and water for comfort purposes after discussion of the risks of this. Follow up with speech is recommended as an outpatient, with consideration for barium swallow if it will size changer. As many medications as possible were converted to tube friendly forumluations, but mother stated depakote could be crushed and placed in tube per his neurologist. Time Spent with Patient Time spent: Greater than 30 minutes Exam Vital Signs (past 8 hours): - 03/23/23 04:00 03/23/23 06:00 03/23/23 06:00 Temperature Pulse Rate 72 97 H 81 Respiratory Rate 18 16 25 H Blood Pressure 93/54 L 102/67 Pulse Oximetry 99 96 95 Oxygen Delivery Method Oxygen Flow Rate 2 Fraction of Inspired Oxygen 03/23/23 06:00 03/23/23 07:00 03/23/23 07:00 Temperature Pulse Rate 101 H Respiratory Rate 22 Blood Pressure 102/67 117/75 Pulse Oximetry 95 Oxygen Delivery Method Oxygen Flow Rate Fraction of Inspired Oxygen 03/23/23 07:24 03/23/23 08:00 03/23/23 08:00 Temperature 97.4 F L Pulse Rate 108 H 98 H Respiratory Rate 18 Blood Pressure 109/71 Pulse Oximetry 94 95 Oxygen Delivery Method Room Air Oxygen Flow Rate 0 Fraction of Inspired Oxygen 21 03/23/23 09:00 03/23/23 09:00 03/23/23 10:00 Temperature Pulse Rate 102 H 107 H Respiratory Rate 26 H 25 H Blood Pressure 112/60 Pulse Oximetry 96 95 Oxygen Delivery Method Oxygen Flow Rate Fraction of Inspired Oxygen 03/23/23 10:00 03/23/23 11:00 03/23/23 11:00 Temperature Pulse Rate 110 H Respiratory Rate 26 H Blood Pressure 119/65 113/72 Pulse Oximetry 92 Oxygen Delivery Method Oxygen Flow Rate Fraction of Inspired Oxygen Fraction of Inspired Oxygen 21 SaO2/FiO2 Ratio 447 Oxygen Delivery Method Room Air Oxygen Flow Rate 0 Narrative Exam Narrative: GEN: Chronically ill-appearing middle-aged male, lying prone HEENT:NC, Face appears symmetric CHEST: Respiratory excursions symmetric, coarse with scattered rhonchi CV: RRR, no M/R/G ABD: Unable to examine due to positioning EXTR: no peipehral edema SKIN: warm and dry, no rash NEURO: Sleeping Objective Labs 03/23/23 05:00 03/23/23 05:00 Labs: Laboratory Results - last 24 hr 03/22/23 03/22/23 03/23/23 18:35 21:30 00:00 WBC RBC Hgb Hct MCV MCH MCHC RDW Plt Count Neut % (Auto) Lymph % (Auto) Hutchinson % (Auto) Eos % (Auto) Baso % (Auto) Lymph # (Auto) Hutchinson # (Auto) Baso # (Auto) Total Counted Seg Neutrophils % Band Neutrophils % Lymphocytes % (Manual) Monocytes % (Manual) Eosinophils % (Manual) Metamyelocytes % Myelocytes % Neutrophils # (Manual) Nucleated RBCs RBC Morphology Sodium 157 H Potassium 3.8 Chloride 123 H* Carbon Dioxide 29 BUN 58 H Creatinine 0.99 Estimated GFR > 60 BUN/Creatinine Ratio 58.6 H Glucose 105 H Calcium 8.5 Vancomycin Peak 40.4 H* Vancomycin Trough 21.1 H* 03/23/23 05:00 WBC 14.2 H RBC 3.85 L Hgb 13.3 L Hct 41.0 MCV 106.4 H MCH 34.5 H MCHC 32.4 RDW 15.0 H Plt Count 168 Neut % (Auto) Not Reportable Lymph % (Auto) Not Reportable Hutchinson % (Auto) Not Reportable Eos % (Auto) Not Reportable Baso % (Auto) Not Reportable Lymph # (Auto) Not Reportable Hutchinson # (Auto) Not Reportable Baso # (Auto) Not Reportable Total Counted 100 Seg Neutrophils % 68.0 Band Neutrophils % 5.0 Lymphocytes % (Manual) 19.0 L Monocytes % (Manual) 3.0 Eosinophils % (Manual) 1.0 L Metamyelocytes % 3.0 H Myelocytes % 1.0 H Neutrophils # (Manual) 55712 H Nucleated RBCs 1 H RBC Morphology Normal morphology Sodium 153 H Potassium 4.5 Chloride 121 H Carbon Dioxide 29 BUN 45 H Creatinine 0.91 Estimated GFR > 60 BUN/Creatinine Ratio 49.5 H Glucose 83 Calcium 8.8 Vancomycin Peak Vancomycin Trough [facility] Medical History (Updated 03/21/23 @ 00:24 by Lacie Macias MD) Recurrent urinary tract infection Benign familial tremor History of developmental delay Cervical spine disease Chicken pox (~1977) Cataracts, bilateral Total blindness Impaired mobility and ADLs Spastic quadriplegia Neurogenic bladder Hydrocephalus, adult Leukomalacia, periventricular Cerebral atrophy Cerebellar atrophy Agenesis of corpus callosum Seizure disorder Recurrent UTI Urinary retention Cervical vertebral fusion Surgical History Anesthesia S/P percutaneous endoscopic gastrostomy (PEG) tube placement History of thoracic spinal fusion Family History (Updated 03/18/23 @ 15:22 by Antolin Newsome MA) Mother Hyperlipidemia Autoimmune disorder Gout Irritable bowel syndrome History of Graves' disease Sister Multiple myeloma History of kidney cancer History of Graves' disease Grandfather Diabetes mellitus Grandmother Alcoholism Tuberculosis Brother Irritable bowel syndrome Social History (Updated 03/18/23 @ 15:25 by Antolin Newsome MA) marital status: unmarried,single household members: family Smoking Status: Never smoker alcohol intake: current caffeine: Yes Discharge Plan Discharge Plan Patient Disposition: Home Provider Discharge Comment: Patient was admitted to the hospital with a high sodium level and aspiration. Continue antibiotics at home. Recommend repeat sodium level in a couple of days. Try to transition medications to via tube. Tamsulosin is recommended to change to doxazosin, but you can discuss this with Dr. Mcmahon. Discharge orders & Medications Prescriptions: New pantoprazole [address] for susp in packet 40 mg PO DAILY 30 Days Qty: 30 0RF amoxicillin-pot clavulanate 875-125 mg tablet 1 tab feeding tube BID 7 Days Qty: 14 0RF Continued mirtazapine 15 MG tablet 15 mg PO HS Qty: 0 latanoprost 0.005 % Drops 1 drp OPHTH HS Qty: 2.5 acetaminophen 500 mg Tablet 500 mg PO BID Qty: 0 meloxicam 15 mg tablet 15 mg PO .daily with meal Qty: 90 3RF nystatin 100,000 unit/mL suspension 1 ml PO QID Qty: 60 1RF Rx Instructions: swish and swallow ascorbic acid (vitamin C) 500 mg tablet 500 mg PO DAILY folic acid 400 mcg tablet 200 mcg PO DAILY Nutren 2.0 0.08 gram-2 kcal/mL liquid 1 ea feeding tube BID water for irrigation, sterile Solution 180 ml irrigation 3XD methenamine hippurate 1 gram tablet 1 g feeding tube DAILY levetiracetam 750 mg tablet 750 mg PO BID divalproex 500 mg tablet,delayed release (DR/EC) 750 mg PO QAM Rx Instructions: 1.5tabs in am and 1 in pm baclofen 10 mg tablet 1 tab PO 3XD Patient Comments: Takes at 3PM acetic acid 0.25 % solution 1 dose Irrigation BID PRN (Reason: bladder irrigation) Patient Comments: 60CC FLUSH INTO BLADDER TWICE DAILY NEEDED clonazepam 1 mg tablet 1.5 mg PO 2XD Nayzilam 5 mg/spray (0.1 mL) Sisters,Non-Aerosol 5 mg INTRANASAL PRN PRN (Reason: Seizure Activity) divalproex 500 mg Tablet,Delayed Release (Dr/Ec) 500 mg PO BEDTIME Discontinued tamsulosin [Flomax] 0.4 MG capsule,extended release 24hr 0.4 mg PO BID Qty: 0 omeprazole 20 mg capsule,delayed release(DR/EC) 20 mg PO BID Qty: 180 3RF Follow up/Referrals: Prateek Mccauley MD [Primary Care Provider] - Diet/Activity/Treatments Diet: Nothing by Mouth and Tube Feeding Diet comment: Continue tube feeding Activity: No restrictions. Visit Report/Discharge Packet Instructions: DI for Pneumonia -- Adult, DI for Aspiration Pneumonia Stand Alone Forms: Patient Portal/API, Stroke Signs & Symptoms Discharge Data Primary Care Provider: Prateek Mccauley V Quality VTE Deep Vein Thrombosis/Pulmonary Embolism Present on Admission: Yes
[2023-03-23] MEDS: DIVALPROEX DR 250 MG TABLET 750 MG PO (11:38)
--- NOTE | 2023-03-23 13:52 | PC.NURSE ---
Discharge: pt in bed laying calmly, mom (primary caregiver) at bedside. Mom agreeable to discharge plan. Pt given nutrition through G-tube, meds crushed through G-tube. Pt incont and brief changed. Pt dressed with assistance from this RN and mom. Pt transferred to his personal wheelchair. IVs d/c'd, midline d/c'd, telemetry removed. Discharge paperwork discussed with pt's mother and adult brother. Pt wheeled via personal wheelchair to personal wheelchair accessible van at approximately 1315.
--- NOTE | 2023-03-23 16:34 | ST.IPIE ---
Visit Care Team Role Provider Type Prateek Mccauley MD Primary Care Provider Physician Specialty: Internal Medicine Address: [address] [place] [address], [facility] Email: [email or web address] Clem Oconnor MD Family Provider Physician Specialty: Internal Medicine Address: [address] [place] [address], [facility] Email: [email or web address] Lacie Macias MD Emergency Provider Physician Referring Provider Specialty: Emergency Medicine Address: [address] [place] [address], [facility] Email: Daren Griffiths MD Admit Provider Physician Attending Provider Specialty: Internal Medicine Address: [address] [place] [address] Fax: Email: [email or web address] Diagnoses Sepsis, unspecified organism (03/21/23) Hypermagnesemia (03/21/23) Hyperosmolality and hypernatremia (03/21/23) Quadriplegia, unspecified (03/21/23) Pneumonia, unspecified organism (03/21/23) Acute kidney failure, unspecified (03/21/23) Neuromuscular dysfunction of bladder, unspecified (03/21/23) Personal history of urinary (tract) infections (03/21/23) Gastrostomy status (03/21/23) Past Medical History (Last Updated 03/18/23 @ 16:58 by Abilio Mcmahon MD) Agenesis of corpus callosum (Medical) Benign familial tremor (Medical) Cataracts, bilateral (Medical) Cerebellar atrophy (Medical) Cerebral atrophy (Medical) Cervical spine disease (Medical) and lumbar spine disease Cervical vertebral fusion (Medical) Chicken pox (Medical ~1977) History of developmental delay (Medical) Hydrocephalus, adult (Medical) Impaired mobility and ADLs (Medical) Leukomalacia, periventricular (Medical) Neurogenic bladder (Medical) Recurrent urinary tract infection (Medical) Recurrent UTI (Medical) Seizure disorder (Medical) Spastic quadriplegia (Medical) Total blindness (Medical) Urinary retention (Medical) ST Initial Evaluation Report [employer] Clinical Swallow Evaluation Start: 03/23/23 15:31 Freq: Status: Discharge Protocol: Document 03/23/23 16:16 THOMAS (Rec: 03/23/23 16:32 THOMAS [id number]) Clinical Swallow Evaluation Session Time Visit Start Time 10:40 Visit Stop Time 11:10 Total Visit Minutes 30 Visit Information Visit Number 1 Referral Referring Provider Boubacar Cano Reason for Referral Concern for aspiration. Aspiration PNA dx. Setting Assessment Location Acute Care Visit Type Note Type Initial evaluation Patient Information Identification Type Name History Per H&P: The pt is a 47 yo with severe cerebral palsy who lives at home with his mother and has a chronic indwelling branham catheter and is bedbound since who was brought to the ER for concerns about decreased level of consciousness. The pt has recurrent UTI's and just finished a course of Keflex for a UTI 24 hours prior to coming to the ER. She has been giving him tube feeds with unknown quanity of free water but is concerned that he is getting dehydrated. Today, he is non-verbal, not following commands, mom at bedside. PMHx significant for: Recurrent urinary tract infection Benign familial tremor History of developmental delay Cervical spine disease Chicken pox (~1977) Cataracts, bilateral Total blindness Impaired mobility and ADLs Spastic quadriplegia Neurogenic bladder Hydrocephalus, adult Leukomalacia, periventricular Cerebral atrophy Cerebellar atrophy Agenesis of corpus callosum Seizure disorder Recurrent UTI Urinary retention Cervical vertebral fusion Pt referred for ST evaluation d/t Pt with dx of aspiration pneumonia and concerns Pt aspirating solids/liquids. Subjective Observations Pt mom and brother present during evaluation. Pt sleeping in bed, mouth open and snoring. Pt would not wake up for evaluation given verbal cues and being positioned upright in bed. Pt mom rubbed Pt's chest and rubbed face with Pt no waking up. Pt mom also suctioned Pt mouth with Pt not waking up. Pt mom reports Pt has a feeding tube and has a hx of dysphagia. Mom reports Pt consumes thin liquids orally and 2 pureed meals a day, however all other nutrition/hydration provided via tube. Mom reports Pt also takes medications orally. Mom states Pt chokes and coughs all the time and plays with phlegm. Pt mom denies any hx of Pt having pneumonia. Mom reports Pt has been coughing and choking on solids and liquids for years. Mom also reports Pt had really bad thrush at home, which she states is why she thinks he got pneumonia. Reported by Patient/Caregiver Other Symptoms Choking,Coughing Current Diet Pureed (IDDSI 4) Baseline Feeding Method Dependent for feeding Results Pt with gtube for primary nutrition/hydation, however Pt mom reports Pt eats 1-2 pureed meals a day and drinks thin water. Mom reports sometimes she provides thin water via syringe in Pt mouth to wet mouth. The IDDSI Framework Protocol: IDDSI.1 Objective Assessment Mental Status Unresponsive Comment Pt unable to participate in oral motor exam d/t Pt sleeping during evaluation and not waking up. However ST facilitated conversation and education with Pt mom. Mom reports Pt with primarily open mouth posture, and natural dentition with over bite. Observation of the inside of Pt's mouth indicated good oral integrity with no thrush or residue noted. Food and Liquid Trials Oral Phase Comments Withheld d/t safety concern. Pt would not wake up for evaluation. No PO trials administered. Pharyngeal Phase Comments Pt mostly snoring during evaluation, however increase in wet gurgly vocal quality with Pt attempting to clear throat/cough. Pt mom utilized suction to get muscous out of his throat, which appeared to clear. Pt proceeded to not wake up. The IDDSI Framework Protocol: IDDSI.1 Recommendations Instrumental Assessment Yes Other Recommendations Based on patient caregiver interview, chart review and Pt medical hx ST suspects Pt with severe oropharyngeal dysphagia. ST attempted to wake Pt, as well as Pt mother attempting to wake Pt for evaluation however unsuccessful. ST educated Pt mom, brother, nursing and MD on recommendations. ST recommends Pt consume no PO intake and have all nutrition/ hydration adminsitered via gtube. Pt mom reported Pt enjoys his cold water. ST educated Pt mom if Pt is going to consume thin water then to ensure Pt is sitting upright 90 degrees and for 30 minutes after, adequate oral hygiene before/after and to provide small slow sips. ST educated Pt family on what aspiration is, what aspiration PNA is and the risks/consequences. ST also recommends MBSS to further assess Pt swallow. reports MBSS will be ordered as outpatient.
== END 2023-03-23 13:15 | disposition home or self-care (01) | DRG 871 ==
LOC: ED 23:58 → AC 03-21 03:08 → ICU 03-21 03:22
PROVIDERS: Internal Medicine; Admitting Provider Internal Medicine; Emergency Provider Emergency Medicine; Family Provider Internal Medicine; PCP Internal Medicine; Referring Provider Emergency Medicine; Visit Provider Internal Medicine
DX: A41.9 Sepsis, unspecified organism (principal); G80.0 Spastic quadriplegic cerebral palsy; J18.9 Pneumonia, unspecified organism; J96.01 Acute respiratory failure with hypoxia; G93.41 Metabolic encephalopathy; N17.9 Acute kidney failure, unspecified; E87.0 Hyperosmolality and hypernatremia; R65.20 Severe sepsis without septic shock; N31.9 Neuromuscular dysfunction of bladder, unspecified; G40.909 Epilepsy, unspecified, not intractable, without status epilepticus; B37.9 Candidiasis, unspecified; Z93.1 Gastrostomy status
CPT/HCPCS: 36415; 36592; 51701; 71045; 80048; 80053; 80202; 81001; 82009; 82805; 83605; 83690; 83735; 84134; 84145; 84443; 84484; 85007; 85025; 87040; 87086; 87633; 87797; 93005; 93010; 96365; 99284; 99291; C9113; J1450; J1650; J1956; J2543; J3370

== ENCOUNTER → 2023-03-31 17:13 | Outpatient (CLI) | payer MEDICARE, OTHER, MEDICAID, SELFPAY ==
[2023-03-21 04:14] VITALS: BMI 17.4
[2023-03-31 17:42] LABS: Hematocrit 42.1 % (41-53); Hemoglobin 14.2 g/dL (13.5-17.5); Mean Corpuscular HGB Conc 33.8 % (30-36); Mean Corpuscular Volume 103.7 fL (80-100); Platelet Count 472 X10^3/uL (150-400); Red Blood Cell Count 4.06 X10^6/uL (4.5-5.9); Red Cell Distribution Width 15.5 % (11.6-14.8); White Blood Cell Count 20.2 X10^3/uL (4.5-11.0)
[2023-03-31 17:57] LABS: Alanine Aminotransferase 19 IU/L (<50); Albumin 3.6 g/dL (3.5-5.0); Albumin Globulin Ratio 0.9 (1.0-2.8); Alkaline Phosphatase 86 U/L (38-126); Aspartate Aminotransferase 27 IU/L (17-59); Bilirubin Total 0.5 mg/dL (0.2-1.3); Blood Urea Nitrogen 46 mg/dL (9-20); Calcium 10.6 mg/dL (8.4-10.2); Chloride 99 mmol/L (98-107); Estimated Glomerular Filt Rate > 60 mL/min (>60); Globulin 3.9 g/dL (1.7-4.1); Glucose 89 mg/dL (70-100); HEMOLYSIS 16 (0-50); Potassium 5.1 mmol/L (3.4-5.1); Sodium 142 mmol/L (137-145); Total Protein 7.5 g/dL (6.3-8.2)
[2023-03-31 18:14] LABS: Carbon Dioxide 37 mmol/L (22-32)
== END ==
PROVIDERS: Family Provider Internal Medicine; PCP Internal Medicine; Referring Provider Internal Medicine; Visit Provider Internal Medicine
DX: E87.0 Hyperosmolality and hypernatremia (principal); J18.9 Pneumonia, unspecified organism; N39.0 Urinary tract infection, site not specified
CPT/HCPCS: 80053; 85027

== ENCOUNTER → 2023-04-08 15:30 | Outpatient (CLI) | payer MEDICARE, OTHER, MEDICAID, SELFPAY ==
[2023-03-21 04:14] VITALS: BMI 17.4
[2023-04-08 17:04] LABS: Hematocrit 42.1 % (41-53); Hemoglobin 14.1 g/dL (13.5-17.5); Mean Corpuscular HGB Conc 33.6 % (30-36); Mean Corpuscular Hemoglobin 34.7 PG (26-34); Mean Corpuscular Volume 103.4 fL (80-100); Platelet Count 669 X10^3/uL (150-400); Red Blood Cell Count 4.07 X10^6/uL (4.5-5.9); Red Cell Distribution Width 14.9 % (11.6-14.8); White Blood Cell Count 8.6 X10^3/uL (4.5-11.0)
[2023-04-08 17:15] LABS: BUN Creatinine Ratio 57.1 (6-22); Blood Urea Nitrogen 44 mg/dL (9-20); Calcium 9.9 mg/dL (8.4-10.2); Carbon Dioxide 36 mmol/L (22-32); Chloride 98 mmol/L (98-107); Estimated Glomerular Filt Rate > 60 mL/min (>60); Glucose 178 mg/dL (70-100); HEMOLYSIS < 15 (0-50); Sodium 140 mmol/L (137-145)
== END ==
PROVIDERS: Family Provider Internal Medicine; PCP Internal Medicine; Referring Provider Internal Medicine; Visit Provider Internal Medicine
DX: E87.0 Hyperosmolality and hypernatremia (principal); J18.9 Pneumonia, unspecified organism; N39.0 Urinary tract infection, site not specified
CPT/HCPCS: 80048; 85027

== ENCOUNTER → 2023-04-12 16:03 | Outpatient (CLI) | payer MEDICARE, OTHER, MEDICAID, SELFPAY ==
[2023-03-21 04:14] VITALS: BMI 17.4
--- NOTE | 2023-04-12 16:12 | DI.CT.S_ITS ---
PROCEDURE: CT ABDOMEN PELVIS WO/W CON INDICATIONS: Recurring urinary tract infections/neurogenic bladder TECHNIQUE: Optional 5 mm thick noncontrast images acquired from the diaphragm to the symphysis pubis. After the administration of intravenous contrast, 5 mm thick images acquired from the diaphragm to the symphysis pubis after a 10-minute delay. 2 mm thick coronal and sagittal reformats were then performed of the kidneys and ureters. For radiation dose reduction, the following was used: automated exposure control, adjustment of mA and/or kV according to patient size. COMPARISON: [facility], CT, CT ANGIO CHEST PE PROTOCOL, 02/05/2023, 2:46. FINDINGS: Image quality: Suboptimal due to the presence of metallic artifact of the surgical fusion hardware of the spine. Lung bases: New extensive tree-in-bud nodules and centrilobular nodules within the lung bases. Urinary system: Both kidneys are normal in size, without hydronephrosis or nephrolithiasis on pre-contrast images. No perinephric fat stranding. There is normal bilateral renal enhancement. Renal calyces appear normal in morphology when filled with contrast. Opacified portions of both ureters demonstrate normal caliber. Asymmetric anterior bladder wall thickening with perivesicular fat stranding. Gas within the urinary bladder. No complex renal cystic lesions which require follow-up. Liver: No solid mass. hepatic cyst at the liver dome. Gallbladder and biliary tree: No gallstones or biliary dilation. Spleen: Normal size. Pancreas: No ductal dilation. Adrenal glands: No adrenal nodules. 4Peritoneum and bowel: Bowel loops demonstrate normal wall thickness and caliber. No free fluid or air. Nodes and vessels: No retroperitoneal or mesenteric adenopathy by size criteria. Aorta and inferior vena cava are normal in size. Abdominal wall: No ventral hernias. Pelvis: No pathologic free pelvic fluid. No inguinal hernias or adenopathy. Asymmetric enhancement the left prostate peripheral zone measuring 1.8 x 1.9 cm (series 6, image 213). Bones: No suspicious bony lesions. No vertebral body compression fractures. Osteoporosis. Surgical fusion of the thoracolumbar spine and pelvis. Convex right scoliosis. Moderate right-sided hip joint effusion. Complex collection overlying the greater trochanter of the right femur measuring 4.5 x 2.2 cm (series 6, image 238). IMPRESSION: Likes collection overlying the right greater trochanter of the right femur measuring 4.5 x 2.2 cm. Differential includes a small abscess or inflammatory collection. No filling defect within the opacified renal collecting system or ureters. Perivesicular fat stranding and irregularity of the anterior bladder wall. Gas within the urinary bladder. Findings suggest infection. Abnormal enhancement of the left side of the prostate, which may indicate prostatitis or malignancy in the correct clinical setting. Extensive tree-in-bud nodules and centrilobular nodules in the lungs, concerning for infection. Recommend repeat CT in 2-3 months to ensure resolution. Dictated by: Rene Parrish M.D. on 04/12/2023 at 18:04 Approved by: Rene Parrish M.D. on 04/12/2023 at 18:11
[2023-04-12 17:11] LABS: Appearance Urine UA CLEAR; Bilirubin Urine UA NEGATIVE (NEGATIVE); Color Urine UA YELLOW; Glucose Urine UA NEGATIVE (Negative); Ketones Urine UA NEGATIVE (NEGATIVE); Leukocyte Esterase Urine UA 2+ (NEGATIVE); Nitrite Urine UA POSITIVE (Negative); Occult Blood Urine UA 1+ (Negative); Protein Urine UA NEGATIVE (Negative); Urobilinogen Urine UA 0.2 E.U./dL (0.2)
[2023-04-12 17:18] LABS: Bacteria Urine Many (>30); Culture Indicated Urine Specimen Cultured; RBC Urine 1-5/HPF (0-5/HPF); Squamous Epithelial Cell Urine 0-1 /HPF (0-5/HPF); WBC Urine 5-10/HPF (0-5/HPF)
== END ==
PROVIDERS: Family Provider Internal Medicine; PCP Internal Medicine; Referring Provider Urology; Visit Provider Urology
DX: N39.0 Urinary tract infection, site not specified (principal); N31.9 Neuromuscular dysfunction of bladder, unspecified; R91.8 Other nonspecific abnormal finding of lung field; T14.8XXA Other injury of unspecified body region, initial encounter
CPT/HCPCS: 74178; 81001; 87070; 87075; 87077; 87086; 87186; 87205; Q9967

== ENCOUNTER → 2023-04-12 18:25 | Outpatient (CLI) | payer MEDICARE, OTHER, MEDICAID, SELFPAY ==
[2023-03-21 04:14] VITALS: BMI 17.4
== END ==
PROVIDERS: Family Provider Internal Medicine; PCP Internal Medicine; Visit Provider Nurse Practitioner Family
DX: T14.8XXA Other injury of unspecified body region, initial encounter (principal)
CPT/HCPCS: 87070; 87075; 87205

== ENCOUNTER → 2023-04-20 17:49 | Outpatient (CLI) | payer MEDICARE, OTHER, MEDICAID, SELFPAY ==
[2023-03-21 04:14] VITALS: BMI 17.4
[2023-04-20 18:11] LABS: Hematocrit 44.4 % (41-53); Hemoglobin 14.9 g/dL (13.5-17.5); Mean Corpuscular HGB Conc 33.6 % (30-36); Mean Corpuscular Hemoglobin 34.6 PG (26-34); Mean Corpuscular Volume 102.7 fL (80-100); Platelet Count 279 X10^3/uL (150-400); Red Blood Cell Count 4.32 X10^6/uL (4.5-5.9); Red Cell Distribution Width 14.3 % (11.6-14.8); White Blood Cell Count 12.1 X10^3/uL (4.5-11.0)
[2023-04-20 18:28] LABS: BUN Creatinine Ratio 40.7 (6-22); Blood Urea Nitrogen 33 mg/dL (9-20); Calcium 9.8 mg/dL (8.4-10.2); Carbon Dioxide 35 mmol/L (22-32); Chloride 96 mmol/L (98-107); Estimated Glomerular Filt Rate > 60 mL/min (>60); Glucose 141 mg/dL (70-100); HEMOLYSIS < 15 (0-50); Potassium 4.5 mmol/L (3.4-5.1); Sodium 137 mmol/L (137-145)
== END ==
PROVIDERS: Family Provider Internal Medicine; PCP Internal Medicine; Referring Provider Internal Medicine; Visit Provider Internal Medicine
DX: N39.0 Urinary tract infection, site not specified (principal); J18.9 Pneumonia, unspecified organism; E87.0 Hyperosmolality and hypernatremia
CPT/HCPCS: 36415; 80048; 85027

== ENCOUNTER → 2023-05-11 14:31 | Outpatient (CLI) | payer MEDICARE, OTHER, MEDICAID, SELFPAY ==
[2023-03-21 04:14] VITALS: BMI 17.4
== END ==
LOC: WC 14:40
PROVIDERS: Family Provider Internal Medicine; PCP Internal Medicine; Referring Provider Nurse Practitioner Family; Visit Provider Surgery
DX: L89.892 Pressure ulcer of other site, stage 2 (principal)
CPT/HCPCS: 99203; 99213

== ENCOUNTER → 2023-06-01 15:17 | Outpatient (CLI) | payer MEDICARE, OTHER, MEDICAID, SELFPAY ==
[2023-03-21 04:14] VITALS: BMI 17.4
[2023-06-01 15:27] LABS: Urine Volume 10mL (spun)
[2023-06-01 16:14] LABS: Hematocrit 45.4 % (41-53); Hemoglobin 15.2 g/dL (13.5-17.5); Mean Corpuscular HGB Conc 33.4 % (30-36); Mean Corpuscular Hemoglobin 34.1 PG (26-34); Mean Corpuscular Volume 101.9 fL (80-100); Platelet Count 415 X10^3/uL (150-400); Red Blood Cell Count 4.45 X10^6/uL (4.5-5.9); Red Cell Distribution Width 13.7 % (11.6-14.8); White Blood Cell Count 9.8 X10^3/uL (4.5-11.0)
[2023-06-01 16:25] LABS: Bilirubin Urine UA NEGATIVE (NEGATIVE); Color Urine UA YELLOW; Glucose Urine UA NEGATIVE (Negative); Ketones Urine UA NEGATIVE (NEGATIVE); Leukocyte Esterase Urine UA 3+ (NEGATIVE); Nitrite Urine UA POSITIVE (Negative); Occult Blood Urine UA 2+ (Negative); Protein Urine UA TRACE (Negative); Specific Gravity Urine UA 1.015 (1.000-1.035); Urobilinogen Urine UA 0.2 E.U./dL (0.2)
[2023-06-01 16:31] LABS: Appearance Urine UA CLOUDY
[2023-06-01 16:54] LABS: BUN Creatinine Ratio 39.8 (6-22); Blood Urea Nitrogen 35 mg/dL (9-20); Calcium 10.2 mg/dL (8.4-10.2); Carbon Dioxide 31 mmol/L (22-32); Chloride 102 mmol/L (98-107); Estimated Glomerular Filt Rate > 60 mL/min (>60); Glucose 98 mg/dL (70-100); HEMOLYSIS 16 (0-50); Potassium 4.1 mmol/L (3.4-5.1); Sodium 143 mmol/L (137-145)
[2023-06-01 17:08] LABS: Bacteria Urine Many (>30); RBC Urine 1-5/HPF (0-5/HPF); Squamous Epithelial Cell Urine 1-5 /HPF (0-5/HPF); WBC Urine 30-100/HPF (0-5/HPF)
[2023-06-01 17:09] LABS: Culture Indicated Urine Specimen Cultured
== END ==
PROVIDERS: Urology; Family Provider Internal Medicine; PCP Internal Medicine; Referring Provider Internal Medicine; Visit Provider Internal Medicine
DX: N39.0 Urinary tract infection, site not specified (principal); J18.9 Pneumonia, unspecified organism; E87.0 Hyperosmolality and hypernatremia; N31.9 Neuromuscular dysfunction of bladder, unspecified; R33.9 Retention of urine, unspecified; E86.0 Dehydration
CPT/HCPCS: 36415; 80048; 81001; 85027; 87077; 87086; 87186

== ENCOUNTER → 2023-07-07 14:46 | Outpatient (CLI) | payer MEDICARE, OTHER, MEDICAID, SELFPAY ==
[2023-03-21 04:14] VITALS: BMI 17.4
[2023-07-07 15:19] LABS: Appearance Urine UA SL CLOUDY; Bilirubin Urine UA NEGATIVE (NEGATIVE); Color Urine UA YELLOW; Glucose Urine UA NEGATIVE (Negative); Ketones Urine UA TRACE (NEGATIVE); Leukocyte Esterase Urine UA 3+ (NEGATIVE); Nitrite Urine UA POSITIVE (Negative); Occult Blood Urine UA 3+ (Negative); Protein Urine UA TRACE (Negative); Specific Gravity Urine UA 1.015 (1.000-1.035); Urobilinogen Urine UA 0.2 E.U./dL (0.2); pH Urine UA 5.5 (4.5-8.0)
[2023-07-07 15:44] LABS: Urine Volume 10mL (spun)
[2023-07-07 15:45] LABS: Bacteria Urine Moderate (10-30); Culture Indicated Urine Specimen Cultured; RBC Urine 10-30/HPF (0-5/HPF); Squamous Epithelial Cell Urine 0-1 /HPF (0-5/HPF); WBC Urine >100/HPF (0-5/HPF)
== END ==
PROVIDERS: Family Provider Internal Medicine; PCP Internal Medicine; Referring Provider Urology; Visit Provider Urology
DX: Z78.9 Other specified health status (principal); N31.9 Neuromuscular dysfunction of bladder, unspecified; N39.0 Urinary tract infection, site not specified; R33.9 Retention of urine, unspecified
CPT/HCPCS: 81001; 87077; 87086; 87186

== ENCOUNTER → 2023-07-26 14:25 | Outpatient (CLI) | payer MEDICARE, OTHER, MEDICAID, SELFPAY ==
[2023-03-21 04:14] VITALS: BMI 17.4
== END ==
PROVIDERS: Family Provider Internal Medicine; PCP Internal Medicine; Visit Provider Urology
DX: N39.0 Urinary tract infection, site not specified (principal)
CPT/HCPCS: 87086

== ENCOUNTER → 2023-08-02 14:49 | Outpatient (CLI) | payer MEDICARE, OTHER, MEDICAID, SELFPAY ==
[2023-03-21 04:14] VITALS: BMI 17.4
== END ==
PROVIDERS: Family Provider Internal Medicine; PCP Internal Medicine; Visit Provider Urology
DX: N39.0 Urinary tract infection, site not specified (principal)
CPT/HCPCS: 87077; 87086; 87186

== ENCOUNTER → 2023-08-25 08:24 | Outpatient (CLI) | payer MEDICARE, OTHER, MEDICAID, SELFPAY ==
[2023-03-21 04:14] VITALS: BMI 17.4
[2023-08-26 16:14] LABS: Appearance Urine UA SL CLOUDY; Bilirubin Urine UA NEGATIVE (NEGATIVE); Color Urine UA YELLOW; Glucose Urine UA NEGATIVE (Negative); Ketones Urine UA NEGATIVE (NEGATIVE); Leukocyte Esterase Urine UA 3+ (NEGATIVE); Nitrite Urine UA POSITIVE (Negative); Occult Blood Urine UA 2+ (Negative); Protein Urine UA NEGATIVE (Negative); Specific Gravity Urine UA <=1.005 (1.000-1.035); Urobilinogen Urine UA 0.2 E.U./dL (0.2)
[2023-08-26 16:21] LABS: Bacteria Urine Many (>30); RBC Urine 0-1/HPF (0-5/HPF); Urine Volume 10mL (spun); WBC Urine 30-100/HPF (0-5/HPF)
[2023-08-26 16:22] LABS: Culture Indicated Urine Specimen Cultured; Squamous Epithelial Cell Urine 10-30 /HPF (0-5/HPF)
== END ==
PROVIDERS: Family Provider Internal Medicine; PCP Internal Medicine; Visit Provider Urology
DX: N39.0 Urinary tract infection, site not specified (principal)
CPT/HCPCS: 81001; 87077; 87086; 87186

== ENCOUNTER → 2023-09-03 14:54 | Outpatient (CLI) | payer MEDICARE, OTHER, MEDICAID, SELFPAY ==
[2023-03-21 04:14] VITALS: BMI 17.4
--- NOTE | 2023-09-03 15:01 | DI.CT.S_ITS ---
PROCEDURE: CT ABDOMEN PELVIS WO/W CON INDICATIONS: prostatitis TECHNIQUE: After the administration of oral contrast, 5 mm thick sections acquired from the diaphragms to the iliac crests. After the administration of intravenous contrast, 5 mm thick sections acquired from the diaphragms to the symphysis. 5 mm thick coronal and sagittal reformats were acquired. For radiation dose reduction, the following was used: automated exposure control, adjustment of mA and/or kV according to patient size. COMPARISON: [facility], CT, CT ABDOMEN PELVIS WO/W CON, 04/12/2023, 16:21. FINDINGS: Image quality: Suboptimal evaluation due to motion artifact, scoliosis, surgical hardware. Lower Chest: Resolved tree-in-bud nodules in the lung bases. ABDOMEN: Liver: Hepatic cysts. Gallbladder: No radiopaque gallstones or wall thickening. Biliary ducts: No biliary dilation. Pancreas: No ductal dilation. Spleen: Size is within normal limits. Adrenal Glands: No adrenal nodules. Kidneys and Ureters: No hydronephrosis. No solid mass. No complex renal cystic lesion which requires follow up. Stomach and Bowel: Normal colonic caliber, without significant wall thickening. Colonic diverticulosis without evidence of diverticulitis. Percutaneous nephrostomy tube. Peritoneum: No abnormal intraperitoneal fluid. No free air. Ventral Wall: No significant ventral hernia. Abdominal Nodes: No retroperitoneal or mesenteric adenopathy by size criteria. Vessels: Aorta and inferior vena cava are normal in size. PELVIS: Pelvic Organs: Prostate is enlarged. Similar enhancement and nodularity of the left lateral peripheral zone (series 10, image 206). The testicles are within the inguinal canals. Bladder: Bladder wall thickening with perivesicular fat stranding and wall striation. Pelvic Nodes: No enlarged lymph nodes. Miscellaneous: No inguinal hernias are seen. Bones: No aggressive osseous abnormality. Scoliosis. Surgical fusion of the spine and pelvis. Dystrophic right hip with a large right hip joint effusion. IMPRESSION: Similar enhancement and nodularity of the left lateral peripheral zone of the prostate. Findings may indicate prostatitis or malignancy, but prostatitis is favored given cystitis. Correlate with PSA and consider prostate MRI. Similar findings suspicious for cystitis. Correlate with urinalysis. Nondistended testicles on this exam, seen within the scrotum on prior. Normal gallbladder. Resolved tree-in-bud nodules in the lung bases. Other chronic findings as above. Dictated by: Rene Parrish M.D. on 09/03/2023 at 16:24 Approved by: Rene Parrish M.D. on 09/03/2023 at 16:31
== END ==
LOC: CT 15:00
PROVIDERS: Family Provider Internal Medicine; PCP Internal Medicine; Referring Provider Urology; Visit Provider Urology
DX: N41.9 Inflammatory disease of prostate, unspecified (principal); N39.0 Urinary tract infection, site not specified; N31.9 Neuromuscular dysfunction of bladder, unspecified; R33.9 Retention of urine, unspecified; M25.451 Effusion, right hip; Z78.9 Other specified health status; K76.89 Other specified diseases of liver; Z98.1 Arthrodesis status
CPT/HCPCS: 74178; Q9967

== ENCOUNTER → 2023-09-23 11:05 | Outpatient (CLI) | payer MEDICARE, OTHER, MEDICAID, SELFPAY ==
[2023-03-21 04:14] VITALS: BMI 17.4
[2023-09-23 12:21] LABS: Ammonia (NH3) 15 umol/L (9-30)
[2023-09-23 13:32] LABS: Appearance Urine UA CLEAR; Bilirubin Urine UA NEGATIVE (NEGATIVE); Color Urine UA YELLOW; Glucose Urine UA NEGATIVE (Negative); Ketones Urine UA TRACE (NEGATIVE); Leukocyte Esterase Urine UA 1+ (NEGATIVE); Nitrite Urine UA NEGATIVE (Negative); Occult Blood Urine UA TRACE-INTACT (Negative); Protein Urine UA NEGATIVE (Negative); Urobilinogen Urine UA 0.2 E.U./dL (0.2); pH Urine UA 5.5 (4.5-8.0)
[2023-09-23 13:48] LABS: Bacteria Urine Few (2-10); RBC Urine 1-5/HPF (0-5/HPF); Squamous Epithelial Cell Urine 0-1 /HPF (0-5/HPF); Urine Volume 10mL (spun); WBC Urine 10-30/HPF (0-5/HPF)
[2023-09-23 13:49] LABS: Culture Indicated Urine Specimen Cultured; Renal Epithelial Cells Urine 0-1/HPF (0-1/HPF); Transitional Epi Cells Urine 0-1/HPF (0-5/HPF); White Blood Cell Casts Urine 1-5/LPF
== END ==
PROVIDERS: Urology; Family Provider Internal Medicine; PCP Internal Medicine; Referring Provider Psychiatry & Neurology Neurology; Visit Provider Psychiatry & Neurology Neurology
DX: E55.9 Vitamin D deficiency, unspecified (principal); R79.89 Other specified abnormal findings of blood chemistry; G40.319 Generalized idiopathic epilepsy and epileptic syndromes, intractable, without status epilepticus; N39.0 Urinary tract infection, site not specified
CPT/HCPCS: 36415; 80164; 80177; 81001; 82140; 82308; 87086

== ENCOUNTER → 2023-10-18 13:14 | Outpatient (CLI) | payer MEDICARE, OTHER, MEDICAID, SELFPAY ==
[2023-03-21 04:14] VITALS: BMI 17.4
[2023-10-18 13:41] LABS: Appearance Urine UA SL CLOUDY; Bilirubin Urine UA NEGATIVE (NEGATIVE); Color Urine UA YELLOW; Glucose Urine UA NEGATIVE (Negative); Ketones Urine UA NEGATIVE (NEGATIVE); Leukocyte Esterase Urine UA 1+ (NEGATIVE); Nitrite Urine UA POSITIVE (Negative); Occult Blood Urine UA 2+ (Negative); Protein Urine UA NEGATIVE (Negative); Specific Gravity Urine UA <=1.005 (1.000-1.035); Urobilinogen Urine UA 0.2 E.U./dL (0.2); pH Urine UA 5.5 (4.5-8.0)
[2023-10-18 13:43] LABS: Urine Volume 10mL (spun)
[2023-10-18 13:45] LABS: Bacteria Urine Many (>30); RBC Urine 5-10/HPF (0-5/HPF); Squamous Epithelial Cell Urine None Seen (0-5/HPF); WBC Urine 5-10/HPF (0-5/HPF)
[2023-10-18 13:46] LABS: Culture Indicated Urine Specimen Cultured
== END ==
LOC: LAB 13:15
PROVIDERS: Family Provider Internal Medicine; PCP Internal Medicine; Referring Provider Urology; Visit Provider Urology
DX: N39.0 Urinary tract infection, site not specified (principal)
CPT/HCPCS: 81001; 87077; 87086; 87186

== ENCOUNTER → 2023-12-02 17:47 | Outpatient (CLI) | payer MEDICARE, OTHER, MEDICAID, SELFPAY ==
[2023-03-21 04:14] VITALS: BMI 17.4
[2023-12-02 18:16] LABS: Appearance Urine UA SL CLOUDY; Bilirubin Urine UA NEGATIVE (NEGATIVE); Color Urine UA YELLOW; Glucose Urine UA NEGATIVE (Negative); Ketones Urine UA NEGATIVE (NEGATIVE); Leukocyte Esterase Urine UA 3+ (NEGATIVE); Nitrite Urine UA POSITIVE (Negative); Occult Blood Urine UA 2+ (Negative); Protein Urine UA NEGATIVE (Negative); Urobilinogen Urine UA 0.2 E.U./dL (0.2); pH Urine UA 6.5 (4.5-8.0)
[2023-12-02 18:24] LABS: Bacteria Urine Many (>30); Culture Indicated Urine Specimen Cultured; RBC Urine 0-1/HPF (0-5/HPF); Squamous Epithelial Cell Urine 0-1 /HPF (0-5/HPF); Urine Volume 10mL (spun); WBC Urine 30-100/HPF (0-5/HPF)
== END ==
PROVIDERS: Family Provider Internal Medicine; PCP Internal Medicine; Referring Provider Urology; Visit Provider Urology
DX: N39.0 Urinary tract infection, site not specified (principal)
CPT/HCPCS: 81001; 87077; 87086; 87186

== ENCOUNTER 2024-01-18 20:07 | Inpatient (IN) | payer MEDICARE, OTHER, MEDICAID, SELFPAY ==
[2023-03-21 04:14] VITALS: BMI 17.4
[2024-01-18] VITALS (8 sets, daily range): BP systolic 111–160; BP diastolic 56–89; PULSE 69–145; RESP 18; TEMP 37.1–37.4; O2SAT 96–98; BMI 17.6
--- NOTE | 2024-01-18 21:08 | ED_ITS ---
HPI - Male Genitourinary General Chief complaint: Fever Stated complaint: UTI Time Seen by Provider: 01/18/24 20:52 Source: patient Mode of arrival: Family Vehicle History of Present Illness HPI Narrative: 48-year-old male with history severe cerebral palsy, chair bound, nonverbal at baseline presents by private vehicle with his mother for evaluation of fever at home and possible UTI. Patient has neurogenic bladder and is straight cath by family. She states that patient has been having foul-smelling urine for the last 3 weeks, and 3 days of back pain and fever with ?crankiness?. She states that they has been trying to follow up with Urology for the last 3 weeks about evaluation of possible urinary tract infection. They were supposed to have an appointment today, however the office called and canceled the appointment due to lack of staff. Related Data Home Medications Medication Instructions Recorded Confirmed latanoprost 0.005 % eye drops 1 drp OPHTH HS #2.5 mL 02/14/12 01/19/24 mirtazapine 15 mg tablet 15 mg PO HS ##0 02/14/12 01/19/24 acetaminophen 500 mg tablet 500 mg PO BID ##0 01/20/13 01/19/24 ascorbic acid (vitamin C) 500 mg 500 mg PO DAILY 05/29/22 01/19/24 tablet clonazepam 1 mg tablet 1.5 mg PO 2XD 05/29/22 01/19/24 folic acid 400 mcg tablet 200 mcg PO DAILY 05/29/22 01/19/24 nutritional supplements 0.08 1 ea feeding tube BID 05/29/22 01/19/24 gram-2 kcal/mL liquid for tube feed (Nutren 2.0) divalproex 500 mg tablet,delayed 500 mg PO BID 03/22/23 01/19/24 release diazepam 10 mg/spray (0.1 mL) 10 mg intranasal PRN PRN Seizure 01/19/24 01/19/24 nasal spray (Valtoco) Activity meloxicam 15 mg tablet 15 mg PO QACLUNCH 01/19/24 01/19/24 Previous Rx's Medication Instructions Recorded pantoprazole 40 mg granules 40 mg PO DAILY 30 days #30 ea 04/28/23 delayed-release for susp in packet baclofen 10 mg tablet 10 mg PO 3XD #90 tabs 10/05/23 Disabled Parking Permit 1 ea Not Applicable DAILY #1 ea 10/11/23 Allergies Allergy/AdvReac Type Severity Reaction Status Date / Time codeine Allergy Intermediate FACIAL Verified 07/14/23 12:41 SWELLING, RASH phenobarbital Allergy Unknown unknow Verified 07/14/23 12:41 methenamine AdvReac Mild yeast Verified 07/14/23 12:41 infection Patient History Medical History Prostatitis Intermittent self-catheterization of bladder Benign familial tremor History of developmental delay Cervical spine disease Chicken pox (~1977) Cataracts, bilateral Total blindness Impaired mobility and ADLs Spastic quadriplegia Neurogenic bladder Hydrocephalus, adult Leukomalacia, periventricular Cerebral atrophy Cerebellar atrophy Agenesis of corpus callosum Seizure disorder Recurrent UTI Urinary retention Cervical vertebral fusion Surgical History Anesthesia S/P percutaneous endoscopic gastrostomy (PEG) tube placement History of thoracic spinal fusion Family History Mother Hyperlipidemia Autoimmune disorder Gout Irritable bowel syndrome History of Graves' disease Sister Multiple myeloma History of kidney cancer History of Graves' disease Grandfather Diabetes mellitus Grandmother Alcoholism Tuberculosis Brother Irritable bowel syndrome Social History marital status: unmarried,single household members: family Smoking Status: Never smoker alcohol intake: current caffeine: Yes Smoking Status: Never smoker alcohol intake frequency: holidays/special occasions only Substance Use Type: does not use Exam Initial Vital Signs Initial Vital Signs: Vital Signs Temperature 98.8 F 01/18/24 20:19 Pulse Rate 145 H 01/18/24 20:19 Respiratory Rate 18 01/18/24 20:19 Blood Pressure 160/89 H 01/18/24 20:19 Pulse Oximetry 98 01/18/24 20:19 Oxygen Delivery Method Room Air 01/18/24 20:19 Const: Awake, eyes open, debilitated, frail, appears chronically unwell Cardiac: tachycardia, regular rhythm RESP: unlabored, no wheezing GI: Soft, nontender, nondistended, g-tube in place with clean dressing MSK: Atraumatic, chronic contractures Skin: Warm, Dry, intact, no rashes Neuro: at baseline per mother at bedside Course Orders Ordered: ED Orders 01/18/24 21:05 CBC Auto Diff [Complete Blood Count AUTO DIFF] Stat CMP [Comprehensive Metabolic Panel] Stat Lactate (Lactic Acid) Stat Procalcitonin Stat 01/18/24 21:19 EKG-12 Lead Stat 01/18/24 21:28 EKG-12 Lead Routine 01/18/24 21:33 Chest [XR chest 1V] Stat 01/18/24 21:40 UA Complete [Urinalysis and Microscopic] Stat Urine Culture Stat 01/18/24 21:43 Blood Culture Stat Acetaminophen (Acetaminophen 325 Mg Tablet) 325 mg PO BID ARNOLDO Baclofen (Baclofen 10 Mg Tablet) 10 mg PO TID ARNOLDO Divalproex Sodium (Divalproex Dr 250 Mg Tablet) 500 mg PO BEDTIME ARNOLDO Divalproex Sodium (Divalproex Dr 250 Mg Tablet) 750 mg PO DAILY ARNOLDO Enoxaparin Sodium (Enoxaparin 40 Mg/0.4 Ml Syringe) 40 mg SUBCUT DAILY ARNOLDO Sodium Chloride (Normal Saline 0.9%) 1,000 mls @ 100 mls/hr IV CONT ARNOLDO Last Admin: 01/19/24 00:45 Dose: 100 mls/hr Documented By: CT Ceftriaxone Sodium 2,000 mg/ (Sodium Chloride) 100 mls @ 200 mls/hr IV Q24H ARNOLDO Latanoprost (Latanoprost 0.005% Ophth 2.5 Ml) 1 drops EYE-BOTH BEDTIME ARNOLDO Levetiracetam (Levetiracetam 250 Mg Tablet) 750 mg PO BID ARNOLDO Mirtazapine (Mirtazapine 15 Mg Tablet) 15 mg PO BEDTIME ARNOLDO Naloxone HCl (Naloxone 0.4 Mg/Ml Vial) 0.2 mg IV Q2MIN PRN PRN Reason: Opiate Reversal Non-Formulary Medication (Nutritional Supplements [Nutren 2.0]) 1 each PO BID ARNOLDO Pantoprazole Sodium (Pantoprazole Dr 40 Mg Tablet) 40 mg PO 0600 ARNOLDO Sodium Chloride (Sodium Chloride 0.9% Flush) 10 ml IV PRN PRN PRN Reason: Flush Tamsulosin HCl (Tamsulosin 0.4 Mg Capsule) 0.8 mg PO DAILY ARNOLDO Discontinued Medications Acetaminophen (Acetaminophen Susp 650 Mg/20.3 Ml Udc) 650 mg TUBE NOW ONE Stop: 01/18/24 21:09 Last Admin: 01/18/24 21:20 Dose: 650 mg Documented By: NING Ceftriaxone Sodium 2,000 mg/ (Sodium Chloride) 100 mls @ 200 mls/hr IV NOW ONE Stop: 01/18/24 21:24 Last Infusion: 01/18/24 22:23 Dose: Infused Documented By: Admin: 01/18/24 21:36 Dose: 200 mls/hr Documented By: NING Vital Signs Vital signs: Vital Signs - 8 hr 01/18/24 20:19 01/18/24 21:59 01/18/24 22:00 Temperature 98.8 F Pulse Rate 145 H 70 112 H Respiratory Rate 18 Blood Pressure 160/89 H Pulse Oximetry 98 97 97 Oxygen Delivery Method Room Air 01/18/24 22:01 01/18/24 22:01 01/18/24 22:30 Temperature Pulse Rate 69 121 H Respiratory Rate Blood Pressure 111/56 L Pulse Oximetry 97 97 Oxygen Delivery Method Room Air 01/18/24 22:54 01/18/24 22:55 01/18/24 23:05 Temperature 99.3 F 99.3 F Pulse Rate 117 H Respiratory Rate Blood Pressure 119/57 L Pulse Oximetry 96 96 Oxygen Delivery Method MDM - Male Genitourinary Differential Diagnosis Differential diagnosis: Likely urinary tract infection, acute retention of urine and other (sepsis) Lab Data 01/18/24 21:05 01/18/24 21:05 Labs: Lab Results 01/18/24 01/18/24 01/18/24 Range/Units 21:05 21:40 23:02 WBC 45.6 H* (4.5-11.0) X10^3/uL RBC 4.54 (4.5-5.9) X10^6/uL Hgb 15.2 (13.5-17.5) g/dL Hct 46.4 (41-53) % MCV 102.2 H (80-100) fL MCH 33.5 (26-34) PG MCHC 32.8 (30-36) % RDW 13.6 (11.6-14.8) % Plt Count 314 (150-400) X10^3/uL Neut % (Auto) Not Reportable Lymph % (Auto) Not Reportable [place] % (Auto) Not Reportable Eos % (Auto) Not Reportable Baso % (Auto) Not Reportable Lymph # (Auto) Not Reportable [place] # (Auto) Not Reportable Baso # (Auto) Not Reportable Total Counted 100 Seg Neutrophils % 79.0 H (38-70) % Band Neutrophils % 7.0 (3-7) % Lymphocytes % (Manual) 11.0 L (25-45) % Monocytes % (Manual) 2.0 (2-11) % Eosinophils % (Manual) 1.0 L (2-4) % Neutrophils # (Manual) 60644 H (3137-0414) /uL RBC Morphology Normal morphology Sodium 139 (137-145) mmol/L Potassium 4.7 (3.4-5.1) mmol/L Chloride 100 (98-107) mmol/L Carbon Dioxide 31 (22-32) mmol/L BUN 36 H (9-20) mg/dL Creatinine 1.02 (0.66-1.25) mg/dL Estimated GFR > 60 (>60) mL/min BUN/Creatinine Ratio 35.3 H (6-22) Glucose 115 H (70-100) mg/dL Lactate 3.1 H 2.7 H (0.7-2.1) mmol/L Calcium 9.9 (8.4-10.2) mg/dL Total Bilirubin 0.4 (0.2-1.3) mg/dL AST 23 (17-59) IU/L ALT 14 (<50) IU/L Alkaline Phosphatase 81 (38-126) U/L Total Protein 7.6 (6.3-8.2) g/dL Albumin 3.9 (3.5-5.0) g/dL Globulin 3.7 (1.7-4.1) g/dL Albumin/Globulin Ratio 1.1 (1.0-2.8) Procalcitonin 0.319 (<0.5) ng/mL Urine Color Yellow Urine Appearance Cloudy Urine pH 6.5 (4.5-8.0) Ur Specific [place] <=1.005 (1.000-1.035) Urine Protein Trace H (Negative) Urine Glucose (UA) Negative (Negative) g/dL Urine Ketones Trace H (NEGATIVE) Urine Occult Blood 3+ H (Negative) Urine Nitrate Positive H (Negative) Urine Bilirubin Negative (NEGATIVE) Urine Urobilinogen 0.2 (0.2) E.U./dL Ur Leukocyte Esterase 3+ H (NEGATIVE) Urine RBC 1-5/hpf (0-5/HPF) Urine WBC 10-30/hpf H (0-5/HPF) Ur Squamous Epith Cells 0-1 /hpf (0-5/HPF) Urine Bacteria Many (>30) H (None) Ur Culture Indicated? Specimen cultured Vol Urine Centrifuged 10ml (spun) Imaging Data Chest x-ray: Radiologist's Impression: PROCEDURE: XR CHEST 1V INDICATIONS: CEREBRAL PALSY/COUGH/SEPSIS TECHNIQUE: One view of the chest was acquired. COMPARISON: [facility], , XR CHEST 1V, 03/20/2023, 22:33. FINDINGS: Surgical changes and devices: Extensive spinal fusion hardware is seen. Surgical hardware is also seen in lower cervical spine. Lungs and pleura: Lungs are clear. No pleural effusions or pneumothorax. Mediastinum: Mediastinal contours appear normal. Heart size is normal. Bones and chest wall: No suspicious bony lesions. Overlying soft tissues appear unremarkable. IMPRESSION: No acute cardiopulmonary pathology. Dictated by: Joshua Sapp M.D. on 01/18/2024 at 22:44 Approved by: Joshua Sapp M.D. on 01/18/2024 at 22:46 MDM Narrative Medical decision making narrative: Patient with severe cerebral palsy with fever at home and foul-smelling urine. No fever on arrival, however patient did have ibuprofen given to him by his mother prior to arrival. Noted to be quite tachycardic on arrival with a pulse of 145. Taken to ER room where he had IV placed, blood cultures drawn. Laboratory work shows WBC count of 45.6, hemoglobin 15.2, platelet count 314, sodium 139, potassium 4.7, creatinine 1.02, lactic acid 3.1, normal liver enzymes, procalcitonin 0.319. Patient received IV Rocephin, previous cultures have shown sensitivity to 3rd generation cephalosporins. Urinalysis with nitrites, WBCs, many bacteria. Tissue perfusion performed at 2200. Heartrate improved. Still tachycardic, but much closer to patient's reported baseline. Due to the tachycardia on arrival with extremely high elevation in white blood cell count recommended admission to mother. Mother consented to admission and further treatment. Discharge Plan Departure Patient Disposition: Admitted As Inpatient Clinical Impression: Sepsis, Acute UTI Admit Date/Time: 01/18/24 23:33 Admit Provider: Reynaldo Ferris
[2024-01-18 21:20] LABS: Hematocrit 46.4 % (41-53); Hemoglobin 15.2 g/dL (13.5-17.5); Mean Corpuscular HGB Conc 32.8 % (30-36); Mean Corpuscular Hemoglobin 33.5 PG (26-34); Mean Corpuscular Volume 102.2 fL (80-100); Platelet Count 314 X10^3/uL (150-400); Red Blood Cell Count 4.54 X10^6/uL (4.5-5.9); Red Cell Distribution Width 13.6 % (11.6-14.8)
[2024-01-18] MEDS: ACETAMINOPHEN SUSP 650 MG/20.3 ML UDC TUBE (21:20)
[2024-01-18 21:22] LABS: Add Manual Diff / Slide Review YES; White Blood Cell Count 45.6 X10^3/uL (4.5-11.0)
--- NOTE | 2024-01-18 21:27 | EKG_ITS ---
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
--- NOTE | 2024-01-18 21:28 | EKG_ITS ---
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
--- NOTE | 2024-01-18 21:33 | DI.RAD.S_ITS ---
PROCEDURE: XR CHEST 1V INDICATIONS: CEREBRAL PALSY/COUGH/SEPSIS TECHNIQUE: One view of the chest was acquired. COMPARISON: [facility], CR, XR CHEST 1V, 03/20/2023, 22:33. FINDINGS: Surgical changes and devices: Extensive spinal fusion hardware is seen. Surgical hardware is also seen in lower cervical spine. Lungs and pleura: Lungs are clear. No pleural effusions or pneumothorax. Mediastinum: Mediastinal contours appear normal. Heart size is normal. Bones and chest wall: No suspicious bony lesions. Overlying soft tissues appear unremarkable. IMPRESSION: No acute cardiopulmonary pathology. Dictated by: Joshua Sapp M.D. on 01/18/2024 at 22:44 Approved by: Joshua Sapp M.D. on 01/18/2024 at 22:46
[2024-01-18 21:34] LABS: Alanine Aminotransferase 14 IU/L (<50); Albumin 3.9 g/dL (3.5-5.0); Albumin Globulin Ratio 1.1 (1.0-2.8); Alkaline Phosphatase 81 U/L (38-126); Aspartate Aminotransferase 23 IU/L (17-59); BUN Creatinine Ratio 35.3 (6-22); Bilirubin Total 0.4 mg/dL (0.2-1.3); Blood Urea Nitrogen 36 mg/dL (9-20); Calcium 9.9 mg/dL (8.4-10.2); Carbon Dioxide 31 mmol/L (22-32); Chloride 100 mmol/L (98-107); Estimated Glomerular Filt Rate > 60 mL/min (>60); Globulin 3.7 g/dL (1.7-4.1); Glucose 115 mg/dL (70-100); HEMOLYSIS 19 (0-50); Lactate (Lactic Acid) 3.1 mmol/L (0.7-2.1); Potassium 4.7 mmol/L (3.4-5.1); Sodium 139 mmol/L (137-145); Total Protein 7.6 g/dL (6.3-8.2)
[2024-01-18 21:35] LABS: Neutrophils Absolute Manual 39216 /uL (3000-5900); RBC Morphology Normal Morphology; Total Cells Counted 100
[2024-01-18] MEDS: cefTRIAXone 2,000 MG in SODIUM CHLORIDE 0.9% 100 ML 200 MG IV (21:36)
--- NOTE | 2024-01-18 21:46 | PC.NURSE ---
2nd set of blood cultures drawn by lab. Straight cath for urine sample completed. Xray at bedside.
[2024-01-18 21:51] LABS: Procalcitonin 0.319 ng/mL (<0.5)
[2024-01-18 22:47] LABS: Appearance Urine UA CLOUDY; Bilirubin Urine UA NEGATIVE (NEGATIVE); Color Urine UA YELLOW; Glucose Urine UA NEGATIVE (Negative); Ketones Urine UA TRACE (NEGATIVE); Leukocyte Esterase Urine UA 3+ (NEGATIVE); Nitrite Urine UA POSITIVE (Negative); Occult Blood Urine UA 3+ (Negative); Protein Urine UA TRACE (Negative); Specific Gravity Urine UA <=1.005 (1.000-1.035); Urobilinogen Urine UA 0.2 E.U./dL (0.2); pH Urine UA 6.5 (4.5-8.0)
[2024-01-18 22:50] LABS: Reflexed Lactate in 2 Hours Y
[2024-01-18 22:59] LABS: Bacteria Urine Many (>30); Culture Indicated Urine Specimen Cultured; RBC Urine 1-5/HPF (0-5/HPF); Squamous Epithelial Cell Urine 0-1 /HPF (0-5/HPF); Urine Volume 10mL (spun); WBC Urine 10-30/HPF (0-5/HPF)
--- NOTE | 2024-01-18 23:07 | PC.NURSE ---
Repeat lactice level drawn at this time.
[2024-01-18 23:53] LABS: Lactate 2HR (Lactic Acid Rflx) 2.7 mmol/L (0.7-2.1)
--- NOTE | 2024-01-19 00:07 | PC.NURSE ---
Report given to ISABEL Ortega
[2024-01-19 00:12] VITALS: BMI 17.6
[2024-01-19 00:25] VITALS: BP 110/58; PULSE 100; RESP 18; O2SAT 97
[2024-01-19] MEDS: SODIUM CHLORIDE 0.9% 1,000 ML 100 ML IV (00:45)
--- NOTE | 2024-01-19 01:04 | P.HP_ITS ---
History of Present Illness History of Present Illness Date Patient Seen: 01/19/24 Chief complaint: UTI Narrative: From the ED: 48-year-old male with history severe cerebral palsy, chair bound, nonverbal at baseline presents by private vehicle with his mother for evaluation of fever at home and possible UTI. Patient has neurogenic bladder and is straight cath by family. She states that patient has been having foul-smelling urine for the last 3 weeks, and 3 days of back pain and fever with ?crankiness?. She states that they has been trying to follow up with Urology for the last 3 weeks about evaluation of possible urinary tract infection. They were supposed to have an appointment today, however the office called and canceled the appointment due to lack of staff. On admission aphasic, sleepy, mother confirmed the above. [facility] Medical History Prostatitis Intermittent self-catheterization of bladder Benign familial tremor History of developmental delay Cervical spine disease Chicken pox (~1977) Cataracts, bilateral Total blindness Impaired mobility and ADLs Spastic quadriplegia Neurogenic bladder Hydrocephalus, adult Leukomalacia, periventricular Cerebral atrophy Cerebellar atrophy Agenesis of corpus callosum Seizure disorder Recurrent UTI Urinary retention Cervical vertebral fusion Surgical History Anesthesia S/P percutaneous endoscopic gastrostomy (PEG) tube placement History of thoracic spinal fusion Family History Mother Hyperlipidemia Autoimmune disorder Gout Irritable bowel syndrome History of Graves' disease Sister Multiple myeloma History of kidney cancer History of Graves' disease Grandfather Diabetes mellitus Grandmother Alcoholism Tuberculosis Brother Irritable bowel syndrome Social History marital status: unmarried,single household members: family Smoking Status: Never smoker alcohol intake: current caffeine: Yes Meds Home Medications and Allergies Home Medications Medication Instructions Recorded Confirmed Type latanoprost 0.005 % eye drops 1 drp OPHTH HS #2.5 mL 02/14/12 01/19/24 History mirtazapine 15 mg tablet 15 mg PO HS ##0 02/14/12 01/19/24 History acetaminophen 500 mg tablet 500 mg PO BID ##0 01/20/13 01/19/24 History ascorbic acid (vitamin C) 500 mg 500 mg PO DAILY 05/29/22 01/19/24 History tablet clonazepam 1 mg tablet 1.5 mg PO 2XD 05/29/22 01/19/24 History folic acid 400 mcg tablet 200 mcg PO DAILY 05/29/22 01/19/24 History nutritional supplements 0.08 1 ea feeding tube BID 05/29/22 01/19/24 History gram-2 kcal/mL liquid for tube feed (Nutren 2.0) divalproex 500 mg tablet,delayed 500 mg PO BID 03/22/23 01/19/24 History release pantoprazole 40 mg granules 40 mg PO DAILY 30 days #30 ea 04/28/23 01/19/24 Rx delayed-release for susp in packet baclofen 10 mg tablet 10 mg PO 3XD #90 tabs 10/05/23 01/19/24 Rx Disabled Parking Permit 1 ea Not Applicable DAILY #1 ea 10/11/23 01/19/24 Rx diazepam 10 mg/spray (0.1 mL) 10 mg intranasal PRN PRN Seizure 01/19/24 01/19/24 History nasal spray (Valtoco) Activity meloxicam 15 mg tablet 15 mg PO QACLUNCH 01/19/24 01/19/24 History Allergies Allergy/AdvReac Type Severity Reaction Status Date / Time codeine Allergy Intermediate FACIAL Verified 07/14/23 12:41 SWELLING, RASH phenobarbital Allergy Unknown unknow Verified 07/14/23 12:41 methenamine AdvReac Mild yeast Verified 07/14/23 12:41 infection Review of Systems Review of Systems Narrative: unobtainable due to developmental delay Mother reported on change in behavior and foul-smelling urine Exam Vital Signs (past 8 hours): - 01/18/24 20:19 01/18/24 21:59 01/18/24 22:00 Temperature 98.8 F Pulse Rate 145 H 70 112 H Respiratory Rate 18 Blood Pressure 160/89 H Pulse Oximetry 98 97 97 Oxygen Delivery Method Room Air 01/18/24 22:01 01/18/24 22:01 01/18/24 22:30 Temperature Pulse Rate 69 121 H Respiratory Rate Blood Pressure 111/56 L Pulse Oximetry 97 97 Oxygen Delivery Method Room Air 01/18/24 22:54 01/18/24 22:55 01/18/24 23:05 Temperature 99.3 F 99.3 F Pulse Rate 117 H Respiratory Rate Blood Pressure 119/57 L Pulse Oximetry 96 96 Oxygen Delivery Method Oxygen Delivery Method Room Air Const Other: Sleeping at the time of admission, mother and brother at bedside Resp Other: normal respiratory effort, CTA Cardio Other: tachycardic, regular Neuro Other: spastic quadriparesis, neurogenic dysphagia, neurogenic bladder Psych Other: cognitive deficits Objective ECG Impression: Sinus tachycardia Labs 01/18/24 21:05 01/18/24 21:05 Labs: Laboratory Results - last 24 hr 01/18/24 01/18/24 01/18/24 21:05 21:40 23:02 WBC 45.6 H* RBC 4.54 Hgb 15.2 Hct 46.4 MCV 102.2 H MCH 33.5 MCHC 32.8 RDW 13.6 Plt Count 314 Neut % (Auto) Not Reportable Lymph % (Auto) Not Reportable [place] % (Auto) Not Reportable Eos % (Auto) Not Reportable Baso % (Auto) Not Reportable Lymph # (Auto) Not Reportable [place] # (Auto) Not Reportable Baso # (Auto) Not Reportable Total Counted 100 Seg Neutrophils % 79.0 H Band Neutrophils % 7.0 Lymphocytes % (Manual) 11.0 L Monocytes % (Manual) 2.0 Eosinophils % (Manual) 1.0 L Neutrophils # (Manual) 81792 H RBC Morphology Normal morphology Sodium 139 Potassium 4.7 Chloride 100 Carbon Dioxide 31 BUN 36 H Creatinine 1.02 Estimated GFR > 60 BUN/Creatinine Ratio 35.3 H Glucose 115 H Lactate 3.1 H 2.7 H Calcium 9.9 Total Bilirubin 0.4 AST 23 ALT 14 Alkaline Phosphatase 81 Total Protein 7.6 Albumin 3.9 Globulin 3.7 Albumin/Globulin Ratio 1.1 Procalcitonin 0.319 Urine Color Yellow Urine Appearance Cloudy Urine pH 6.5 Ur Specific [place] <=1.005 Urine Protein Trace H Urine Glucose (UA) Negative Urine Ketones Trace H Urine Occult Blood 3+ H Urine Nitrate Positive H Urine Bilirubin Negative Urine Urobilinogen 0.2 Ur Leukocyte Esterase 3+ H Urine RBC 1-5/hpf Urine WBC 10-30/hpf H Ur Squamous Epith Cells 0-1 /hpf Urine Bacteria Many (>30) H Ur Culture Indicated? Specimen cultured Vol Urine Centrifuged 10ml (spun) Assessment & Plan Assessment and plan (1) Sepsis: Status: Acute (2) Acute UTI: Status: Acute (3) Recurrent UTI: Status: Acute (4) Spastic quadriplegia: Status: Acute (5) Neurogenic bladder: Status: Acute (6) Hydrocephalus, adult: Status: Acute (7) Impaired mobility and ADLs: Status: Acute (8) S/P percutaneous endoscopic gastrostomy (PEG) tube placement: Status: Acute (9) Seizure disorder: Status: Acute (10) Agenesis of corpus callosum: Status: Acute Assessment & Plan narrative: UTI / Sepsis - recurrent UTI - Rocephin, IVFs - cultures pending Cerebral Atrophy / Epilepsy - spastic quadriplegia, Baclofen - neurogenic bladder - mother catheterizes him at home - Chandrika, w/o recent seizures - neurogenic dysphagia - PEG feedings GERD - PPI Glaucoma - latanoprost DVT prophylaxis - Lovenox Time-Based Coding :: [TOTAL MINUTES] spent with patient and on the chart (including review of chart, obtaining history, exam, reviewing outside data, placing orders, documenting exam and treatment plan, and counseling patient) on [DATE]. Quality VTE Deep Vein Thrombosis/Pulmonary Embolism Present on Admission: No
[2024-01-19 08:56] LABS: Alanine Aminotransferase 15 IU/L (<50); Albumin 3.3 g/dL (3.5-5.0); Albumin Globulin Ratio 1.1 (1.0-2.8); Alkaline Phosphatase 58 U/L (38-126); Aspartate Aminotransferase 22 IU/L (17-59); BUN Creatinine Ratio 36.1 (6-22); Bilirubin Total 0.3 mg/dL (0.2-1.3); Blood Urea Nitrogen 30 mg/dL (9-20); Calcium 9.1 mg/dL (8.4-10.2); Carbon Dioxide 29 mmol/L (22-32); Chloride 105 mmol/L (98-107); Estimated Glomerular Filt Rate > 60 mL/min (>60); Glucose 152 mg/dL (70-100); HEMOLYSIS < 15 (0-50); Sodium 139 mmol/L (137-145); Total Protein 6.3 g/dL (6.3-8.2)
[2024-01-19 09:03] LABS: Hematocrit 39.7 % (41-53); Hemoglobin 13.2 g/dL (13.5-17.5); Mean Corpuscular HGB Conc 33.3 % (30-36); Mean Corpuscular Hemoglobin 33.9 PG (26-34); Mean Corpuscular Volume 101.8 fL (80-100); Platelet Count 274 X10^3/uL (150-400); Red Cell Distribution Width 13.8 % (11.6-14.8)
[2024-01-19 09:18] LABS: Add Manual Diff / Slide Review YES
[2024-01-19 09:20] LABS: White Blood Cell Count 36.3 X10^3/uL (4.5-11.0)
[2024-01-19 09:36] LABS: Neutrophils Absolute Manual 30492 /uL (3000-5900); Total Cells Counted 100
[2024-01-19] MEDS: LACTATED RINGERS 500 ML 1000 ML IV (09:38)
[2024-01-19 09:39] LABS: Macrocytosis 1+
[2024-01-19 10:30] VITALS: BP 113/67; PULSE 110; RESP 18; TEMP 36.7; O2SAT 96
--- NOTE | 2024-01-19 10:56 | DIET.CONS ---
Dietary Consultation Note Admission Date: 01/18/2024 23:33 Assessment: 48 y M admitted for sepsis and UTI, PMH of cerebral palsy w/ PEG feedings d/t neurogenic dysphagia. Met w/ mother at bedside. Follows with infusion solution for enteral nutrition provided via PEG. Reports checking in with RD every 2 wks. Mother provides pureed foods daily to pt and has been for years. Discussed in healthcare rounds, hospitalist zina for pureed diet to be ordered. Added diet order and coordinated with kitchen. Diet recall: 1 Nutren 2.0 (250 mL) mixed with very pureed banana and macanese yogurt 1 Nutren 2.0 (250 mL) Pureed dinner offered, amount eaten varies Formula provides 42 g protein and 1000 calories. Flushes with 60 mL fluid after feeds. Does fluids throughout day Mother will provide additional 4-8 oz (1/2- full can) of Nutren if inadequate po intakes throughout day. Pureed fruits and vegetables offered as well. Nutren formula provides no fiber. Reports soft BM 5x/wk. Reports weight gain from 80-85 lb to now 90 lb. Aims for 6235-8818 kcals per day. Ht: 152.4 cm Wt: 40.823 kg BMI: 17.6 UBW: 39.5 kg on 03/22/23 Last BM: 01/18/24 (01/19/24 00:12) MNA: 9 Will Score: 13 Diet: 01/19/24 Breakfast Courtesy Popeye (Peds, comfort care) Diet Modifications: Dysphagia Diet Diet Modifications: Food Texture: Level 4 - Pureed Liquid Consistency: Level 0 - Thin Nutrition Percent Meal Consumed 0% 01/19/24 06:00 Labs: RBC 3.90 X10^6/uL (4.5-5.9) L 01/19/24 08:07 Hgb 13.2 g/dL (13.5-17.5) L 01/19/24 08:07 Hct 39.7 % (41-53) L 01/19/24 08:07 Creatinine 0.83 mg/dL (0.66-1.25) 01/19/24 08:07 Lactate 2.0 mmol/L (0.7-2.1) 01/19/24 01:10 Nutrition Diagnosis: Inadequate oral intake r/t swallowing difficulty aeb neurogenic dysphagia, PEG w/ enteral nutrition providing majority of EER Interventions: 1. Diet ordered to mimic home diet, additional 4-8 oz Nutren if unable to tolerate puree intake to meet EER EER: 1400 kcals (35 kcals/kg per BMI) 60-70 g protein (1.5-1.7 g/kg per sepsis) Monitoring/Evaluations: po intakes, diet tolerance Electronically Signed by: Shae Elliott 01/19/24 10:56 Clinical Dietitian [address] [address]
[2024-01-19 12:00] VITALS: BP 154/74; PULSE 103; RESP 18; TEMP 36.7; O2SAT 96
[2024-01-19] MEDS: levETIRAcetam 250 MG TABLET 750 MG PO ×2 (12:22→21:53)
[2024-01-19] MEDS: DIVALPROEX DR 250 MG TABLET 750 MG PO (12:22)
[2024-01-19] MEDS: ACETAMINOPHEN 325 MG TABLET PO ×2 (12:22→21:53)
[2024-01-19] MEDS: TAMSULOSIN 0.4 MG CAPSULE 0.8 MG PO (12:23)
[2024-01-19] MEDS: ENOXAPARIN 40 MG/0.4 ML SYRINGE SUBCUT (12:24)
[2024-01-19] MEDS: BACLOFEN 10 MG TABLET PO (12:30)
--- NOTE | 2024-01-19 15:33 | P.HP_ITS ---
History of Present Illness History of Present Illness Date Patient Seen: 01/19/24 Chief complaint: UTI Narrative: From the ED: 48-year-old male with history severe cerebral palsy, chair bound, nonverbal at baseline presents by private vehicle with his mother for evaluation of fever at home and possible UTI. Patient has neurogenic bladder and is straight cath by family. She states that patient has been having foul-smelling urine for the last 3 weeks, and 3 days of back pain and fever with ?crankiness?. She states that they has been trying to follow up with Urology for the last 3 weeks about evaluation of possible urinary tract infection. They were supposed to have an appointment today, however the office called and canceled the appointment due to lack of staff. On admission aphasic, sleepy, mother confirmed the above. [facility] Medical History Prostatitis Intermittent self-catheterization of bladder Benign familial tremor History of developmental delay Cervical spine disease Chicken pox (~1977) Cataracts, bilateral Total blindness Impaired mobility and ADLs Spastic quadriplegia Neurogenic bladder Hydrocephalus, adult Leukomalacia, periventricular Cerebral atrophy Cerebellar atrophy Agenesis of corpus callosum Seizure disorder Recurrent UTI Urinary retention Cervical vertebral fusion Surgical History Anesthesia S/P percutaneous endoscopic gastrostomy (PEG) tube placement History of thoracic spinal fusion Family History Mother Hyperlipidemia Autoimmune disorder Gout Irritable bowel syndrome History of Graves' disease Sister Multiple myeloma History of kidney cancer History of Graves' disease Grandfather Diabetes mellitus Grandmother Alcoholism Tuberculosis Brother Irritable bowel syndrome Social History marital status: unmarried,single household members: family Smoking Status: Never smoker alcohol intake: current caffeine: Yes Meds Home Medications and Allergies Home Medications Medication Instructions Recorded Confirmed Type latanoprost 0.005 % eye drops 1 drp OPHTH HS #2.5 mL 02/14/12 01/19/24 History mirtazapine 15 mg tablet 15 mg PO HS ##0 02/14/12 01/19/24 History acetaminophen 500 mg tablet 500 mg PO BID ##0 01/20/13 01/19/24 History ascorbic acid (vitamin C) 500 mg 500 mg PO DAILY 05/29/22 01/19/24 History tablet clonazepam 1 mg tablet 1.5 mg PO 2XD 05/29/22 01/19/24 History folic acid 400 mcg tablet 200 mcg PO DAILY 05/29/22 01/19/24 History nutritional supplements 0.08 1 ea feeding tube BID 05/29/22 01/19/24 History gram-2 kcal/mL liquid for tube feed (Nutren 2.0) divalproex 500 mg tablet,delayed 500 mg PO BID 03/22/23 01/19/24 History release pantoprazole 40 mg granules 40 mg PO DAILY 30 days #30 ea 04/28/23 01/19/24 Rx delayed-release for susp in packet baclofen 10 mg tablet 10 mg PO 3XD #90 tabs 10/05/23 01/19/24 Rx Disabled Parking Permit 1 ea Not Applicable DAILY #1 ea 10/11/23 01/19/24 Rx diazepam 10 mg/spray (0.1 mL) 10 mg intranasal PRN PRN Seizure 01/19/24 01/19/24 History nasal spray (Valtoco) Activity meloxicam 15 mg tablet 15 mg PO QACLUNCH 01/19/24 01/19/24 History Allergies Allergy/AdvReac Type Severity Reaction Status Date / Time codeine Allergy Intermediate FACIAL Verified 07/14/23 12:41 SWELLING, RASH phenobarbital Allergy Unknown unknow Verified 07/14/23 12:41 methenamine AdvReac Mild yeast Verified 07/14/23 12:41 infection Review of Systems Review of Systems ROS: Yes All systems reviewed with the patient and are negative except as otherwise documented Exam Vital Signs (past 8 hours): - 01/19/24 10:30 Temperature 98.1 F Pulse Rate 110 H Respiratory Rate 18 Blood Pressure 113/67 Pulse Oximetry 96 Oxygen Delivery Method Room Air Const Other: Sleeping at the time of admission, mother and brother at bedside Resp Other: normal respiratory effort, CTA Cardio Other: tachycardic, regular Neuro Other: spastic quadriparesis, neurogenic dysphagia, neurogenic bladder Psych Other: cognitive deficits Objective Labs 01/19/24 08:07 01/19/24 08:07 Labs: Laboratory Results - last 24 hr 09/10/24 09/10/24 09/10/24 21:05 21:40 21:43 WBC 45.6 H* RBC 4.54 Hgb 15.2 Hct 46.4 MCV 102.2 H MCH 33.5 MCHC 32.8 RDW 13.6 Plt Count 314 Neut % (Auto) Not Reportable Lymph % (Auto) Not Reportable [place] % (Auto) Not Reportable Eos % (Auto) Not Reportable Baso % (Auto) Not Reportable Lymph # (Auto) Not Reportable [place] # (Auto) Not Reportable Baso # (Auto) Not Reportable Total Counted 100 Seg Neutrophils % 79.0 H Band Neutrophils % 7.0 Lymphocytes % (Manual) 11.0 L Monocytes % (Manual) 2.0 Eosinophils % (Manual) 1.0 L Basophils % (Manual) Neutrophils # (Manual) 04074 H RBC Morphology Normal morphology Macrocytosis Sodium 139 Potassium 4.7 Chloride 100 Carbon Dioxide 31 BUN 36 H Creatinine 1.02 Estimated GFR > 60 BUN/Creatinine Ratio 35.3 H Glucose 115 H Lactate 3.1 H Calcium 9.9 Total Bilirubin 0.4 AST 23 ALT 14 Alkaline Phosphatase 81 Total Protein 7.6 Albumin 3.9 Globulin 3.7 Albumin/Globulin Ratio 1.1 Procalcitonin 0.319 Urine Color Yellow Urine Appearance Cloudy Urine pH 6.5 Ur Specific [place] <=1.005 Urine Protein Trace H Urine Glucose (UA) Negative Urine Ketones Trace H Urine Occult Blood 3+ H Urine Nitrate Positive H Urine Bilirubin Negative Urine Urobilinogen 0.2 Ur Leukocyte Esterase 3+ H Urine RBC 1-5/hpf Urine WBC 10-30/hpf H Ur Squamous Epith Cells 0-1 /hpf Urine Bacteria Many (>30) H Ur Culture Indicated? Specimen cultured Vol Urine Centrifuged 10ml (spun) A.calcoaceticus-baumannii cmplx PCR Cancelled Bacteroides fragilis Cancelled Makenna albicans (PCR) Cancelled Makenna auris (PCR) Cancelled C. glabrata (PCR) Cancelled C. krusei (PCR) Cancelled C. parapsilosis (PCR) Cancelled C. tropicalis (PCR) Cancelled C. neoform/gattii (PCR) Cancelled Enterobacterales (PCR) Cancelled E. cloacae complex PCR Cancelled Enterococc faecalis PCR Cancelled Enterococc faecium PCR Cancelled E. coli (PCR) Cancelled H. influenzae (PCR) Cancelled Klebsiella aerogenes (PCR) Cancelled Klebsiella oxytoca PCR Cancelled Klebsiella pneumoniae Cancelled List. monocytogenes PCR Cancelled N. meningitidis (PCR) Cancelled Proteus species (PCR) Cancelled Salmonella spp. (PCR) Cancelled Serratia marcescens PCR Cancelled Staphylococcus sp PCR Cancelled Staph aureus (PCR) Cancelled mecA/C & MREJ Resist Gene Cancelled mecA/C-Methicil Resis Gene Cancelled mcr-1 [place] Res Gene PCR Cancelled Staph epidermidis (PCR) Cancelled Staph lugdunensis PCR Cancelled S. maltophilia (PCR) Cancelled Streptococcus sp PCR Cancelled Group A Strep (PCR) Cancelled Strep agalactiae (PCR) Cancelled Strep pneumoniae (PCR) Cancelled P. aeruginosa (PCR) Cancelled Lolis/B-Vanco Res Genes Cancelled blaIMP Car res Gene PCR Cancelled KPC-Carbap Res Gene PCR Cancelled blaNDM Car Res Gene PCR Cancelled OXA-48 Carbapenem Resis Gene (PCR) Cancelled blaVIM Car Res Gene PCR Cancelled CTX-M Gene Resistance (PCR) Cancelled 01/18/24 01/19/24 01/19/24 23:02 01:10 08:07 WBC 36.3 H* RBC 3.90 L Hgb 13.2 L Hct 39.7 L MCV 101.8 H MCH 33.9 MCHC 33.3 RDW 13.8 Plt Count 274 Neut % (Auto) Not Reportable Lymph % (Auto) Not Reportable [place]offe[place] % (Auto) Not Reportable Eos % (Auto) Not Reportable Baso % (Auto) Not Reportable Lymph # (Auto) Not Reportable [place] # (Auto) Not Reportable Baso # (Auto) Not Reportable Total Counted 100 Seg Neutrophils % 81.0 H Band Neutrophils % 3.0 Lymphocytes % (Manual) 12.0 L Monocytes % (Manual) 3.0 Eosinophils % (Manual) Basophils % (Manual) 1.0 Neutrophils # (Manual) 60744 H RBC Morphology See below Macrocytosis 1+ H Sodium 139 Potassium 4.0 Chloride 105 Carbon Dioxide 29 BUN 30 H Creatinine 0.83 Estimated GFR > 60 BUN/Creatinine Ratio 36.1 H Glucose 152 H Lactate 2.7 H 2.0 Calcium 9.1 Total Bilirubin 0.3 AST 22 ALT 15 Alkaline Phosphatase 58 Total Protein 6.3 Albumin 3.3 L Globulin 3.0 Albumin/Globulin Ratio 1.1 Procalcitonin Urine Color Urine Appearance Urine pH Ur Specific [place] Urine Protein Urine Glucose (UA) Urine Ketones Urine Occult Blood Urine Nitrate Urine Bilirubin Urine Urobilinogen Ur Leukocyte Esterase Urine RBC Urine WBC Ur Squamous Epith Cells Urine Bacteria Ur Culture Indicated? Vol Urine Centrifuged A.calcoaceticus-baumannii cmplx PCR Bacteroides fragilis Makenna albicans (PCR) Makenna auris (PCR) C. glabrata (PCR) C. krusei (PCR) C. parapsilosis (PCR) C. tropicalis (PCR) C. neoform/gattii (PCR) Enterobacterales (PCR) E. cloacae complex PCR Enterococc faecalis PCR Enterococc faecium PCR E. coli (PCR) H. influenzae (PCR) Klebsiella aerogenes (PCR) Klebsiella oxytoca PCR Klebsiella pneumoniae List. monocytogenes PCR N. meningitidis (PCR) Proteus species (PCR) Salmonella spp. (PCR) Serratia marcescens PCR Staphylococcus sp PCR Staph aureus (PCR) mecA/C & MREJ Resist Gene mecA/C-Methicil Resis Gene mcr-1 [place] Res Gene PCR Staph epidermidis (PCR) Staph lugdunensis PCR S. maltophilia (PCR) Streptococcus sp PCR Group A Strep (PCR) Strep agalactiae (PCR) Strep pneumoniae (PCR) P. aeruginosa (PCR) Lolis/B-Vanco Res Genes blaIMP Car res Gene PCR KPC-Carbap Res Gene PCR blaNDM Car Res Gene PCR OXA-48 Carbapenem Resis Gene (PCR) blaVIM Car Res Gene PCR CTX-M Gene Resistance (PCR) Assessment & Plan Assessment and plan (1) Sepsis: Status: Acute (2) Acute UTI: Status: Acute (3) Recurrent UTI: Status: Acute (4) Spastic quadriplegia: Status: Acute (5) Neurogenic bladder: Status: Acute (6) Hydrocephalus, adult: Status: Acute (7) Impaired mobility and ADLs: Status: Acute (8) S/P percutaneous endoscopic gastrostomy (PEG) tube placement: Status: Acute (9) Seizure disorder: Status: Acute (10) Agenesis of corpus callosum: Status: Acute Assessment & Plan narrative: UTI / Sepsis - recurrent UTI - Rocephin, IVFs - cultures pending Cerebral Atrophy / Epilepsy - spastic quadriplegia, Baclofen - neurogenic bladder - mother catheterizes him at home - Depakote and Keppra, w/o recent seizures - neurogenic dysphagia - PEG feedings GERD - PPI Glaucoma - latanoprost DVT prophylaxis - Lovenox Time-Based Coding :: [TOTAL MINUTES] spent with patient and on the chart (including review of chart, obtaining history, exam, reviewing outside data, placing orders, documenting exam and treatment plan, and counseling patient) on [DATE]. Quality VTE Deep Vein Thrombosis/Pulmonary Embolism Present on Admission: No
[2024-01-19 17:51] LABS: Acinetobacter calcoa-baumannii Not Detected (Not Detect); Bacteroides fragilis Not Detected (Not Detect); Candida albicans Not Detected (Not Detect); Candida auris Not Detected (Not Detect); Candida glabrata Not Detected (Not Detect); Candida krusei Not Detected (Not Detect); Candida parapsilosis Not Detected (Not Detect); Candida tropicalis Not Detected (Not Detect); Cryptococcus neoformans/gatti Not Detected (Not Detect); Enterobacter cloacae complex Not Detected (Not Detect); Enterobacterales Not Detected (Not Detect); Enterococcus faecalis Not Detected (Not Detect); Enterococcus faecium Not Detected (Not Detect); Haemophilus influenzae Not Detected (Not Detect); Klebsiella aerogenes Not Detected (Not Detect); Listeria monocytogenes Not Detected (Not Detect); Neisseria meningitidis Not Detected (Not Detect); Proteus species Not Detected (Not Detect); Pseudomonas aeruginosa Not Detected (Not Detect); Salmonella species Not Detected (Not Detect); Serratia marcescens Not Detected (Not Detect); Staphylococcus epidermidis Not Detected (Not Detect); Staphylococcus lugdunensis Not Detected (Not Detect); Staphylococcus species Not Detected (Not Detect); Stenotrophomonas maltophilia Not Detected (Not Detect); Streptococcus agalactiae (Gr B Not Detected (Not Detect); Streptococcus pneumonia Not Detected (Not Detect); Streptococcus pyogenes (Gr A) Not Detected (Not Detect); Streptococcus species Detected (Not Detect)
[2024-01-19] MEDS: cefTRIAXone 2,000 MG in SODIUM CHLORIDE 0.9% 100 ML 200 MG IV (17:55)
[2024-01-19] MEDS: LACTATED RINGERS 1,000 ML 150 ML IV (18:42)
[2024-01-19 20:00] VITALS: BP 143/87; PULSE 136; RESP 20; TEMP 36.8; O2SAT 94
[2024-01-19] MEDS: BACLOFEN 10 MG TABLET 20 MG PO (21:50)
[2024-01-19] MEDS: MIRTAZAPINE 15 MG TABLET PO (21:50)
[2024-01-19] MEDS: DIVALPROEX DR 250 MG TABLET 500 MG PO (21:52)
[2024-01-19] MEDS: LATANOPROST 0.005% OPHTH 2.5 ML 1 DROPS EYE-BOTH (21:54)
[2024-01-19] MEDS: LORazepam 0.5 MG TABLET PO (21:56)
[2024-01-20] VITALS: BP 135/80; PULSE 122; TEMP 36.6; O2SAT 96
[2024-01-20 04:00] VITALS: BP 109/75; PULSE 116; RESP 18; TEMP 36.9; O2SAT 95
--- NOTE | 2024-01-20 06:04 | PM.PN.1 ---
Subjective Subjective Interval history: looks overall much better today, more alert Exam Vital Signs (past 8 hours): - 01/20/24 00:00 01/20/24 04:00 Temperature 98 F 98.5 F Pulse Rate 122 H 116 H Respiratory Rate 18 Blood Pressure 135/80 109/75 Pulse Oximetry 96 95 Oxygen Flow Rate 0 Oxygen Delivery Method Room Air Oxygen Flow Rate 0 Narrative Exam Narrative: general: crawling in bed, eyes open, responding to voice lung: normal effort, clear B/L abd: soft non-tender neuro: non-verbal, no obvious focal deficits Objective Labs 01/20/24 06:32 01/20/24 06:32 Labs: Laboratory Results - last 24 hr 01/18/24 01/19/24 01/19/24 21:43 08:07 16:40 WBC 36.3 H* RBC 3.90 L Hgb 13.2 L Hct 39.7 L MCV 101.8 H MCH 33.9 MCHC 33.3 RDW 13.8 Plt Count 274 Neut % (Auto) Not Reportable Lymph % (Auto) Not Reportable [place] % (Auto) Not Reportable Eos % (Auto) Not Reportable Baso % (Auto) Not Reportable Lymph # (Auto) Not Reportable [place] # (Auto) Not Reportable Baso # (Auto) Not Reportable Total Counted 100 Seg Neutrophils % 81.0 H Band Neutrophils % 3.0 Lymphocytes % (Manual) 12.0 L Monocytes % (Manual) 3.0 Basophils % (Manual) 1.0 Neutrophils # (Manual) 37322 H RBC Morphology See below Macrocytosis 1+ H Sodium 139 Potassium 4.0 Chloride 105 Carbon Dioxide 29 BUN 30 H Creatinine 0.83 Estimated GFR > 60 BUN/Creatinine Ratio 36.1 H Glucose 152 H Calcium 9.1 Total Bilirubin 0.3 AST 22 ALT 15 Alkaline Phosphatase 58 Total Protein 6.3 Albumin 3.3 L Globulin 3.0 Albumin/Globulin Ratio 1.1 A.calcoaceticus-baumannii cmplx PCR Cancelled Not detected Bacteroides fragilis Cancelled Not detected Makenna albicans (PCR) Cancelled Not detected Makenna auris (PCR) Cancelled Not detected C. glabrata (PCR) Cancelled Not detected C. krusei (PCR) Cancelled Not detected C. parapsilosis (PCR) Cancelled Not detected C. tropicalis (PCR) Cancelled Not detected C. neoform/gattii (PCR) Cancelled Not detected Enterobacterales (PCR) Cancelled Not detected E. cloacae complex PCR Cancelled Not detected Enterococc faecalis PCR Cancelled Not detected Enterococc faecium PCR Cancelled Not detected E. coli (PCR) Cancelled Not detected H. influenzae (PCR) Cancelled Not detected Klebsiella aerogenes (PCR) Cancelled Not detected Klebsiella oxytoca PCR Cancelled Not detected Klebsiella pneumoniae Cancelled Not detected List. monocytogenes PCR Cancelled Not detected N. meningitidis (PCR) Cancelled Not detected Proteus species (PCR) Cancelled Not detected Salmonella spp. (PCR) Cancelled Not detected Serratia marcescens PCR Cancelled Not detected Staphylococcus sp PCR Cancelled Not detected Staph aureus (PCR) Cancelled Not detected mecA/C & MREJ Resist Gene Cancelled Not applicable mecA/C-Methicil Resis Gene Cancelled Not applicable mcr-1 [place] Res Gene PCR Cancelled Not applicable Staph epidermidis (PCR) Cancelled Not detected Staph lugdunensis PCR Cancelled Not detected S. maltophilia (PCR) Cancelled Not detected Streptococcus sp PCR Cancelled Detected Group A Strep (PCR) Cancelled Not detected Strep agalactiae (PCR) Cancelled Not detected Strep pneumoniae (PCR) Cancelled Not detected P. aeruginosa (PCR) Cancelled Not detected Lolis/B-Vanco Res Genes Cancelled Not applicable blaIMP Car res Gene PCR Cancelled Not applicable KPC-Carbap Res Gene PCR Cancelled Not applicable blaNDM Car Res Gene PCR Cancelled Not applicable OXA-48 Carbapenem Resis Gene (PCR) Cancelled Not applicable blaVIM Car Res Gene PCR Cancelled Not applicable CTX-M Gene Resistance (PCR) Cancelled Not applicable REPLACED BY [facility] Medical History Prostatitis Intermittent self-catheterization of bladder Benign familial tremor History of developmental delay Cervical spine disease Chicken pox (~1977) Cataracts, bilateral Total blindness Impaired mobility and ADLs Spastic quadriplegia Neurogenic bladder Hydrocephalus, adult Leukomalacia, periventricular Cerebral atrophy Cerebellar atrophy Agenesis of corpus callosum Seizure disorder Recurrent UTI Urinary retention Cervical vertebral fusion Surgical History Anesthesia S/P percutaneous endoscopic gastrostomy (PEG) tube placement History of thoracic spinal fusion Family History Mother Hyperlipidemia Autoimmune disorder Gout Irritable bowel syndrome History of Graves' disease Sister Multiple myeloma History of kidney cancer History of Graves' disease Grandfather Diabetes mellitus Grandmother Alcoholism Tuberculosis Brother Irritable bowel syndrome Social History marital status: unmarried,single household members: family Smoking Status: Never smoker alcohol intake: current caffeine: Yes Assessment & Plan Assessment & Plan narrative: From the ED: 48-year-old male with history severe cerebral palsy, chair bound, nonverbal at baseline presents by private vehicle with his mother for evaluation of fever at home and possible UTI. Patient has neurogenic bladder and is straight cath by family. She states that patient has been having foul-smelling urine for the last 3 weeks, and 3 days of back pain and fever with ?crankiness?. She states that they has been trying to follow up with Urology for the last 3 weeks about evaluation of possible urinary tract infection. They were supposed to have an appointment today, however the office called and canceled the appointment due to lack of staff. On admission aphasic, sleepy, mother confirmed the above. Patient improving with therapies #Gram Positive Bacteremia #UTI -D/C ceftriaxone, start vancomycin -Will wait for cultures to finalize #Cerebral Atrophy / Epilepsy - spastic quadriplegia, Baclofen - neurogenic bladder - mother catheterizes him at home - Chandrika, w/o recent seizures - neurogenic dysphagia - PEG feedings GERD - PPI Glaucoma - latanoprost DVT prophylaxis - Lovenox Time-Based Coding :: [TOTAL MINUTES] spent with patient and on the chart (including review of chart, obtaining history, exam, reviewing outside data, placing orders, documenting exam and treatment plan, and counseling patient) on [DATE]. Quality VTE Deep Vein Thrombosis/Pulmonary Embolism Present on Admission: No
[2024-01-20 06:45] LABS: Add Manual Diff / Slide Review NO; Basophils Absolute Auto 100 /uL (0-100); Basophils Percent Auto 0.4 % (0-2); Eosinophils Absolute Auto 0 /uL (0-450); Eosinophils Percent Auto 0.2 % (2-4); Hemoglobin 13.5 g/dL (13.5-17.5); Lymphocytes Absolute Auto 2200 /uL (1100-4500); Lymphocytes Percent Auto 10.7 % (25-40); Mean Corpuscular HGB Conc 33.7 % (30-36); Mean Corpuscular Hemoglobin 34.3 PG (26-34); Mean Corpuscular Volume 101.7 fL (80-100); Monocytes Absolute Auto 800 /uL (0-900); Monocytes Percent Auto 3.7 % (3-14); Neutrophils Absolute Auto 17800 /uL (1500-7000); Platelet Count 279 X10^3/uL (150-400); Red Blood Cell Count 3.93 X10^6/uL (4.5-5.9); Red Cell Distribution Width 13.5 % (11.6-14.8); White Blood Cell Count 20.9 X10^3/uL (4.5-11.0)
[2024-01-20 07:01] LABS: BUN Creatinine Ratio 29.3 (6-22); Blood Urea Nitrogen 22 mg/dL (9-20); Calcium 9.3 mg/dL (8.4-10.2); Carbon Dioxide 30 mmol/L (22-32); Chloride 106 mmol/L (98-107); Estimated Glomerular Filt Rate > 60 mL/min (>60); Glucose 90 mg/dL (70-100); HEMOLYSIS < 15 (0-50); Potassium 4.1 mmol/L (3.4-5.1); Sodium 139 mmol/L (137-145)
[2024-01-20 08:00] VITALS: BP 114/81; PULSE 112; RESP 16; TEMP 37.1; O2SAT 94
[2024-01-20] MEDS: ENOXAPARIN 40 MG/0.4 ML SYRINGE SUBCUT (08:56)
[2024-01-20] MEDS: DIVALPROEX DR 250 MG TABLET 750 MG PO (08:56)
[2024-01-20] MEDS: BACLOFEN 10 MG TABLET PO (08:57)
[2024-01-20] MEDS: ACETAMINOPHEN 325 MG TABLET PO ×2 (08:57→20:58)
[2024-01-20] MEDS: levETIRAcetam 250 MG TABLET 750 MG PO ×2 (08:57→20:58)
[2024-01-20 12:00] VITALS: BP 123/81; PULSE 106; RESP 15; TEMP 36.6; O2SAT 99
[2024-01-20] MEDS: VANCOMYCIN 750 MG/150 ML PIGGYBACK 150 MG IV (13:55)
[2024-01-20 16:00] VITALS: BP 141/77; PULSE 113; RESP 24; TEMP 36.9; O2SAT 88
[2024-01-20] MEDS: LACTATED RINGERS 1,000 ML 150 ML IV (16:10)
[2024-01-20] MEDS: cefTRIAXone 1,000 MG in SODIUM CHLORIDE 0.9% 100 ML 200 MG IV (18:27)
--- NOTE | 2024-01-20 18:31 | CM.DANOTE ---
DCP Assessment Note: Pt is a48yo male, resident of [place], is admitted for UTI, sepsis. Pt lives in a house with his mother who is his paid caregiver through [facility]. Pt's Primary Care Provider is Dr. Prateek Mccauley and insurance is Medicare and [employer]. Reviewed chart and team rounds for pt's medical status and initial discharge needs. Due to pt's nonverbal baseline, DCP completed discharge assessment with pt's DPOA/mother, Gabriela; introduced self and role. Pt caregiver confirmed living situation and pt having all care needs met by herself and her two adult children. Pt caregiver discussed preference of returning home when medically stable, hoping for oral antibiotics, pending culture results. Pt caregiver hopeful for referral from PCP for urology consult for ongoing care. Pt caregiver denied any other referrals, declined need for HH referral, we already have a good system, adding on someone new might change the routine. Plan: Anticipating discharge home with family when medically stable. CM team will follow closely for coordination of discharge plans, possible home IV referral if prescribed. MARILYN Alvarado Discharge Planning/Care Management Advanced directive, confirm from FAMILY Start: 01/19/24 00:21 Freq: Q24H Status: Complete Protocol: Document 01/19/24 00:26 MW (Rec: 01/19/24 00:27 MW [id number]) Advance Directive, confirm on record Time 00:26 Person contacted Family Copy received No CM Discharge Assessment Start: 01/20/24 18:23 Freq: Status: Active Protocol: Document 01/20/24 18:23 MW(2) (Rec: 01/20/24 18:29 MW(2) [id number]) Discharge Planning Assessment Assigned Crushed Stone Grader CARY Parrish DPOA/Assigned Designee Name Gabriela Weber, Mother/CG Contact Information [phone] Advance Directives? Yes Advance Directives on File No History Provided By Parents,Medical Record Prior Living Arrangements House Household Members family,caregiver Type of transporation used prior to Relies on Others admit Independent with ADL's No Is patient alert and oriented? No Needs Assistance With Bathing,Eating,Grooming,Meal Prep,Toileting,Managing Medications,Home Chores / Shopping Caregiver for Another No DME Already Rented / Owned Hospital Bed,Wheelchair,Other Comment PEG feeding equipment Patient/Family Preference Home with Home Health Comment Mother is paid caregiver. Barriers to Discharge No Discharge Plan Home Transportation Arrangement Family Additional Comment Possible home IV referral. Whiteboard Updated in Patient Room with Yes name and ext. # of Crushed Stone Grader Please Provide Date Initial DC 01/20/24 Assessment Was Performed Next Review Type Continued Stay Review
[2024-01-20 20:00] VITALS: PULSE 75; RESP 18; O2SAT 99
[2024-01-20] MEDS: DIVALPROEX DR 250 MG TABLET 500 MG PO (20:58)
[2024-01-20] MEDS: LATANOPROST 0.005% OPHTH 2.5 ML 1 DROPS EYE-BOTH (20:59)
[2024-01-20] MEDS: BACLOFEN 10 MG TABLET 20 MG PO (20:59)
[2024-01-20] MEDS: MIRTAZAPINE 15 MG TABLET PO (20:59)
[2024-01-21] VITALS: PULSE 87; RESP 20; O2SAT 97
[2024-01-21] MEDS: LACTATED RINGERS 1,000 ML 150 ML IV (03:03)
[2024-01-21 06:39] LABS: Add Manual Diff / Slide Review NO; Basophils Absolute Auto 0 /uL (0-100); Basophils Percent Auto 0.2 % (0-2); Eosinophils Absolute Auto 100 /uL (0-450); Eosinophils Percent Auto 0.7 % (2-4); Hematocrit 41.4 % (41-53); Lymphocytes Absolute Auto 2300 /uL (1100-4500); Lymphocytes Percent Auto 17.3 % (25-40); Mean Corpuscular HGB Conc 33.8 % (30-36); Mean Corpuscular Hemoglobin 34.1 PG (26-34); Mean Corpuscular Volume 100.9 fL (80-100); Monocytes Absolute Auto 800 /uL (0-900); Monocytes Percent Auto 5.8 % (3-14); Neutrophils Absolute Auto 9900 /uL (1500-7000); Platelet Count 297 X10^3/uL (150-400); Red Cell Distribution Width 13.6 % (11.6-14.8); White Blood Cell Count 13.1 X10^3/uL (4.5-11.0)
[2024-01-21 07:02] LABS: BUN Creatinine Ratio 22.2 (6-22); Blood Urea Nitrogen 16 mg/dL (9-20); Calcium 9.7 mg/dL (8.4-10.2); Carbon Dioxide 27 mmol/L (22-32); Chloride 104 mmol/L (98-107); Estimated Glomerular Filt Rate > 60 mL/min (>60); Glucose 87 mg/dL (70-100); HEMOLYSIS < 15 (0-50); Sodium 140 mmol/L (137-145)
[2024-01-21 08:00] VITALS: BP 134/74; PULSE 101; RESP 20; TEMP 36.7; O2SAT 96
[2024-01-21] MEDS: DIVALPROEX DR 250 MG TABLET 750 MG PO (08:49)
[2024-01-21] MEDS: levETIRAcetam 250 MG TABLET 750 MG PO (08:50)
[2024-01-21] MEDS: ACETAMINOPHEN 325 MG TABLET PO (08:50)
[2024-01-21] MEDS: TAMSULOSIN 0.4 MG CAPSULE 0.8 MG PO (08:52)
[2024-01-21] MEDS: BACLOFEN 10 MG TABLET PO (08:52)
[2024-01-21] MEDS: ENOXAPARIN 40 MG/0.4 ML SYRINGE SUBCUT (08:53)
--- NOTE | 2024-01-21 09:56 | P.DS_ITS ---
History of Present Illness History of Present Illness Date Patient Seen: 01/21/24 Time Patient Seen: 07:55 Date of Onset of Symptoms: 01/18/24 Chief complaint: UTI Narrative: From the ED: 48-year-old male with history severe cerebral palsy, chair bound, nonverbal at baseline presents by private vehicle with his mother for evaluation of fever at home and possible UTI. Patient has neurogenic bladder and is straight cath by family. She states that patient has been having foul-smelling urine for the last 3 weeks, and 3 days of back pain and fever with ?crankiness?. She states that they has been trying to follow up with Urology for the last 3 weeks about evaluation of possible urinary tract infection. They were supposed to have an appointment today, however the office called and canceled the appointment due to lack of staff. On admission aphasic, sleepy, mother confirmed the above. Discharge Providers Provider Date of admission: 01/18/24 23:33 Discharge Date: 01/21/24 Primary care physician: Prateek Mccauley MD Consults: 01/19/24 00:20 Consult to Dietitian, Adult Routine Comment: Reason For Exam: g-tube + cerebral palsy Discharge provider: Prateek Mccauley MD Summary Hospital Course Discharge Diagnosis: 1. Urinary tract infection due to MDR E coli 2. Gram-positive positive 1/2 blood culture positive for Streptococcus mitis, presumed contaminant 3. Spastic quadriplegia 4. GERD 5. Glaucoma 6. Chronic urinary retention, chronically intermittent catheterization Hospital Course: The patient was admitted start IV fluids and broad-spectrum IV antibiotics. He improved significantly to baseline within 24-48 hours. And out of 2 blood cultures returned positive for Streptococcus species, due to a presumed contaminant. He was changed to oral antibiotics at discharge. No other issues arose. His mother was comfortable taking him home with ongoing out urinary catheterization. 000s. Status at Discharge Cognitive/behavioral status at discharge: at baseline, confused Functional status at discharge: wheelchair bound Overall status at discharge: patient is back to baseline Time Spent with Patient Time spent: Less than 30 minutes Exam Vital Signs (past 8 hours): - 01/21/24 08:00 Temperature 98.0 F Pulse Rate 101 H Respiratory Rate 20 Blood Pressure 134/74 Pulse Oximetry 96 Oxygen Flow Rate 0 Oxygen Delivery Method Room Air Oxygen Flow Rate 0 Narrative Exam Narrative: general: Lying in bed, eyes open, responding to voice lung: normal effort, clear B/L abd: soft non-tender neuro: non-verbal, no obvious focal deficits, chronic spastic quadriplegia Objective Labs 01/21/24 05:30 01/21/24 05:30 Labs: Laboratory Results - last 24 hr 01/21/24 05:30 WBC 13.1 H RBC 4.10 L Hgb 14.0 Hct 41.4 MCV 100.9 H MCH 34.1 H MCHC 33.8 RDW 13.6 Plt Count 297 Neut % (Auto) 76.0 H Lymph % (Auto) 17.3 L [place] % (Auto) 5.8 Eos % (Auto) 0.7 L Baso % (Auto) 0.2 Neut # (Auto) 9900 H Lymph # (Auto) 2300 [place] # (Auto) 800 Eos # (Auto) 100 Baso # (Auto) 0 Sodium 140 Potassium 4.0 Chloride 104 Carbon Dioxide 27 BUN 16 Creatinine 0.72 Estimated GFR > 60 BUN/Creatinine Ratio 22.2 H Glucose 87 Calcium 9.7 PFSH Medical History Prostatitis Intermittent self-catheterization of bladder Benign familial tremor History of developmental delay Cervical spine disease Chicken pox (~1977) Cataracts, bilateral Total blindness Impaired mobility and ADLs Spastic quadriplegia Neurogenic bladder Hydrocephalus, adult Leukomalacia, periventricular Cerebral atrophy Cerebellar atrophy Agenesis of corpus callosum Seizure disorder Recurrent UTI Urinary retention Cervical vertebral fusion Surgical History Anesthesia S/P percutaneous endoscopic gastrostomy (PEG) tube placement History of thoracic spinal fusion Family History Mother Hyperlipidemia Autoimmune disorder Gout Irritable bowel syndrome History of Graves' disease Sister Multiple myeloma History of kidney cancer History of Graves' disease Grandfather Diabetes mellitus Grandmother Alcoholism Tuberculosis Brother Irritable bowel syndrome Social History marital status: unmarried,single household members: family and caregiver Smoking Status: Never smoker alcohol intake: current caffeine: Yes Discharge Plan Discharge Plan Patient Disposition: Home Provider Discharge Comment: followup with next week Discharge orders & Medications Prescriptions: New cefuroxime axetil 500 mg tablet 500 mg PO BID Qty: 20 0RF Continued mirtazapine 15 MG tablet 15 mg PO HS Qty: 0 latanoprost 0.005 % Drops 1 drp OPHTH HS Qty: 2.5 acetaminophen 500 mg Tablet 500 mg PO BID Qty: 0 baclofen 10 mg tablet 10 mg PO 3XD Qty: 90 3RF Disabled Parking Permit 1 ea Not Applicable DAILY Qty: 1 0RF ascorbic acid (vitamin C) 500 mg tablet 500 mg PO DAILY folic acid 400 mcg tablet 200 mcg PO DAILY Nutren 2.0 0.08 gram-2 kcal/mL liquid 1 ea feeding tube BID Patient Comments: NUTRIN 2 pantopraz[address] for susp in packet 40 mg PO DAILY 30 Days Qty: 30 11RF clonazepam 1 mg tablet 1.5 mg PO 2XD divalproex 500 mg Tablet,Delayed Release (Dr/Ec) 500 mg PO BID meloxicam 15 mg tablet 15 mg PO QACLUNCH Valtoco 10 mg/spray (0.1 mL) spray,non-aerosol 10 mg intranasal PRN PRN (Reason: Seizure Activity) Follow up/Referrals: Prateek Mccauley MD [Primary Care Provider] - Visit Report/Discharge Packet Stand Alone Forms: Patient Portal/API, Stroke Signs & Symptoms Discharge Data Primary Care Provider: Prateek Mccauley V Quality VTE Deep Vein Thrombosis/Pulmonary Embolism Present on Admission: No MIPS - Admit I confirm the patient?s Advance Care Plan is present, Code status is documented, Surrogate decision maker is in patient?s record [If Yes, STOP here]: Yes MIPS - Meds 'Current medications' to include all prescriptions, [id number] products, herbals, cannabis/cannabidiol products, and vitamin/mineral/dietary (nutritional) supplements. I have utilized all available resources to obtain, update, or review the patient?s current medications. [If Yes, STOP here]: Yes MIPS - DC The patient has a history of heart transplant or Left Ventricular Assist Device (LVAD). If yes, STOP here.: No The patient has current or prior documentation of left ventricular ejection fraction (LVEF) less than or equal to 40%, or moderate or severely depressed left ventricular systolic function.: No A. The patient was prescribed or already taking an Angiotensin-Converting Enzyme (GEORGE) Inhibitor, or Angiotensin Receptor Arlene (ARB).: No B. The patient was prescribed or already taking a beta-arlene. [If Yes to Both A & B, STOP here]: No Patient not prescribed/taking GEORGE or ARB, no reason given.: No Patient not prescribed/taking beta-arlene, no reason given.: No PROFEE Charge Codes Discharge inpatient/observation: 13801
--- NOTE | 2024-01-21 14:54 | CM.DPNOTE ---
DC Note Discharge home today w/family, close outpatient follow up. No need for ongoing IV abx according to Dr Cardenas. No needs identified from this CM team. SUDEEP
--- NOTE | 2024-01-21 16:22 | PC.NURSE ---
Discharge: Pt d/c to home via auto with mother. Did observe in and out cath by mother. She did procedure using correct technique
== END 2024-01-21 15:30 | disposition home or self-care (01) | DRG 871 ==
LOC: ED 20:52 → AC 01-19 00:02
PROVIDERS: Student in an Organized Health Care Education/Training Program; Admitting Provider Internal Medicine; Emergency Provider Emergency Medicine; Family Provider Internal Medicine; PCP Internal Medicine; Referring Provider Emergency Medicine; Visit Provider Internal Medicine
DX: A41.9 Sepsis, unspecified organism (principal); G80.0 Spastic quadriplegic cerebral palsy; Q04.0 Congenital malformations of corpus callosum; N39.0 Urinary tract infection, site not specified; G91.9 Hydrocephalus, unspecified; N31.9 Neuromuscular dysfunction of bladder, unspecified; G40.909 Epilepsy, unspecified, not intractable, without status epilepticus; K21.9 Gastro-esophageal reflux disease without esophagitis; G31.9 Degenerative disease of nervous system, unspecified; B96.20 Unspecified Escherichia coli [E. coli] as the cause of diseases classified elsewhere; H40.9 Unspecified glaucoma; R33.9 Retention of urine, unspecified; Z87.440 Personal history of urinary (tract) infections; Z74.09 Other reduced mobility; Z93.1 Gastrostomy status
CPT/HCPCS: 36415; 36592; 71045; 80048; 80053; 81001; 83605; 84145; 85007; 85025; 87040; 87077; 87086; 87154; 87186; 93005; 96365; 99284; 99285; J0696; J1650

== ENCOUNTER → 2024-02-18 17:51 | Outpatient (CLI) | payer MEDICARE, OTHER, MEDICAID, SELFPAY ==
[2024-01-19 00:12] VITALS: BMI 17.6
[2024-02-18 18:38] LABS: Appearance Urine UA CLOUDY; Bilirubin Urine UA NEGATIVE (NEGATIVE); Color Urine UA YELLOW; Glucose Urine UA NEGATIVE (Negative); Ketones Urine UA NEGATIVE (NEGATIVE); Leukocyte Esterase Urine UA 3+ (NEGATIVE); Nitrite Urine UA POSITIVE (Negative); Occult Blood Urine UA 2+ (Negative); Protein Urine UA NEGATIVE (Negative); Urobilinogen Urine UA 0.2 E.U./dL (0.2)
[2024-02-18 19:21] LABS: Bacteria Urine Many (>30); Culture Indicated Urine Specimen Cultured; RBC Urine 1-5/HPF (0-5/HPF); Squamous Epithelial Cell Urine 1-5 /HPF (0-5/HPF); Urine Volume 10mL (spun); WBC Urine >100/HPF (0-5/HPF)
== END ==
PROVIDERS: Family Provider Internal Medicine; PCP Internal Medicine; Referring Provider Internal Medicine; Visit Provider Internal Medicine
DX: N41.9 Inflammatory disease of prostate, unspecified (principal)
CPT/HCPCS: 81001; 87077; 87086; 87186

== ENCOUNTER → 2024-02-28 15:48 | Outpatient (CLI) | payer MEDICARE, OTHER, MEDICAID, SELFPAY ==
[2024-02-28 16:21] LABS: Add Manual Diff / Slide Review NO; Basophils Absolute Auto 0 /uL (0-100); Basophils Percent Auto 0.2 % (0-2); Eosinophils Absolute Auto 0 /uL (0-450); Eosinophils Percent Auto 0.1 % (2-4); Hematocrit 47.3 % (41-53); Hemoglobin 15.7 g/dL (13.5-17.5); Lymphocytes Absolute Auto 1300 /uL (1100-4500); Lymphocytes Percent Auto 11.4 % (25-40); Mean Corpuscular HGB Conc 33.3 % (30-36); Mean Corpuscular Hemoglobin 33.9 PG (26-34); Mean Corpuscular Volume 101.8 fL (80-100); Monocytes Absolute Auto 600 /uL (0-900); Monocytes Percent Auto 5.8 % (3-14); Neutrophils Absolute Auto 9100 /uL (1500-7000); Neutrophils Percent Auto 82.5 % (50-75); Platelet Count 330 X10^3/uL (150-400); Red Blood Cell Count 4.64 X10^6/uL (4.5-5.9); Red Cell Distribution Width 13.7 % (11.6-14.8)
[2024-02-28 16:50] LABS: Ammonia (NH3) 10 umol/L (9-30)
[2024-02-28 17:19] LABS: Alanine Aminotransferase 18 IU/L (<50); Albumin 4.4 g/dL (3.5-5.0); Albumin Globulin Ratio 1.4 (1.0-2.8); Alkaline Phosphatase 68 U/L (38-126); Aspartate Aminotransferase 23 IU/L (17-59); BUN Creatinine Ratio 38.6 (6-22); Bilirubin Total 0.4 mg/dL (0.2-1.3); Blood Urea Nitrogen 34 mg/dL (9-20); Calcium 10.2 mg/dL (8.4-10.2); Carbon Dioxide 32 mmol/L (22-32); Chloride 98 mmol/L (98-107); Estimated Glomerular Filt Rate > 60 mL/min (>60); Globulin 3.2 g/dL (1.7-4.1); Glucose 230 mg/dL (70-100); HEMOLYSIS < 15 (0-50); Potassium 4.9 mmol/L (3.4-5.1); Sodium 139 mmol/L (137-145); Total Protein 7.6 g/dL (6.3-8.2)
[2024-03-01 01:08] LABS: Valproic Acid (Depakene) Total 14 ug/mL (50-100)
== END ==
PROVIDERS: Family Provider Internal Medicine; PCP Internal Medicine; Referring Provider Internal Medicine; Visit Provider Internal Medicine
DX: Z51.81 Encounter for therapeutic drug level monitoring (principal); R79.89 Other specified abnormal findings of blood chemistry; G40.319 Generalized idiopathic epilepsy and epileptic syndromes, intractable, without status epilepticus; E55.9 Vitamin D deficiency, unspecified
CPT/HCPCS: 36415; 80053; 80164; 80177; 82140; 82308; 85025

== ENCOUNTER → 2024-03-16 14:15 | Outpatient (CLI) | payer MEDICARE, OTHER, MEDICAID, SELFPAY ==
[2024-03-19 19:43] LABS: Appearance Urine UA CLOUDY; Bilirubin Urine UA NEGATIVE (NEGATIVE); Color Urine UA YELLOW; Glucose Urine UA NEGATIVE (Negative); Ketones Urine UA NEGATIVE (NEGATIVE); Leukocyte Esterase Urine UA 3+ (NEGATIVE); Nitrite Urine UA POSITIVE (Negative); Occult Blood Urine UA 2+ (Negative); Protein Urine UA NEGATIVE (Negative); Urobilinogen Urine UA 0.2 E.U./dL (0.2); pH Urine UA 5.5 (4.5-8.0)
[2024-03-19 19:50] LABS: Bacteria Urine Many (>30); Culture Indicated Urine Specimen Cultured; RBC Urine 1-5/HPF (0-5/HPF); Squamous Epithelial Cell Urine 5-10 /HPF (0-5/HPF); Urine Volume 10mL (spun); WBC Urine 30-100/HPF (0-5/HPF)
== END ==
PROVIDERS: Family Provider Internal Medicine; PCP Internal Medicine; Referring Provider Internal Medicine; Visit Provider Internal Medicine
DX: N41.9 Inflammatory disease of prostate, unspecified (principal)
CPT/HCPCS: 81001; 87077; 87086; 87186

== ENCOUNTER 2024-05-22 22:30 | Emergency (ER) | payer MEDICARE, OTHER, MEDICAID, SELFPAY ==
[2024-05-22 22:32] VITALS: BP 206/75; PULSE 87; RESP 18; TEMP 36.8; O2SAT 99
--- NOTE | 2024-05-22 23:55 | ED.FALL ---
HPI - Fall General Chief Complaint: Fall Stated Complaint: Fell from Cot, Hit Chin Time Seen by Provider: 05/22/24 23:21 Source: family Mode of arrival: Wheelchair History of Present Illness HPI Narrative: Patient was a 48-year-old male. Has a history of quadriplegia. Here for evaluation of a cut to his chin. Per family the patient fell from his cot and hit his chin causing a small laceration. Related Data Home Medications Medication Instructions Recorded Confirmed latanoprost 0.005 % eye drops 1 drp OPHTH HS #2.5 mL 02/14/12 02/28/24 mirtazapine 15 mg tablet 15 mg PO HS ##0 02/14/12 02/28/24 acetaminophen 500 mg tablet 500 mg PO BID ##0 01/20/13 02/28/24 ascorbic acid (vitamin C) 500 mg 500 mg PO DAILY 05/29/22 02/28/24 tablet clonazepam 1 mg tablet 1.5 mg PO 2XD 05/29/22 02/28/24 folic acid 400 mcg tablet 200 mcg PO DAILY 05/29/22 02/28/24 nutritional supplements 0.08 1 ea feeding tube BID 05/29/22 02/28/24 gram-2 kcal/mL liquid for tube feed (Nutren 2.0) divalproex 500 mg tablet,delayed 500 mg PO BID 03/22/23 02/28/24 release diazepam 10 mg/spray (0.1 mL) 10 mg intranasal PRN PRN Seizure 01/19/24 02/28/24 nasal spray (Valtoco) Activity meloxicam 15 mg tablet 15 mg PO QACLUNCH 01/19/24 02/28/24 Previous Rx's Medication Instructions Recorded pantoprazole 40 mg granules 40 mg PO DAILY 30 days #30 ea 04/28/23 delayed-release for susp in packet Disabled Parking Permit 1 ea Not Applicable DAILY #1 ea 10/11/23 baclofen 10 mg tablet 10 mg PO 3XD #90 tabs 02/14/24 cefuroxime axetil 500 mg tablet 500 mg PO BID UTI #20 tabs 03/20/24 Allergies Allergy/AdvReac Type Severity Reaction Status Date / Time codeine Allergy Intermediate FACIAL Verified 02/28/24 15:11 SWELLING, RASH phenobarbital Allergy Unknown unknow Verified 02/28/24 15:11 methenamine AdvReac Mild yeast Verified 02/28/24 15:11 infection Review of Systems Review of Systems Narrative: Provided by family Patient History Medical History Prostatitis Intermittent self-catheterization of bladder Benign familial tremor History of developmental delay Cervical spine disease Chicken pox (~1977) Cataracts, bilateral Total blindness Impaired mobility and ADLs Spastic quadriplegia Neurogenic bladder Hydrocephalus, adult Leukomalacia, periventricular Cerebral atrophy Cerebellar atrophy Agenesis of corpus callosum Seizure disorder Recurrent UTI Urinary retention Cervical vertebral fusion Surgical History Anesthesia S/P percutaneous endoscopic gastrostomy (PEG) tube placement History of thoracic spinal fusion Family History Mother Hyperlipidemia Autoimmune disorder Gout Irritable bowel syndrome History of Graves' disease Sister Multiple myeloma History of kidney cancer History of Graves' disease Grandfather Diabetes mellitus Grandmother Alcoholism Tuberculosis Brother Irritable bowel syndrome Social History marital status: unmarried,single household members: family and caregiver Smoking Status: Never smoker alcohol intake: current caffeine: Yes Smoking Status: Never smoker alcohol intake frequency: holidays/special occasions only Exam Initial Vital Signs Initial Vital Signs: Vital Signs Temperature 98.2 F 05/22/24 22:32 Pulse Rate 87 05/22/24 22:32 Respiratory Rate 18 05/22/24 22:32 Blood Pressure 206/75 H 05/22/24 22:32 Pulse Oximetry 99 05/22/24 22:32 Oxygen Delivery Method Room Air 05/22/24 22:32 Skin Other: 1 cm laceration to chin Procedures Laceration Repair Laceration 1: Site: face (Chin) Size (cm): 1 Description: linear Depth: simple, single layer Skin layer closed with: other (Chromic) Skin layer suture size: 4-0 Number of sutures: 1 Technique: simple, interrupted Course Orders Ordered: Discontinued Medications Bacitracin (Bacitracin Oint 0.9 Gm Pckt) 1 applic TOP NOW ONE Stop: 05/23/24 00:03 Last Admin: 05/23/24 00:08 Dose: 1 applic Documented By: SHAGGY Vital Signs Vital signs: Vital Signs - 8 hr 05/22/24 22:32 Temperature 98.2 F Pulse Rate 87 Respiratory Rate 18 Blood Pressure 206/75 H Pulse Oximetry 99 Oxygen Delivery Method Room Air MDM - Fall MDM Narrative Medical decision making narrative: Discussed options for repair and after this discussion we opted on a stitch. One stitch was placed without difficulty. It was absorbable so does not need to be removed on its own. We discussed return precautions and follow-up instructions. Family expressed understanding and agreement. Discharge Plan Departure Patient Disposition: Home Clinical Impression: Chin laceration Instructions: DI for Laceration Repair Activity Restrictions/Additional Instructions: The stitch that was placed today will dissolve on its own. You can over the area with an antibiotic ointment. Return to the emergency department for new symptoms. Prescriptions: No Action mirtazapine 15 MG tablet 15 mg PO HS Qty: 0 latanoprost 0.005 % Drops 1 drp OPHTH HS Qty: 2.5 acetaminophen 500 mg Tablet 500 mg PO BID Qty: 0 Disabled Parking Permit 1 ea Not Applicable DAILY Qty: 1 0RF baclofen 10 mg tablet 10 mg PO 3XD Qty: 90 3RF cefuroxime axetil 500 mg tablet 500 mg PO BID Qty: 20 1RF ascorbic acid (vitamin C) 500 mg tablet 500 mg PO DAILY folic acid 400 mcg tablet 200 mcg PO DAILY Nutren 2.0 0.08 gram-2 kcal/mL liquid 1 ea feeding tube BID Patient Comments: NUTRIN 2 pantoprazole [address] for susp in packet 40 mg PO DAILY 30 Days Qty: 30 11RF clonazepam 1 mg tablet 1.5 mg PO 2XD divalproex 500 mg Tablet,Delayed Release (Dr/Ec) 500 mg PO BID meloxicam 15 mg tablet 15 mg PO QACLUNCH Valtoco 10 mg/spray (0.1 mL) spray,non-aerosol 10 mg intranasal PRN PRN (Reason: Seizure Activity) Referrals: Prateek Mccauley MD [Primary Care Provider] - Stand Alone Forms: Patient Portal/API/Survey
[2024-05-23] MEDS: BACITRACIN OINT 0.9 GM PCKT 1 APPLIC TOP (00:08)
== END 2024-05-23 00:15 | disposition home or self-care (01) ==
PROVIDERS: Emergency Provider Emergency Medicine; Family Provider Internal Medicine; PCP Internal Medicine
DX: S01.81XA Laceration without foreign body of other part of head, initial encounter (principal); W19.XXXA Unspecified fall, initial encounter; Z74.09 Other reduced mobility; G82.50 Quadriplegia, unspecified
CPT/HCPCS: 12011; 99282

== ENCOUNTER → 2024-11-16 15:42 | Outpatient (CLI) | payer MEDICARE, OTHER, MEDICAID, SELFPAY ==
[2024-11-15 09:12] VITALS: BMI 17.6
[2024-11-16 17:17] LABS: Hematocrit 46.9 % (41-53); Hemoglobin 15.5 g/dL (13.5-17.5); Mean Corpuscular HGB Conc 33.1 % (30-36); Mean Corpuscular Hemoglobin 33.3 PG (26-34); Mean Corpuscular Volume 100.7 fL (80-100); Platelet Count 240 X10^3/uL (150-400)
[2024-11-16 17:44] LABS: Alanine Aminotransferase 13 IU/L (<50); Albumin 4.1 g/dL (3.5-5.0); Albumin Globulin Ratio 1.2 (1.0-2.8); Alkaline Phosphatase 66 U/L (38-126); Blood Urea Nitrogen 42 mg/dL (9-20); Calcium 9.7 mg/dL (8.4-10.2); Carbon Dioxide 35 mmol/L (22-32); Chloride 101 mmol/L (98-107); Estimated Glomerular Filt Rate > 60 mL/min (>60); Globulin 3.5 g/dL (1.7-4.1); Glucose 107 mg/dL (70-99); HEMOLYSIS < 15 (0-50); Potassium 5.0 mmol/L (3.4-5.1); Sodium 143 mmol/L (137-145); Total Protein 7.6 g/dL (6.3-8.2)
[2024-11-16 17:47] LABS: Hemoglobin A1C% w Est Avg Glu 4.9 % (4.0-6.0)
[2024-11-16 18:17] LABS: TSH w/ Reflex to FT4 1.62 uIU/mL (0.47-4.68)
[2024-11-17 21:39] LABS: Valproic Acid (Depakene) Total 51 ug/mL (50-100)
[2024-11-21 01:10] LABS: Levetiracetam Keppra 66.3 ug/mL (10.0-40.0)
== END ==
PROVIDERS: Family Provider Internal Medicine; PCP Internal Medicine; Referring Provider Internal Medicine; Visit Provider Internal Medicine
DX: G82.50 Quadriplegia, unspecified (principal); R73.01 Impaired fasting glucose; G40.909 Epilepsy, unspecified, not intractable, without status epilepticus; Z12.5 Encounter for screening for malignant neoplasm of prostate
CPT/HCPCS: 36415; 80053; 80164; 80177; 83036; 84443; 85027; G0103

== ENCOUNTER 2025-04-22 04:46 | Inpatient (IN) | payer MEDICARE, OTHER, MEDICAID, SELFPAY ==
[2024-11-15 09:12] VITALS: BMI 17.6
[2025-04-22] VITALS (73 sets, daily range): BP systolic 78–232; BP diastolic 37–147; PULSE 72–231; RESP 15–57; TEMP 30.9–38.1; O2SAT 89–100; BMI 17.6
--- NOTE | 2025-04-22 05:08 | DI.RAD.S_ITS ---
PROCEDURE: XR CHEST 1V INDICATIONS: fever TECHNIQUE: One view of the chest was acquired. COMPARISON: [facility], CR, XR CHEST 1V, 01/18/2024, 21:40. FINDINGS: Surgical changes and devices: Changes of long segment Shipley jorge l fixation of the spine with bilateral fractured rods unchanged from 2023. Partially visualized inferior cervical fixation plate. Lungs and pleura: Moderate lung volumes to corresponding increased prominence of the pulmonary interstitial markings..No pleural effusions or pneumothorax. Mediastinum: Mediastinal contours appear normal. Heart size is normal. Bones and chest wall: No suspicious bony lesions. Overlying soft tissues appear unremarkable. IMPRESSION: No acute cardiopulmonary abnormality is seen. Dictated by: Leo Hernandez M.D. on 04/22/2025 at 8:19 Approved by: Leo Hernandez M.D. on 04/22/2025 at 8:24
--- NOTE | 2025-04-22 05:23 | ED_ITS ---
HPI - General Adult <Trevor Ackerman MD - Last Filed: 04/23/25 00:30> General Chief complaint: Urogenital-Male Stated complaint: Fevers, Poss UTI Time Seen by Provider: 04/22/25 04:47 Source: family Mode of arrival: Wheelchair History of Present Illness HPI narrative: 49-year-old male lives at home with caregiver family, history of corpus callosum agenesis, spastic quadriplegia, adult hydrocephalus, cerebral and cerebellar atrophy, peg tube feeds, recurrent urinary tract infections, seizure disorder. Mother does self catheterization bladder, no chronic indwelling or suprapubic urinary catheter, last urine infection March 2024 treated with cefpodoxime, tablets crushed up administered through feeding tube. Noted to have hematuria and intermittent clots in last catheterization, concern for possible urine infection, seems more agitated, frequent moaning. Mother believes he might have had a kidney stone in the past. Related Data Home Medications ?Medication ?Instructions ?Recorded ?Confirmed latanoprost 0.005 % eye drops 1 drp OPHTH HS #2.5 mL 1 04/22/25 acetaminophen 500 mg tablet 500 mg PO BID ##0 01/20/13 04/22/25 ascorbic acid (vitamin C) 500 mg 500 mg PO DAILY 05/2904/22/25 tablet folic acid 400 mcg tablet 200 mcg PO DAILY 05/29/22 nutritional supplements 0.08 1 ea feeding tube BID 04/22/25 gram-2 kcal/mL liquid for tube feed (Nutren 2.0) diazepam 10 mg/spray (0.1 mL) 10 mg intranasal PRN PRN Seizure 01/19/24 04/22/25 nasal spray (Valtoco) Activity baclofen 15 mg tablet 15 mg PO BID 12/11/24 cholecalciferol (vitamin D3) 50 50 mcg PO DAILY 04/22/25 mcg (2,000 unit) capsule divalproex 500 mg tablet,delayed 500 mg PO BID 5 04/22/25 release levetiracetam 750 mg tablet 750 mg PO BID 12/11/24 baclofen 10 mg tablet 15 mg BID 04/22/25 Previous Rx's ?Medication ?Instructions ?Recorded Disabled Parking Permit 1 ea Not Applicable DAILY #1 ea 10/11/23 pantoprazole 40 mg granules 40 mg PO DAILY 30 days #30 ea 07/19/24 delayed-release for susp in packet clonazepam 1 mg tablet 1.5 mg (1.5 x 1 mg) PO 2XD # 42 tabs 11/18/24 meloxicam 15 mg tablet 15 mg PO DAILY #90 tabs 01/09 10/01 mirtazapine 15 mg tablet 15 mg PO HS #90 tabs 5 cefdinir 300 mg capsule 300 mg feeding tube BID per Gtube, 04/22/25September substitue elixir 10 days #20 caps Allergies Allergy/AdvReac Type Severity Reaction Status Date / Time codeine Allergy Intermediate FACIAL Verified 04/22/25 04:54 SWELLING, RASH phenobarbital Allergy Unknown unknow Verified 04/22/25 04:54 methenamine AdvReac Mild yeast Verified 04/22/25 04:54 infection Patient History <Trevor Ackerman MD - Last Filed: 04/23/25 00:30> Medical History 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 Cataracts, bilateral Cerebellar atrophy Cerebral atrophy Cervical spine disease Cervical vertebral fusion Chicken pox (~1977) History of developmental delay Hydrocephalus, adult Impaired mobility and ADLs Intermittent self-catheterization of bladder Leukomalacia, periventricular Neurogenic bladder Prostatitis Recurrent UTI Seizure disorder Spastic quadriplegia Total blindness Urinary retention Surgical History Anesthesia History of thoracic spinal fusion S/P percutaneous endoscopic gastrostomy (PEG) tube placement Family History Mother Hyperlipidemia Autoimmune disorder Gout Irritable bowel syndrome History of Graves' disease Sister Multiple myeloma History of kidney cancer History of Graves' disease Grandfather Diabetes mellitus Grandmother Alcoholism Tuberculosis Brother Irritable bowel syndrome Social History marital status: unmarried,single household members: family and caregiver Smoking Status: Never smoker alcohol intake: current caffeine: Yes alcohol intake frequency: holidays/special occasions only Exam <Trevor Ackerman MD - Last Filed: 04/23/25 00:30> Narrative Exam Narrative: GENERAL: Agitated, intermittent moaning HEAD: Atraumatic. Normocephalic. EYES: Pupils equal round and reactive. Extraocular motions intact. No scleral icterus. No injection or drainage. ENT: Nose without bleeding, purulent drainage. Throat without erythema, tonsillar hypertrophy or exudate. Airway patent. NECK: Trachea midline. Non tender CARDIOVASCULAR: Regular rate and rhythm without murmurs, gallops, or rubs. RESPIRATORY: Clear to auscultation. Breath sounds equal bilaterally. No wheezes, rales, or rhonchi. GASTROINTESTINAL: Abdomen soft, non-tender, nondistended. Feeding tube mid abdomen EXTREMITIES: Flexion contractures upper extremity with muscle wasting BACK: Nontender without deformity or crepitance. No flank tenderness. NEURO: AOx3. Muscle wasting and contractures of extremities SKIN: No rash or erythema of visible areas Initial Vital Signs Initial Vital Signs: Vital Signs Pulse Rate 98 H 04/22/25 04:56 Respiratory Rate 20 04/22/25 04:56 Pulse Oximetry 94 04/22/25 04:56 Oxygen Delivery Method Room Air 04/22/25 04:56 <Sherlyn Leonard DO - Last Filed: 04/22/25 09:28> Initial Vital Signs Initial Vital Signs: Vital Signs Pulse Rate 98 H 04/22/25 04:56 Respiratory Rate 20 04/22/25 04:56 Pulse Oximetry 94 04/22/25 04:56 Oxygen Delivery Method Room Air 04/22/25 04:56 Course <Trevor Ackerman MD - Last Filed: 04/23/25 00:30> Orders Ordered: Acetaminophen (Acetaminophen 325 Mg Tablet) 650 mg PO Q6H PRN PRN Reason: Fever/Mild Pain (1-3) Baclofen (Baclofen 10 Mg Tablet) 15 mg PO BID [facility] Last Admin: 04/22/25 21:55 Dose: 15 mg Documented By: Clonazepam (Clonazepam 0.5 Mg Tablet) 1.5 mg PO BID PRN PRN Reason: low Keppra/Depakote levels Diazepam (Diazepam 10 Mg/2 Ml Syringe) 10 mg IV Q1H PRN PRN Reason: Seizures Divalproex Sodium (Divalproex Dr 250 Mg Tablet) 500 mg PO DAILY [facility] Divalproex Sodium (Divalproex Dr 250 Mg Tablet) 1,000 mg PO BEDTIME [facility] Last Admin: 04/22/25 21:54 Dose: 1,000 mg Documented By: Folic Acid (Folic Acid 1 Mg Tablet) 0.25 mg PO DAILY [facility] Guaifenesin (Guaifenesin Solution 100 Mg/5 Ml Udc) 200 mg PO Q4H [facility] Last Admin: 04/22/25 21:55 Dose: 200 mg Documented By: Admin: 04/22/25 21:23 Dose: Not Given Documented By: Admin: 04/22/25 15:06 Dose: 200 mg Documented By: JITENDRA Sodium Chloride (Normal Saline 0.9%) 1,000 mls @ 100 mls/hr IV CONT [facility] Last Admin: 04/22/25 11:37 Dose: 100 mls/hr Documented By: JOSE Sodium Chloride (Normal Saline 0.9%) 1,000 mls @ 100 mls/hr IV CONT [facility] Last Admin: 04/22/25 11:45 Dose: Not Given Documented By: JOSE Ceftriaxone Sodium 2,000 mg/ (Sodium Chloride) 100 mls @ 200 mls/hr IV Q24H [facility] Vancomycin HCl (Vancomycin) 750 mg in 150 mls @ 150 mls/hr IV Q24H [facility] Latanoprost (Latanoprost 0.005% Ophth 2.5 Ml) 1 drops EYE-RIGHT BEDTIME [facility] Last Admin: 04/23/25 00:18 Dose: Not Given Documented By: Levetiracetam (Levetiracetam 250 Mg Tablet) 750 mg PO BID [facility] Last Admin: 04/22/25 21:55 Dose: 750 mg Documented By: Meloxicam (Meloxicam 7.5 Mg Tablet) 15 mg PO DAILY [facility] Mirtazapine (Mirtazapine 15 Mg Tablet) 15 mg PO BEDTIME [facility] Last Admin: 04/22/25 21:55 Dose: 15 mg Documented By: Naloxone HCl (Naloxone 0.4 Mg/Ml Vial) 0.2 mg IV Q2MIN PRN PRN Reason: Opiate Reversal Naloxone HCl (Naloxone 0.4 Mg/Ml Vial) 0.2 mg IV Q2MIN PRN PRN Reason: Opiate Reversal Non-Formulary Medication (Nutritional Supplements [Nutren 2.0]) 1 each TUBE BID [facility] Last Admin: 04/23/25 00:18 Dose: Not Given Documented By: Non-Formulary Medication (Diazepam [Valtoco]) 10 mg NASAL PRN PRN PRN Reason: Seizure Activity Ondansetron HCl (Ondansetron 4 Mg/2 Ml Inj) 4 mg IV Q8HR PRN PRN Reason: Nausea And Vomiting Pantoprazole Sodium (Pantoprazole 40 Mg Vial) 40 mg IV DAILY [facility] Vancomycin HCl (Vancomycin Per Pharmacy) 1 request MISC NOW PRN PRN Reason: PROTOCOL Vancomycin HCl (Vancomycin Trough) 1 request MISC 1400 ONE Stop: 04/25/25 14:01 Vancomycin HCl (Vancomycin Peak) 1 request MISC 1630 ONE Stop: 04/25/25 16:31 Discontinued Medications Adenosine (Adenosine 6 Mg/2 Ml Vial) 6 mg IV NOW ONE Stop: 04/22/25 12:48 Last Admin: 04/22/25 13:08 Dose: 6 mg Documented By: JITENDRA Adenosine (Adenosine 6 Mg/2 Ml Vial) 6 mg IV NOW ONE Stop: 04/22/25 12:56 Last Admin: 04/22/25 13:09 Dose: 6 mg Documented By: JITENDRA Adenosine (Adenosine 6 Mg/2 Ml Vial) 12 mg IV NOW ONE Stop: 04/22/25 13:11 Last Admin: 04/22/25 13:16 Dose: 12 mg Documented By: JITENDRA Clonazepam (Clonazepam 0.5 Mg Tablet) 1.5 mg PO BID [facility] Last Admin: 04/22/25 16:53 Dose: Not Given Documented By: BZ Diltiazem HCl (Diltiazem 25 Mg/5 Ml Sdv) 10 mg IV NOW ONE Stop: 04/22/25 12:34 Last Admin: 04/22/25 13:42 Dose: Not Given Documented By: JITENDRA Ceftriaxone Sodium 1,000 mg/ (Sodium Chloride) 100 mls @ 200 mls/hr IV NOW ONE Stop: 04/22/25 06:06 Last Infusion: 04/22/25 07:08 Dose: Infused Documented By: Admin: 04/22/25 06:11 Dose: 200 mls/hr Documented By: TERESA Sodium Chloride (Normal Saline 0.9%) 1,000 mls @ 1,500 mls/hr IV BOLUS ONE Stop: 04/22/25 07:20 Last Infusion: 04/22/25 09:03 Dose: Infused Documented By: Admin: 04/22/25 07:22 Dose: 1,500 mls/hr Documented By: TERESA Sodium Chloride (Normal Saline 0.9%) 1,000 mls @ 1,000 mls/hr IV BOLUS ONE Stop: 04/22/25 09:35 Last Admin: 04/22/25 09:04 Dose: Not Given Documented By: MK Ceftriaxone Sodium 1,000 mg/ (Sodium Chloride) 100 mls @ 200 mls/hr IV NOW ONE Stop: 04/22/25 10:14 Last Infusion: 04/22/25 12:50 Dose: Infused Documented By: Admin: 04/22/25 12:16 Dose: 200 mls/hr Documented By: BZ Vancomycin HCl (Vancomycin) 1,000 mg in 200 mls @ 200 mls/hr IV NOW ONE Stop: 04/22/25 15:14 Last Infusion: 04/22/25 15:41 Dose: Infused Documented By: Admin: 04/22/25 14:31 Dose: 200 mls/hr Documented By: SB Sodium Chloride (Normal Saline 0.9%) 1,000 mls @ 1,000 mls/hr IV BOLUS ONE Stop: 04/22/25 13:49 Last Infusion: 04/22/25 13:55 Dose: Infused Documented By: Admin: 04/22/25 12:50 Dose: 1,000 mls/hr Documented By: SB Magnesium Sulfate (Magnesium Sulfate) 2 gm in 50 mls @ 25 mls/hr IV NOW ONE Stop: 04/22/25 18:29 Last Infusion: 04/22/25 18:34 Dose: Infused Documented By: TF Co-signed By: FARSHAD Admin: 04/22/25 16:33 Dose: 25 mls/hr Documented By: SUE Co-signed By: JOSE Lorazepam (Lorazepam 2 Mg/Ml Inj) 1 mg IV NOW ONE Stop: 04/22/25 12:57 Last Admin: 04/22/25 13:05 Dose: 1 mg Documented By: JITENDRA Non-Formulary Medication (Pantoprazole) 40 mg PO DAILY [facility] Pantoprazole Sodium (Pantoprazole 40 Mg Vial) 40 mg IV DAILY [facility] Propofol (Propofol 200 Mg/20 Ml Vial) 20 mg IV NOW ONE Stop: 04/22/25 13:26 Last Admin: 04/22/25 13:27 Dose: 20 mg Documented By: SB Vital Signs Vital signs: Vital Signs - 8 hr 04/22/25 04:56 04/22/25 04:59 04/22/25 04:59 Temperature 97.4 F L Pulse Rate 98 H 87 72 Respiratory Rate 20 24 Blood Pressure Pulse Oximetry 94 94 Oxygen Delivery Method Room Air Room Air 04/22/25 05:30 04/22/25 06:50 04/22/25 06:52 Temperature Pulse Rate 79 Respiratory Rate Blood Pressure 100/59 L 113/53 L Pulse Oximetry 97 Oxygen Delivery Method 04/22/25 06:52 Temperature Pulse Rate 119 H Respiratory Rate Blood Pressure Pulse Oximetry 99 Oxygen Delivery Method Room Air <Sherlyn Leonard, DO - Last Filed: 04/22/25 09:28> Orders Ordered: Acetaminophen (Acetaminophen 325 Mg Tablet) 650 mg PO Q6H PRN PRN Reason: Fever/Mild Pain (1-3) Baclofen (Baclofen 10 Mg Tablet) 15 mg PO BID [facility] Last Admin: 04/22/25 21:55 Dose: 15 mg Documented By: Clonazepam (Clonazepam 0.5 Mg Tablet) 1.5 mg PO BID PRN PRN Reason: low Keppra/Depakote levels Diazepam (Diazepam 10 Mg/2 Ml Syringe) 10 mg IV Q1H PRN PRN Reason: Seizures Divalproex Sodium (Divalproex Dr 250 Mg Tablet) 500 mg PO DAILY [facility] Divalproex Sodium (Divalproex Dr 250 Mg Tablet) 1,000 mg PO BEDTIME [facility] Last Admin: 04/22/25 21:54 Dose: 1,000 mg Documented By: Folic Acid (Folic Acid 1 Mg Tablet) 0.25 mg PO DAILY [facility] Guaifenesin (Guaifenesin Solution 100 Mg/5 Ml Udc) 200 mg PO Q4H [facility] Last Admin: 04/22/25 21:55 Dose: 200 mg Documented By: Admin: 04/22/25 21:23 Dose: Not Given Documented By: Admin: 04/22/25 15:06 Dose: 200 mg Documented By: SB Sodium Chloride (Normal Saline 0.9%) 1,000 mls @ 100 mls/hr IV CONT [facility] Last Admin: 04/22/25 11:37 Dose: 100 mls/hr Documented By: ZGG Sodium Chloride (Normal Saline 0.9%) 1,000 mls @ 100 mls/hr IV CONT [facility] Last Admin: 04/22/25 11:45 Dose: Not Given Documented By: JOSE Ceftriaxone Sodium 2,000 mg/ (Sodium Chloride) 100 mls @ 200 mls/hr IV Q24H [facility] Vancomycin HCl (Vancomycin) 750 mg in 150 mls @ 150 mls/hr IV Q24H [facility] Latanoprost (Latanoprost 0.005% Ophth 2.5 Ml) 1 drops EYE-RIGHT BEDTIME [facility] Last Admin: 04/23/25 00:18 Dose: Not Given Documented By: Levetiracetam (Levetiracetam 250 Mg Tablet) 750 mg PO BID [facility] Last Admin: 04/22/25 21:55 Dose: 750 mg Documented By: Meloxicam (Meloxicam 7.5 Mg Tablet) 15 mg PO DAILY [facility] Mirtazapine (Mirtazapine 15 Mg Tablet) 15 mg PO BEDTIME [facility] Last Admin: 04/22/25 21:55 Dose: 15 mg Documented By: Naloxone HCl (Naloxone 0.4 Mg/Ml Vial) 0.2 mg IV Q2MIN PRN PRN Reason: Opiate Reversal Naloxone HCl (Naloxone 0.4 Mg/Ml Vial) 0.2 mg IV Q2MIN PRN PRN Reason: Opiate Reversal Non-Formulary Medication (Nutritional Supplements [Nutren 2.0]) 1 each TUBE BID [facility] Last Admin: 04/23/25 00:18 Dose: Not Given Documented By: Non-Formulary Medication (Diazepam [Valtoco]) 10 mg NASAL PRN PRN PRN Reason: Seizure Activity Ondansetron HCl (Ondansetron 4 Mg/2 Ml Inj) 4 mg IV Q8HR PRN PRN Reason: Nausea And Vomiting Pantoprazole Sodium (Pantoprazole 40 Mg Vial) 40 mg IV DAILY [facility] Vancomycin HCl (Vancomycin Per Pharmacy) 1 request MISC NOW PRN PRN Reason: PROTOCOL Vancomycin HCl (Vancomycin Trough) 1 request MISC 1400 ONE Stop: 04/25/25 14:01 Vancomycin HCl (Vancomycin Peak) 1 request MISC 1630 ONE Stop: 04/25/25 16:31 Discontinued Medications Adenosine (Adenosine 6 Mg/2 Ml Vial) 6 mg IV NOW ONE Stop: 04/22/25 12:48 Last Admin: 04/22/25 13:08 Dose: 6 mg Documented By: JITENDRA Adenosine (Adenosine 6 Mg/2 Ml Vial) 6 mg IV NOW ONE Stop: 04/22/25 12:56 Last Admin: 04/22/25 13:09 Dose: 6 mg Documented By: JITENDRA Adenosine (Adenosine 6 Mg/2 Ml Vial) 12 mg IV NOW ONE Stop: 04/22/25 13:11 Last Admin: 04/22/25 13:16 Dose: 12 mg Documented By: JITENDRA Clonazepam (Clonazepam 0.5 Mg Tablet) 1.5 mg PO BID [facility] Last Admin: 04/22/25 16:53 Dose: Not Given Documented By: BZ Diltiazem HCl (Diltiazem 25 Mg/5 Ml Sdv) 10 mg IV NOW ONE Stop: 04/22/25 12:34 Last Admin: 04/22/25 13:42 Dose: Not Given Documented By: JITENDRA Ceftriaxone Sodium 1,000 mg/ (Sodium Chloride) 100 mls @ 200 mls/hr IV NOW ONE Stop: 04/22/25 06:06 Last Infusion: 04/22/25 07:08 Dose: Infused Documented By: Admin: 04/22/25 06:11 Dose: 200 mls/hr Documented By: TERESA Sodium Chloride (Normal Saline 0.9%) 1,000 mls @ 1,500 mls/hr IV BOLUS ONE Stop: 04/22/25 07:20 Last Infusion: 04/22/25 09:03 Dose: Infused Documented By: Admin: 04/22/25 07:22 Dose: 1,500 mls/hr Documented By: TERESA Sodium Chloride (Normal Saline 0.9%) 1,000 mls @ 1,000 mls/hr IV BOLUS ONE Stop: 04/22/25 09:35 Last Admin: 04/22/25 09:04 Dose: Not Given Documented By: JANUSZ Ceftriaxone Sodium 1,000 mg/ (Sodium Chloride) 100 mls @ 200 mls/hr IV NOW ONE Stop: 04/22/25 10:14 Last Infusion: 04/22/25 12:50 Dose: Infused Documented By: Admin: 04/22/25 12:16 Dose: 200 mls/hr Documented By: SUE Vancomycin HCl (Vancomycin) 1,000 mg in 200 mls @ 200 mls/hr IV NOW ONE Stop: 04/22/25 15:14 Last Infusion: 04/22/25 15:41 Dose: Infused Documented By: Admin: 04/22/25 14:31 Dose: 200 mls/hr Documented By: JITENDRA Sodium Chloride (Normal Saline 0.9%) 1,000 mls @ 1,000 mls/hr IV BOLUS ONE Stop: 04/22/25 13:49 Last Infusion: 04/22/25 13:55 Dose: Infused Documented By: Admin: 04/22/25 12:50 Dose: 1,000 mls/hr Documented By: JITENDRA Magnesium Sulfate (Magnesium Sulfate) 2 gm in 50 mls @ 25 mls/hr IV NOW ONE Stop: 04/22/25 18:29 Last Infusion: 04/22/25 18:34 Dose: Infused Documented By: TF Co-signed By: FARSHAD Admin: 04/22/25 16:33 Dose: 25 mls/hr Documented By: SUE Co-signed By: JOSE Lorazepam (Lorazepam 2 Mg/Ml Inj) 1 mg IV NOW ONE Stop: 04/22/25 12:57 Last Admin: 04/22/25 13:05 Dose: 1 mg Documented By: JITENDRA Non-Formulary Medication (Pantoprazole) 40 mg PO DAILY [facility] Pantoprazole Sodium (Pantoprazole 40 Mg Vial) 40 mg IV DAILY [facility] Propofol (Propofol 200 Mg/20 Ml Vial) 20 mg IV NOW ONE Stop: 04/22/25 13:26 Last Admin: 04/22/25 13:27 Dose: 20 mg Documented By: JITENDRA Vital Signs Vital signs: Vital Signs - 8 hr 04/22/25 04:56 04/22/25 04:59 04/22/25 04:59 Temperature 97.4 F L Pulse Rate 98 H 87 72 Respiratory Rate 20 24 Blood Pressure Pulse Oximetry 94 94 Oxygen Delivery Method Room Air Room Air 04/22/25 05:30 04/22/25 06:50 04/22/25 06:52 Temperature Pulse Rate 79 Respiratory Rate Blood Pressure 100/59 L 113/53 L Pulse Oximetry 97 Oxygen Delivery Method 04/22/25 06:52 Temperature Pulse Rate 119 H Respiratory Rate Blood Pressure Pulse Oximetry 99 Oxygen Delivery Method Room Air Medical Decision Making <Trevor Ackerman MD - Last Filed: 04/23/25 00:30> Lab Data Lab results reviewed: Yes I reviewed the patient's lab results. Lab results narrative: White blood cell count 78572, hemoglobin 12.9, platelets 132,000. Glucose 81. BUN 69 with creatinine 1.9 elevated, serum CO2 32, sodium 134, potassium 5.5. Alkaline phosphatase slight elevation, other liver functions normal range. Urinalysis shows inflammatory cells white cells and many bacteria, urine culture triggered. Blood culture requested. Initial lactate 2.9 elevated. 04/22/25 13:56 04/22/25 13:56 Labs: Lab Results 04/22/25 04/22/25 04/22/25 Range/Units 05:02 05:31 05:40 WBC 46.1 H* (4.5-11.0) X10^3/uL RBC 3.67 L (4.5-5.9) X10^6/uL Hgb 12.9 L (13.5-17.5) g/dL Hct 37.7 L (41-53) % MCV 102.7 H (80-100) fL MCH 35.1 H (26-34) PG MCHC 34.2 (30-36) % RDW 15.7 H (11.6-14.8) % Plt Count 132 L (150-400) X10^3/uL Neut % (Auto) Not Reportable Lymph % (Auto) Not Reportable [place] % (Auto) Not Reportable Eos % (Auto) Not Reportable Baso % (Auto) Not Reportable Lymph # (Auto) Not Reportable [place] # (Auto) Not Reportable Baso # (Auto) Not Reportable Total Counted 100 Seg Neutrophils % 53.0 (38-70) % Band Neutrophils % 42.0 H (3-7) % Lymphocytes % (Manual) 2.0 L (25-45) % Monocytes % (Manual) 3.0 (2-11) % Neutrophils # (Manual) 02288 H (4632-0722) /uL Toxic Granulation Present H Platelet Estimate Decreased on smear RBC Morphology See below Anisocytosis 1+ H Microcytosis 1+ H Sodium 134 L (137-145) mmol/L Potassium 5.5 H (3.4-5.1) mmol/L Chloride 94 L (98-107) mmol/L Carbon Dioxide 32 (22-32) mmol/L BUN 69 H (9-20) mg/dL Creatinine 1.90 H (0.66-1.25) mg/dL Estimated GFR 42 L (>60) mL/min BUN/Creatinine Ratio 36.3 H (6-22) Glucose 81 (70-99) mg/dL Lactate 2.9 H (0.7-2.1) mmol/L Calcium 8.8 (8.4-10.2) mg/dL Total Bilirubin 0.3 (0.2-1.3) mg/dL AST 57 (17-59) IU/L ALT 36 (<50) IU/L Alkaline Phosphatase 145 H (38-126) U/L Total Protein 6.1 L (6.3-8.2) g/dL Albumin 3.0 L (3.5-5.0) g/dL Globulin 3.1 (1.7-4.1) g/dL Albumin/Globulin Ratio 1.0 (1.0-2.8) Urine RBC 1-5/hpf (0-5/HPF) Urine WBC 30-100/hpf H (0-5/HPF) Ur Squamous Epith Cells 0-1 /hpf (0-5/HPF) Urine Bacteria Many (>30) H (None) Ur Culture Indicated? Cult not indicated Vol Urine Centrifuged 10ml (spun) Chlamy pneumoniae PCR Not detected (Not Detect) Adenovirus (PCR) Not detected (Not Detect) B. pertussis DNA (PCR) Not detected (Not Detect) B.parapertussis DNA PCR Not detected (Not Detecte) Coronavirus OC43 (PCR) Not detected (Not Detect) Coronavirus HKU1 (PCR) Not detected (Not Detect) Coronavirus 229E (PCR) Not detected (Not Detect) SARS-CoV-2 (PCR) Not detected (Not Detecte) Coronavirus NL63 (PCR) Not detected (Not Detect) Human Metapneumovir PCR Not detected (Not Detect) Influenza Type A (PCR) Not detected (Not Detect) Influenza Type B (PCR) Not detected (Not Detect) M. pneumoniae (PCR) Not detected (Not Detect) Parainfluenza 1 (PCR) Not detected (Not Detect) Parainfluenza 2 (PCR) Not detected (Not Detect) Parainfluenza 3 (PCR) Not detected (Not Detect) Parainfluenza 4 (PCR) Not detected (Not Detect) RSV (PCR) Not detected (Not Detect) Entero/Rhino (PCR) Not detected (Not Detect) 04/22/25 04/22/25 Range/Units 08:15 08:35 WBC (4.5-11.0) X10^3/uL RBC (4.5-5.9) X10^6/uL Hgb (13.5-17.5) g/dL Hct (41-53) % MCV (80-100) fL MCH (26-34) PG MCHC (30-36) % RDW (11.6-14.8) % Plt Count (150-400) X10^3/uL Neut % (Auto) Lymph % (Auto) [place] % (Auto) Eos % (Auto) Baso % (Auto) Lymph # (Auto) [place] # (Auto) Baso # (Auto) Total Counted Seg Neutrophils % (38-70) % Band Neutrophils % (3-7) % Lymphocytes % (Manual) (25-45) % Monocytes % (Manual) (2-11) % Neutrophils # (Manual) ([id number]) /uL Toxic Granulation Platelet Estimate RBC Morphology Anisocytosis Microcytosis Sodium (137-145) mmol/L Potassium 5.6 H (3.4-5.1) mmol/L Chloride (98-107) mmol/L Carbon Dioxide (22-32) mmol/L BUN (9-20) mg/dL Creatinine (0.66-1.25) mg/dL Estimated GFR (>60) mL/min BUN/Creatinine Ratio (6-22) Glucose (70-99) mg/dL Lactate 2.1 (0.7-2.1) mmol/L Calcium (8.4-10.2) mg/dL Total Bilirubin (0.2-1.3) mg/dL AST (17-59) IU/L ALT (<50) IU/L Alkaline Phosphatase (38-126) U/L Total Protein (6.3-8.2) g/dL Albumin (3.5-5.0) g/dL Globulin (1.7-4.1) g/dL Albumin/Globulin Ratio (1.0-2.8) Urine RBC (0-5/HPF) Urine WBC (0-5/HPF) Ur Squamous Epith Cells (0-5/HPF) Urine Bacteria (None) Ur Culture Indicated? Vol Urine Centrifuged Chlamy pneumoniae PCR (Not Detect) Adenovirus (PCR) (Not Detect) B. pertussis DNA (PCR) (Not Detect) B.parapertussis DNA PCR (Not Detecte) Coronavirus OC43 (PCR) (Not Detect) Coronavirus HKU1 (PCR) (Not Detect) Coronavirus 229E (PCR) (Not Detect) SARS-CoV-2 (PCR) (Not Detecte) Coronavirus NL63 (PCR) (Not Detect) Human Metapneumovir PCR (Not Detect) Influenza Type A (PCR) (Not Detect) Influenza Type B (PCR) (Not Detect) M. pneumoniae (PCR) (Not Detect) Parainfluenza 1 (PCR) (Not Detect) Parainfluenza 2 (PCR) (Not Detect) Parainfluenza 3 (PCR) (Not Detect) Parainfluenza 4 (PCR) (Not Detect) RSV (PCR) (Not Detect) Entero/Rhino (PCR) (Not Detect) Urine Dip Bedside Urine Glucose Negative Bedside Urine Bilirubin - Negative Bedside Urine Ketone - Negative Urine Specific [place] 1.010 Bedside Urine Occult Blood +++ Bedside Urine pH 6.0 Bedside Urine Protein +/- 15 Bedside Urine Urobilinogen - Negative Bedside Urine Nitrite - Negative Bedside Urine Leukocytes ++ 125 Esterase Point of care testing: Urine Dip Bedside Urine Glucose Negative Bedside Urine Bilirubin - Negative Bedside Urine Ketone - Negative Urine Specific [place] 1.010 Bedside Urine Occult Blood +++ Bedside Urine pH 6.0 Bedside Urine Protein +/- 15 Bedside Urine Urobilinogen - Negative Bedside Urine Nitrite - Negative Bedside Urine Leukocytes ++ 125 Esterase MDM Narrative Medical decision making narrative: 49-year-old male with history of cerebellar atrophy, corpus callosum agenesis, spastic quadriplegia, recurrent UTI, living at home with caregiver family, urinary catheterizations by mother, some blood and clot noted on recent catheterization, increased agitation over baseline, mother concerned about recurrence of UTI. Last UTI March 2024 treated with cefpodoxime, crushed up tablets administered through PEG tube. Afebrile on triage, sirs screen negative. Labs pending. Chest x-ray shows no acute changes. See tele radiology report. Lab data: White blood cell count 68178, hemoglobin 12.9, platelets 132,000. Glucose 81. BUN 69 with creatinine 1.9 elevated, serum CO2 32, sodium 134, potassium 5.5. Alkaline phosphatase slight elevation, other liver functions normal range. Urinalysis shows inflammatory cells white cells and many bacteria, urine culture triggered. Blood culture requested. Initial lactate 2.9 elevated. Urine dip positive for likely infection, urinalysis consistent with urinary tract infection, urine and blood cultures requested. IV ceftriaxone initiated. Lactate elevated but not greater than 4. Sepsis confirmed after laboratory studies above, IV fluid bolus initiated. Slight elevation potassium. Will repeat potassium with repeat lactate draw. Markedly elevated white blood cell count, on 2 prior occasions he has mounted severe leukocytosis, no neoplastic leukocytosis known. Mother thinks patient might have had a kidney stone before, not listed as a problem. We will obtain CT abdomen and pelvis to evaluate for ureteral stone or abscess/complicated UTI. 0700, CT abdomen and pelvis results pending, anticipate admission for suspected UTI/sepsis. Signed out to Dr Leonard 0730 Dr. Leonard patient signed out to me by Dr. Ackerman I have seen evaluated patient myself for any reviewed chart. Blood work reveals significant leukocytosis of 46.1, he has previously had significant leukocytosis in the 40s and 30s. He was admitted back in January 2024 for the same. He has neurogenic bladder he does do straight cath has UTIs. CT shows fat stranding around bladder consistent with cystitis. Urinalysis is positive for probable infection. Lactate is also elevated. All 6 isn't with sepsis. Due to extremely high leukocytosis patient would benefit from IV antibiotics and admission. 0920 Dr. Golden accepts patient <Sherlyn Leonard DO - Last Filed: 04/22/25 09:28> Lab Data Labs: Lab Results 04/22/25 04/22/25 04/22/25 Range/Units 05:02 05:31 05:40 WBC 46.1 H* (4.5-11.0) X10^3/uL RBC 3.67 L (4.5-5.9) X10^6/uL Hgb 12.9 L (13.5-17.5) g/dL Hct 37.7 L (41-53) % MCV 102.7 H (80-100) fL MCH 35.1 H (26-34) PG MCHC 34.2 (30-36) % RDW 15.7 H (11.6-14.8) % Plt Count 132 L (150-400) X10^3/uL Neut % (Auto) Not Reportable Lymph % (Auto) Not Reportable [place] % (Auto) Not Reportable Eos % (Auto) Not Reportable Baso % (Auto) Not Reportable Lymph # (Auto) Not Reportable [place] # (Auto) Not Reportable Baso # (Auto) Not Reportable Total Counted 100 Seg Neutrophils % 53.0 (38-70) % Band Neutrophils % 42.0 H (3-7) % Lymphocytes % (Manual) 2.0 L (25-45) % Monocytes % (Manual) 3.0 (2-11) % Neutrophils # (Manual) 54012 H (6520-5847) /uL Toxic Granulation Present H Platelet Estimate Decreased on smear RBC Morphology See below Anisocytosis 1+ H Microcytosis 1+ H Sodium 134 L (137-145) mmol/L Potassium 5.5 H (3.4-5.1) mmol/L Chloride 94 L (98-107) mmol/L Carbon Dioxide 32 (22-32) mmol/L BUN 69 H (9-20) mg/dL Creatinine 1.90 H (0.66-1.25) mg/dL Estimated GFR 42 L (>60) mL/min BUN/Creatinine Ratio 36.3 H (6-22) Glucose 81 (70-99) mg/dL Lactate 2.9 H (0.7-2.1) mmol/L Calcium 8.8 (8.4-10.2) mg/dL Total Bilirubin 0.3 (0.2-1.3) mg/dL AST 57 (17-59) IU/L ALT 36 (<50) IU/L Alkaline Phosphatase 145 H (38-126) U/L Total Protein 6.1 L (6.3-8.2) g/dL Albumin 3.0 L (3.5-5.0) g/dL Globulin 3.1 (1.7-4.1) g/dL Albumin/Globulin Ratio 1.0 (1.0-2.8) Urine RBC 1-5/hpf (0-5/HPF) Urine WBC 30-100/hpf H (0-5/HPF) Ur Squamous Epith Cells 0-1 /hpf (0-5/HPF) Urine Bacteria Many (>30) H (None) Ur Culture Indicated? Cult not indicated Vol Urine Centrifuged 10ml (spun) Chlamy pneumoniae PCR Not detected (Not Detect) Adenovirus (PCR) Not detected (Not Detect) B. pertussis DNA (PCR) Not detected (Not Detect) B.parapertussis DNA PCR Not detected (Not Detecte) Coronavirus OC43 (PCR) Not detected (Not Detect) Coronavirus HKU1 (PCR) Not detected (Not Detect) Coronavirus 229E (PCR) Not detected (Not Detect) SARS-CoV-2 (PCR) Not detected (Not Detecte) Coronavirus NL63 (PCR) Not detected (Not Detect) Human Metapneumovir PCR Not detected (Not Detect) Influenza Type A (PCR) Not detected (Not Detect) Influenza Type B (PCR) Not detected (Not Detect) M. pneumoniae (PCR) Not detected (Not Detect) Parainfluenza 1 (PCR) Not detected (Not Detect) Parainfluenza 2 (PCR) Not detected (Not Detect) Parainfluenza 3 (PCR) Not detected (Not Detect) Parainfluenza 4 (PCR) Not detected (Not Detect) RSV (PCR) Not detected (Not Detect) Entero/Rhino (PCR) Not detected (Not Detect) 04/22/25 04/22/25 Range/Units 08:15 08:35 WBC (4.5-11.0) X10^3/uL RBC (4.5-5.9) X10^6/uL Hgb (13.5-17.5) g/dL Hct (41-53) % MCV (80-100) fL MCH (26-34) PG MCHC (30-36) % RDW (11.6-14.8) % Plt Count (150-400) X10^3/uL Neut % (Auto) Lymph % (Auto) [place] % (Auto) Eos % (Auto) Baso % (Auto) Lymph # (Auto) [place] # (Auto) Baso # (Auto) Total Counted Seg Neutrophils % (38-70) % Band Neutrophils % (3-7) % Lymphocytes % (Manual) (25-45) % Monocytes % (Manual) (2-11) % Neutrophils # (Manual) (5869-8537) /uL Toxic Granulation Platelet Estimate RBC Morphology Anisocytosis Microcytosis Sodium (137-145) mmol/L Potassium 5.6 H (3.4-5.1) mmol/L Chloride (98-107) mmol/L Carbon Dioxide (22-32) mmol/L BUN (9-20) mg/dL Creatinine (0.66-1.25) mg/dL Estimated GFR (>60) mL/min BUN/Creatinine Ratio (6-22) Glucose (70-99) mg/dL Lactate 2.1 (0.7-2.1) mmol/L Calcium (8.4-10.2) mg/dL Total Bilirubin (0.2-1.3) mg/dL AST (17-59) IU/L ALT (<50) IU/L Alkaline Phosphatase (38-126) U/L Total Protein (6.3-8.2) g/dL Albumin (3.5-5.0) g/dL Globulin (1.7-4.1) g/dL Albumin/Globulin Ratio (1.0-2.8) Urine RBC (0-5/HPF) Urine WBC (0-5/HPF) Ur Squamous Epith Cells (0-5/HPF) Urine Bacteria (None) Ur Culture Indicated? Vol Urine Centrifuged Chlamy pneumoniae PCR (Not Detect) Adenovirus (PCR) (Not Detect) B. pertussis DNA (PCR) (Not Detect) B.parapertussis DNA PCR (Not Detecte) Coronavirus OC43 (PCR) (Not Detect) Coronavirus HKU1 (PCR) (Not Detect) Coronavirus 229E (PCR) (Not Detect) SARS-CoV-2 (PCR) (Not Detecte) Coronavirus NL63 (PCR) (Not Detect) Human Metapneumovir PCR (Not Detect) Influenza Type A (PCR) (Not Detect) Influenza Type B (PCR) (Not Detect) M. pneumoniae (PCR) (Not Detect) Parainfluenza 1 (PCR) (Not Detect) Parainfluenza 2 (PCR) (Not Detect) Parainfluenza 3 (PCR) (Not Detect) Parainfluenza 4 (PCR) (Not Detect) RSV (PCR) (Not Detect) Entero/Rhino (PCR) (Not Detect) Urine Dip Bedside Urine Glucose Negative Bedside Urine Bilirubin - Negative Bedside Urine Ketone - Negative Urine Specific [place] 1.010 Bedside Urine Occult Blood +++ Bedside Urine pH 6.0 Bedside Urine Protein +/- 15 Bedside Urine Urobilinogen - Negative Bedside Urine Nitrite - Negative Bedside Urine Leukocytes ++ 125 Esterase Point of care testing: Urine Dip Bedside Urine Glucose Negative Bedside Urine Bilirubin - Negative Bedside Urine Ketone - Negative Urine Specific [place] 1.010 Bedside Urine Occult Blood +++ Bedside Urine pH 6.0 Bedside Urine Protein +/- 15 Bedside Urine Urobilinogen - Negative Bedside Urine Nitrite - Negative Bedside Urine Leukocytes ++ [address] scan - abdomen/pelvis: Radiologist's Impression: PROCEDURE: CT ABDOMEN PELVIS WO CON INDICATIONS: WBC 40k, eval for complicated UTI/stone/abscess TECHNIQUE: CT of the abdomen and pelvis was obtained without intravenous contrast. Coronal and sagittal reformats were performed. For radiation dose reduction, the following was used: automated exposure control, adjustment of mA and/or kV according to patient size. COMPARISON: [facility], CT, CT ABDOMEN PELVIS WO/W CON, 09/03/2023, 15:10. FINDINGS: Quality: Streak artifact from spinal fusion hardware degrades examination.. Lower Chest: Unremarkable. Abdomen: Liver: Low-density lesion in the dome of the liver, partially imaged, unchanged. Gallbladder and bile ducts: Unremarkable. Pancreas: Unremarkable. Spleen: Unremarkable. Adrenal Glands: Unremarkable. Kidneys and Ureters: No hydronephrosis. Ureters are decompressed. Simple renal cysts bilaterally, unchanged.. Stomach: Distended by fluid and air. Percutaneous gastrostomy.. Bowel: No abnormal dilation. No wall thickening. Normal appendix. Peritoneum: No free fluid. No free air. Pelvis: Reproductive: Mild prostatomegaly.. Bladder: Mild bladder wall thickening diffusely. Mild perivesicular fat stranding.. Other: Lymphatic: No adenopathy. Vasculature: No aortic aneurysm. Abdominal wall: Intact. Bones: No aggressive osseous lesion. Scoliosis with fusion hardware. Dysplasia of the right hip with moderate degenerative change. IMPRESSION: Perivesicular fat stranding and bladder wall thickening may represent cystitis. Dictated by: Rey Hoffman M.D. on 04/22/2025 at 7:5 MDM Narrative Medical decision making narrative: 49-year-old male with history of cerebellar atrophy, corpus callosum agenesis, spastic quadriplegia, recurrent UTI, living at home with caregiver family, urinary catheterizations by mother, some blood and clot noted on recent catheterization, increased agitation over baseline, mother concerned about recurrence of UTI. Last UTI March 2024 treated with cefpodoxime, crushed up tablets administered through PEG tube. Afebrile on triage, sirs screen negative. Labs pending. Chest x-ray shows no acute changes. See tele radiology report. Lab data: White blood cell count 75081, hemoglobin 12.9, platelets 132,000. Glucose 81. BUN 69 with creatinine 1.9 elevated, serum CO2 32, sodium 134, potassium 5.5. Alkaline phosphatase slight elevation, other liver functions normal range. Urinalysis shows inflammatory cells white cells and many bacteria, urine culture triggered. Blood culture requested. Initial lactate 2.9 elevated. Urine dip positive for likely infection, urinalysis consistent with urinary tract infection, urine and blood cultures requested. IV ceftriaxone initiated. Lactate elevated but not greater than 4. Sepsis confirmed after laboratory studies above, IV fluid bolus initiated. Slight elevation potassium. Will repeat potassium with repeat lactate draw. Markedly elevated white blood cell count, on 2 prior occasions he has mounted severe leukocytosis, no neoplastic leukocytosis documented in the past. Mother thinks patient might have had a kidney stone before, not listed as a problem. We will obtain CT abdomen and pelvis to evaluate for complicated UTI. 0700, CT abdomen and pelvis results pending, anticipate admission for suspected UTI/sepsis. Signed out to Dr Leonard 0730 Dr. Leonard patient signed out to me by Dr. Ackerman I have seen evaluated patient myself for any reviewed chart. Blood work reveals significant leukocytosis of 46.1, he has previously had significant leukocytosis in the 40s and 30s. He was admitted back in January 2024 for the same. He has neurogenic bladder he does do straight cath has UTIs. CT shows fat stranding around bladder consistent with cystitis. Urinalysis is positive for probable infection. Lactate is also elevated. All 6 isn't with sepsis. Due to extremely high leukocytosis patient would benefit from IV antibiotics and admission. 0920 Dr. Golden accepts patient Discharge Plan Departure Patient Disposition: Admitted As Inpatient Clinical Impression: Urinary tract infection, Leukocytosis, RACHEL (acute kidney injury), Agitation, Spasticity, Sepsis Admit Date/Time: 04/22/25 09:21 Admit Provider: Prince Golden Sepsis Evaluation (ED) <Trevor Ackerman MD - Last Filed: 04/23/25 00:30> Level 1 - Infection Sepsis Infection Criteria Present: Documented Infection Level 2 - SIRS Sepsis SIRS Criteria Present: WBC < 4k or > 12k or Bands > 10% Level 3 - Organ Dysfunction Sepsis Organ Dysfunction Criteria Present: Lactic Acid > 2 mmol/L Response It is my opinion that this patient have a likely infectious etiology for meeting sepsis criteria: Does Fluid calculation based on 30 mL/kg within 1hr of criteria: ABW used Antibiotics initiated within 1 hr of Sepis dx: Yes (SIRS screen negative but labs showed UTI and WBC 40k, abx/fluids then) <Sherlyn Leonard DO - Last Filed: 04/22/25 09:28> Response Tissue Perfusion Reassessed within 6 hrs of infusion start time: Yes (improved lactate, and bp) Date of Tissue Perfusion Reassessment completed: 04/22/25 Time Tissue Perfusion Reassessment completed: 09:21
[2025-04-22 06:01] LABS: Culture Indicated Urine Cult Not Indicated
[2025-04-22 06:15] LABS: Alanine Aminotransferase 36 IU/L (<50); Albumin 3.0 g/dL (3.5-5.0); Albumin Globulin Ratio 1.0 (1.0-2.8); Alkaline Phosphatase 145 U/L (38-126); Blood Urea Nitrogen 69 mg/dL (9-20); Calcium 8.8 mg/dL (8.4-10.2); Carbon Dioxide 32 mmol/L (22-32); Chloride 94 mmol/L (98-107); Estimated Glomerular Filt Rate 42 mL/min (>60); Globulin 3.1 g/dL (1.7-4.1); Glucose 81 mg/dL (70-99); HEMOLYSIS 19 (0-50); Lactate (Lactic Acid) 2.9 mmol/L (0.7-2.1); Sodium 134 mmol/L (137-145); Total Protein 6.1 g/dL (6.3-8.2)
[2025-04-22 06:20] LABS: Add Manual Diff / Slide Review YES; Hematocrit 37.7 % (41-53); Hemoglobin 12.9 g/dL (13.5-17.5); Mean Corpuscular HGB Conc 34.2 % (30-36); Mean Corpuscular Hemoglobin 35.1 PG (26-34); Mean Corpuscular Volume 102.7 fL (80-100); Platelet Count 132 X10^3/uL (150-400)
[2025-04-22 06:22] LABS: Potassium 5.5 mmol/L (3.4-5.1)
--- NOTE | 2025-04-22 06:22 | PC.NURSE ---
critical WBC count relayed verbally to Dr. Ackerman. No orders at this time
[2025-04-22 06:27] LABS: Coronavirus NL 63 Not Detected (Not Detect); SARS- CoV-2 Not Detected (Not Detecte)
--- NOTE | 2025-04-22 06:36 | DI.CT.S_ITS ---
PROCEDURE: CT ABDOMEN PELVIS WO CON INDICATIONS: WBC 40k, eval for complicated UTI/stone/abscess TECHNIQUE: CT of the abdomen and pelvis was obtained without intravenous contrast. Coronal and sagittal reformats were performed. For radiation dose reduction, the following was used: automated exposure control, adjustment of mA and/or kV according to patient size. COMPARISON: [facility], CT, CT ABDOMEN PELVIS WO/W CON, 09/03/2023, 15:10. FINDINGS: Quality: Streak artifact from spinal fusion hardware degrades examination.. Lower Chest: Unremarkable. Abdomen: Liver: Low-density lesion in the dome of the liver, partially imaged, unchanged. Gallbladder and bile ducts: Unremarkable. Pancreas: Unremarkable. Spleen: Unremarkable. Adrenal Glands: Unremarkable. Kidneys and Ureters: No hydronephrosis. Ureters are decompressed. Simple renal cysts bilaterally, unchanged.. Stomach: Distended by fluid and air. Percutaneous gastrostomy.. Bowel: No abnormal dilation. No wall thickening. Normal appendix. Peritoneum: No free fluid. No free air. Pelvis: Reproductive: Mild prostatomegaly.. Bladder: Mild bladder wall thickening diffusely. Mild perivesicular fat stranding.. Other: Lymphatic: No adenopathy. Vasculature: No aortic aneurysm. Abdominal wall: Intact. Bones: No aggressive osseous lesion. Scoliosis with fusion hardware. Dysplasia of the right hip with moderate degenerative change. IMPRESSION: Perivesicular fat stranding and bladder wall thickening may represent cystitis. Dictated by: Rey Hoffman M.D. on 04/22/2025 at 7:54 Approved by: Rey Hoffman M.D. on 04/22/2025 at 8:02
[2025-04-22 06:41] LABS: Band Neutrophils Percent 42.0 % (3-7); Lymphocytes Percent Manual 2.0 % (25-45); Monocytes Percent Manual 3.0 % (2-11); Segmented Neutrophils Percent 53.0 % (38-70); Total Cells Counted 100
[2025-04-22 06:42] LABS: Anisocytosis 1+; Microcytosis 1+; Toxic Granulation Present
--- NOTE | 2025-04-22 07:18 | PC.NURSE ---
Report given to ISABEL Aggarwal
[2025-04-22] MEDS: SODIUM CHLORIDE 0.9% 1,000 ML 1500 ML IV (07:22)
[2025-04-22 07:28] LABS: Reflexed Lactate in 2 Hours Y
[2025-04-22 08:34] LABS: HEMOLYSIS 112 (0-50); Potassium 5.6 mmol/L (3.4-5.1)
[2025-04-22 09:04] LABS: Lactate 2HR (Lactic Acid Rflx) 2.1 mmol/L (0.7-2.1)
--- NOTE | 2025-04-22 09:27 | PM.HP.1 ---
History of Present Illness History of Present Illness Date Patient Seen: 04/22/25 Time Patient Seen: 10:22 Chief complaint: Fevers, Poss UTI Narrative: This is a 49-year-old male, patient of Dr. Mccauley, with cerebral palsy/DD, spastic quadriplegia, neurogenic bladder, hydrocephalus, leukomalacia, cerebral atrophy, seizure disorder, recurrent UTI, familial tremor, and tube feeding in addition to oral intake who presents with 2 days of noisy breathing and fever of 103.4. White blood count is 46.1 with creatinine 1.90 and 30-100 wbc's on UA. CXR shows no pneumonia. His last admission for a similar illness included leukocytosis and UTI. His grandma seizures are no more than 1 or 2 per year. He lives with his parents in [place] with caregiving assistance from adult brother and sister. He has a small dog who is his medical assistance animal and who will be staying with him in the hospital. He is able to swallow, take some of his nutrition by mouth but is very limited in communication and vision. Assessment and plan: Sepsis, present on admission. Active. -this appears to be UTI in origin. He has renal dysfunction and a lactic acid level of 2.1. White blood count 46.1. -treat with IV ceftriaxone, IV fluid and tube feed hydration. -urine culture pending along with blood cultures. -CT scan shows cystitis. Chest x-ray is negative. Urinary tract infection, present on admission. Active. -urine culture pending. UA shows 30-100 wbc's. -ceftriaxone IV. -neurogenic bladder with intermittent catheterization. Cerebral palsy/DD present on admission. Chronic. -symptoms including seizures, bed bound, limited communication skills, blindness, dysphagia and neurogenic bladder. -baclofen for spasticity. Mirtazapine. Seizure disorder, present on admission. Chronic. -continue clonazepam, Keppra and Depakote along with Valium IV as needed. Tube feeding, present on admission. Active. -secondary to cerebral palsy dysphagia. -tube feeding at home is done by bolus in the morning. -feeding regimen here will be per dietitian. -continue Protonix, switched to IV. Hyperkalemia, present on admission. Active. -potassium 5.6 likely related to dehydration. Infusing normal saline IV. Follow up. SCD for DVT prevention. No indication for additional chemical prophylaxis today. Mother and adult brother/sister are his backup decision makers. Confirmed full code. 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 Cataracts, bilateral Cerebellar atrophy Cerebral atrophy Cervical spine disease Cervical vertebral fusion Chicken pox (~1977) History of developmental delay Hydrocephalus, adult Impaired mobility and ADLs Intermittent self-catheterization of bladder Leukomalacia, periventricular Neurogenic bladder Prostatitis Recurrent UTI Seizure disorder Spastic quadriplegia Total blindness Urinary retention Surgical History Anesthesia History of thoracic spinal fusion S/P percutaneous endoscopic gastrostomy (PEG) tube placement Family History Mother Hyperlipidemia Autoimmune disorder Gout Irritable bowel syndrome History of Graves' disease Sister Multiple myeloma History of kidney cancer History of Graves' disease Grandfather Diabetes mellitus Grandmother Alcoholism Tuberculosis Brother Irritable bowel syndrome Social History marital status: unmarried,single household members: family and caregiver alcohol intake: current caffeine: Yes Meds Home Medications and Allergies Home Medications ?Medication ?Instructions ?Recorded ?Confirmed ?Type latanoprost 0.005 % eye drops 1 drp OPH HS #2.5 mL 02/14/12 04/22/25 History acetaminophen 500 mg tablet 500 mg PO BID ##0 01/20/13 04/22/25 History ascorbic acid (vitamin C) 500 mg 500 mg PO DAILY 05/29/22 04/22/25 History tablet folic acid 400 mcg tablet 200 mcg PO DAILY 05/29/22 04/22/25 History nutritional supplements 0.08 1 ea feeding tube BID 05/29/22 04/22/25 History gram-2 kcal/mL liquid for tube feed (Nutren 2.0) Disabled Parking Permit 1 ea Not Applicable DAILY #1 ea 10/11/23 04/22/25 Rx diazepam 10 mg/spray (0.1 mL) 10 mg intranasal PRN PRN Seizure 01/19/24 04/22/25 History nasal spray (Valtoco) Activity pantoprazole 40 mg granules 40 mg PO DAILY 30 days #30 ea 07/19/24 04/22/25 Rx delayed-release for susp in packet clonazepam 1 mg tablet 1.5 mg (1.5 x 1 mg) PO 2XD #42 tabs 11/18/24 04/22/25 Rx baclofen 15 mg tablet 15 mg PO BID 12/11/24 04/22/25 History cholecalciferol (vitamin D3) 50 50 mcg PO DAILY 12/11/24 04/22/25 History mcg (2,000 unit) capsule divalproex 500 mg tablet,delayed 500 mg PO BID 12/11/24 04/22/25 History release levetiracetam 750 mg tablet 750 mg PO BID 12/11/24 04/22/25 History meloxicam 15 mg tablet 15 mg PO DAILY #90 tabs 02/01/25 04/22/25 Rx mirtazapine 15 mg tablet 15 mg PO HS #90 tabs 02/26/25 04/22/25 Rx baclofen 10 mg tablet 15 mg BID 04/22/25 History cefdinir 300 mg capsule 300 mg feeding tube BID per Gtube, 04/22/25 04/22/25 Rx may substitue elixir 10 days #20 caps Allergies Allergy/AdvReac Type Severity Reaction Status Date / Time codeine Allergy Intermediate FACIAL Verified 04/22/25 04:54 SWELLING, RASH phenobarbital Allergy Unknown unknow Verified 04/22/25 04:54 methenamine AdvReac Mild yeast Verified 04/22/25 04:54 infection Review of Systems Review of Systems Narrative: Positive for fever, noisy breathing and decreased mental status. Negative for chest pain, abdominal pain, nausea, vomiting, dysuria, bleeding, rash, seizures, tremor, new allergies. Exam Vital Signs (past 8 hours): - 04/22/25 04:56 04/22/25 04:59 04/22/25 04:59 Temperature 97.4 F L Pulse Rate 98 H 87 72 Respiratory Rate 20 24 Blood Pressure Pulse Oximetry 94 94 Oxygen Delivery Method Room Air Room Air 04/22/25 05:30 04/22/25 06:50 04/22/25 06:52 Temperature Pulse Rate 79 Respiratory Rate Blood Pressure 100/59 L 113/53 L Pulse Oximetry 97 Oxygen Delivery Method 04/22/25 06:52 Temperature Pulse Rate 119 H Respiratory Rate Blood Pressure Pulse Oximetry 99 Oxygen Delivery Method Room Air Oxygen Delivery Method Room Air Narrative Exam Narrative: Patient is obtunded and unable to participate in the exam or 3 taking. His adult brother and his mother are present, speaking for him. Significant microcephaly is present. Left eye is atrophied. Right eye lid is partially open but no further exam is possible. Mouth looks very, very dry. His breathing is labored. There is no lymph nodes felt in the head, neck, supraclavicular area. There is no thyromegaly. JVD is less than 6 cm. No carotid bruits are heard. Heart is tachycardic, regular, without murmur. Lungs are noted for very noisy upper airway breathing but otherwise clear. Abdomen is soft, bowel sounds active. Feeding tube in place. No apparent tenderness. Extremities are severely atrophied and contracted. Skin has no rash or jaundice. Neurologic exam. No active seizing. Reflexes symmetric. Limited exam possible. Objective Labs 04/22/25 05:40 04/22/25 08:15 Labs: Laboratory Results - last 24 hr 04/22/25 04/22/25 04/22/25 05:02 05:31 05:40 WBC 46.1 H* RBC 3.67 L Hgb 12.9 L Hct 37.7 L MCV 102.7 H MCH 35.1 H MCHC 34.2 RDW 15.7 H Plt Count 132 L Neut % (Auto) Not Reportable Lymph % (Auto) Not Reportable [place] % (Auto) Not Reportable Eos % (Auto) Not Reportable Baso % (Auto) Not Reportable Lymph # (Auto) Not Reportable [place] # (Auto) Not Reportable Baso # (Auto) Not Reportable Total Counted 100 Seg Neutrophils % 53.0 Band Neutrophils % 42.0 H Lymphocytes % (Manual) 2.0 L Monocytes % (Manual) 3.0 Neutrophils # (Manual) 60785 H Toxic Granulation Present H Platelet Estimate Decreased on smear RBC Morphology See below Anisocytosis 1+ H Microcytosis 1+ H Sodium 134 L Potassium 5.5 H Chloride 94 L Carbon Dioxide 32 BUN 69 H Creatinine 1.90 H Estimated GFR 42 L BUN/Creatinine Ratio 36.3 H Glucose 81 Lactate 2.9 H Calcium 8.8 Total Bilirubin 0.3 AST 57 ALT 36 Alkaline Phosphatase 145 H Total Protein 6.1 L Albumin 3.0 L Globulin 3.1 Albumin/Globulin Ratio 1.0 Urine RBC 1-5/hpf Urine WBC 30-100/hpf H Ur Squamous Epith Cells 0-1 /hpf Urine Bacteria Many (>30) H Ur Culture Indicated? Cult not indicated Vol Urine Centrifuged 10ml (spun) Chlamy pneumoniae PCR Not detected Adenovirus (PCR) Not detected B. pertussis DNA (PCR) Not detected B.parapertussis DNA PCR Not detected Coronavirus OC43 (PCR) Not detected Coronavirus HKU1 (PCR) Not detected Coronavirus 229E (PCR) Not detected SARS-CoV-2 (PCR) Not detected Coronavirus NL63 (PCR) Not detected Human Metapneumovir PCR Not detected Influenza Type A (PCR) Not detected Influenza Type B (PCR) Not detected M. pneumoniae (PCR) Not detected Parainfluenza 1 (PCR) Not detected Parainfluenza 2 (PCR) Not detected Parainfluenza 3 (PCR) Not detected Parainfluenza 4 (PCR) Not detected RSV (PCR) Not detected Entero/Rhino (PCR) Not detected 04/22/25 04/22/25 08:15 08:35 WBC RBC Hgb Hct MCV MCH MCHC RDW Plt Count Neut % (Auto) Lymph % (Auto) [place] % (Auto) Eos % (Auto) Baso % (Auto) Lymph # (Auto) [place] # (Auto) Baso # (Auto) Total Counted Seg Neutrophils % Band Neutrophils % Lymphocytes % (Manual) Monocytes % (Manual) Neutrophils # (Manual) Toxic Granulation Platelet Estimate RBC Morphology Anisocytosis Microcytosis Sodium Potassium 5.6 H Chloride Carbon Dioxide BUN Creatinine Estimated GFR BUN/Creatinine Ratio Glucose Lactate 2.1 Calcium Total Bilirubin AST ALT Alkaline Phosphatase Total Protein Albumin Globulin Albumin/Globulin Ratio Urine RBC Urine WBC Ur Squamous Epith Cells Urine Bacteria Ur Culture Indicated? Vol Urine Centrifuged Chlamy pneumoniae PCR Adenovirus (PCR) B. pertussis DNA (PCR) B.parapertussis DNA PCR Coronavirus OC43 (PCR) Coronavirus HKU1 (PCR) Coronavirus 229E (PCR) SARS-CoV-2 (PCR) Coronavirus NL63 (PCR) Human Metapneumovir PCR Influenza Type A (PCR) Influenza Type B (PCR) M. pneumoniae (PCR) Parainfluenza 1 (PCR) Parainfluenza 2 (PCR) Parainfluenza 3 (PCR) Parainfluenza 4 (PCR) RSV (PCR) Entero/Rhino (PCR) Assessment & Plan Time-Based Coding :: [TOTAL MINUTES] spent with patient and on the chart (including review of chart, obtaining history, exam, reviewing outside data, placing orders, documenting exam and treatment plan, and counseling patient) on [DATE].
--- NOTE | 2025-04-22 10:11 | PC.NURSE ---
Dr. Golden is here assessing the patient. Med rec is finished.
--- NOTE | 2025-04-22 11:32 | PC.NURSE ---
This RN takes over care at 1115am, this RN begins communication with admitting provider to clarify med orders.
[2025-04-22] MEDS: SODIUM CHLORIDE 0.9% 1,000 ML 100 ML IV (11:37)
--- NOTE | 2025-04-22 12:00 | PC.NURSE ---
This RN spoke with admitting provider Dr. Golden in person to clarify med and lab orders. Patient is to receive second dose of ceftiaxone and provider will place appropriate labs and hold off on clonazepam.
--- NOTE | 2025-04-22 12:47 | EKG_ITS ---
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
[2025-04-22] MEDS: SODIUM CHLORIDE 0.9% 1,000 ML 1000 ML IV (12:50)
[2025-04-22] MEDS: ADENOSINE 6 MG/2 ML VIAL IV ×2 (13:08→13:09)
[2025-04-22] MEDS: ADENOSINE 6 MG/2 ML VIAL 12 MG IV (13:16)
--- NOTE | 2025-04-22 13:33 | ED_ITS ---
ED Provider Consult/Code Note General Reason for Admission: Fevers, Poss UTI Events leading to Consult/Code: Patient 49-year-old male history of CP sepsis boarding in the emergency department having escalation of heart rate. Hospitalist at bedside to evaluate and care for patient. Request that patient be cardioverted for SVT. He has not responding to adenosine Cardiac Rhythm: svt Care Provided Description of care provided: Procedure: Procedure sedation Indication(s): SVT unstable ASA Classification: E E. Emergent conditions P1:Normal healthy patient P2: Mild systemic disease P3: Severe systemic disease P4: Severe systemic disease that is a constant threat to life P5: Moribund patient who is not expected to survive w/o operation Physical Exam: Airway: Large tongue Mallampati Classification: 3 1. Soft Palate, anterior/posterior tonsillar pillars and uvula visible 2. Tonsillar pillars and uvula hidden by base of tongue 3. Only soft palate visible 4. Soft palate not visible Preparation: Plan was explained to the patient, including risks and benefits. Patient is competent to make decisions regarding this elective procedure. Consent signed. air sampling and monitoring in place during procedure Oximetry in place during procedure. Capnometry in place during procedure. IV access present and patent. Suction available at bedside if needed. Sedation medication used: Propofol 20 mg Complications: None Reversal: None Electrical Cardioversion: Indication: SVT unsteady A time-out was completed verifying correct patient, procedure and site. Informed consent was obtained. The patient was judged to be a satisfactory for the procedure. An intravenous access was established. Monitoring equipment was set-up. The resuscitative cart was nearby. Anesthesia: The patient was given an intravenous dose [id number] After satisfactory anesthesia was achieved, the procedure was performed. The paddles were placed in the standard position. Synchronized, direct current electrical cardioversion was performed with 120. The patient tolerated the procedure well. There were no complications. Post Procedure: Successful cardioversion was achieved. Post procedure cardiac monitoring demonstrated sinus tachycardia.
--- NOTE | 2025-04-22 13:39 | P.EN_ITS ---
Event Note Date Patient Seen: 04/22/25 Time Patient Seen: 13:40 Event Note (Rapid Response, Code, or fall): Critical Care Note Called by ER to see Mr. Weber for a HR of 200-240. 0, RR 30. Briefly this is a 49yo male with cerebral palsy/DD, spastic quadriplegia, neurogenic bladder, hydrocephalus, leukomalacia, cerebral atrophy, seizure disorder, recurrent UTI who presented to the ER with fever and confusion. The patien tis nonverbal and was agitated/restless. Physical exam notable for tachycardia, chronic contracture of LUE and BLE, lungs clear, abdomen benign. He was given ativan 1mg IV x1 for restlessness and straight cath performed in case urine retention was contributing to the tachycardia. Approximately 500ml obtained. Labs reviewed and notable for profound leukocytosis and bendemia with WBC 46 with 53% segmented neuts, 42% bands and only 2% lymphocytes. Labs also notable for K 5.9, Cr 1.9 (prior 0.88, 1.17). A 12 lead EKG obtained at 12:33 shows SVT at 205bpm. SBP 110, MAP 70, HR 22. Provided three doses of adenosine 6mg, 6mg and 12 mg with initial slowing of HR but rapid return to SVT with a rate above 200. Review of tele strips during slowing showed sinus mechanism. He was subsequently sedated with propofol and synchronized cardioversion at 120J x1 was performed with return of sinus tachycardia at approximately 120bpm. Repeat 12 Lead EKG at 1331 showed sinus tachy at 122bpm. Current vitals are SBP 133, MAP, HR 120bpm, RR, 35bpm, POx 92% at 3L. Around 1500, patient developed increased secretions which his Mom says happens every time he gets IVF. She notes that it usually responds to mucinex. Patient transiently required an increase in nasal cannula oxygen but was quickly de- escalated to 2 liters. He remained tachypneic with the secretions. Mucinex provided and patient given a trial of BIPAP. He was also repositioned on his side in the ER as his Mom reports that he typically sleeps on his abdomen because when he is prone, his tongue falls far back due to his high arched palate. With BIPAP and repositioning, the patient was more comfortable and his respiratory rate decreased from mid to high 30's to 14-20. Unable to prone patient in ER but ICU has beds for proning and this can be tried once he moves to the unit. Time spent - [id number]; [id number] = 105 minutes
--- NOTE | 2025-04-22 14:05 | PC.NURSE ---
At approximately 1240 patient was placed on cardiac monitoring by ISABEL Green. ISABEL Green alerts this RN of unspecified rhythm. Provider Armando called overhead and provider Aisha made aware of patient presentation and unspecified rhythm. Both providers made aware of last self-cath by mom at around 0530. Verbal order from heron Leonard for indwelling Boggs cath and EKG. EKG performed. Roberts comes to bedside. Boggs cath in and approximately 500 cc drained. Provider Armando aware.
[2025-04-22 14:30] LABS: Magnesium 1.6 mg/dL (1.6-2.3)
[2025-04-22 14:31] LABS: Alanine Aminotransferase 29 IU/L (<50); Albumin 2.6 g/dL (3.5-5.0); Albumin Globulin Ratio 0.9 (1.0-2.8); Alkaline Phosphatase 135 U/L (38-126); Blood Urea Nitrogen 54 mg/dL (9-20); Calcium 7.5 mg/dL (8.4-10.2); Carbon Dioxide 24 mmol/L (22-32); Chloride 108 mmol/L (98-107); Estimated Glomerular Filt Rate > 60 mL/min (>60); Globulin 2.8 g/dL (1.7-4.1); Glucose 77 mg/dL (70-99); HEMOLYSIS < 15 (0-50); Hematocrit 34.4 % (41-53); Hemoglobin 11.5 g/dL (13.5-17.5); Lactate (Lactic Acid) 2.4 mmol/L (0.7-2.1); Magnesium 1.6 mg/dL (1.6-2.3); Mean Corpuscular HGB Conc 33.4 % (30-36); Mean Corpuscular Hemoglobin 34.7 PG (26-34); Mean Corpuscular Volume 103.7 fL (80-100); Platelet Count 115 X10^3/uL (150-400); Potassium 4.7 mmol/L (3.4-5.1); Sodium 137 mmol/L (137-145); Total Protein 5.4 g/dL (6.3-8.2)
[2025-04-22] MEDS: VANCOMYCIN 1,000 MG/200 ML PIGGYBACK 200 MG IV (14:31)
[2025-04-22 14:52] LABS: Band Neutrophils Percent 24.0 % (3-7); Neutrophils Absolute Manual 36900 /uL (3000-5900); Segmented Neutrophils Percent 66.0 % (38-70); Total Cells Counted 100
[2025-04-22 14:53] LABS: Anisocytosis 1+; Lymphocytes Percent Manual 10.0 % (25-45); Toxic Granulation Present
[2025-04-22 14:56] LABS: Blood Gas Collection Site Right Brachial; Delivery System 10 LPM OXYMASK; HCO3 ABG 28 mmol/L (23-27); Oxygen Saturation ABG 33 % (95-100); PCO2 ABG 66.7 mmHg (35-45); PO2 ABG 25 mmHg (80-100); TCO2 ABG 27 mmol/L (23-27)
[2025-04-22] MEDS: guaiFENesin Solution 100 MG/5 ML UDC 200 MG PO ×2 (15:06→21:55)
[2025-04-22 15:42] LABS: Reflexed Lactate in 2 Hours Y
--- NOTE | 2025-04-22 15:54 | PC.NURSE ---
1510: Provider Armando gives verbal direction at bedside to RT London to place patient on Bipap. Patient placed on Bipap. Tolerating well.
[2025-04-22 16:16] LABS: Folate 9.4 ng/mL (2.76-20.0); Vitamin B12 > 1000 pg/mL (239-931)
[2025-04-22 16:17] LABS: Lactate 2HR (Lactic Acid Rflx) 1.7 mmol/L (0.7-2.1)
[2025-04-22] MEDS: MAGNESIUM SULFATE 2 GM/50 ML PIGGYBACK IV (16:33)
--- NOTE | 2025-04-22 17:21 | CM.DANOTE ---
Addendum entered by CARY Kraus 04/22/25 18:47: [facility] Angle Bender is Niki Dietrich, per pt mother. DEANDRE Alvarado Original Note: DCP Assessment Note: Pt is a 49yo male, resident of [place], is admitted for UTI, sepsis. Pt lives in a house with his mother who is his paid caregiver through [facility] and adult siblings who assist with care. Pt's Primary Care Provider is Dr. Prateek Mccauley and insurance is Medicare and [employer]. Reviewed chart and team rounds for pt's medical status and initial discharge needs. Due to pt's nonverbal baseline, DCP completed discharge assessment with pt's DPOA/mother, Gabriela; introduced self and role. Pt caregiver confirmed living situation and pt having all care needs met by herself and her two adult children. Pt caregiver discussed preference of returning home when medically stable, pending culture results. Pt caregiver denied any other referrals, have historically declined referral to home health as they feel they can sustain with current care team. Plan: Anticipating discharge home with family when medically stable. CM team will follow closely for coordination of discharge plans, possible home IV referral if prescribed. DEANDRE Alvarado Discharge Planning/Care Management CM Discharge Assessment Start: 04/22/25 11:05 Freq: Status: Active Protocol: Document 04/22/25 14:05 (Rec: 04/22/25 14:07 [id number]) Discharge Planning Assessment Assigned Discharge CARY Parrish Assistant Project Engineer Provider Dr. Prateek Mccauley Insurance Medicare,Other (enter in Comment) Insurance Comment [employer] DPOA/Assigned Gabriela Weber Mother Designee Name Contact Information [phone] Advance Directives? Yes; POLST Advance Directives No on File History Provided By Parents,Medical Record Has Patient been No admitted in last 30 days? Prior Living House Arrangements Household Members family,caregiver Type of Relies on Others transporation used prior to admit Independent with ADL No 's Is patient alert and No oriented? Needs Assistance Bathing,Grooming,Meal Prep,Toileting,Managing With Medications,Home Chores / Shopping Caregiver for No Another Comment PEG feeding equipment Patient/Family Home with Home Health Preference Discharge Plan Home Transportation Family Arrangement Referrals Initiated None needed Additional Comment Possible home IV referral. Review Status In Process Please Provide Date 04/22/25 Initial DC Assessment Was Performed Next Review Type Continued Stay Review
[2025-04-22] MEDS: DIVALPROEX DR 250 MG TABLET 1000 MG PO (21:54)
[2025-04-22] MEDS: MIRTAZAPINE 15 MG TABLET PO (21:55)
[2025-04-22] MEDS: BACLOFEN 10 MG TABLET 15 MG PO (21:55)
[2025-04-23] VITALS (28 sets, daily range): BP systolic 99–166; BP diastolic 30–83; PULSE 111–126; RESP 10–32; TEMP 30.8–38.2; O2SAT 95–100
[2025-04-23] MEDS: SODIUM CHLORIDE 0.9% 1,000 ML 100 ML IV ×3 (01:01→20:48)
[2025-04-23] MEDS: guaiFENesin Solution 100 MG/5 ML UDC 200 MG PO ×5 (03:22→20:48)
[2025-04-23 05:59] LABS: Hematocrit 34.5 % (41-53); Hemoglobin 11.3 g/dL (13.5-17.5); Mean Corpuscular HGB Conc 32.7 % (30-36); Mean Corpuscular Hemoglobin 33.9 PG (26-34); Mean Corpuscular Volume 103.7 fL (80-100); Platelet Count 130 X10^3/uL (150-400)
[2025-04-23 06:00] LABS: Alanine Aminotransferase 28 IU/L (<50); Albumin 2.6 g/dL (3.5-5.0); Albumin Globulin Ratio 0.9 (1.0-2.8); Alkaline Phosphatase 124 U/L (38-126); Blood Urea Nitrogen 40 mg/dL (9-20); Calcium 8.2 mg/dL (8.4-10.2); Carbon Dioxide 24 mmol/L (22-32); Chloride 115 mmol/L (98-107); Estimated Glomerular Filt Rate > 60 mL/min (>60); Globulin 2.9 g/dL (1.7-4.1); Glucose 72 mg/dL (70-99); HEMOLYSIS < 15 (0-50); Magnesium 2.4 mg/dL (1.6-2.3); Potassium 4.3 mmol/L (3.4-5.1); Sodium 146 mmol/L (137-145); Total Protein 5.5 g/dL (6.3-8.2)
[2025-04-23 06:11] LABS: Add Manual Diff / Slide Review YES
[2025-04-23 06:33] LABS: Band Neutrophils Percent 39.0 % (3-7); Lymphocytes Percent Manual 5.0 % (25-45); Monocytes Percent Manual 1.0 % (2-11); Neutrophils Absolute Manual 36190 /uL (3000-5900); Segmented Neutrophils Percent 55.0 % (38-70); Total Cells Counted 100
[2025-04-23 06:34] LABS: Anisocytosis 1+; Microcytosis 1+; Toxic Granulation Present
--- NOTE | 2025-04-23 06:34 | PC.NURSE ---
manufacturing supervisor 2nd shift RN note pt resting in bed, rousable to verbal stimuli, opens eyes and moans, pt's mom states he is non verbal and blind, VSS, afebrile, ST 100-130s with bigem, lungs clear and decreased, scant secretions, bipap on 168 30% FIO2, O2 sats >92%, RR 20-30s, frequent oral care, abd soft with BS, peg tube in place with dsg CDI, flushes well, meds crushed by RN and then given by mother while RN at bedside per request, branham draining cloudy to clear yellow urine, periph IVs patent with IV fluids infusing, turned and repositioned q2h with pillows to support contracted limbs, mother went home around 1am, states she will bring back his home meds that are note carried by our pharmacy, meds and labs as ordered, bed alarm on, care ongoing
--- NOTE | 2025-04-23 09:29 | P.PN_ITS ---
Subjective Subjective Date Patient Seen: 04/23/25 Interval history: This is a 49-year-old male, patient of Dr. Mccauley, with cerebral palsy/DD, spastic quadriplegia, neurogenic bladder, hydrocephalus, leukomalacia, cerebral atrophy, seizure disorder, recurrent UTI, familial tremor, and tube feeding in addition to oral intake who presents with 2 days of noisy breathing and fever of 103.4. White blood count is 46.1 with creatinine 1.90 and 30-100 wbc's on UA. CXR shows no pneumonia. His last admission for a similar illness included leukocytosis and UTI. His grandma seizures are no more than 1 or 2 per year. He lives with his parents in [place] with caregiving assistance from adult brother and sister. He has a small dog who is his medical assistance animal and who will be staying with him in the hospital. He is able to swallow, take some of his nutrition by mouth but is very limited in communication and vision. 04/22: Called by ER to see Mr. Weber for a HR of 200-240. 0, RR 30. Briefly this is a 49yo male with cerebral palsy/DD, spastic quadriplegia, neurogenic bladder, hydrocephalus, leukomalacia, cerebral atrophy, seizure disorder, recurrent UTI who presented to the ER with fever and confusion. The patien tis nonverbal and was agitated/restless. Physical exam notable for tachycardia, chronic contracture of LUE and BLE, lungs clear, abdomen benign. He was given ativan 1mg IV x1 for restlessness and straight cath performed in case urine retention was contributing to the tachycardia. Approximately 500ml obtained. Labs reviewed and notable for profound leukocytosis and bendemia with WBC 46 with 53% segmented neuts, 42% bands and only 2% lymphocytes. Labs also notable for K 5.9, Cr 1.9 (prior 0.88, 1.17). A 12 lead EKG obtained at 12:33 shows SVT at 205bpm. SBP 110, MAP 70, HR 22. Provided three doses of adenosine 6mg, 6mg and 12 mg with initial slowing of HR but rapid return to SVT with a rate above 200. Review of tele strips during slowing showed sinus mechanism. He was subsequently sedated with propofol and synchronized cardioversion at 120J x1 was performed with return of sinus tachycardia at approximately 120bpm. Repeat 12 Lead EKG at 1331 showed sinus tachy at 122bpm. Current vitals are SBP 133, MAP, HR 120bpm, RR, 35bpm, POx 92% at 3L. Around 1500, patient developed increased secretions which his Mom says happens every time he gets IVF. She notes that it usually responds to mucinex. Patient transiently required an increase in nasal cannula oxygen but was quickly de- escalated to 2 liters. He remained tachypneic with the secretions. Mucinex provided and patient given a trial of BIPAP. He was also repositioned on his side in the ER as his Mom reports that he typically sleeps on his abdomen because when he is prone, his tongue falls far back due to his high arched palate. With BIPAP and repositioning, the patient was more comfortable and his respiratory rate decreased from mid to high 30's to 14-20. Unable to prone patient in ER but ICU has beds for proning and this can be tried once he moves to the unit. 04/23: Yesterday the patient had a crisis involving SVT requiring adenosine and then electrical cardioversion. He was placed on BiPAP after experiencing increasing hypoxia. He has been stable overnight and appears to be breathing comfortably now. A chest x-ray will be done. On his ABG the pH was 7.23 with a pCO2 of 66. The potassium has come down to 4.6 from 5.6. He will be placed back on his home tube feedings of 750 mL per day with additional flush and fluid by IV. He was given vancomycin overnight which will be stopped now assuming the chest x-ray is favorable. The white blood count has dropped down to 38.5. His T-max is 100.8? with a heart rate currently in the 110-120 range and respiratory rate in the high 20s. Assessment and plan: Sepsis, present on admission. Active. -this appears to be UTI in origin. He has renal dysfunction and a lactic acid level of 2.1. White blood count 46.1. Follow. -treating with IV ceftriaxone, IV fluid and tube feed hydration. -urine culture GNB, BC no growth. -CT scan shows cystitis. Chest x-ray is negative. -sepsis related SVT requiring max dose adenosine and then electrocardioversion. Converted back to mild sinus tach. -hypoxic respiratory failure subsequent to the tachycardia and stabilized on BiPAP. Urinary tract infection, present on admission. Active. -urine culture GNB. UA shows 30-100 wbc's. -ceftriaxone IV. -neurogenic bladder with intermittent catheterization. Supraventricular tachycardia, not present on admission. Resolved. -see note from 04/22. Received adenosine x3 and electrical cardioversion Hypoxemic respiratory failure, not present on admission. Active. -continue BiPAP and chest x-ray. Currently at FiO2 30 % Cerebral palsy/DD present on admission. Chronic. -symptoms including seizures, bed bound, limited communication skills, blindness, dysphagia and neurogenic bladder. -baclofen for spasticity. Mirtazapine. Seizure disorder, present on admission. Chronic. -continue Keppra and Depakote along with Valium IV as needed. -levels pending. Tube feeding, present on admission. Active. -secondary to cerebral palsy dysphagia. -tube feeding 750 mL per day with water flushes. Continues on home regimen/formula. Dietitian following closely. -continue Protonix, switched to IV. Hyperkalemia, present on admission. Resolved. -potassium 5.6 likely related to dehydration. Infusing normal saline IV. Resolved. Enoxaparin for DVT prevention. Mother and adult brother/sister are his backup decision makers. Confirmed full code Exam Vital Signs (past 8 hours): - 04/23/25 02:00 04/23/25 03:00 04/23/25 03:07 Temperature Pulse Rate 117 H 115 H Respiratory Rate 32 H 29 H Blood Pressure 117/57 L 113/58 L 113/58 L Pulse Oximetry 97 96 Oxygen Delivery Method Fraction of Inspired Oxygen 30 04/23/25 04:00 04/23/25 05:00 04/23/25 07:00 Temperature 100.8 F H Pulse Rate 113 H 111 H Respiratory Rate 27 H 26 H Blood Pressure 110/55 L 101/56 L Pulse Oximetry 97 95 Oxygen Delivery Method BiPAP Fraction of Inspired Oxygen 04/23/25 07:00 04/23/25 07:49 04/23/25 08:00 Temperature Pulse Rate 120 H 119 H Respiratory Rate 26 H 28 H Blood Pressure 127/72 127/72 136/73 Pulse Oximetry 99 98 Oxygen Delivery Method Fraction of Inspired Oxygen 30 Fraction of Inspired Oxygen 30 Oxygen Delivery Method BiPAP Oxygen Flow Rate 2 Objective Labs 04/23/25 04:34 04/23/25 04:34 Labs: Laboratory Results - last 24 hr 04/22/25 04/22/25 04/22/25 13:56 13:56 14:48 WBC 41.0 H* RBC 3.32 L Hgb 11.5 L Hct 34.4 L MCV 103.7 H MCH 34.7 H MCHC 33.4 RDW 15.8 H Plt Count 115 L Neut % (Auto) Lymph % (Auto) [place] % (Auto) Eos % (Auto) Baso % (Auto) Lymph # (Auto) [place] # (Auto) Baso # (Auto) Total Counted 100 Seg Neutrophils % 66.0 Band Neutrophils % 24.0 H Lymphocytes % (Manual) 10.0 L D Monocytes % (Manual) Neutrophils # (Manual) 08664 H Toxic Granulation Present H Platelet Estimate RBC Morphology See below Anisocytosis 1+ H Microcytosis ABG Sample Site Right brachial ABG pH 7.23 L* ABG pCO2 66.7 H* ABG pO2 25 L* ABG HCO3 28 H ABG Total CO2 27 ABG O2 Saturation 33 L* ABG Base Excess -1.2 Clem Test N/a O2 Delivery Device 10 lpm oxymask Sodium 137 Potassium 4.7 Chloride 108 H Carbon Dioxide 24 BUN 54 H Creatinine 1.41 H Estimated GFR > 60 BUN/Creatinine Ratio 38.3 H Glucose 77 Lactate 2.4 H Calcium 7.5 L Magnesium 1.6 1.6 Total Bilirubin < 0.1 L AST 42 ALT 29 Alkaline Phosphatase 135 H Total Protein 5.4 L Albumin 2.6 L Globulin 2.8 Albumin/Globulin Ratio 0.9 L Vitamin B12 > 1000 H Folate 9.4 04/22/25 04/23/25 15:57 04:34 WBC 38.5 H* RBC 3.33 L Hgb 11.3 L Hct 34.5 L MCV 103.7 H MCH 33.9 MCHC 32.7 RDW 16.3 H Plt Count 130 L Neut % (Auto) Not Reportable Lymph % (Auto) Not Reportable [place] % (Auto) Not Reportable Eos % (Auto) Not Reportable Baso % (Auto) Not Reportable Lymph # (Auto) Not Reportable [place] # (Auto) Not Reportable Baso # (Auto) Not Reportable Total Counted 100 Seg Neutrophils % 55.0 Band Neutrophils % 39.0 H Lymphocytes % (Manual) 5.0 L Monocytes % (Manual) 1.0 L Neutrophils # (Manual) 82720 H Toxic Granulation Present H Platelet Estimate Decreased on smear RBC Morphology See below Anisocytosis 1+ H Microcytosis 1+ H ABG Sample Site ABG pH ABG pCO2 ABG pO2 ABG HCO3 ABG Total CO2 ABG O2 Saturation ABG Base Excess Clem Test O2 Delivery Device Sodium 146 H Potassium 4.3 Chloride 115 H Carbon Dioxide 24 BUN 40 H Creatinine 1.15 Estimated GFR > 60 BUN/Creatinine Ratio 34.8 H Glucose 72 Lactate 1.7 Calcium 8.2 L Magnesium 2.4 H Total Bilirubin 0.2 AST 44 ALT 28 Alkaline Phosphatase 124 Total Protein 5.5 L Albumin 2.6 L Globulin 2.9 Albumin/Globulin Ratio 0.9 L Vitamin B12 Folate [facility] Medical History 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 Cataracts, bilateral Cerebellar atrophy Cerebral atrophy Cervical spine disease Cervical vertebral fusion Chicken pox (~1977) History of developmental delay Hydrocephalus, adult Impaired mobility and ADLs Intermittent self-catheterization of bladder Leukomalacia, periventricular Neurogenic bladder Prostatitis Recurrent UTI Seizure disorder Spastic quadriplegia Total blindness Urinary retention Surgical History Anesthesia History of thoracic spinal fusion S/P percutaneous endoscopic gastrostomy (PEG) tube placement Family History Mother Hyperlipidemia Autoimmune disorder Gout Irritable bowel syndrome History of Graves' disease Sister Multiple myeloma History of kidney cancer History of Graves' disease Grandfather Diabetes mellitus Grandmother Alcoholism Tuberculosis Brother Irritable bowel syndrome Social History marital status: unmarried,single household members: family and caregiver Smoking Status: Never smoker alcohol intake: current caffeine: Yes Assessment & Plan Time-Based Coding :: [TOTAL MINUTES] spent with patient and on the chart (including review of chart, obtaining history, exam, reviewing outside data, placing orders, documenting exam and treatment plan, and counseling patient) on [DATE].
[2025-04-23] MEDS: cefTRIAXone 2,000 MG in SODIUM CHLORIDE 0.9% 100 ML 200 MG IV (09:39)
[2025-04-23] MEDS: PANTOPRAZOLE 40 MG VIAL IV (09:40)
[2025-04-23] MEDS: MELOXICAM 7.5 MG TABLET 15 MG PO (09:40)
[2025-04-23] MEDS: BACLOFEN 10 MG TABLET 15 MG PO ×2 (09:41→20:49)
[2025-04-23] MEDS: FOLIC ACID 1 MG TABLET 0.25 MG PO (09:41)
[2025-04-23] MEDS: DIVALPROEX DR 250 MG TABLET 500 MG PO (09:42)
--- NOTE | 2025-04-23 10:22 | DIET.CONS ---
Dietary Consultation Note Admission Date: 04/22/2025 09:21 Assessment: 49 y M admitted with sepsis. Dietitian consulted for tube feeds. Met with pt's mother in room. Provides him 2 Nutren 2.0 formulas daily and blends in a bots[place] yogurt and banana and fiber supplement and peanut butter (around 1/4 c daily). Reports that generally his breakfast is around 600-900 kcals. She has been told by doctor and dietitian from infusion center to aim for 6455-1119 kcals daily. Additionally, when pt is well, he usually does 1 pureed meal daily at dinner. When unable, mother reports she gives it to him blended via tube. Reports today pt has already gotten 1 formula with yogurt and banana and pb for 600-900 kcals. Mother is delivering formula via PEG herself in room. Discussed that the hospital would be able to provide pt's formula but that it would be a different formula than Nutren as that is not available at this hospital. Pt's mother confirms preference to use home formula. Pt's weight has been stable at 90 lb. Called [facility] dietitian who also report same regimen as above and recc of 800-1000 mL flushed as well. Confirms that pt's mother has been mixing yogurt, banana, peanut butter into formula for around 13 years and is very meticulous about mixing it. Pt has no hx of clogged tubes ever. Currently on IVF at 100 mL/hr. Per hospitalist, would like tube feeds to provide 2000 mL. Pt on biPAP and lying down sleeping so unable to perform NFPE or properly visualize temporal muscle or buccal and orbital fat pads. Ht: 152.4 cm Wt: 40.823 kg BMI: 17.6 UBW: 90 lb Last BM: () MNA: 9 Will Score: 14 Diet: 04/22/25 Lunch Diet Per Dietitian General (Regular) Diet Diet Modifications: Labs: RBC 3.33 X10^6/uL (4.5-5.9) L 04/23/25 04:34 Hgb 11.3 g/dL (13.5-17.5) L 04/23/25 04:34 Hct 34.5 % (41-53) L 04/23/25 04:34 Creatinine 1.15 mg/dL (0.66-1.25) 04/23/25 04:34 Lactate 1.7 mmol/L (0.7-2.1) 04/22/25 15:57 Nutrition Diagnosis: Inadequate oral intake r/t unable to intake sufficient nutrition orally as evidenced by pt on tube feeds via PEG Interventions: -As pt is unable to do his usual pureed meal at dinner currently, can replace with additional Nutren for 3 2.0 Nutren daily for total formula volume of 750 mL and 1500 kcals and 63 g protein meeting 100% of estimated needs -Recc additional 250 mL fluids be flushed 4x/day to meet 1000 mL. Formula (520 mL) + flushes before and after feeds (60 mLx6) + 250 mL 4x/day = 1900 mL daily. Can consider d/c IVF once confirmed pt's mother is flushing adequate water. EER: 1500 kcals (35 kcals/kg per BMI) 60 g protein (1.5 g/kg per ICU with sepsis) Monitoring/Evaluations: Monitoring formula consumption daily and fluids Electronically Signed by: Shae Elliott 04/23/25 10:22 Clinical Dietitian [address] [id number]
--- NOTE | 2025-04-23 11:19 | DI.RAD.S_ITS ---
PROCEDURE: XR CHEST 1V INDICATIONS: Hypoxia TECHNIQUE: One view of the chest was acquired. COMPARISON: [facility], CR, XR CHEST 1V, 04/22/2025, 5:03. FINDINGS: Surgical changes and devices: Bilateral fracture of Shipley rods, unchanged. Lungs and pleura: Slight increased prominence of pulmonary interstitium, particularly on the left. Mediastinum: Mediastinal contours appear normal. Heart size is enlarged. Bones and chest wall: No suspicious bony lesions. Overlying soft tissues appear unremarkable. IMPRESSION: Pulmonary interstitial prominence as above. This could represent developing edema versus airspace disease. Dictated by: Katelynn Atwood M.D. on 04/23/2025 at 13:43 Approved by: Katelynn Atwood M.D. on 04/23/2025 at 13:45
--- NOTE | 2025-04-23 16:05 | CM.DPC ---
DCP COnt: Per MD, pt had event overnight with needing bipap and cardioversion and white count increased and pt not yet stable for discharge. Mom has been bedside for support. CARY Joseph
[2025-04-23] MEDS: DIVALPROEX DR 250 MG TABLET 1000 MG PO (20:48)
[2025-04-23] MEDS: MIRTAZAPINE 15 MG TABLET PO (20:49)
[2025-04-23 23:02] LABS: Allen Test for ABG Passed? Positive; Blood Gas Collection Site Right Radial; Delivery System BiPAP; HCO3 ABG 26 mmol/L (23-27); Oxygen Saturation ABG 97 % (95-100); PCO2 ABG 51.1 mmHg (35-45); PEEP 8; PO2 ABG 98 mmHg (80-100); TCO2 ABG 26 mmol/L (23-27)
[2025-04-24] VITALS (22 sets, daily range): BP systolic 106–158; BP diastolic 62–81; PULSE 109–137; RESP 11–37; TEMP 31–39.1; O2SAT 24–100
[2025-04-24 04:31] LABS: MRSA (Nasal) PCR NOT DETECTED (Not Detect)
[2025-04-24 04:36] LABS: Valproic Acid (Depakene) Total 56 ug/mL (50-100)
[2025-04-24 05:09] LABS: Hematocrit 37.6 % (41-53); Hemoglobin 12.3 g/dL (13.5-17.5); Mean Corpuscular HGB Conc 32.8 % (30-36); Mean Corpuscular Hemoglobin 34.0 PG (26-34); Mean Corpuscular Volume 103.7 fL (80-100); Platelet Count 149 X10^3/uL (150-400)
[2025-04-24 05:10] LABS: Add Manual Diff / Slide Review YES
[2025-04-24 05:45] LABS: Band Neutrophils Percent 9.0 % (3-7); Lymphocytes Percent Manual 4.0 % (25-45); Monocytes Percent Manual 4.0 % (2-11); Neutrophils Absolute Manual 27600 /uL (3000-5900); Segmented Neutrophils Percent 83.0 % (38-70); Total Cells Counted 100
[2025-04-24 05:46] LABS: Anisocytosis 1+
[2025-04-24] MEDS: SODIUM CHLORIDE 0.9% 1,000 ML 100 ML IV ×2 (05:53→15:35)
--- NOTE | 2025-04-24 06:23 | PC.NURSE ---
Loan Administrator Note-Patient was on Bipap throughout night, 30% 23/12, SpO2 >97%, RR 20s. Bipap replaced with 2L Oximask in am, sats 100%. HR ST 120s with very frequent PVCs, including bigeminal and trigeminal. Mother is patients main caregiver who wanted to do feedings via Peg. Staff and mother gave bed bath in am. Service dog brought to bedside.
[2025-04-24] MEDS: guaiFENesin Solution 100 MG/5 ML UDC 200 MG PO ×2 (09:00→12:21)
[2025-04-24] MEDS: cefTRIAXone 2,000 MG in SODIUM CHLORIDE 0.9% 100 ML 200 MG IV (09:00)
[2025-04-24] MEDS: PANTOPRAZOLE 40 MG VIAL IV (09:01)
[2025-04-24] MEDS: DIVALPROEX DR 250 MG TABLET 500 MG PO (09:01)
[2025-04-24] MEDS: MELOXICAM 7.5 MG TABLET 15 MG PO (09:01)
[2025-04-24] MEDS: ENOXAPARIN 40 MG/0.4 ML SYRINGE SUBCUT (09:02)
[2025-04-24] MEDS: FOLIC ACID 1 MG TABLET 0.25 MG PO (09:02)
[2025-04-24] MEDS: BACLOFEN 10 MG TABLET 15 MG PO ×2 (09:02→20:49)
--- NOTE | 2025-04-24 09:43 | P.PN_ITS ---
Subjective Subjective Date Patient Seen: 04/24/25 Interval history: This is a 49-year-old male, patient of Dr. Mccauley, with cerebral palsy/DD, spastic quadriplegia, neurogenic bladder, hydrocephalus, leukomalacia, cerebral atrophy, seizure disorder, recurrent UTI, familial tremor, and tube feeding in addition to oral intake who presents with 2 days of noisy breathing and fever of 103.4. White blood count is 46.1 with creatinine 1.90 and 30-100 wbc's on UA. CXR shows no pneumonia. His last admission for a similar illness included leukocytosis and UTI. His grandma seizures are no more than 1 or 2 per year. He lives with his parents in [place] with caregiving assistance from adult brother and sister. He has a small dog who is his medical assistance animal and who will be staying with him in the hospital. He is able to swallow, take some of his nutrition by mouth but is very limited in communication and vision. 04/22: Called by ER to see Mr. Weber for a HR of 200-240. 0, RR 30. Briefly this is a 49yo male with cerebral palsy/DD, spastic quadriplegia, neurogenic bladder, hydrocephalus, leukomalacia, cerebral atrophy, seizure disorder, recurrent UTI who presented to the ER with fever and confusion. The patien tis nonverbal and was agitated/restless. Physical exam notable for tachycardia, chronic contracture of LUE and BLE, lungs clear, abdomen benign. He was given ativan 1mg IV x1 for restlessness and straight cath performed in case urine retention was contributing to the tachycardia. Approximately 500ml obtained. Labs reviewed and notable for profound leukocytosis and bendemia with WBC 46 with 53% segmented neuts, 42% bands and only 2% lymphocytes. Labs also notable for K 5.9, Cr 1.9 (prior 0.88, 1.17). A 12 lead EKG obtained at 12:33 shows SVT at 205bpm. SBP 110, MAP 70, HR 22. Provided three doses of adenosine 6mg, 6mg and 12 mg with initial slowing of HR but rapid return to SVT with a rate above 200. Review of tele strips during slowing showed sinus mechanism. He was subsequently sedated with propofol and synchronized cardioversion at 120J x1 was performed with return of sinus tachycardia at approximately 120bpm. Repeat 12 Lead EKG at 1331 showed sinus tachy at 122bpm. Current vitals are SBP 133, MAP, HR 120bpm, RR, 35bpm, POx 92% at 3L. Around 1500, patient developed increased secretions which his Mom says happens every time he gets IVF. She notes that it usually responds to mucinex. Patient transiently required an increase in nasal cannula oxygen but was quickly de- escalated to 2 liters. He remained tachypneic with the secretions. Mucinex provided and patient given a trial of BIPAP. He was also repositioned on his side in the ER as his Mom reports that he typically sleeps on his abdomen because when he is prone, his tongue falls far back due to his high arched palate. With BIPAP and repositioning, the patient was more comfortable and his respiratory rate decreased from mid to high 30's to 14-20. Unable to prone patient in ER but ICU has beds for proning and this can be tried once he moves to the unit. 04/23: Yesterday the patient had a crisis involving SVT requiring adenosine and then electrical cardioversion. He was placed on BiPAP after experiencing increasing hypoxia. He has been stable overnight and appears to be breathing comfortably now. A chest x-ray will be done. On his ABG the pH was 7.23 with a pCO2 of 66. The potassium has come down to 4.6 from 5.6. He will be placed back on his home tube feedings of 750 mL per day with additional flush and fluid by IV. He was given vancomycin overnight which will be stopped now assuming the chest x-ray is favorable. The white blood count has dropped down to 38.5. His T-max is 100.8? with a heart rate currently in the 110-120 range and respiratory rate in the high 20s. 04/24: White blood count now down to 30.0. Urine culture growing E coli which is sensitive to ceftriaxone. Boggs catheter has clear urine. He was off BiPAP when I saw him this morning but later on in the day had to go back on it. We will be stopping his IV fluid today. His brother, mother and therapy dog are all visiting him during my interaction. His heart rate continues in the 110-120 range with sinus tachycardia. Assessment and plan: Sepsis, present on admission. Active. -this appears to be UTI in origin. He had renal dysfunction and a lactic acid level of 2.1. White blood count was 46.1. Follow. -treating with IV ceftriaxone, IV fluid and tube feed hydration. -urine culture E. Coli, BC no growth. -CT scan shows cystitis. Chest x-ray is negative. -sepsis related SVT requiring max dose adenosine and then electrocardioversion. Converted back to mild sinus tach. -hypoxic respiratory failure subsequent to the tachycardia and stabilized on BiPAP. Urinary tract infection, present on admission. Active. -urine culture E. Coli. UA shows 30-100 wbc's. -ceftriaxone IV. -neurogenic bladder with intermittent catheterization. Supraventricular tachycardia, not present on admission. Resolved. -see note from 04/22. Received adenosine x3 and electrical cardioversion Hypoxemic respiratory failure, not present on admission. Active. -continue BiPAP as needed. Currently on NRB. Cerebral palsy/DD present on admission. Chronic. -symptoms including seizures, bed bound, limited communication skills, blindness, dysphagia and neurogenic bladder. -baclofen for spasticity. Mirtazapine. Seizure disorder, present on admission. Chronic. -continue Keppra and Depakote along with Valium IV as needed. -levels pending. Tube feeding, present on admission. Active. -secondary to cerebral palsy dysphagia. -tube feeding 750 mL per day with water flushes. Continues on home regimen/formula. Dietitian following closely. -continue Protonix, switched to IV. Hyperkalemia, present on admission. Resolved. -potassium 5.6 likely related to dehydration. Infusing normal saline IV. Resolved. Enoxaparin for DVT prevention. Mother and adult brother/sister are his backup decision makers. Confirmed full code Exam Vital Signs (past 8 hours): - 04/24/25 01:53 04/24/25 03:00 04/24/25 04:58 Temperature 98.9 F Pulse Rate 126 H Respiratory Rate 15 Blood Pressure 140/79 Pulse Oximetry 100 Oxygen Delivery Method Fraction of Inspired Oxygen 30 30 04/24/25 05:00 Temperature Pulse Rate Respiratory Rate Blood Pressure Pulse Oximetry Oxygen Delivery Method BiPAP Fraction of Inspired Oxygen Fraction of Inspired Oxygen 30 Oxygen Delivery Method BiPAP Oxygen Flow Rate 2 Objective Labs 04/24/25 04:25 04/23/25 04:34 Labs: Laboratory Results - last 24 hr 04/22/25 04/23/25 04/23/25 13:56 11:53 22:59 WBC RBC Hgb Hct MCV MCH MCHC RDW Plt Count Neut % (Auto) Lymph % (Auto) [place] % (Auto) Eos % (Auto) Baso % (Auto) Lymph # (Auto) [place] # (Auto) Baso # (Auto) Total Counted Seg Neutrophils % Band Neutrophils % Lymphocytes % (Manual) Monocytes % (Manual) Neutrophils # (Manual) RBC Morphology Anisocytosis ABG Sample Site Right radial ABG pH 7.32 L ABG pCO2 51.1 H ABG pO2 98 ABG HCO3 26 ABG Total CO2 26 ABG O2 Saturation 97 ABG Base Excess -0.7 Clem Test Positive Respiration Rate 12 O2 Delivery Device Bipap FiO2 % 30.0 % Pressure Support 8 PEEP or CPAP 8 POC Whole Bld Glucose 131 H Nasal Screen MRSA (PCR) Total Valproic Acid 56 04/24/25 04/24/25 02:36 04:25 WBC 30.0 H RBC 3.62 L Hgb 12.3 L Hct 37.6 L MCV 103.7 H MCH 34.0 MCHC 32.8 RDW 15.7 H Plt Count 149 L Neut % (Auto) Not Reportable Lymph % (Auto) Not Reportable [place] % (Auto) Not Reportable Eos % (Auto) Not Reportable Baso % (Auto) Not Reportable Lymph # (Auto) Not Reportable [place] # (Auto) Not Reportable Baso # (Auto) Not Reportable Total Counted 100 Seg Neutrophils % 83.0 H D Band Neutrophils % 9.0 H Lymphocytes % (Manual) 4.0 L Monocytes % (Manual) 4.0 Neutrophils # (Manual) 55153 H RBC Morphology Not Reportable Anisocytosis 1+ H ABG Sample Site ABG pH ABG pCO2 ABG pO2 ABG HCO3 ABG Total CO2 ABG O2 Saturation ABG Base Excess Clem Test Respiration Rate O2 Delivery Device FiO2 % Pressure Support PEEP or CPAP POC Whole Bld Glucose Nasal Screen MRSA (PCR) Not detected Total Valproic Acid COUNTS INCLUDE 234 BEDS AT THE [facility] Medical History 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 Cataracts, bilateral Cerebellar atrophy Cerebral atrophy Cervical spine disease Cervical vertebral fusion Chicken pox (~1977) History of developmental delay Hydrocephalus, adult Impaired mobility and ADLs Intermittent self-catheterization of bladder Leukomalacia, periventricular Neurogenic bladder Prostatitis Recurrent UTI Seizure disorder Spastic quadriplegia Total blindness Urinary retention Surgical History Anesthesia History of thoracic spinal fusion S/P percutaneous endoscopic gastrostomy (PEG) tube placement Family History Mother Hyperlipidemia Autoimmune disorder Gout Irritable bowel syndrome History of Graves' disease Sister Multiple myeloma History of kidney cancer History of Graves' disease Grandfather Diabetes mellitus Grandmother Alcoholism Tuberculosis Brother Irritable bowel syndrome Social History marital status: unmarried,single household members: family and caregiver Smoking Status: Never smoker alcohol intake: current caffeine: Yes Assessment & Plan Time-Based Coding :: [TOTAL MINUTES] spent with patient and on the chart (including review of chart, obtaining history, exam, reviewing outside data, placing orders, documenting exam and treatment plan, and counseling patient) on [DATE].
--- NOTE | 2025-04-24 14:21 | CM.DPNOTE ---
DCP Continued: Reviewed EMR and team rounds for pt?s medical status. Per hospitalist, pt stabilizing but still tachycardic. Per RN, Placed on BiPAP and utilizing during the day. No discharge needs identified at this time, family prepared to resume care at home when cleared. Plan: Anticipating dc home with family to transport and support on 04/26 or when medically cleared. CM Team will continue to follow for coordination of discharge plans. ETTA AlvaradoSW
--- NOTE | 2025-04-24 16:34 | DIET.PN1 ---
Dietary Progress Note Assessment: F/u. Has done 2 cans Nutren today with yogurt in 1 of them. Plans to do a 3rd tonight for 750 mL total. Pt's mother reports he typically doesn't tolerate larger water flushes at 1 time and does 120 ml Q1-2H during day. Ht: 152.4 cm Wt: 47 kg BMI: 17.6 UBW: Last BM: () MNA: 9 Will Score: 10 Diet: 04/23/25 Lunch Tube Feeding Diet Diet Modifications: TF Supplement type: Nutren 2.0 TF mode of delivery: Bolus Starting flow rate mL/hr: 250 Flow rate goal mL/hr: 250 Titration Schedule to reach Goal Rate: 250 mL 2-3 times/day; bolus via PEG Max total daily volume in mL: 2,400 Free fluid: 100 Free Water Frequency: Q6H Comment: 30-60 mL free water flushed before and after tube feeds 04/24/25 Dinner Courtesy Popeye (Peds, comfort care) Diet Modifications: Labs: RBC 3.62 X10^6/uL (4.5-5.9) L 04/24/25 04:25 Hgb 12.3 g/dL (13.5-17.5) L 04/24/25 04:25 Hct 37.6 % (41-53) L 04/24/25 04:25 Creatinine 1.15 mg/dL (0.66-1.25) 04/23/25 04:34 Lactate 1.7 mmol/L (0.7-2.1) 04/22/25 15:57 Electronically Signed by: Shae Elliott 04/24/25 16:34 Clinical Dietitian [address] [address]
[2025-04-24] MEDS: ACETAMINOPHEN 325 MG TABLET 650 MG PO (20:48)
[2025-04-24] MEDS: DIVALPROEX DR 250 MG TABLET 1000 MG PO (20:50)
[2025-04-24] MEDS: LATANOPROST 0.005% OPHTH 2.5 ML 1 DROPS EYE-RIGHT (20:50)
[2025-04-24] MEDS: MIRTAZAPINE 15 MG TABLET PO (20:50)
--- NOTE | 2025-04-24 21:30 | PC.NURSE ---
Caregiver and pt. service dog at bedside. Vigorous oral care performed by caregiver with thick brown secretions obtained. On room air with SaO2 @ 95-99%. IVF of NS @ 100cc/hr infusing via right arm IV. Caregiver administering G-tube feeds. Pt febrile to 102.6, blankets removed, scheduled tylenol given. Will recheck temp and evaluate effectiveness of tylenol.
[2025-04-25] VITALS (30 sets, daily range): BP systolic 100–149; BP diastolic 58–94; PULSE 81–122; RESP 12–35; TEMP 36.6–38.6; O2SAT 91–100
[2025-04-25] MEDS: SODIUM CHLORIDE 0.9% 1,000 ML 100 ML IV (01:11)
--- NOTE | 2025-04-25 01:15 | PC.NURSE ---
Respiratory Therapist called regarding SaO2 in upper 80's, multiple Bipap changes made, Hospitalist conference planner contacted to discontinue MIVF. Caregiver remains at bedside, notes edema on bilateral lower extremities more pronounced than yesterday. IV fluid discontinued per hospitalist. After multiple Bipap changes SaO2 now greater than 94%.
[2025-04-25] MEDS: guaiFENesin Solution 100 MG/5 ML UDC 200 MG PO ×3 (03:26→21:42)
[2025-04-25] MEDS: ACETAMINOPHEN 325 MG TABLET 650 MG PO ×2 (03:26→09:51)
[2025-04-25 07:07] LABS: Hematocrit 38.4 % (41-53); Hemoglobin 12.7 g/dL (13.5-17.5); Mean Corpuscular HGB Conc 33.2 % (30-36); Mean Corpuscular Hemoglobin 34.3 PG (26-34); Mean Corpuscular Volume 103.4 fL (80-100); Platelet Count 137 X10^3/uL (150-400)
[2025-04-25 07:09] LABS: Add Manual Diff / Slide Review YES
[2025-04-25 07:38] LABS: Blood Urea Nitrogen 27 mg/dL (9-20); Calcium 8.8 mg/dL (8.4-10.2); Carbon Dioxide 31 mmol/L (22-32); Chloride 113 mmol/L (98-107); Estimated Glomerular Filt Rate > 60 mL/min (>60); Glucose 92 mg/dL (70-99); HEMOLYSIS < 15 (0-50); Potassium 3.9 mmol/L (3.4-5.1); Sodium 148 mmol/L (137-145)
--- NOTE | 2025-04-25 07:58 | PM.PN.1 ---
Subjective Subjective Date Patient Seen: 04/25/25 Interval history: This is a 49-year-old male, patient of Dr. Mccauley, with cerebral palsy/DD, spastic quadriplegia, neurogenic bladder, hydrocephalus, leukomalacia, cerebral atrophy, seizure disorder, recurrent UTI, familial tremor, and tube feeding in addition to oral intake who presents with 2 days of noisy breathing and fever of 103.4. White blood count is 46.1 with creatinine 1.90 and 30-100 wbc's on UA. CXR shows no pneumonia. His last admission for a similar illness included leukocytosis and UTI. His grandma seizures are no more than 1 or 2 per year. He lives with his parents in [place] with caregiving assistance from adult brother and sister. He has a small dog who is his medical assistance animal and who will be staying with him in the hospital. He is able to swallow, take some of his nutrition by mouth but is very limited in communication and vision. 04/22: Called by ER to see Mr. Weber for a HR of 200-240. 0, RR 30. Briefly this is a 49yo male with cerebral palsy/DD, spastic quadriplegia, neurogenic bladder, hydrocephalus, leukomalacia, cerebral atrophy, seizure disorder, recurrent UTI who presented to the ER with fever and confusion. The patien tis nonverbal and was agitated/restless. Physical exam notable for tachycardia, chronic contracture of LUE and BLE, lungs clear, abdomen benign. He was given ativan 1mg IV x1 for restlessness and straight cath performed in case urine retention was contributing to the tachycardia. Approximately 500ml obtained. Labs reviewed and notable for profound leukocytosis and bendemia with WBC 46 with 53% segmented neuts, 42% bands and only 2% lymphocytes. Labs also notable for K 5.9, Cr 1.9 (prior 0.88, 1.17). A 12 lead EKG obtained at 12:33 shows SVT at 205bpm. SBP 110, MAP 70, HR 22. Provided three doses of adenosine 6mg, 6mg and 12 mg with initial slowing of HR but rapid return to SVT with a rate above 200. Review of tele strips during slowing showed sinus mechanism. He was subsequently sedated with propofol and synchronized cardioversion at 120J x1 was performed with return of sinus tachycardia at approximately 120bpm. Repeat 12 Lead EKG at 1331 showed sinus tachy at 122bpm. Current vitals are SBP 133, MAP, HR 120bpm, RR, 35bpm, POx 92% at 3L. Around 1500, patient developed increased secretions which his Mom says happens every time he gets IVF. She notes that it usually responds to mucinex. Patient transiently required an increase in nasal cannula oxygen but was quickly de-escalated to 2 liters. He remained tachypneic with the secretions. Mucinex provided and patient given a trial of BIPAP. He was also repositioned on his side in the ER as his Mom reports that he typically sleeps on his abdomen because when he is prone, his tongue falls far back due to his high arched palate. With BIPAP and repositioning, the patient was more comfortable and his respiratory rate decreased from mid to high 30's to 14-20. Unable to prone patient in ER but ICU has beds for proning and this can be tried once he moves to the unit. 04/23: Yesterday the patient had a crisis involving SVT requiring adenosine and then electrical cardioversion. He was placed on BiPAP after experiencing increasing hypoxia. He has been stable overnight and appears to be breathing comfortably now. A chest x-ray will be done. On his ABG the pH was 7.23 with a pCO2 of 66. The potassium has come down to 4.6 from 5.6. He will be placed back on his home tube feedings of 750 mL per day with additional flush and fluid by IV. He was given vancomycin overnight which will be stopped now assuming the chest x-ray is favorable. The white blood count has dropped down to 38.5. His T-max is 100.8? with a heart rate currently in the 110-120 range and respiratory rate in the high 20s. 04/24: White blood count now down to 30.0. Urine culture growing E coli which is sensitive to ceftriaxone. Boggs catheter has clear urine. He was off BiPAP when I saw him this morning but later on in the day had to go back on it. We will be stopping his IV fluid today. His brother, mother and therapy dog are all visiting him during my interaction. His heart rate continues in the 110-120 range with sinus tachycardia. 04/25: He remains on BiPAP. His mother spends most of the time at bedside providing much of his care as she does at home. Urine culture growing E coli. Both blood cultures negative for 48 hours. FiO2 40% on BiPAP. Mild tachycardia, now at his baseline, per mother, of 100-115. White blood count down to 22.4. Hemoglobin 12.7. BMP normal. Assessment and plan: Sepsis, present on admission. Active. -E.Coli UTI. On admission he had renal dysfunction and a lactic acid level of 2.1. White blood count was 46.1. Follow. -treated with IV ceftriaxone, IV fluid and tube feed hydration. -urine culture E. Coli, BC no growth X 48 h. -CT scan shows cystitis. Chest x-ray is negative. -sepsis related SVT requiring max dose adenosine and then electrocardioversion. Converted back to mild sinus tach. -hypoxic respiratory failure subsequent to the tachycardia and stabilized on BiPAP. Urinary tract infection, present on admission. Active. -urine culture E. Coli. UA shows 30-100 wbc's. -ceftriaxone IV. -neurogenic bladder with intermittent catheterization. Supraventricular tachycardia, not present on admission. Resolved. -see note from 04/22. Received adenosine x3 and electrical cardioversion Hypoxemic respiratory failure, not present on admission. Active. -continue BiPAP as needed. Currently on NRB. -discharge when no longer oxygen/BIPAP dependent. Cerebral palsy/DD present on admission. Chronic. -symptoms including seizures, bed bound, limited communication skills, blindness, dysphagia and neurogenic bladder. -baclofen for spasticity. Mirtazapine. Seizure disorder, present on admission. Chronic. -continue Keppra and Depakote along with Valium IV as needed. -levels pending. Tube feeding, present on admission. Active. -secondary to cerebral palsy dysphagia. -tube feeding 750 mL per day with water flushes. Continues on home regimen/formula. Dietitian following closely. -continue Protonix, switched to IV. Hyperkalemia, present on admission. Resolved. -potassium 5.6 likely related to dehydration. Infusing normal saline IV. Resolved. Enoxaparin for DVT prevention. Mother and adult brother/sister are his backup decision makers. Confirmed full code Exam Vital Signs (past 8 hours): - 04/25/25 00:00 04/25/25 00:00 04/25/25 00:56 Temperature 99.6 F Pulse Rate 109 H 116 H Respiratory Rate 29 H 26 H Blood Pressure 120/76 120/76 Pulse Oximetry 92 91 Oxygen Delivery Method BiPAP Fraction of Inspired Oxygen 35 04/25/25 00:57 04/25/25 01:00 04/25/25 01:46 Temperature 99.2 F Pulse Rate 115 H Respiratory Rate 26 H Blood Pressure 134/74 Pulse Oximetry 92 Oxygen Delivery Method Fraction of Inspired Oxygen 35 35 50 04/25/25 02:00 04/25/25 03:00 04/25/25 03:53 Temperature 101 F H Pulse Rate 117 H 122 H Respiratory Rate 20 Blood Pressure 146/77 H 100/77 100/77 Pulse Oximetry 98 100 Oxygen Delivery Method Fraction of Inspired Oxygen 55 55 40 04/25/25 04:00 04/25/25 04:00 04/25/25 05:00 Temperature 99.4 F Pulse Rate 106 H 101 H Respiratory Rate 18 14 Blood Pressure 146/83 H 134/84 Pulse Oximetry 100 100 Oxygen Delivery Method BiPAP Fraction of Inspired Oxygen 40 40 04/25/25 06:00 04/25/25 07:00 04/25/25 07:05 Temperature 98.9 F Pulse Rate 109 H 94 H Respiratory Rate 17 13 Blood Pressure 144/80 H 149/82 H 149/82 H Pulse Oximetry 100 98 Oxygen Delivery Method Fraction of Inspired Oxygen 40 40 Fraction of Inspired Oxygen 40 Oxygen Delivery Method BiPAP Oxygen Flow Rate 2 Objective Labs 04/25/25 06:25 04/25/25 06:25 Labs: Laboratory Results - last 24 hr 04/25/25 06:25 WBC 22.4 H RBC 3.71 L Hgb 12.7 L Hct 38.4 L MCV 103.4 H MCH 34.3 H MCHC 33.2 RDW 15.6 H Plt Count 137 L Neut % (Auto) Not Reportable Lymph % (Auto) Not Reportable [place] % (Auto) Not Reportable Eos % (Auto) Not Reportable Baso % (Auto) Not Reportable Lymph # (Auto) Not Reportable [place] # (Auto) Not Reportable Baso # (Auto) Not Reportable Sodium 148 H Potassium 3.9 Chloride 113 H Carbon Dioxide 31 BUN 27 H Creatinine 0.88 Estimated GFR > 60 BUN/Creatinine Ratio 30.7 H Glucose 92 Calcium 8.8 PFSH Medical History 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 Cataracts, bilateral Cerebellar atrophy Cerebral atrophy Cervical spine disease Cervical vertebral fusion Chicken pox (~1977) History of developmental delay Hydrocephalus, adult Impaired mobility and ADLs Intermittent self-catheterization of bladder Leukomalacia, periventricular Neurogenic bladder Prostatitis Recurrent UTI Seizure disorder Spastic quadriplegia Total blindness Urinary retention Surgical History Anesthesia History of thoracic spinal fusion S/P percutaneous endoscopic gastrostomy (PEG) tube placement Family History Mother Hyperlipidemia Autoimmune disorder Gout Irritable bowel syndrome History of Graves' disease Sister Multiple myeloma History of kidney cancer History of Graves' disease Grandfather Diabetes mellitus Grandmother Alcoholism Tuberculosis Brother Irritable bowel syndrome Social History marital status: unmarried,single household members: family and caregiver Smoking Status: Never smoker alcohol intake: current caffeine: Yes Assessment & Plan Time-Based Coding :: [TOTAL MINUTES] spent with patient and on the chart (including review of chart, obtaining history, exam, reviewing outside data, placing orders, documenting exam and treatment plan, and counseling patient) on [DATE].
[2025-04-25 09:23] LABS: Band Neutrophils Percent 1.0 % (3-7); Lymphocytes Percent Manual 9.0 % (25-45); Monocytes Percent Manual 6.0 % (2-11); Neutrophils Absolute Manual 19040 /uL (3000-5900); Segmented Neutrophils Percent 84.0 % (38-70); Total Cells Counted 100
[2025-04-25 09:24] LABS: Anisocytosis 1+
[2025-04-25] MEDS: ENOXAPARIN 40 MG/0.4 ML SYRINGE SUBCUT (09:48)
[2025-04-25] MEDS: cefTRIAXone 2,000 MG in SODIUM CHLORIDE 0.9% 100 ML 200 MG IV (09:48)
[2025-04-25] MEDS: DIVALPROEX DR 250 MG TABLET 500 MG PO (09:49)
[2025-04-25] MEDS: PANTOPRAZOLE 40 MG VIAL IV (09:49)
[2025-04-25] MEDS: MELOXICAM 7.5 MG TABLET 15 MG PO (09:50)
[2025-04-25] MEDS: BACLOFEN 10 MG TABLET 15 MG PO ×2 (09:50→21:43)
[2025-04-25] MEDS: FOLIC ACID 1 MG TABLET 0.25 MG PO (09:50)
[2025-04-25 13:13] LABS: Levetiracetam Keppra 73.0 ug/mL (10.0-40.0)
--- NOTE | 2025-04-25 16:24 | DIET.PN1 ---
Dietary Progress Note Assessment: Continues on 750 mL of Nutren. IVF decreased and pt's mother has added in 4 oz flushes. Medication flushes, fluid in formula, IVF, water flushes meet fluids needs. Following closely. Ht: 152.4 cm Wt: 50 kg BMI: 17.6 Last BM: () MNA: 9 Will Score: 10 Diet: 04/23/25 Lunch Tube Feeding Diet Diet Modifications: TF Supplement type: Nutren 2.0 TF mode of delivery: Bolus Starting flow rate mL/hr: 250 Flow rate goal mL/hr: 250 Titration Schedule to reach Goal Rate: 250 mL 2-3 times/day; bolus via PEG Max total daily volume in mL: 2,400 Free fluid: 100 Free Water Frequency: Q6H Comment: Pt's mother managing fluids; 60 mL before&after feeds 04/24/25 Dinner Courtesy Tray (Peds, comfort care) Diet Modifications: Labs: RBC 3.71 X10^6/uL (4.5-5.9) L 04/25/25 06:25 Hgb 12.7 g/dL (13.5-17.5) L 04/25/25 06:25 Hct 38.4 % (41-53) L 04/25/25 06:25 Creatinine 0.88 mg/dL (0.66-1.25) 04/25/25 06:25 Lactate 1.7 mmol/L (0.7-2.1) 04/22/25 15:57 Electronically Signed by: Shae Elliott 04/25/25 16:24 Clinical Dietitian [address] [address]
[2025-04-25] MEDS: LATANOPROST 0.005% OPHTH 2.5 ML 1 DROPS EYE-RIGHT (20:51)
[2025-04-25] MEDS: MIRTAZAPINE 15 MG TABLET PO (21:43)
[2025-04-25] MEDS: DIVALPROEX DR 250 MG TABLET 1000 MG PO (21:43)
[2025-04-26] VITALS (16 sets, daily range): BP systolic 116–136; BP diastolic 60–80; PULSE 53–120; RESP 15–30; TEMP 37.1–39.2; O2SAT 92–98
[2025-04-26] MEDS: ACETAMINOPHEN 325 MG TABLET 650 MG PO ×2 (00:43→22:10)
[2025-04-26] MEDS: guaiFENesin Solution 100 MG/5 ML UDC 200 MG PO ×3 (00:45→15:07)
--- NOTE | 2025-04-26 02:01 | PC.NURSE ---
Pt. febrile to 102.6, caregiver has pt wrapped up in blankets, 650 mg Tylenol per GTube given , EKG with rate to 150 and PVC's in increased couples (LIP informed). blankets removed.
--- NOTE | 2025-04-26 06:25 | PC.NURSE ---
Pt has remained on room air for the past 12 hours, with SaO2 91-97%. Remains with fever (T Max 102.6), responsive to tylenol. Remains tachycardic with occasional PCVs, occasional couplets. sample washer gave pt. 60cc of chacko slushie PO. No stool noted. Tolerating PEG feedings well. Rescue dog and managed care provider remains at bedside.
--- NOTE | 2025-04-26 08:30 | DI.RAD.S_ITS ---
PROCEDURE: XR CHEST 1V INDICATIONS: New Fevers TECHNIQUE: One view of the chest was acquired. COMPARISON: [facility], CR, XR CHEST 1V, 04/22/2025, 5:03. [facility], CR, XR CHEST 1V, 04/23/2025, 11:14. FINDINGS: Surgical changes and devices: Shipley rods and anterior cervical discectomy and fusion. Lungs and pleura: Suspect left retrocardiac opacity. No pleural effusions or pneumothorax. Mediastinum: Mediastinal contours appear normal. Heart size is normal. Bones and chest wall: No suspicious bony lesions. Overlying soft tissues appear unremarkable. IMPRESSION: Left retrocardiac opacity suspected which may represent pneumonia. Dictated by: Rey Hoffman M.D. on 04/26/2025 at 9:20 Approved by: Rey Hoffman M.D. on 04/26/2025 at 9:22
--- NOTE | 2025-04-26 08:34 | P.PN_ITS ---
Subjective Subjective Date Patient Seen: 04/26/25 Interval history: This is a 49-year-old male, patient of Dr. Mccauley, with cerebral palsy/DD, spastic quadriplegia, neurogenic bladder, hydrocephalus, leukomalacia, cerebral atrophy, seizure disorder, recurrent UTI, familial tremor, and tube feeding in addition to oral intake who presents with 2 days of noisy breathing and fever of 103.4. White blood count is 46.1 with creatinine 1.90 and 30-100 wbc's on UA. CXR shows no pneumonia. His last admission for a similar illness included leukocytosis and UTI. His grandma seizures are no more than 1 or 2 per year. He lives with his parents in [place] with caregiving assistance from adult brother and sister. He has a small dog who is his medical assistance animal and who will be staying with him in the hospital. He is able to swallow, take some of his nutrition by mouth but is very limited in communication and vision. 04/22: Called by ER to see Mr. Weber for a HR of 200-240. 0, RR 30. Briefly this is a 49yo male with cerebral palsy/DD, spastic quadriplegia, neurogenic bladder, hydrocephalus, leukomalacia, cerebral atrophy, seizure disorder, recurrent UTI who presented to the ER with fever and confusion. The patien tis nonverbal and was agitated/restless. Physical exam notable for tachycardia, chronic contracture of LUE and BLE, lungs clear, abdomen benign. He was given ativan 1mg IV x1 for restlessness and straight cath performed in case urine retention was contributing to the tachycardia. Approximately 500ml obtained. Labs reviewed and notable for profound leukocytosis and bendemia with WBC 46 with 53% segmented neuts, 42% bands and only 2% lymphocytes. Labs also notable for K 5.9, Cr 1.9 (prior 0.88, 1.17). A 12 lead EKG obtained at 12:33 shows SVT at 205bpm. SBP 110, MAP 70, HR 22. Provided three doses of adenosine 6mg, 6mg and 12 mg with initial slowing of HR but rapid return to SVT with a rate above 200. Review of tele strips during slowing showed sinus mechanism. He was subsequently sedated with propofol and synchronized cardioversion at 120J x1 was performed with return of sinus tachycardia at approximately 120bpm. Repeat 12 Lead EKG at 1331 showed sinus tachy at 122bpm. Current vitals are SBP 133, MAP, HR 120bpm, RR, 35bpm, POx 92% at 3L. Around 1500, patient developed increased secretions which his Mom says happens every time he gets IVF. She notes that it usually responds to mucinex. Patient transiently required an increase in nasal cannula oxygen but was quickly de- escalated to 2 liters. He remained tachypneic with the secretions. Mucinex provided and patient given a trial of BIPAP. He was also repositioned on his side in the ER as his Mom reports that he typically sleeps on his abdomen because when he is prone, his tongue falls far back due to his high arched palate. With BIPAP and repositioning, the patient was more comfortable and his respiratory rate decreased from mid to high 30's to 14-20. Unable to prone patient in ER but ICU has beds for proning and this can be tried once he moves to the unit. 04/23: Yesterday the patient had a crisis involving SVT requiring adenosine and then electrical cardioversion. He was placed on BiPAP after experiencing increasing hypoxia. He has been stable overnight and appears to be breathing comfortably now. A chest x-ray will be done. On his ABG the pH was 7.23 with a pCO2 of 66. The potassium has come down to 4.6 from 5.6. He will be placed back on his home tube feedings of 750 mL per day with additional flush and fluid by IV. He was given vancomycin overnight which will be stopped now assuming the chest x-ray is favorable. The white blood count has dropped down to 38.5. His T-max is 100.8? with a heart rate currently in the 110-120 range and respiratory rate in the high 20s. 04/24: White blood count now down to 30.0. Urine culture growing E coli which is sensitive to ceftriaxone. Boggs catheter has clear urine. He was off BiPAP when I saw him this morning but later on in the day had to go back on it. We will be stopping his IV fluid today. His brother, mother and therapy dog are all visiting him during my interaction. His heart rate continues in the 110-120 range with sinus tachycardia. 04/25: He remains on BiPAP. His mother spends most of the time at bedside providing much of his care as she does at home. Urine culture growing E coli. Both blood cultures negative for 48 hours. FiO2 40% on BiPAP. Mild tachycardia, now at his baseline, per mother, of 100-115. White blood count down to 22.4. Hemoglobin 12.7. BMP normal. 04/26: Temperature up to 102.6 overnight with heart rate continuing in the 100- 120 range. Viral respiratory panel negative. Chest x-ray suggested left retrocardiac infiltrate. Antibiotic changed to Zosyn. He is more alert today. His therapy dog, Pip, and his mother are in attendance. Assessment and plan: Sepsis, present on admission. Active. -E.Coli UTI. On admission he had renal dysfunction and a lactic acid level of 2.1. White blood count was 46.1. Follow. -treated with IV ceftriaxone, IV fluid and tube feed hydration. -urine culture E. Coli, BC no growth X 48 h. -CT scan shows cystitis. Chest x-ray is negative. -sepsis related SVT requiring max dose adenosine and then electrocardioversion. Converted back to mild sinus tach. -hypoxic respiratory failure subsequent to the tachycardia and stabilized on BiPAP. -experience fever of 102.6 on 04/26 so chest x-ray was done showing a new left retrocardiac infiltrate. -antibiotics changed from ceftriaxone to Zosyn. Respiratory panel negative. Healthcare acquired pneumonia, not present on admission. -initially noted on chest x-ray 04/26. Left retrocardiac infiltrate. -begin Zosyn, stop ceftriaxone and follow white blood count/new blood cultures. -respiratory panel negative for RSV, influenza and COVID. Urinary tract infection, present on admission. Active. -urine culture E. Coli. UA shows 30-100 wbc's. -ceftriaxone IV x4 days, then changed to Zosyn. -neurogenic bladder with intermittent catheterization. Supraventricular tachycardia, not present on admission. Resolved. -see note from 04/22. Received adenosine x3 and electrical cardioversion Hypoxemic respiratory failure, not present on admission. Active. -continue BiPAP as needed. Currently on NRB. -discharge when pneumonia/fever treated and no longer oxygen/BIPAP dependent. Cerebral palsy/DD present on admission. Chronic. -symptoms including seizures, bed bound, limited communication skills, blindness, dysphagia and neurogenic bladder. -baclofen for spasticity. Mirtazapine. Seizure disorder, present on admission. Chronic. -continue Keppra and Depakote along with Valium IV as needed. -valproic acid level 56 and Keppra level 73. -decrease Keppra dose to 500 mg IV b.i.d. on 04/26. Tube feeding, present on admission. Active. -secondary to cerebral palsy dysphagia. -tube feeding 750 mL per day with water flushes. Continues on home regimen/formula. Dietitian following closely. -continue Protonix, switched to IV. Hyperkalemia, present on admission. Resolved. -potassium 5.6 likely related to dehydration. Infusing normal saline IV. Resolved. Enoxaparin for DVT prevention. Mother and adult brother/sister are his backup decision makers. Confirmed full code Exam Vital Signs (past 8 hours): - 04/26/25 00:43 04/26/25 01:00 04/26/25 02:00 Temperature 102.6 F H 102.6 F H 101.2 F H Pulse Rate 120 H 86 Respiratory Rate 24 29 H Blood Pressure 120/74 119/69 Pulse Oximetry 96 93 Oxygen Delivery Method 04/26/25 02:00 04/26/25 02:45 04/26/25 03:00 Temperature 99.5 F Pulse Rate 90 Respiratory Rate 22 Blood Pressure 125/70 Pulse Oximetry 95 Oxygen Delivery Method Room Air 04/26/25 04:00 04/26/25 04:00 04/26/25 04:00 Temperature 99 F 99.5 F Pulse Rate 88 101 H Respiratory Rate 22 18 Blood Pressure 118/70 116/70 Pulse Oximetry 97 98 Oxygen Delivery Method Room Air 04/26/25 05:00 04/26/25 06:00 04/26/25 06:00 Temperature 101 F H 100 F H 100 F H Pulse Rate 108 H 53 L 114 H Respiratory Rate 22 17 21 Blood Pressure 127/61 130/60 130/60 Pulse Oximetry 96 97 98 Oxygen Delivery Method Fraction of Inspired Oxygen 35 Oxygen Delivery Method Room Air Oxygen Flow Rate 2 Narrative Exam Narrative: Alert and looking around the room. Breathing comfortably on room air. No evident coughing or respiratory distress. Lungs have wheezing bilaterally. Heart is mildly tachycardic with frequent premature beats. There is no murmur. Extremities have no ankle edema. Abdomen feeding tube intact. Legs are contracted. 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 Cataracts, bilateral Cerebellar atrophy Cerebral atrophy Cervical spine disease Cervical vertebral fusion Chicken pox (~1977) History of developmental delay Hydrocephalus, adult Impaired mobility and ADLs Intermittent self-catheterization of bladder Leukomalacia, periventricular Neurogenic bladder Prostatitis Recurrent UTI Seizure disorder Spastic quadriplegia Total blindness Urinary retention Surgical History Anesthesia History of thoracic spinal fusion S/P percutaneous endoscopic gastrostomy (PEG) tube placement Family History Mother Hyperlipidemia Autoimmune disorder Gout Irritable bowel syndrome History of Graves' disease Sister Multiple myeloma History of kidney cancer History of Graves' disease Grandfather Diabetes mellitus Grandmother Alcoholism Tuberculosis Brother Irritable bowel syndrome Social History marital status: unmarried,single household members: family and caregiver Smoking Status: Never smoker alcohol intake: current caffeine: Yes Assessment & Plan Time-Based Coding :: [TOTAL MINUTES] spent with patient and on the chart (including review of chart, obtaining history, exam, reviewing outside data, placing orders, documenting exam and treatment plan, and counseling patient) on [DATE].
[2025-04-26] MEDS: ENOXAPARIN 40 MG/0.4 ML SYRINGE SUBCUT (09:46)
[2025-04-26] MEDS: PIPERACILLIN/TAZO 3.375 GM in SODIUM CHLORIDE 0.9% 100 ML IV ×2 (09:46→17:09)
[2025-04-26] MEDS: PANTOPRAZOLE 40 MG VIAL IV (09:49)
[2025-04-26] MEDS: FOLIC ACID 1 MG TABLET 0.25 MG PO (09:50)
[2025-04-26] MEDS: MELOXICAM 7.5 MG TABLET 15 MG PO (09:50)
[2025-04-26] MEDS: DIVALPROEX DR 250 MG TABLET 500 MG PO (09:50)
[2025-04-26] MEDS: BACLOFEN 10 MG TABLET 15 MG PO ×2 (09:50→22:12)
[2025-04-26 10:16] LABS: Coronavirus NL 63 Not Detected (Not Detect); SARS- CoV-2 Not Detected (Not Detecte)
--- NOTE | 2025-04-26 16:09 | DIET.PN1 ---
Dietary Progress Note Assessment: Reviewed pt's log mother has provided showing meeting around 2000 mL fluid including fluids from formula. IVF stopped. Continues with 3 Nutren meeting needs. Ht: 152.4 cm Wt: 48.5 kg BMI: 17.6 Last BM: () MNA: 9 Will Score: 11 Diet: 04/23/25 Lunch Tube Feeding Diet Diet Modifications: TF Supplement type: Nutren 2.0 TF mode of delivery: Bolus Starting flow rate mL/hr: 250 Flow rate goal mL/hr: 250 Titration Schedule to reach Goal Rate: 250 mL 2-3 times/day; bolus via PEG Max total daily volume in mL: 2,400 Free fluid: 100 Free Water Frequency: Q6H Comment: Pt's mother managing fluids; 60 mL before&after feeds 04/24/25 Dinner Courtesy Tray (Peds, comfort care) Diet Modifications: Nutrition Percent Meal Consumed pt is NPO 04/25/25 18:00 Labs: RBC 3.71 X10^6/uL (4.5-5.9) L 04/25/25 06:25 Hgb 12.7 g/dL (13.5-17.5) L 04/25/25 06:25 Hct 38.4 % (41-53) L 04/25/25 06:25 Creatinine 0.88 mg/dL (0.66-1.25) 04/25/25 06:25 Lactate 1.7 mmol/L (0.7-2.1) 04/22/25 15:57 Electronically Signed by: Shae Elliott 04/26/25 16:09 Clinical Dietitian [address] [id number]
--- NOTE | 2025-04-26 17:36 | PC.NURSE ---
Addendum entered by Nafisa Portillo 04/26/25 18:27: Pt repositioned on L side with rolled towels under wrists. Original Note: Pt transfered to 22. Boggs draining cloudy yellow urine. Pt's mother Cas left bedside at about 1730 and expects to return around 1930 and has service dog Pipp with her but apparently fell while leaving and has had to go to the ER. Pt's mom administering feed and meds through g tube. Charted total intake of tube feed so far today (960mL per Cas's notes.) Ipad code is [id number] if he gets locked out, likes to listen to music with the ipad on his pillow. Pt's mouth is bleeding somewhat and looks very sore, provided oral care, repositioned, explained to pt that mom is in ER and may be delayed in coming back to room. Temp 99.8 temporal. IV antibiotics running. Will continue to monitor.
--- NOTE | 2025-04-26 19:20 | PC.NURSE ---
Patients mom does total care for patient when he is in the hospital. She had a fall outside a couple of hours ago and is in the ER. She should be coming back up to his room after results of CT scan come back. This RN talked to patients ER nurse and she thinks that she should be coming back up here and that she is doing good. mini shifter RN is aware.
[2025-04-26] MEDS: LATANOPROST 0.005% OPHTH 2.5 ML 1 DROPS EYE-RIGHT (22:10)
[2025-04-26] MEDS: MIRTAZAPINE 15 MG TABLET PO (22:11)
[2025-04-26] MEDS: DIVALPROEX DR 250 MG TABLET 1000 MG PO (22:12)
[2025-04-27] VITALS (10 sets, daily range): BP systolic 116–136; BP diastolic 69–116; PULSE 62–122; RESP 18–23; TEMP 37.7–39.1; O2SAT 90–95
[2025-04-27] MEDS: PIPERACILLIN/TAZO 3.375 GM in SODIUM CHLORIDE 0.9% 100 ML IV ×3 (00:48→17:46)
[2025-04-27] MEDS: ACETAMINOPHEN 325 MG TABLET 650 MG PO ×3 (05:04→17:47)
--- NOTE | 2025-04-27 05:47 | PC.WOUNDPHOT ---
Left buttock Right sacrum
[2025-04-27 08:21] LABS: Acinetobacter calcoa-baumannii Not Detected (Not Detect); Bacteroides fragilis Not Detected (Not Detect); Candida auris Not Detected (Not Detect); Candida glabrata Not Detected (Not Detect); Cryptococcus neoformans/gatti Not Detected (Not Detect); Enterobacterales Not Detected (Not Detect); Enterococcus faecalis Not Detected (Not Detect); Enterococcus faecium Not Detected (Not Detect); Klebsiella aerogenes Not Detected (Not Detect); Proteus species Not Detected (Not Detect); Serratia marcescens Not Detected (Not Detect); Staphylococcus epidermidis Detected (Not Detect); Staphylococcus lugdunensis Not Detected (Not Detect); Staphylococcus species Detected (Not Detect); Stenotrophomonas maltophilia Not Detected (Not Detect); Streptococcus agalactiae (Gr B Not Detected (Not Detect); Streptococcus pneumonia Not Detected (Not Detect); Streptococcus pyogenes (Gr A) Not Detected (Not Detect); Streptococcus species Not Detected (Not Detect); mecA/C Resistance Detected (Not Detect)
[2025-04-27 09:45] LABS: Hematocrit 34.3 % (41-53); Hemoglobin 11.7 g/dL (13.5-17.5); Mean Corpuscular HGB Conc 34.1 % (30-36); Mean Corpuscular Hemoglobin 34.8 PG (26-34); Mean Corpuscular Volume 102.1 fL (80-100); Platelet Count 229 X10^3/uL (150-400)
[2025-04-27 09:46] LABS: Add Manual Diff / Slide Review YES
[2025-04-27 09:55] LABS: Blood Urea Nitrogen 33 mg/dL (9-20); Calcium 8.5 mg/dL (8.4-10.2); Carbon Dioxide 33 mmol/L (22-32); Chloride 109 mmol/L (98-107); Estimated Glomerular Filt Rate > 60 mL/min (>60); Glucose 125 mg/dL (70-99); HEMOLYSIS 15 (0-50); Potassium 3.3 mmol/L (3.4-5.1); Sodium 144 mmol/L (137-145)
[2025-04-27] MEDS: BACLOFEN 10 MG TABLET 15 MG PO ×2 (09:55→21:43)
[2025-04-27] MEDS: DIVALPROEX DR 250 MG TABLET 500 MG PO (09:56)
[2025-04-27] MEDS: MELOXICAM 7.5 MG TABLET 15 MG PO (09:56)
[2025-04-27] MEDS: FOLIC ACID 1 MG TABLET 0.25 MG PO (09:57)
[2025-04-27] MEDS: ENOXAPARIN 40 MG/0.4 ML SYRINGE SUBCUT (09:58)
[2025-04-27] MEDS: PANTOPRAZOLE 40 MG VIAL IV (09:58)
[2025-04-27 10:31] LABS: Lymphocytes Percent Manual 28.0 % (25-45); Monocytes Percent Manual 3.0 % (2-11); Neutrophils Absolute Manual 10281 /uL (3000-5900); Segmented Neutrophils Percent 69.0 % (38-70); Total Cells Counted 100
[2025-04-27 10:32] LABS: Anisocytosis 1+
[2025-04-27] MEDS: guaiFENesin Solution 100 MG/5 ML UDC 200 MG PO ×3 (10:57→21:45)
[2025-04-27] MEDS: POTASSIUM CHLORIDE 20 MEQ TAB 40 MEQ PO (10:59)
[2025-04-27] MEDS: VANCOMYCIN 750 MG/150 ML PIGGYBACK 150 MG IV ×2 (11:17→18:56)
--- NOTE | 2025-04-27 13:09 | CM.DPC ---
DCP Cont. Reviewed EMR and team rounds for pt's medical status and updates. Pt is now off of bipap. He will need a few more days of IV antibiotics, has bacteremia and is febrile today. No HH at d/c. Notify [facility] at d/c re: starting up feeds at home again.
--- NOTE | 2025-04-27 14:25 | PM.PN.IH.1 ---
Subjective Subjective Date Patient Seen: 04/27/25 Time Patient Seen: 11:30 Interval history: This is a 49-year-old male, patient of Dr. Mccauley, with cerebral palsy/DD, spastic quadriplegia, neurogenic bladder, hydrocephalus, leukomalacia, cerebral atrophy, seizure disorder, recurrent UTI, familial tremor, and tube feeding in addition to oral intake who presents with 2 days of noisy breathing and fever of 103.4. White blood count is 46.1 with creatinine 1.90 and 30-100 wbc's on UA. CXR shows no pneumonia. His last admission for a similar illness included leukocytosis and UTI. His grandma seizures are no more than 1 or 2 per year. He lives with his parents in [place] with caregiving assistance from adult brother and sister. He has a small dog who is his medical assistance animal and who will be staying with him in the hospital. He is able to swallow, take some of his nutrition by mouth but is very limited in communication and vision. 04/22: Called by ER to see Mr. Weber for a HR of 200-240. 0, RR 30. Briefly this is a 49yo male with cerebral palsy/DD, spastic quadriplegia, neurogenic bladder, hydrocephalus, leukomalacia, cerebral atrophy, seizure disorder, recurrent UTI who presented to the ER with fever and confusion. The patien tis nonverbal and was agitated/restless. Physical exam notable for tachycardia, chronic contracture of LUE and BLE, lungs clear, abdomen benign. He was given ativan 1mg IV x1 for restlessness and straight cath performed in case urine retention was contributing to the tachycardia. Approximately 500ml obtained. Labs reviewed and notable for profound leukocytosis and bendemia with WBC 46 with 53% segmented neuts, 42% bands and only 2% lymphocytes. Labs also notable for K 5.9, Cr 1.9 (prior 0.88, 1.17). A 12 lead EKG obtained at 12:33 shows SVT at 205bpm. SBP 110, MAP 70, HR 22. Provided three doses of adenosine 6mg, 6mg and 12 mg with initial slowing of HR but rapid return to SVT with a rate above 200. Review of tele strips during slowing showed sinus mechanism. He was subsequently sedated with propofol and synchronized cardioversion at 120J x1 was performed with return of sinus tachycardia at approximately 120bpm. Repeat 12 Lead EKG at 1331 showed sinus tachy at 122bpm. Current vitals are SBP 133, MAP, HR 120bpm, RR, 35bpm, POx 92% at 3L. Around 1500, patient developed increased secretions which his Mom says happens every time he gets IVF. She notes that it usually responds to mucinex. Patient transiently required an increase in nasal cannula oxygen but was quickly de-escalated to 2 liters. He remained tachypneic with the secretions. Mucinex provided and patient given a trial of BIPAP. He was also repositioned on his side in the ER as his Mom reports that he typically sleeps on his abdomen because when he is prone, his tongue falls far back due to his high arched palate. With BIPAP and repositioning, the patient was more comfortable and his respiratory rate decreased from mid to high 30's to 14-20. Unable to prone patient in ER but ICU has beds for proning and this can be tried once he moves to the unit. 04/23: Yesterday the patient had a crisis involving SVT requiring adenosine and then electrical cardioversion. He was placed on BiPAP after experiencing increasing hypoxia. He has been stable overnight and appears to be breathing comfortably now. A chest x-ray will be done. On his ABG the pH was 7.23 with a pCO2 of 66. The potassium has come down to 4.6 from 5.6. He will be placed back on his home tube feedings of 750 mL per day with additional flush and fluid by IV. He was given vancomycin overnight which will be stopped now assuming the chest x-ray is favorable. The white blood count has dropped down to 38.5. His T-max is 100.8? with a heart rate currently in the 110-120 range and respiratory rate in the high 20s. Chest x-ray: Pulmonary interstitial prominence as above. This could represent developing edema versus airspace disease. 04/24: White blood count now down to 30.0. Urine culture growing E coli which is sensitive to ceftriaxone. Boggs catheter has clear urine. He was off BiPAP when I saw him this morning but later on in the day had to go back on it. We will be stopping his IV fluid today. His brother, mother and therapy dog are all visiting him during my interaction. His heart rate continues in the 110-120 range with sinus tachycardia. 04/25: He remains on BiPAP. His mother spends most of the time at bedside providing much of his care as she does at home. Urine culture growing E coli. Both blood cultures negative for 48 hours. FiO2 40% on BiPAP. Mild tachycardia, now at his baseline, per mother, of 100-115. White blood count down to 22.4. Hemoglobin 12.7. BMP normal. 04/26: Temperature up to 102.6 overnight with heart rate continuing in the 100-120 range. Viral respiratory panel negative. Chest x-ray suggested left retrocardiac infiltrate. Antibiotic changed to Zosyn. He is more alert today. His therapy dog, Pip, and his mother are in attendance. Chest x-ray: Left retrocardiac opacity suspected which may represent pneumonia. 04/27: Persistent fever to 101?. Zosyn was started yesterday and vancomycin added today. 1/2 culture sites positive for Gram-positive cocci. Case reviewed with the patient's mother, as well as pharmacy and nursing in rounds. Assessment and plan: Sepsis, present on admission. Active. -E.Coli UTI. On admission he had renal dysfunction and a lactic acid level of 2.1. White blood count was 46.1. Follow. -treated with IV ceftriaxone, IV fluid and tube feed hydration. -urine culture E. Coli, BC no growth X 48 h[address] -CT scan shows cystitis. Chest x-ray is negative. -sepsis related SVT requiring max dose adenosine and then electrocardioversion. Converted back to mild sinus tach. -hypoxic respiratory failure subsequent to the tachycardia and stabilized on BiPAP. -experience fever of 102.6 on 04/26 so chest x-ray was done showing a new left retrocardiac infiltrate. -antibiotics changed from ceftriaxone to Zosyn on 04/26, with addition of vancomycin IV on 04/27. -1/2 blood cultures sites positive for Gram-positive cocci, with staph epi on PCR -leukocytosis improved today Healthcare acquired pneumonia, not present on admission. -initially noted on chest x-ray 04/26. Left retrocardiac infiltrate. -continue Zosyn started 04/26, add vancomycin 04 27 -respiratory panel negative for RSV, influenza and COVID. Urinary tract infection, present on admission. Active. -urine culture E. Coli. UA shows 30-100 wbc's. -ceftriaxone IV x4 days, then changed to Zosyn. -neurogenic bladder with intermittent catheterization. Supraventricular tachycardia, not present on admission. Resolved. -see note from 04/22. Received adenosine x3 and electrical cardioversion Hypoxemic respiratory failure, not present on admission. Active. -continue BiPAP as needed. Currently on NRB. -discharge when pneumonia/fever treated and no longer oxygen/BIPAP dependent. Cerebral palsy/DD present on admission. Chronic. -symptoms including seizures, bed bound, limited communication skills, blindness, dysphagia and neurogenic bladder. -baclofen for spasticity. Mirtazapine. Seizure disorder, present on admission. Chronic. -continue Keppra and Depakote along with Valium IV as needed. -valproic acid level 56 and Keppra level 73. -decrease Keppra dose to 500 mg IV b.i.d. on 04/26. Sacral decubitus ulcer, unstageable -onset apparently during this hospitalization, monitor closely, offloading Tube feeding, present on admission. Active. -secondary to cerebral palsy dysphagia. -tube feeding 750 mL per day with water flushes. Continues on home regimen/formula. Dietitian following closely. -continue Protonix, switched to IV. Hyperkalemia, present on admission. Resolved. -potassium 5.6 likely related to dehydration. Infusing normal saline IV. Resolved. Enoxaparin for DVT prevention. Mother and adult brother/sister are his backup decision makers. Confirmed full code Exam Vital Signs (past 8 hours): - 04/27/25 08:00 04/27/25 12:00 Temperature 101.1 F H 101.7 F H Pulse Rate 122 H 116 H Respiratory Rate 19 23 Blood Pressure 131/73 136/70 Pulse Oximetry 93 95 Fraction of Inspired Oxygen 35 Oxygen Delivery Method Room Air Oxygen Flow Rate 0 Objective Labs 04/27/25 09:05 04/27/25 09:05 Labs: Laboratory Results - last 24 hr 04/26/25 04/27/25 10:30 09:05 WBC 14.9 H RBC 3.36 L Hgb 11.7 L Hct 34.3 L MCV 102.1 H MCH 34.8 H MCHC 34.1 RDW 14.9 H Plt Count 229 Neut % (Auto) Not Reportable Lymph % (Auto) Not Reportable Grainger % (Auto) Not Reportable Eos % (Auto) Not Reportable Baso % (Auto) Not Reportable Lymph # (Auto) Not Reportable Grainger # (Auto) Not Reportable Baso # (Auto) Not Reportable Total Counted 100 Seg Neutrophils % 69.0 Lymphocytes % (Manual) 28.0 Monocytes % (Manual) 3.0 Neutrophils # (Manual) 14933 H Platelet Estimate Adequate on smear RBC Morphology See below Anisocytosis 1+ H Sodium 144 Potassium 3.3 L Chloride 109 H Carbon Dioxide 33 H BUN 33 H Creatinine 0.83 Estimated GFR > 60 BUN/Creatinine Ratio 39.8 H Glucose 125 H Calcium 8.5 A.calcoaceticus-baumannii cmplx PCR Not detected Bacteroides fragilis Not detected Makenna albicans (PCR) Not detected Makenna auris (PCR) Not detected C. glabrata (PCR) Not detected C. krusei (PCR) Not detected C. parapsilosis (PCR) Not detected C. tropicalis (PCR) Not detected C. neoform/gattii (PCR) Not detected Enterobacterales (PCR) Not detected E. cloacae complex PCR Not detected Enterococc faecalis PCR Not detected Enterococc faecium PCR Not detected E. coli (PCR) Not detected H. influenzae (PCR) Not detected Klebsiella aerogenes (PCR) Not detected Klebsiella oxytoca PCR Not detected Klebsiella pneumoniae Not detected List. monocytogenes PCR Not detected N. meningitidis (PCR) Not detected Proteus species (PCR) Not detected Salmonella spp. (PCR) Not detected Serratia marcescens PCR Not detected Staphylococcus sp PCR Detected Staph aureus (PCR) Not detected mecA/C & MREJ Resist Gene Not applicable mecA/C-Methicil Resis Gene Detected mcr-1 Colistin Res Gene PCR Not applicable Staph epidermidis (PCR) Detected Staph lugdunensis PCR Not detected S. maltophilia (PCR) Not detected Streptococcus sp PCR Not detected Group A Strep (PCR) Not detected Strep agalactiae (PCR) Not detected Strep pneumoniae (PCR) Not detected P. 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 Cataracts, bilateral Cerebellar atrophy Cerebral atrophy Cervical spine disease Cervical vertebral fusion Chicken pox (~1977) History of developmental delay Hydrocephalus, adult Impaired mobility and ADLs Intermittent self-catheterization of bladder Leukomalacia, periventricular Neurogenic bladder Prostatitis Recurrent UTI Seizure disorder Spastic quadriplegia Total blindness Urinary retention Surgical History Anesthesia History of thoracic spinal fusion S/P percutaneous endoscopic gastrostomy (PEG) tube placement Family History Mother Hyperlipidemia Autoimmune disorder Gout Irritable bowel syndrome History of Graves' disease Sister Multiple myeloma History of kidney cancer History of Graves' disease Grandfather Diabetes mellitus Grandmother Alcoholism Tuberculosis Brother Irritable bowel syndrome Social History marital status: unmarried,single household members: family and caregiver Smoking Status: Never smoker alcohol intake: current caffeine: Yes [employer]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
--- NOTE | 2025-04-27 18:00 | PC.NURSE ---
At about 1500 mom reported pt was having some seizure activity. Josh's shoulders and arms are visibly twitching. Body tone is more tense than his usual tenseness. Valium given IVP per mom's request. Twitching activity stopped about 3-5 mins after med was given and pt appeared more relaxed and comfortable, At about 1630 pt suddenly became tachypneic to 44-48 RR, temp 100.0 hr 130's. Pt was repositioned and suctioned several times for very thick secretions. Moved to a side lying position to help with secretions. After repositioning and suctioning RR down to 34, HR 112. Pt has new pressure ulcers to the buttock, these were seen by MD, miraplex was applied after gentle cleansing, waffle cushion and special positioning, pillows used, to keep pt off of same. Dr Mccauley notified of seizure activity, episode of increased sob, temp has not been below 100, has received acetaminophen x2, and new buttock open areas. Lab also called with positive blood cultures which is aware of.
[2025-04-27] MEDS: MIRTAZAPINE 15 MG TABLET PO (21:43)
[2025-04-27] MEDS: DIVALPROEX DR 250 MG TABLET 1000 MG PO (21:43)
[2025-04-27] MEDS: LATANOPROST 0.005% OPHTH 2.5 ML 1 DROPS EYE-RIGHT (21:46)
[2025-04-28] VITALS (14 sets, daily range): BP systolic 118–137; BP diastolic 47–67; PULSE 59–112; RESP 22–34; TEMP 36.8–39.4; O2SAT 94–99
[2025-04-28] MEDS: ACETAMINOPHEN 325 MG TABLET 650 MG PO ×3 (00:45→15:39)
[2025-04-28] MEDS: PIPERACILLIN/TAZO 3.375 GM in SODIUM CHLORIDE 0.9% 100 ML IV ×3 (00:46→17:47)
[2025-04-28] MEDS: VANCOMYCIN 750 MG/150 ML PIGGYBACK 150 MG IV ×2 (03:32→15:39)
[2025-04-28] MEDS: DIVALPROEX DR 250 MG TABLET 500 MG PO (09:45)
[2025-04-28] MEDS: ENOXAPARIN 40 MG/0.4 ML SYRINGE SUBCUT (09:45)
[2025-04-28] MEDS: MELOXICAM 7.5 MG TABLET 15 MG PO (09:46)
[2025-04-28] MEDS: BACLOFEN 10 MG TABLET 15 MG PO ×2 (09:46→21:40)
[2025-04-28] MEDS: PANTOPRAZOLE 40 MG VIAL IV (09:46)
[2025-04-28] MEDS: FOLIC ACID 1 MG TABLET 0.25 MG PO (09:46)
[2025-04-28] MEDS: SODIUM CHLORIDE 0.9% FLUSH 10 ML IV (09:47)
--- NOTE | 2025-04-28 10:42 | P.PN_ITS ---
Subjective Subjective Date Patient Seen: 04/28/25 Time Patient Seen: 07:45 Interval history: This is a 49-year-old male, patient of Dr. Mccauley, with cerebral palsy/DD, spastic quadriplegia, neurogenic bladder, hydrocephalus, leukomalacia, cerebral atrophy, seizure disorder, recurrent UTI, familial tremor, and tube feeding in addition to oral intake who presents with 2 days of noisy breathing and fever of 103.4. White blood count is 46.1 with creatinine 1.90 and 30-100 wbc's on UA. CXR shows no pneumonia. His last admission for a similar illness included leukocytosis and UTI. His grandma seizures are no more than 1 or 2 per year. He lives with his parents in [place] with caregiving assistance from adult brother and sister. He has a small dog who is his medical assistance animal and who will be staying with him in the hospital. He is able to swallow, take some of his nutrition by mouth but is very limited in communication and vision. 04/22: Called by ER to see Mr. Weber for a HR of 200-240. 0, RR 30. Briefly this is a 49yo male with cerebral palsy/DD, spastic quadriplegia, neurogenic bladder, hydrocephalus, leukomalacia, cerebral atrophy, seizure disorder, recurrent UTI who presented to the ER with fever and confusion. The patien tis nonverbal and was agitated/restless. Physical exam notable for tachycardia, chronic contracture of LUE and BLE, lungs clear, abdomen benign. He was given ativan 1mg IV x1 for restlessness and straight cath performed in case urine retention was contributing to the tachycardia. Approximately 500ml obtained. Labs reviewed and notable for profound leukocytosis and bendemia with WBC 46 with 53% segmented neuts, 42% bands and only 2% lymphocytes. Labs also notable for K 5.9, Cr 1.9 (prior 0.88, 1.17). A 12 lead EKG obtained at 12:33 shows SVT at 205bpm. SBP 110, MAP 70, HR 22. Provided three doses of adenosine 6mg, 6mg and 12 mg with initial slowing of HR but rapid return to SVT with a rate above 200. Review of tele strips during slowing showed sinus mechanism. He was subsequently sedated with propofol and synchronized cardioversion at 120J x1 was performed with return of sinus tachycardia at approximately 120bpm. Repeat 12 Lead EKG at 1331 showed sinus tachy at 122bpm. Current vitals are SBP 133, MAP, HR 120bpm, RR, 35bpm, POx 92% at 3L. Around 1500, patient developed increased secretions which his Mom says happens every time he gets IVF. She notes that it usually responds to mucinex. Patient transiently required an increase in nasal cannula oxygen but was quickly de- escalated to 2 liters. He remained tachypneic with the secretions. Mucinex provided and patient given a trial of BIPAP. He was also repositioned on his side in the ER as his Mom reports that he typically sleeps on his abdomen because when he is prone, his tongue falls far back due to his high arched palate. With BIPAP and repositioning, the patient was more comfortable and his respiratory rate decreased from mid to high 30's to 14-20. Unable to prone patient in ER but ICU has beds for proning and this can be tried once he moves to the unit. 04/23: Yesterday the patient had a crisis involving SVT requiring adenosine and then electrical cardioversion. He was placed on BiPAP after experiencing increasing hypoxia. He has been stable overnight and appears to be breathing comfortably now. A chest x-ray will be done. On his ABG the pH was 7.23 with a pCO2 of 66. The potassium has come down to 4.6 from 5.6. He will be placed back on his home tube feedings of 750 mL per day with additional flush and fluid by IV. He was given vancomycin overnight which will be stopped now assuming the chest x-ray is favorable. The white blood count has dropped down to 38.5. His T-max is 100.8? with a heart rate currently in the 110-120 range and respiratory rate in the high 20s. Chest x-ray: Pulmonary interstitial prominence as above. This could represent developing edema versus airspace disease. 04/24: White blood count now down to 30.0. Urine culture growing E coli which is sensitive to ceftriaxone. Boggs catheter has clear urine. He was off BiPAP when I saw him this morning but later on in the day had to go back on it. We will be stopping his IV fluid today. His brother, mother and therapy dog are all visiting him during my interaction. His heart rate continues in the 110-120 range with sinus tachycardia. 04/25: He remains on BiPAP. His mother spends most of the time at bedside providing much of his care as she does at home. Urine culture growing E coli. Both blood cultures negative for 48 hours. FiO2 40% on BiPAP. Mild tachycardia, now at his baseline, per mother, of 100-115. White blood count down to 22.4. Hemoglobin 12.7. BMP normal. 04/26: Temperature up to 102.6 overnight with heart rate continuing in the 100- 120 range. Viral respiratory panel negative. Chest x-ray suggested left retrocardiac infiltrate. Antibiotic changed to Zosyn. He is more alert today. His therapy dog, Pip, and his mother are in attendance. Chest x-ray: Left retrocardiac opacity suspected which may represent pneumonia. 04/27: Persistent fever to 101?. Zosyn was started yesterday and vancomycin added today. 1/2 culture sites positive for Gram-positive cocci. Case reviewed with the patient's mother, as well as pharmacy and nursing in rounds. 04/28: Persistent fever to 103? F at 1:14 a.m.. Cultures unrevealing to date. No new events noted. Assessment and plan: Sepsis, present on admission. Active. -E.Coli UTI. On admission he had renal dysfunction and a lactic acid level of 2.1. White blood count was 46.1. Follow. -treated with IV ceftriaxone, IV fluid and tube feed hydration. -urine culture E. Coli, BC no growth X 48 h. -CT scan shows cystitis. Chest x-ray is negative. -sepsis related SVT requiring max dose adenosine and then electrocardioversion. Converted back to mild sinus tach. -hypoxic respiratory failure subsequent to the tachycardia and stabilized on BiPAP. -experience fever of 102.6 on 04/26 so chest x-ray was done showing a new left retrocardiac infiltrate. -antibiotics changed from ceftriaxone to Zosyn on 04/26, with addition of vancomycin IV on 04/27. -1/2 blood cultures sites positive for Gram-positive cocci, with staph epi on PCR -leukocytosis improved 04/27 but persistent high fevers despite vancomycin -check CMP, CBC, lactate -check [id number] CT [facility] acquired pneumonia, not present on admission. -initially noted on chest x-ray 04/26. Left retrocardiac infiltrate. -continue Zosyn started 04/26, add vancomycin 04 27 -respiratory panel negative for RSV, influenza and COVID. Urinary tract infection, present on admission. Active. -urine culture E. Coli. UA shows 30-100 wbc's. -ceftriaxone IV x4 days, then changed to Zosyn. -neurogenic bladder with intermittent catheterization. Supraventricular tachycardia, not present on admission. Resolved. -see note from 04/22. Received adenosine x3 and electrical cardioversion Hypoxemic respiratory failure, not present on admission. Active. -continue BiPAP as needed. Currently on NRB. -discharge when pneumonia/fever treated and no longer oxygen/BIPAP dependent. Cerebral palsy/DD present on admission. Chronic. -symptoms including seizures, bed bound, limited communication skills, blindness, dysphagia and neurogenic bladder. -baclofen for spasticity. Mirtazapine. Seizure disorder, present on admission. Chronic. -continue Keppra and Depakote along with Valium IV as needed. -valproic acid level 56 and Keppra level 73. -decrease Keppra dose to 500 mg IV b.i.d. on 04/26. Sacral decubitus ulcer, unstageable -onset apparently during this hospitalization, monitor closely, offloading Tube feeding, present on admission. Active. -secondary to cerebral palsy dysphagia. -tube feeding 750 mL per day with water flushes. Continues on home regimen/formula. Dietitian following closely. -continue Protonix, switched to IV. Hyperkalemia, present on admission. Resolved. -potassium 5.6 likely related to dehydration. Infusing normal saline IV. Resolved. Enoxaparin for DVT prevention. Mother and adult brother/sister are his surrogate decision makers. 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 Cataracts, bilateral Cerebellar atrophy Cerebral atrophy Cervical spine disease Cervical vertebral fusion Chicken pox (~1977) History of developmental delay Hydrocephalus, adult Impaired mobility and ADLs Intermittent self-catheterization of bladder Leukomalacia, periventricular Neurogenic bladder Prostatitis Recurrent UTI Seizure disorder Spastic quadriplegia Total blindness Urinary retention Surgical History Anesthesia History of thoracic spinal fusion S/P percutaneous endoscopic gastrostomy (PEG) tube placement Family History Mother Hyperlipidemia Autoimmune disorder Gout Irritable bowel syndrome History of Graves' disease Sister Multiple myeloma History of kidney cancer History of Graves' disease Grandfather Diabetes mellitus Grandmother Alcoholism Tuberculosis Brother Irritable bowel syndrome Social History marital status: unmarried,single household members: family and caregiver Smoking Status: Never smoker alcohol intake: current caffeine: Yes Assessment & Plan Time-Based Coding :: [TOTAL MINUTES] spent with patient and on the chart (including review of chart, obtaining history, exam, reviewing outside data, placing orders, documenting exam and treatment plan, and counseling patient) on [DATE]. 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
--- NOTE | 2025-04-28 12:32 | DI.CT.S_ITS ---
PROCEDURE: CT CHEST ABD PEL WO CON INDICATIONS: Sepsis TECHNIQUE: After the administration of oral contrast, 5 mm thick sections acquired from the lung apices to the symphysis pubis. 5 mm thick coronal and sagittal reformats acquired, with additional 7 mm coronal MIP reformats through the lungs. For radiation dose reduction, the following was used: automated exposure control, adjustment of mA and/or kV according to patient size. COMPARISON: [facility], CT, CT ABDOMEN PELVIS WO CON, 04/22/2025, 6:36. FINDINGS: Image quality: Diagnostic. CHEST: Lower Neck: No enlarged lymph nodes. Thyroid: No thyroid nodules which require sonographic follow up, per consensus guidelines. Axillae: No enlarged lymph nodes. Chest Wall: Unremarkable. Bones: Unremarkable. Lungs and Pleura: Patchy airspace opacities are noted in posterior aspect of bilateral lower lobes concerning for small patchy infiltrates. Small to moderate bilateral pleural effusion are also seen. No pneumothorax. Suggestion of mild pulmonary edema. Heart: Heart size is enlarged. No pericardial effusion. Thoracic Vessels: The aorta and pulmonary arteries demonstrate normal size. Mediastinum and Nichole: No enlarged lymph nodes. Esophagus: No wall thickening. Small hiatal hernia. ABDOMEN: Liver: No solid mass. Gallbladder: No radiopaque gallstones or wall thickening. Biliary ducts: No biliary dilation. Pancreas: No ductal dilation. Spleen: Size is within normal limits. Adrenal Glands: No adrenal nodules. Kidneys and Ureters: No hydronephrosis. No solid mass. No complex renal cystic lesion which requires follow up. Stomach and Bowel: Peg tube tip is in the stomach lumen. There is no evidence of bowel obstruction or abnormal bowel wall thickening. Moderate fecal stasis throughout the colon is seen. No abscess collection. Peritoneum: Small to moderate amount of ascites fluid in lower abdomen and pelvis. No gross free air. Ventral Wall: No hernia. Generalized anasarca. Abdominal Nodes: No retroperitoneal or mesenteric adenopathy by size criteria. Vessels: Aorta and inferior vena cava are normal in size. PELVIS: Pelvic Organs: Unremarkable. Bladder: Boggs catheter is seen within partially distended urinary bladder. Perivesicular fat stranding is again seen. Pelvic Nodes: No enlarged lymph nodes. Miscellaneous: No inguinal hernias are seen. Bones: No aggressive osseous abnormality. Extensive post fusion changes are seen throughout thoracic and lumbar spine. No acute vertebral body compression fracture. S shaped scoliosis is again seen unchanged from prior study. IMPRESSION: 1. Small to moderate bilateral pleural effusion with bibasilar dependent atelectasis/small infiltrates. No pneumothorax. 2. Small amount of ascites fluid in lower abdomen and pelvis. No gross free air. Moderate constipation. No bowel obstruction or abnormal bowel wall thickening. No abscess collection. 3. Generalized anasarca suggestive of 3rd spacing. 4. Boggs catheter in decompressed urinary bladder. Suggestion of cystitis suggest clinical correlation. 5. Other findings as above. Dictated by: Joshua Sapp M.D. on 04/28/2025 at 13:41 Approved by: Joshua Sapp M.D. on 04/28/2025 at 13:45
[2025-04-28] MEDS: guaiFENesin Solution 100 MG/5 ML UDC 200 MG PO ×2 (13:45→21:37)
[2025-04-28 14:42] LABS: Lactate (Lactic Acid) 1.9 mmol/L (0.7-2.1)
[2025-04-28 14:43] LABS: Alanine Aminotransferase 19 IU/L (<50); Albumin 2.7 g/dL (3.5-5.0); Albumin Globulin Ratio 0.9 (1.0-2.8); Alkaline Phosphatase 60 U/L (38-126); Blood Urea Nitrogen 30 mg/dL (9-20); Calcium 8.3 mg/dL (8.4-10.2); Carbon Dioxide 30 mmol/L (22-32); Chloride 111 mmol/L (98-107); Estimated Glomerular Filt Rate > 60 mL/min (>60); Globulin 3.1 g/dL (1.7-4.1); Glucose 125 mg/dL (70-99); HEMOLYSIS 27 (0-50); Potassium 3.5 mmol/L (3.4-5.1); Sodium 147 mmol/L (137-145); Total Protein 5.8 g/dL (6.3-8.2)
[2025-04-28 14:52] LABS: Hematocrit 36.1 % (41-53); Hemoglobin 11.9 g/dL (13.5-17.5); Mean Corpuscular HGB Conc 33.0 % (30-36); Mean Corpuscular Hemoglobin 34.5 PG (26-34); Mean Corpuscular Volume 104.5 fL (80-100); Platelet Count 295 X10^3/uL (150-400)
[2025-04-28 14:55] LABS: Add Manual Diff / Slide Review YES
[2025-04-28 15:36] LABS: Atypical Lymphocytes Percent 3.0 %; Band Neutrophils Percent 1.0 % (3-7); Eosinophils Percent Manual 1.0 % (2-4); Lymphocytes Percent Manual 25.0 % (25-45); Neutrophils Absolute Manual 11218 /uL (3000-5900); Segmented Neutrophils Percent 70.0 % (38-70); Total Cells Counted 100
[2025-04-28 15:38] LABS: Anisocytosis 1+
[2025-04-28] MEDS: LATANOPROST 0.005% OPHTH 2.5 ML 1 DROPS EYE-RIGHT (21:36)
[2025-04-28] MEDS: DIVALPROEX DR 250 MG TABLET 1000 MG PO (21:39)
[2025-04-28] MEDS: MIRTAZAPINE 15 MG TABLET PO (21:40)
[2025-04-28] MEDS: VANCOMYCIN PEAK 1 REQUEST MISC (21:47)
[2025-04-28] MEDS: VANCOMYCIN TROUGH 1 REQUEST MISC (21:47)
[2025-04-29] VITALS (9 sets, daily range): BP systolic 101–142; BP diastolic 61–82; PULSE 100–125; RESP 16–22; TEMP 37.2–38.6; O2SAT 95–98
[2025-04-29] MEDS: PIPERACILLIN/TAZO 3.375 GM in SODIUM CHLORIDE 0.9% 100 ML IV ×3 (00:19→17:06)
[2025-04-29] MEDS: ACETAMINOPHEN 325 MG TABLET 650 MG PO (00:49)
[2025-04-29] MEDS: guaiFENesin Solution 100 MG/5 ML UDC 200 MG PO ×4 (03:51→18:41)
[2025-04-29] MEDS: VANCOMYCIN 750 MG/150 ML PIGGYBACK 150 MG IV ×2 (03:51→15:23)
[2025-04-29 04:55] LABS: Alanine Aminotransferase 17 IU/L (<50); Albumin 2.5 g/dL (3.5-5.0); Albumin Globulin Ratio 0.8 (1.0-2.8); Alkaline Phosphatase 63 U/L (38-126); Blood Urea Nitrogen 29 mg/dL (9-20); Calcium 8.2 mg/dL (8.4-10.2); Carbon Dioxide 32 mmol/L (22-32); Chloride 110 mmol/L (98-107); Estimated Glomerular Filt Rate > 60 mL/min (>60); Globulin 3.0 g/dL (1.7-4.1); Glucose 120 mg/dL (70-99); HEMOLYSIS < 15 (0-50); Potassium 3.8 mmol/L (3.4-5.1); Sodium 146 mmol/L (137-145); Total Protein 5.5 g/dL (6.3-8.2)
[2025-04-29 05:09] LABS: Hematocrit 34.7 % (41-53); Hemoglobin 11.5 g/dL (13.5-17.5); Mean Corpuscular HGB Conc 33.1 % (30-36); Mean Corpuscular Hemoglobin 34.5 PG (26-34); Mean Corpuscular Volume 104.2 fL (80-100); Platelet Count 333 X10^3/uL (150-400)
[2025-04-29 05:13] LABS: Add Manual Diff / Slide Review YES
[2025-04-29 05:43] LABS: Anisocytosis 1+; Band Neutrophils Percent 2.0 % (3-7); Eosinophils Percent Manual 3.0 % (2-4); Lymphocytes Percent Manual 15.0 % (25-45); Macrocytosis 1+; Metamyelocytes Percent 1.0 % (-0); Monocytes Percent Manual 4.0 % (2-11); Neutrophils Absolute Manual 11242 /uL (3000-5900); Segmented Neutrophils Percent 75.0 % (38-70); Total Cells Counted 100
--- NOTE | 2025-04-29 09:12 | PC.NURSE ---
Day shift: Pt at baseline cognition, unable to verbalize needs. Pt assisted in repositioning to right side, pt legs turned toward left despite reposition and pillows. Pillows positioned to relief pressure from left side, pt legs continue to fall to left side. Care ongoing.
[2025-04-29] MEDS: ENOXAPARIN 40 MG/0.4 ML SYRINGE SUBCUT (09:44)
[2025-04-29] MEDS: PANTOPRAZOLE 40 MG VIAL IV (09:44)
[2025-04-29] MEDS: SODIUM CHLORIDE 0.9% FLUSH 10 ML IV ×2 (09:45→21:19)
[2025-04-29] MEDS: BACLOFEN 10 MG TABLET 15 MG PO ×2 (09:58→21:19)
[2025-04-29] MEDS: MELOXICAM 7.5 MG TABLET 15 MG PO (09:58)
[2025-04-29] MEDS: DIVALPROEX DR 250 MG TABLET 500 MG PO (09:58)
[2025-04-29] MEDS: FOLIC ACID 1 MG TABLET 0.25 MG PO (10:01)
--- NOTE | 2025-04-29 10:59 | CM.DPC ---
DCP Cont: Per MD, pt continues to have some fevers with unknown etiology as labs and cultures in normal range although CT showed small PE. Wound Consult order placed for developing decubitus ulcer, SW to call [facility] tomorrow Mon to alert them to need for wound consult. CARY Joseph
--- NOTE | 2025-04-29 11:56 | PM.PN.IH.1 ---
Subjective Subjective Date Patient Seen: 04/29/25 Time Patient Seen: 08:57 Interval history: This is a 49-year-old male, patient of Dr. Mccauley, with cerebral palsy/DD, spastic quadriplegia, neurogenic bladder, hydrocephalus, leukomalacia, cerebral atrophy, seizure disorder, recurrent UTI, familial tremor, and tube feeding in addition to oral intake who presents with 2 days of noisy breathing and fever of 103.4. White blood count is 46.1 with creatinine 1.90 and 30-100 wbc's on UA. CXR shows no pneumonia. His last admission for a similar illness included leukocytosis and UTI. His grandma seizures are no more than 1 or 2 per year. He lives with his parents in [place] with caregiving assistance from adult brother and sister. He has a small dog who is his medical assistance animal and who will be staying with him in the hospital. He is able to swallow, take some of his nutrition by mouth but is very limited in communication and vision. 04/22: Called by ER to see Mr. Weber for a HR of 200-240. 0, RR 30. Briefly this is a 49yo male with cerebral palsy/DD, spastic quadriplegia, neurogenic bladder, hydrocephalus, leukomalacia, cerebral atrophy, seizure disorder, recurrent UTI who presented to the ER with fever and confusion. The patien tis nonverbal and was agitated/restless. Physical exam notable for tachycardia, chronic contracture of LUE and BLE, lungs clear, abdomen benign. He was given ativan 1mg IV x1 for restlessness and straight cath performed in case urine retention was contributing to the tachycardia. Approximately 500ml obtained. Labs reviewed and notable for profound leukocytosis and bendemia with WBC 46 with 53% segmented neuts, 42% bands and only 2% lymphocytes. Labs also notable for K 5.9, Cr 1.9 (prior 0.88, 1.17). A 12 lead EKG obtained at 12:33 shows SVT at 205bpm. SBP 110, MAP 70, HR 22. Provided three doses of adenosine 6mg, 6mg and 12 mg with initial slowing of HR but rapid return to SVT with a rate above 200. Review of tele strips during slowing showed sinus mechanism. He was subsequently sedated with propofol and synchronized cardioversion at 120J x1 was performed with return of sinus tachycardia at approximately 120bpm. Repeat 12 Lead EKG at 1331 showed sinus tachy at 122bpm. Current vitals are SBP 133, MAP, HR 120bpm, RR, 35bpm, POx 92% at 3L. Around 1500, patient developed increased secretions which his Mom says happens every time he gets IVF. She notes that it usually responds to mucinex. Patient transiently required an increase in nasal cannula oxygen but was quickly de-escalated to 2 liters. He remained tachypneic with the secretions. Mucinex provided and patient given a trial of BIPAP. He was also repositioned on his side in the ER as his Mom reports that he typically sleeps on his abdomen because when he is prone, his tongue falls far back due to his high arched palate. With BIPAP and repositioning, the patient was more comfortable and his respiratory rate decreased from mid to high 30's to 14-20. Unable to prone patient in ER but ICU has beds for proning and this can be tried once he moves to the unit. 04/23: Yesterday the patient had a crisis involving SVT requiring adenosine and then electrical cardioversion. He was placed on BiPAP after experiencing increasing hypoxia. He has been stable overnight and appears to be breathing comfortably now. A chest x-ray will be done. On his ABG the pH was 7.23 with a pCO2 of 66. The potassium has come down to 4.6 from 5.6. He will be placed back on his home tube feedings of 750 mL per day with additional flush and fluid by IV. He was given vancomycin overnight which will be stopped now assuming the chest x-ray is favorable. The white blood count has dropped down to 38.5. His T-max is 100.8? with a heart rate currently in the 110-120 range and respiratory rate in the high 20s. Chest x-ray: Pulmonary interstitial prominence as above. This could represent developing edema versus airspace disease. 04/24: White blood count now down to 30.0. Urine culture growing E coli which is sensitive to ceftriaxone. Boggs catheter has clear urine. He was off BiPAP when I saw him this morning but later on in the day had to go back on it. We will be stopping his IV fluid today. His brother, mother and therapy dog are all visiting him during my interaction. His heart rate continues in the 110-120 range with sinus tachycardia. 04/25: He remains on BiPAP. His mother spends most of the time at bedside providing much of his care as she does at home. Urine culture growing E coli. Both blood cultures negative for 48 hours. FiO2 40% on BiPAP. Mild tachycardia, now at his baseline, per mother, of 100-115. White blood count down to 22.4. Hemoglobin 12.7. BMP normal. 04/26: Temperature up to 102.6 overnight with heart rate continuing in the 100-120 range. Viral respiratory panel negative. Chest x-ray suggested left retrocardiac infiltrate. Antibiotic changed to Zosyn. He is more alert today. His therapy dog, Pip, and his mother are in attendance. Chest x-ray: Left retrocardiac opacity suspected which may represent pneumonia. 04/27: Persistent fever to 101?. Zosyn was started yesterday and vancomycin added today. 2 culture sites positive for Gram-positive cocci. Case reviewed with the patient's mother, as well as pharmacy and nursing in rounds. 04/28: Persistent fever to 103? F at 1:14 a.m.. Cultures unrevealing to date. No new events noted. 04/29: The patient had an unremarkable chest/abdomen/pelvis CT yesterday and improving white blood count with negative lactate. He had another fever this morning to 101? F. No new events. EXAM: general: Lying in bed, eyes open, responding to voice lung: normal effort, clear B/L cardiac: regular rate and rhythm abd: soft non-tender skin: Left gluteal unstageable decubitus ulcer, approximately 6-7 cm neuro: non-verbal, no obvious focal deficits, chronic spastic quadriplegia Imaging: CT [id number] 04/28: 1. Small to moderate bilateral pleural effusion with bibasilar dependent atelectasis/small infiltrates. No pneumothorax. 2. Small amount of ascites fluid in lower abdomen and pelvis. No gross free air. Moderate constipation. No bowel obstruction or abnormal bowel wall thickening. No abscess collection. 3. Generalized anasarca suggestive of 3rd spacing. 4. Boggs catheter in decompressed urinary bladder. Suggestion of cystitis suggest clinical correlation. 5. Other findings as above. Assessment and plan: Sepsis, present on admission. Active. -E.Coli UTI. On admission he had renal dysfunction and a lactic acid level of 2.1. White blood count was 46.1. Follow. -treated with IV ceftriaxone, IV fluid and tube feed hydration. -urine culture E. Coli, BC no growth X 48 h. -CT scan shows cystitis. Chest x-ray is negative. -sepsis related SVT requiring max dose adenosine and then electrocardioversion. Converted back to mild sinus tach. -hypoxic respiratory failure subsequent to the tachycardia and stabilized on BiPAP. -experience fever of 102.6 on 04/26 so chest x-ray was done showing a new left retrocardiac infiltrate. -antibiotics changed from ceftriaxone to Zosyn on 04/26, with addition of vancomycin IV on 04/27. -1 blood cultures sites positive for Gram-positive cocci, with staph epi on PCR -leukocytosis improved 04/27 but persistent high fevers despite vancomycin -Continue IV Zosyn and Vancomycin -follow cultures Healthcare acquired pneumonia, not present on admission. -initially noted on chest x-ray 04/26. Left retrocardiac infiltrate. -continue Zosyn started 04/26, added vancomycin 04/27 -respiratory panel negative for RSV, influenza and COVID. Urinary tract infection, present on admission. Active. -urine culture E. Coli. UA shows 30-100 wbc's. -ceftriaxone IV x4 days, then changed to Zosyn. -neurogenic bladder with intermittent catheterization. Supraventricular tachycardia, not present on admission. Resolved. -see note from 04/22. Received adenosine x3 and electrical cardioversion Hypoxemic respiratory failure, not present on admission. Active. -continue BiPAP as needed. Currently on NRB. -discharge when pneumonia/fever treated and no longer oxygen/BIPAP dependent. Cerebral palsy/DD present on admission. Chronic. -symptoms including seizures, bed bound, limited communication skills, blindness, dysphagia and neurogenic bladder. -baclofen for spasticity. Mirtazapine. Seizure disorder, present on admission. Chronic. -continue Keppra and Depakote along with Valium IV as needed. -valproic acid level 56 and Keppra level 73. -decrease Keppra dose to 500 mg IV b.i.d. on 04/26. Sacral decubitus ulcer, unstageable -onset apparently during this hospitalization, monitor closely, offloading Tube feeding, present on admission. Active. -secondary to cerebral palsy dysphagia. -tube feeding 750 mL per day with water flushes. Continues on home regimen/formula. Dietitian following closely. -continue Protonix, switched to IV. Hyperkalemia, present on admission. Resolved. -potassium 5.6 likely related to dehydration. Infusing normal saline IV. Resolved. Enoxaparin for DVT prevention. Mother and adult brother/sister are his surrogate decision makers. Confirmed full code Exam Vital Signs (past 8 hours): - 04/29/25 04:54 04/29/25 04:56 04/29/25 08:40 Temperature 99 F 99.5 F Pulse Rate 100 H 102 H Respiratory Rate 16 22 Blood Pressure 108/71 Pulse Oximetry 97 95 Oxygen Delivery Method Oxygen Flow Rate 0 04/29/25 09:00 Temperature Pulse Rate Respiratory Rate Blood Pressure Pulse Oximetry Oxygen Delivery Method Room Air Oxygen Flow Rate Fraction of Inspired Oxygen 35 Oxygen Delivery Method Room Air Oxygen Flow Rate 0 Objective Labs 04/29/25 04:10 04/29/25 04:10 Labs: Laboratory Results - last 24 hr 04/28/25 04/28/25 04/29/25 14:23 18:10 04:10 WBC 15.8 H 14.6 H RBC 3.46 L 3.33 L Hgb 11.9 L 11.5 L Hct 36.1 L 34.7 L MCV 104.5 H 104.2 H MCH 34.5 H 34.5 H MCHC 33.0 33.1 RDW 15.4 H 15.3 H Plt Count 295 333 Neut % (Auto) Not Reportable Not Reportable Lymph % (Auto) Not Reportable Not Reportable [place] % (Auto) Not Reportable Not Reportable Eos % (Auto) Not Reportable Not Reportable Baso % (Auto) Not Reportable Not Reportable Lymph # (Auto) Not Reportable Not Reportable [place] # (Auto) Not Reportable Not Reportable Baso # (Auto) Not Reportable Not Reportable Total Counted 100 100 Seg Neutrophils % 70.0 75.0 H Band Neutrophils % 1.0 L 2.0 L Lymphocytes % (Manual) 25.0 15.0 L Atypical Lymphs % 3.0 H Monocytes % (Manual) 4.0 Eosinophils % (Manual) 1.0 L 3.0 Metamyelocytes % 1.0 H Neutrophils # (Manual) 85761 H 12928 H Nucleated RBCs 1 H Platelet Estimate Adequate on smear Adequate on smear RBC Morphology See below See below Anisocytosis 1+ H 1+ H Macrocytosis 1+ H Sodium 147 H 146 H Potassium 3.5 3.8 Chloride 111 H 110 H Carbon Dioxide 30 32 BUN 30 H 29 H Creatinine 0.91 0.87 Estimated GFR > 60 > 60 BUN/Creatinine Ratio 33.0 H 33.3 H Glucose 125 H 120 H Lactate 1.9 Calcium 8.3 L 8.2 L Total Bilirubin 0.3 0.2 AST 36 29 ALT 19 17 Alkaline Phosphatase 60 D 63 Total Protein 5.8 L 5.5 L Albumin 2.7 L 2.5 L Globulin 3.1 3.0 Albumin/Globulin Ratio 0.9 L 0.8 L Vancomycin Peak 32.0 PFSH Medical History 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 Cataracts, bilateral Cerebellar atrophy Cerebral atrophy Cervical spine disease Cervical vertebral fusion Chicken pox (~1977) History of developmental delay Hydrocephalus, adult Impaired mobility and ADLs Intermittent self-catheterization of bladder Leukomalacia, periventricular Neurogenic bladder Prostatitis Recurrent UTI Seizure disorder Spastic quadriplegia Total blindness Urinary retention Surgical History Anesthesia History of thoracic spinal fusion S/P percutaneous endoscopic gastrostomy (PEG) tube placement Family History Mother Hyperlipidemia Autoimmune disorder Gout Irritable bowel syndrome History of Graves' disease Sister Multiple myeloma History of kidney cancer History of Graves' disease Grandfather Diabetes mellitus Grandmother Alcoholism Tuberculosis Brother Irritable bowel syndrome Social History marital status: unmarried,single household members: family and caregiver Smoking Status: Never smoker alcohol intake: current caffeine: Yes [employer] Document charge(s): No Charge Codes Subsequent inpatient/observation care: [id number]
[2025-04-29] MEDS: LATANOPROST 0.005% OPHTH 2.5 ML 1 DROPS EYE-RIGHT (21:19)
[2025-04-29] MEDS: MIRTAZAPINE 15 MG TABLET PO (21:19)
[2025-04-29] MEDS: DIVALPROEX DR 250 MG TABLET 1000 MG PO (21:19)
[2025-04-30] VITALS (8 sets, daily range): BP systolic 103–126; BP diastolic 55–88; PULSE 89–107; RESP 18–20; TEMP 37.4–38.6; O2SAT 95–100
[2025-04-30] MEDS: PIPERACILLIN/TAZO 3.375 GM in SODIUM CHLORIDE 0.9% 100 ML IV ×3 (01:01→18:00)
[2025-04-30] MEDS: ACETAMINOPHEN 325 MG TABLET 650 MG PO (03:50)
--- NOTE | 2025-04-30 04:56 | P.PN_ITS ---
Subjective Subjective Interval history: A&P 49-year-old male, patient of Dr. Mccauley, with cerebral palsy/DD, spastic quadriplegia, neurogenic bladder, hydrocephalus, leukomalacia, cerebral atrophy, seizure disorder, recurrent UTI, familial tremor, and tube feeding in addition to oral intake who presented with 2 days of noisy breathing and fever of 103.4. In the emergency room, evaluation was notable for abnormal urinalysis consistent with UTI. In addition he developed SVT requiring adenosine x3 and then cardioversion. Sepsis, present on admission Healthcare associated pneumonia UTI, present on admission in the setting of neurogenic bladder managed with as needed straight cath Secondary to E coli UTI, blood cultures were no growth. CT scan consistent with cystitis, chest x-ray negative at presentation and he was started on ceftriaxone. Several days after admission, he developed fever to 102.6 and chest x-ray at that time showed a new left retrocardiac infiltrate. Respiratory viral panel was negative. At that time, antibiotics were switched to Zosyn and vancomycin. 1/2 blood cultures were then positive for staph epi likely contaminant. Leukocytosis has resolved but he is still having intermittent fevers. He went 24 hours without a fever and then this morning at 4:00 a.m. had a temperature to 100.3 but has been afebrile since then. These fevers may not be infectious in origin. Need to consider drug fever or centrally mediated fever due to his spastic quadriplegia. * Patient with no history of MRSA, we will discontinue vancomycin * Continue Zosyn for now but hope to discontinue in the next 24-48 hours depending on fever curve * Follow cultures * Discontinue contact precautions as this is not indicated for staph epi SVT, resolved Admission, the patient developed SVT with a rate ranging from 220-240. Received adenosine x3 without response. Was then cardioverted with return of normal sinus rhythm. He is remained in sinus rhythm since that time. * Continue to monitor as needed * Discontinue telemetry Hypoxemic respiratory failure Occurred in the setting of sepsis and SVT. Required BiPAP to maintain oxygenation. Now on room air. * Continue to monitor Cerebral palsy/capital the capital D Spastic quadriplegia Neurogenic bladder Hydrocephalus Seizure disorder At baseline, the patient is bed bound with limited communication skills, and blindness. Last valproic acid level was 56, Keppra level 73 * Continue usual outpatient medications including baclofen, clonazepam, Depakote, levetiracetam, mirtazapine, Valtoco * Change Keppra from IV back to oral (G-tube) Sacral decubitus ulcer, unstageable onset apparently during this hospitalization * monitor closely, offloading Tube feeding, present on admission secondary to cerebral palsy dysphagia. * Continue tube feeding 750 mL per day with water flushes. Continues on home regimen/formula. Dietitian following closely. * continue Protonix, change to be Hyperkalemia, resolved Likely due to dehydration. Resolved with IV fluid hydration * Monitor as needed Code Status: Full code Diet: Tube feeds, detailed above Lines/Tubes: Peripheral IV, Boggs DVT Prophylaxis: Enoxaparin Discharge Planning: Anticipate the patient will be ready to discharge in the next 2-3 days. He will discharge home with his mother who is his caregiver. Chief Complaint: Patient nonverbal Subjective: Unable to participate in review of systems Objective Awake, unable to assess orientation, thin, well-developed, appears uncomfortable NCAT, OP moist RRR, nl S1 and S2, no murmurs CTA bilaterally Soft, NT, ND, +BS Warm without edema Labs: No new labs in 48 hours Imaging: No new imaging since 04/10 Time: 55 minutes spent with patient and on the chart (including review of chart, obtaining history, exam, reviewing outside data, placing orders, documenting exam and treatment plan, and counseling patient). Exam Vital Signs (past 8 hours): - 04/30/25 00:00 04/30/25 03:50 04/30/25 04:00 Temperature 99.4 F 100.3 F H 100.3 F H Pulse Rate 105 H 107 H Respiratory Rate 19 18 Blood Pressure 126/77 124/88 Pulse Oximetry 97 97 Fraction of Inspired Oxygen 35 Oxygen Delivery Method Room Air Oxygen Flow Rate 0 Objective Labs 04/29/25 04:10 04/29/25 04:10 Labs: Laboratory Results - last 24 hr 04/29/25 04/30/25 04:10 02:30 WBC 14.6 H RBC 3.33 L Hgb 11.5 L Hct 34.7 L MCV 104.2 H MCH 34.5 H MCHC 33.1 RDW 15.3 H Plt Count 333 Neut % (Auto) Not Reportable Lymph % (Auto) Not Reportable [place] % (Auto) Not Reportable Eos % (Auto) Not Reportable Baso % (Auto) Not Reportable Lymph # (Auto) Not Reportable [place] # (Auto) Not Reportable Baso # (Auto) Not Reportable Total Counted 100 Seg Neutrophils % 75.0 H Band Neutrophils % 2.0 L Lymphocytes % (Manual) 15.0 L Monocytes % (Manual) 4.0 Eosinophils % (Manual) 3.0 Metamyelocytes % 1.0 H Neutrophils # (Manual) 77465 H Platelet Estimate Adequate on smear RBC Morphology See below Anisocytosis 1+ H Macrocytosis 1+ H Sodium 146 H Potassium 3.8 Chloride 110 H Carbon Dioxide 32 BUN 29 H Creatinine 0.87 Estimated GFR > 60 BUN/Creatinine Ratio 33.3 H Glucose 120 H Calcium 8.2 L Total Bilirubin 0.2 AST 29 ALT 17 Alkaline Phosphatase 63 Total Protein 5.5 L Albumin 2.5 L Globulin 3.0 Albumin/Globulin Ratio 0.8 L Vancomycin Trough 25.4 H* [facility] Medical History 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 Cataracts, bilateral Cerebellar atrophy Cerebral atrophy Cervical spine disease Cervical vertebral fusion Chicken pox (~1977) History of developmental delay Hydrocephalus, adult Impaired mobility and ADLs Intermittent self-catheterization of bladder Leukomalacia, periventricular Neurogenic bladder Prostatitis Recurrent UTI Seizure disorder Spastic quadriplegia Total blindness Urinary retention Surgical History Anesthesia History of thoracic spinal fusion S/P percutaneous endoscopic gastrostomy (PEG) tube placement Family History Mother Hyperlipidemia Autoimmune disorder Gout Irritable bowel syndrome History of Graves' disease Sister Multiple myeloma History of kidney cancer History of Graves' disease Grandfather Diabetes mellitus Grandmother Alcoholism Tuberculosis Brother Irritable bowel syndrome Social History marital status: unmarried,single household members: family and caregiver Smoking Status: Never smoker alcohol intake: current caffeine: Yes Assessment & Plan Time-Based Coding :: [TOTAL MINUTES] spent with patient and on the chart (including review of chart, obtaining history, exam, reviewing outside data, placing orders, documenting exam and treatment plan, and counseling patient) on [DATE].
[2025-04-30] MEDS: PANTOPRAZOLE 40 MG VIAL IV (10:02)
[2025-04-30] MEDS: ENOXAPARIN 40 MG/0.4 ML SYRINGE SUBCUT (10:04)
[2025-04-30] MEDS: DIVALPROEX DR 250 MG TABLET 500 MG PO (10:04)
[2025-04-30] MEDS: FOLIC ACID 1 MG TABLET 0.25 MG PO (10:04)
[2025-04-30] MEDS: MELOXICAM 7.5 MG TABLET 15 MG PO (10:04)
[2025-04-30] MEDS: BACLOFEN 10 MG TABLET 15 MG PO ×2 (10:06→22:21)
[2025-04-30] MEDS: SODIUM CHLORIDE 0.9% FLUSH 10 ML IV ×2 (10:13→22:09)
--- NOTE | 2025-04-30 12:43 | PC.NURSE ---
Patient has been laying prone for a few hours to be off of his bottom. He has an open blood blister and another smaller open area to the left of this. Area's are open and cream is being applied. Patient also has a soar on his mouth and nose from bipap straps. Patients mom is putting zinc oxide on his wound area's. She does most of patients care, we are writing po intake through patients ng tube. Plus water flushes. Patients po meds were crushed and then melted in warm water and patients mom gives it through his tube.
--- NOTE | 2025-04-30 13:32 | PC.NURSE ---
Pt doing well this morning, temp 99.0F. Pt has been positioned prone to take pressure off his backside as he has 2 areas on his sacrum area, per Cas, pt's mom, pt is very comfortable positioned like this, thus she asked we delay repositioning. Pt is currently supine but was protesting quite a bit when we repositioned him and changed his linens. Pt's mom, Cas, administering his meds and bolus feedings per peg tube and writes down quantities for us to document. Pt's Zosyn running. Will continue to monitor.
--- NOTE | 2025-04-30 14:12 | PC.NURSE ---
Addendum entered by Nadiya Goodrich RN 04/30/25 17:15: Wound care Doctor into see patient and we are to continue barrier cream and meplex dressings to bottom wounds. Original Note: Assess- Patient is lying on his back with his head at 45 degrees. His tele is placed on his chest, his bottom has two mepelex dressings on them with cream applied. His nose and facial soar is doing much better. Patients mother has been putting zinc on it. She is going to an appt now and his brother velasquez will be here with patient.
[2025-04-30] MEDS: VANCOMYCIN 500 MG in SODIUM CHLORIDE 0.9% 100 ML 100 MG IV (14:46)
--- NOTE | 2025-04-30 16:03 | CM.DPC ---
DCP Cont: Per MD, due to pt's medical complexity he likely may have waxing and waning temperatures. Pt to have Wound COnsult today for decubitus. SW called [facility] and alerted them to wound consult orders and they will meet bedside with pt sometime today. SW to follow for possible recommendation of HH RN for ongoing wound care and outpt f/u. CARY Joseph
--- NOTE | 2025-04-30 16:49 | PM.CN ---
History of Present Illness Consult details Date Patient Seen: 04/30/25 Time Patient Seen: 16:40 Chief complaint: Fevers, Poss UTI Narrative: The patient is a 49-year-old male with cerebral palsy/DD, spastic quadriplegia, neurogenic bladder, hydrocephalus, leukomalacia, cerebral atrophy, seizure disorder, recurrent UTI, and acute kidney injury who was admitted to the hospital April 22, 2025 with sepsis. The patient has had a complicated hospital course and has developed pressure injuries involving the sacrum and left buttock. The patient has been on antibiotic therapy since admission. He continues to have intermittent fevers and leukocytosis. The patient has been in his bed lying on his back since admission. He has no prior history of having pressure injuries in the past. Meds Home Medications and Allergies Home Medications ?Medication ?Instructions ?Recorded ?Confirmed ?Type latanoprost 0.005 % eye drops 1 drp OPH HS #2.5 mL 02/14/12 04/22/25 History acetaminophen 500 mg tablet 500 mg PO BID ##0 01/20/13 04/22/25 History ascorbic acid (vitamin C) 500 mg 500 mg PO DAILY 05/29/22 04/22/25 History tablet folic acid 400 mcg tablet 200 mcg PO DAILY 05/29/22 04/22/25 History nutritional supplements 0.08 1 ea feeding tube BID 05/29/22 04/22/25 History gram-2 kcal/mL liquid for tube feed (Nutren 2.0) Disabled Parking Permit 1 ea Not Applicable DAILY #1 ea 10/11/23 04/22/25 Rx diazepam 10 mg/spray (0.1 mL) 10 mg intranasal PRN PRN Seizure 01/19/24 04/22/25 History nasal spray (Valtoco) Activity pantoprazole 40 mg granules 40 mg PO DAILY 30 days #30 ea 07/19/24 04/22/25 Rx delayed-release for susp in packet clonazepam 1 mg tablet 1.5 mg (1.5 x 1 mg) PO 2XD #42 tabs 11/18/24 04/22/25 Rx baclofen 15 mg tablet 15 mg PO BID 12/11/24 04/22/25 History cholecalciferol (vitamin D3) 50 50 mcg PO DAILY 12/11/24 04/22/25 History mcg (2,000 unit) capsule divalproex 500 mg tablet,delayed 500 mg PO BID 12/11/24 04/22/25 History release levetiracetam 750 mg tablet 750 mg PO BID 12/11/24 04/22/25 History meloxicam 15 mg tablet 15 mg PO DAILY #90 tabs 02/01/25 04/22/25 Rx mirtazapine 15 mg tablet 15 mg PO HS #90 tabs 02/26/25 04/22/25 Rx cefdinir 300 mg capsule 300 mg feeding tube BID per Gtube, 04/22/25 04/22/25 Rx may substitue elixir 10 days #20 caps Allergies Allergy/AdvReac Type Severity Reaction Status Date / Time codeine Allergy Intermediate FACIAL Verified 04/22/25 04:54 SWELLING, RASH phenobarbital Allergy Unknown unknow Verified 04/22/25 04:54 methenamine AdvReac Mild yeast Verified 04/22/25 04:54 infection Review of Systems Constitutional Comments: Unable to obtain Exam Vital Signs (past 8 hours): - 04/30/25 12:00 Pulse Rate 97 H Respiratory Rate 20 Pulse Oximetry 100 Oxygen Flow Rate 0 Fraction of Inspired Oxygen 35 Oxygen Delivery Method Room Air Oxygen Flow Rate 0 Narrative Exam Narrative: Spastic, not verbally responsive Skin Other: Unstageable pressure injury left buttock with blister, no sign of infection. Unstageable pressure injury of sacrum, no sign of infection. Objective Labs 04/29/25 04:10 04/29/25 04:10 Labs: Laboratory Results - last 24 hr 04/30/25 02:30 Vancomycin Trough 25.4 H* [facility] Medical History Prostatitis Intermittent self-catheterization of bladder Benign familial tremor History of developmental delay Cervical spine disease Chicken pox (~1977) Cataracts, bilateral Total blindness Impaired mobility and ADLs Spastic quadriplegia Neurogenic bladder Hydrocephalus, adult Leukomalacia, periventricular Cerebral atrophy Cerebellar atrophy Agenesis of corpus callosum Seizure disorder Recurrent UTI Urinary retention Cervical vertebral fusion Surgical History Anesthesia S/P percutaneous endoscopic gastrostomy (PEG) tube placement History of thoracic spinal fusion Family History Mother Hyperlipidemia Autoimmune disorder Gout Irritable bowel syndrome History of Graves' disease Sister Multiple myeloma History of kidney cancer History of Graves' disease Grandfather Diabetes mellitus Grandmother Alcoholism Tuberculosis Brother Irritable bowel syndrome Social History marital status: unmarried,single household members: family and caregiver Tobacco & Substance Use Smoking Status: Never smoker alcohol intake: current Diet and Exercise caffeine: Yes Assessment & Plan Assessment and plan (1) Pressure ulcer of left buttock, unstageable: Status: Acute (2) Pressure ulcer of sacral region, unstageable: Status: Acute Assessment & Plan narrative: The patient with unstageable pressure injuries involving the sacrum and left buttock. Recommend daily skin inspections, dressing changes with Mepilex and zinc barrier cream, pressure offloading, frequent turning, and nutritional support. If full-thickness skin loss developed he may require surgical debridement. Follow up at wound center after discharge. Time-Based Coding :: [45 MINUTES] spent with patient and on the chart (including review of chart, obtaining history, exam, reviewing outside data, placing orders, documenting exam and treatment plan, and counseling patient) on [04/30/25].
[2025-04-30] MEDS: SODIUM CHLORIDE 0.9% 500 ML 21 ML IV (20:00)
[2025-04-30] MEDS: FAMOTIDINE 20 MG TABLET TUBE (22:06)
[2025-04-30] MEDS: DIVALPROEX DR 250 MG TABLET 1000 MG PO (22:06)
[2025-04-30] MEDS: LATANOPROST 0.005% OPHTH 2.5 ML 1 DROPS EYE-RIGHT (22:11)
[2025-04-30] MEDS: MIRTAZAPINE 15 MG TABLET PO (22:13)
--- NOTE | 2025-04-30 23:30 | PC.NURSE ---
Caregiver insistant that pt placed prone. After correction of fecal incontenence a complete linedn change performed and pt placed in prone positionper care givers request.
[2025-05-01] MEDS: PIPERACILLIN/TAZO 3.375 GM in SODIUM CHLORIDE 0.9% 100 ML IV ×3 (01:39→18:04)
[2025-05-01 04:00] VITALS: BP 128/91; PULSE 114; RESP 21; TEMP 37.8; O2SAT 96
--- NOTE | 2025-05-01 04:20 | PC.NURSE ---
Upon consulation with care transitions nurse, pt. revered to supine per caregiver request. Pt. incontenent of large amount of brown semi=formed stool. New liinens placed and pt placed in supine position.
[2025-05-01 05:17] LABS: Blood Urea Nitrogen 23 mg/dL (9-20); Calcium 8.8 mg/dL (8.4-10.2); Carbon Dioxide 32 mmol/L (22-32); Chloride 105 mmol/L (98-107); Estimated Glomerular Filt Rate > 60 mL/min (>60); Glucose 107 mg/dL (70-99); HEMOLYSIS < 15 (0-50); Potassium 4.4 mmol/L (3.4-5.1); Sodium 141 mmol/L (137-145)
[2025-05-01 05:38] LABS: Add Manual Diff / Slide Review NO; Hematocrit 35.2 % (41-53); Hemoglobin 11.8 g/dL (13.5-17.5); Lymphocytes Absolute Auto 2900 /uL (1100-4500); Mean Corpuscular HGB Conc 33.6 % (30-36); Mean Corpuscular Hemoglobin 35.1 PG (26-34); Mean Corpuscular Volume 104.5 fL (80-100); Platelet Count 553 X10^3/uL (150-400)
[2025-05-01 07:39] VITALS: PULSE 109; RESP 22; O2SAT 95
[2025-05-01 11:34] VITALS: BP 103/69; PULSE 110; RESP 24; TEMP 37.9; O2SAT 95
[2025-05-01] MEDS: FOLIC ACID 1 MG TABLET 0.25 MG PO (11:38)
--- NOTE | 2025-05-01 11:38 | CM.DPNOTE ---
DCP Continued: Reviewed EMR and team rounds for pt?s medical status. Per hospitalist, plan is still for IV abx, following cultures and collaborate with pt mother on pt baseline. Wound MD consulted and recommending follow up outpatient. Plan: Anticipating discharge home with family/caregiver on 05/04 or when medically cleared, will need to follow up with [facility] for tube feed management at home. CM Team will continue to follow for coordination of discharge plans. ETTA AlvaradoSW
[2025-05-01 11:39] VITALS: TEMP 37.9
[2025-05-01] MEDS: DIVALPROEX DR 250 MG TABLET 500 MG PO (11:39)
[2025-05-01] MEDS: ACETAMINOPHEN 325 MG TABLET 650 MG PO (11:39)
[2025-05-01] MEDS: MELOXICAM 7.5 MG TABLET 15 MG PO (11:39)
[2025-05-01] MEDS: ENOXAPARIN 40 MG/0.4 ML SYRINGE SUBCUT (11:39)
[2025-05-01] MEDS: SODIUM CHLORIDE 0.9% FLUSH 10 ML IV ×2 (11:40→21:24)
[2025-05-01] MEDS: BACLOFEN 10 MG TABLET 15 MG PO ×2 (11:44→21:21)
[2025-05-01] MEDS: FAMOTIDINE 20 MG TABLET TUBE ×2 (11:45→21:21)
[2025-05-01 12:14] VITALS: BMI 17.6
--- NOTE | 2025-05-01 14:11 | DIET.PN1 ---
Addendum entered by Shae Elliott 05/01/25 15:31: Attempted x2 to provided educ on Marco to pt's mother. Receiving personal care. Reviewed journal for feed and flush intake. Marco twice daily can be done via PEG. Instructions provided. Marco left with RN. Original Note: Dietary Progress Note Assessment: Pt with 2 unstageable pressure wounds. Recommending Marco BID. Ht: 152.4 cm Wt: 40.9 kg BMI: 17.6 UBW: Last BM: 04/29/25 (05/01/25 12:14) MNA: 9 Will Score: 8 Diet: 04/23/25 Lunch Tube Feeding Diet Diet Modifications: TF Supplement type: Nutren 2.0 TF mode of delivery: Bolus Starting flow rate mL/hr: 250 Flow rate goal mL/hr: 250 Titration Schedule to reach Goal Rate: 250 mL 2-3 times/day; bolus via PEG Max total daily volume in mL: 2,400 Free fluid: Free Water Frequency: Comment: Pt's mother managing fluids; 60 mL before&after feeds 04/24/25 Dinner Courtesy Popeye (Peds, comfort care) Diet Modifications: Labs: RBC 3.37 X10^6/uL (4.5-5.9) L 05/01/25 04:45 Hgb 11.8 g/dL (13.5-17.5) L 05/01/25 04:45 Hct 35.2 % (41-53) L 05/01/25 04:45 Creatinine 0.85 mg/dL (0.66-1.25) 05/01/25 04:45 Lactate 1.9 mmol/L (0.7-2.1) 04/28/25 14:23 Nutrition Diagnosis: Increased nutrient needs (protein/micro-nutrients) r/t healing needs aeb 2 pressure ulcers Interventions: Marco BID, continue to tube feeds as discussed/ordered to meet protein needs Monitoring/Evaluations: Tube feeds, Marco Electronically Signed by: Shae Elliott 05/01/25 14:11 Clinical Dietitian [address] [id number]
[2025-05-01 15:00] VITALS: BP 82/43; PULSE 95; RESP 20; TEMP 37; O2SAT 96
--- NOTE | 2025-05-01 16:08 | PC.NURSE ---
Pt stable today, still having low grade temps and medicated with tylenol. Mom, Cas present at bedside. Provided AM meds through peg tube. Doing [id number] to offload pressure from buttocks. Pt was incontinent of large soft BM this afternoon. Blood blister to L buttock had broken open, redressed it and sacral pressure sore also redressed. Pt currently prone in bed. Other VSS besides low grade temp. Will continue to monitor.
--- NOTE | 2025-05-01 16:18 | P.PN_ITS ---
Subjective Subjective Interval history: A&P 49-year-old male, patient of Dr. Mccauley, with cerebral palsy/DD, spastic quadriplegia, neurogenic bladder, hydrocephalus, leukomalacia, cerebral atrophy, seizure disorder, recurrent UTI, familial tremor, and tube feeding in addition to oral intake who presented with 2 days of noisy breathing and fever of 103.4. In the emergency room, evaluation was notable for abnormal urinalysis consistent with UTI. In addition he developed SVT requiring adenosine x3 and then cardioversion. Sepsis, present on admission Healthcare associated pneumonia UTI, present on admission in the setting of neurogenic bladder managed with as needed straight cath Secondary to E coli UTI, blood cultures were no growth. CT scan consistent with cystitis, chest x-ray negative at presentation and he was started on ceftriaxone. Several days after admission, he developed fever to 102.6 and chest x-ray at that time showed a new left retrocardiac infiltrate. Respiratory viral panel was negative. At that time, antibiotics were switched to Zosyn and vancomycin. 1/2 blood cultures were then positive for staph epi likely contaminant. Leukocytosis has resolved but he is still having intermittent fevers. He went 24 hours without a fever and then developed low-grade fevers again. These fevers may not be infectious in origin. Need to consider drug fever or centrally mediated fever due to his spastic quadriplegia. * Patient with no history of MRSA, so vancomycin discontinued on 04/30 * Continue Zosyn for now but hope to discontinue in the next 24-48 hours depending on fever curve * Follow cultures * If white blood cell count increased further tomorrow, may need to re-initiate workup for additional source of infection. However patient has had extensive evaluation to this point. * Discontinue contact precautions as this is not indicated for staph epi * Close to baseline, could likely discharge home if afebrile for 24-36 hours and WBCs declining * Repeat CBC in the morning SVT, resolved Admission, the patient developed SVT with a rate ranging from 220-240. Received adenosine x3 without response. Was then cardioverted with return of normal sinus rhythm. He is remained in sinus rhythm since that time. * Continue to monitor as needed * Discontinued telemetry on 04/30 Hypoxemic respiratory failure Occurred in the setting of sepsis and SVT. Required BiPAP to maintain oxygenation. Now on room air. * Continue to monitor Cerebral palsy/DD Spastic quadriplegia Neurogenic bladder Hydrocephalus Seizure disorder At baseline, the patient is bed bound with limited communication skills, and blindness. Last valproic acid level was 56, Keppra level 73 * Continue usual outpatient medications including baclofen, clonazepam, Depakote, levetiracetam, mirtazapine, Valtoco Sacral decubitus ulcer, unstageable onset apparently during this hospitalization. Appreciate consult from Dr. Urbano -recommendations include daily skin inspections, dressing changes with Mepilex and zinc barrier cream, pressure offloading, frequent turning, and nutritional support. * monitor closely, offloading * [facility] Tube feeding, present on admission secondary to cerebral palsy dysphagia. * Continue tube feeding 750 mL per day with water flushes. Continues on home regimen/formula. Dietitian following closely. * continue Protonix, change to via tube Hyperkalemia, resolved Likely due to dehydration. Resolved with IV fluid hydration * Monitor as needed Code Status: Full code Diet: Tube feeds, detailed above Lines/Tubes: Peripheral IV, Boggs DVT Prophylaxis: Enoxaparin Discharge Planning: Anticipate the patient will be ready to discharge in the next 2-3 days. He will discharge home with his mother who is his caregiver. Chief Complaint: Patient nonverbal Subjective: Unable to participate in review of systems, had some low-grade fevers to 100 0.2 overnight. Otherwise no acute events. Objective Awake, unable to assess orientation, thin, well-developed, appears uncomfortable NCAT, OP moist RRR, nl S1 and S2, no murmurs CTA bilaterally Soft, NT, ND, +BS Warm without edema Dressings intact on areas of pressure injury Labs: WBC 16, increased from 14.6, platelets 553, increased from 333 Imaging: No new imaging since 04/28 Time: 45 minutes spent with patient and on the chart (including review of chart, obtaining history, exam, reviewing outside data, placing orders, documenting exam and treatment plan, and counseling patient). Exam Vital Signs (past 8 hours): - 05/01/25 11:34 05/01/25 11:39 05/01/25 15:00 Temperature 100.3 F H 100.3 F H 98.6 F Pulse Rate 110 H 95 H Respiratory Rate 24 20 Blood Pressure 103/69 82/43 L Pulse Oximetry 95 96 Oxygen Flow Rate 0 Fraction of Inspired Oxygen 35 Oxygen Delivery Method Room Air Oxygen Flow Rate 0 Objective Labs 05/01/25 04:45 05/01/25 04:45 Labs: Laboratory Results - last 24 hr 05/01/25 04:45 WBC 16.0 H RBC 3.37 L Hgb 11.8 L Hct 35.2 L MCV 104.5 H MCH 35.1 H MCHC 33.6 RDW 15.6 H Plt Count 553 H Neut % (Auto) 74.1 Lymph % (Auto) 17.9 L [place] % (Auto) 6.0 Eos % (Auto) 1.3 L Baso % (Auto) 0.7 Neut # (Auto) 21943 H Lymph # (Auto) 2900 [place] # (Auto) 1000 H Eos # (Auto) 200 Baso # (Auto) 100 Sodium 141 Potassium 4.4 Chloride 105 Carbon Dioxide 32 BUN 23 H Creatinine 0.85 Estimated GFR > 60 BUN/Creatinine Ratio 27.1 H Glucose 107 H Calcium 8.8 PFSH Medical History Prostatitis Intermittent self-catheterization of bladder Benign familial tremor History of developmental delay Cervical spine disease Chicken pox (~1977) Cataracts, bilateral Total blindness Impaired mobility and ADLs Spastic quadriplegia Neurogenic bladder Hydrocephalus, adult Leukomalacia, periventricular Cerebral atrophy Cerebellar atrophy Agenesis of corpus callosum Seizure disorder Recurrent UTI Urinary retention Cervical vertebral fusion Surgical History Anesthesia S/P percutaneous endoscopic gastrostomy (PEG) tube placement History of thoracic spinal fusion Family History Mother Hyperlipidemia Autoimmune disorder Gout Irritable bowel syndrome History of Graves' disease Sister Multiple myeloma History of kidney cancer History of Graves' disease Grandfather Diabetes mellitus Grandmother Alcoholism Tuberculosis Brother Irritable bowel syndrome Social History marital status: unmarried,single household members: family and caregiver Smoking Status: Never smoker alcohol intake: current caffeine: Yes Assessment & Plan Time-Based Coding :: [TOTAL MINUTES] spent with patient and on the chart (including review of chart, obtaining history, exam, reviewing outside data, placing orders, documenting exam and treatment plan, and counseling patient) on [DATE].
[2025-05-01] MEDS: DIVALPROEX DR 250 MG TABLET 1000 MG PO (21:21)
[2025-05-01] MEDS: MIRTAZAPINE 15 MG TABLET PO (21:21)
[2025-05-01] MEDS: LATANOPROST 0.005% OPHTH 2.5 ML 1 DROPS EYE-RIGHT (21:23)
[2025-05-02] VITALS: BP 98/52; PULSE 104; RESP 20; TEMP 37.6; O2SAT 99
[2025-05-02] MEDS: PIPERACILLIN/TAZO 3.375 GM in SODIUM CHLORIDE 0.9% 100 ML IV ×3 (01:19→21:07)
[2025-05-02] MEDS: ACETAMINOPHEN 325 MG TABLET 650 MG PO (04:12)
--- NOTE | 2025-05-02 09:35 | CM.DPC ---
Received phone call from [facility] and updated them that pt still remains in the hospital with anticipated discharge home in the next 1-2 days. They will continue to follow, state pt has all the enteral feeding supplies needed just want an update when pt is discharging the hospital and request discharge summary be faxed to them for review at d/c. No further orders needed. CARY Joseph
[2025-05-02] MEDS: BACLOFEN 10 MG TABLET 15 MG PO ×2 (09:44→21:05)
[2025-05-02] MEDS: FAMOTIDINE 20 MG TABLET TUBE ×2 (09:44→21:05)
[2025-05-02] MEDS: FOLIC ACID 1 MG TABLET 0.25 MG PO (09:45)
[2025-05-02] MEDS: DIVALPROEX DR 250 MG TABLET 500 MG PO (09:46)
[2025-05-02] MEDS: MELOXICAM 7.5 MG TABLET 15 MG PO (09:46)
[2025-05-02] MEDS: ENOXAPARIN 40 MG/0.4 ML SYRINGE SUBCUT (09:46)
[2025-05-02] MEDS: SODIUM CHLORIDE 0.9% FLUSH 10 ML IV ×2 (09:47→21:08)
--- NOTE | 2025-05-02 10:27 | DIET.PN1 ---
Dietary Progress Note Assessment: Discussed addition of Marco with pt's mother who has been giving it to him since yesterday and is familiar with the product from another time in the past when he was on it. Continue tube feed and fluid flushes. Continue Marco BID. Ht: 152.4 cm Wt: 40.9 kg BMI: 17.6 Last BM: 05/01/25 (05/01/25 16:21) MNA: 9 Will Score: 8 Diet: 04/23/25 Lunch Tube Feeding Diet Diet Modifications: TF Supplement type: Nutren 2.0 TF mode of delivery: Bolus Starting flow rate mL/hr: 250 Flow rate goal mL/hr: 250 Titration Schedule to reach Goal Rate: 250 mL 2-3 times/day; bolus via PEG Max total daily volume in mL: 2,400 Free fluid: 100 Free Water Frequency: Q6H Comment: Pt's mother managing fluids; 60 mL before&after feeds 04/24/25 Dinner Courtesy Popeye (Peds, comfort care) Diet Modifications: Labs: RBC 3.37 X10^6/uL (4.5-5.9) L 05/01/25 04:45 Hgb 11.8 g/dL (13.5-17.5) L 05/01/25 04:45 Hct 35.2 % (41-53) L 05/01/25 04:45 Creatinine 0.85 mg/dL (0.66-1.25) 05/01/25 04:45 Lactate 1.9 mmol/L (0.7-2.1) 04/28/25 14:23 Electronically Signed by: Shae Elliott 05/02/25 10:27 Clinical Dietitian [address] [id number]
[2025-05-02 10:40] VITALS: BP 106/54; PULSE 98; RESP 26; TEMP 37.6; O2SAT 97
--- NOTE | 2025-05-02 15:32 | P.PN_ITS ---
Subjective Subjective Date Patient Seen: 05/02/25 Time Patient Seen: 15:32 Interval history: Chief complaint: Bed-bound cerebral palsy patient with quadriplegia with sepsis with encephalopathy secondary to UTI History of present illness: 04/22: 49-year-old male, patient of Dr. Mccauley, with cerebral palsy/DD, spastic quadriplegia, neurogenic bladder, hydrocephalus, leukomalacia, cerebral atrophy, seizure disorder, recurrent UTI, familial tremor, and tube feeding in addition to oral intake who presents with 2 days of noisy breathing and fever of 103.4. White blood count is 46.1 with creatinine 1.90 and 30-100 wbc's on UA. CXR shows no pneumonia. His last admission for a similar illness included leukocytosis and UTI. His grandma seizures are no more than 1 or 2 per year. He lives with his parents in [place] with caregiving assistance from adult brother and sister. He has a small dog who is his medical assistance animal and who will be staying with him in the hospital. He is able to swallow, take some of his nutrition by mouth but is very limited in communication and vision. Called by ER to see Mr. Weber for a HR of 200-240. 0, RR 30. Briefly this is a 49yo male with cerebral palsy/DD, spastic quadriplegia, neurogenic bladder, hydrocephalus, leukomalacia, cerebral atrophy, seizure disorder, recurrent UTI who presented to the ER with fever and confusion. The patien tis nonverbal and was agitated/restless. Physical exam notable for tachycardia, chronic contracture of LUE and BLE, lungs clear, abdomen benign. He was given ativan 1mg IV x1 for restlessness and straight cath performed in case urine retention was contributing to the tachycardia. Approximately 500ml obtained. Labs reviewed and notable for profound leukocytosis and bendemia with WBC 46 with 53% segmented neuts, 42% bands and only 2% lymphocytes. Labs also notable for K 5.9, Cr 1.9 (prior 0.88, 1.17). A 12 lead EKG obtained at 12:33 shows SVT at 205bpm. SBP 110, MAP 70, HR 22. Provided three doses of adenosine 6mg, 6mg and 12 mg with initial slowing of HR but rapid return to SVT with a rate above 200. Review of tele strips during slowing showed sinus mechanism. He was subsequently sedated with propofol and synchronized cardioversion at 120J x1 was performed with return of sinus tachycardia at approximately 120bpm. Repeat 12 Lead EKG at 1331 showed sinus tachy at 122bpm. Current vitals are SBP 133, MAP, HR 120bpm, RR, 35bpm, POx 92% at 3L. Around 1500, patient developed increased secretions which his Mom says happens every time he gets IVF. She notes that it usually responds to mucinex. Patient transiently required an increase in nasal cannula oxygen but was quickly de- escalated to 2 liters. He remained tachypneic with the secretions. Mucinex provided and patient given a trial of BIPAP. He was also repositioned on his side in the ER as his Mom reports that he typically sleeps on his abdomen because when he is prone, his tongue falls far back due to his high arched palate. With BIPAP and repositioning, the patient was more comfortable and his respiratory rate decreased from mid to high 30's to 14-20. Unable to prone patient in ER but ICU has beds for proning and this can be tried once he moves to the unit. Hospital course: 04/23: Yesterday the patient had a crisis involving SVT requiring adenosine and then electrical cardioversion. He was placed on BiPAP after experiencing increasing hypoxia. He has been stable overnight and appears to be breathing comfortably now. A chest x-ray will be done. On his ABG the pH was 7.23 with a pCO2 of 66. The potassium has come down to 4.6 from 5.6. He will be placed back on his home tube feedings of 750 mL per day with additional flush and fluid by IV. He was given vancomycin overnight which will be stopped now assuming the chest x-ray is favorable. The white blood count has dropped down to 38.5. His T-max is 100.8? with a heart rate currently in the 110-120 range and respiratory rate in the high 20s. Chest x-ray: Pulmonary interstitial prominence as above. This could represent developing edema versus airspace disease. 04/24: White blood count now down to 30.0. Urine culture growing E coli which is sensitive to ceftriaxone. Boggs catheter has clear urine. He was off BiPAP when I saw him this morning but later on in the day had to go back on it. We will be stopping his IV fluid today. His brother, mother and therapy dog are all visiting him during my interaction. His heart rate continues in the 110-120 range with sinus tachycardia. 04/25: He remains on BiPAP. His mother spends most of the time at bedside providing much of his care as she does at home. Urine culture growing E coli. Both blood cultures negative for 48 hours. FiO2 40% on BiPAP. Mild tachycardia, now at his baseline, per mother, of 100-115. White blood count down to 22.4. Hemoglobin 12.7. BMP normal. 04/26: Temperature up to 102.6 overnight with heart rate continuing in the 100- 120 range. Viral respiratory panel negative. Chest x-ray suggested left retrocardiac infiltrate. Antibiotic changed to Zosyn. He is more alert today. His therapy dog, Pip, and his mother are in attendance. Chest x-ray: Left retrocardiac opacity suspected which may represent pneumonia. 04/27: Persistent fever to 101?. Zosyn was started yesterday and vancomycin added today. 1/2 culture sites positive for Gram-positive cocci. Case reviewed with the patient's mother, as well as pharmacy and nursing in rounds. 04/28: Persistent fever to 103? F at 1:14 a.m.. Cultures unrevealing to date. No new events noted. 04/29: The patient had an unremarkable chest/abdomen/pelvis CT yesterday and improving white blood count with negative lactate. He had another fever this morning to 101? F. No new events. 04/30-05/02: Clinically stable treated on Zosyn T-max 101? 0.5 T now 99.7 blood pressure 82/43 Review of systems: Nonverbal No reported vomiting No reported seizure Physical examination: The patient is sleeping Diffuse rhonchi Abdomen is not Patient nonverbal Assessment and plan: Sepsis, present on admission Healthcare associated pneumonia UTI, present on admission in the setting of neurogenic bladder managed with as needed straight cath Secondary to E coli UTI, blood cultures were no growth. CT scan consistent with cystitis, chest x-ray negative at presentation and he was started on ceftriaxone. Several days after admission, he developed fever to 102.6 and chest x-ray at that time showed a new left retrocardiac infiltrate. Respiratory viral panel was negative. At that time, antibiotics were switched to Zosyn and vancomycin. 1/2 blood cultures were then positive for staph epi likely contaminant. Leukocytosis has resolved but he is still having intermittent fevers. He went 24 hours without a fever and then developed low- grade fevers again. These fevers may not be infectious in origin. Need to consider drug fever or centrally mediated fever due to his spastic quadriplegia. * Patient with no history of MRSA, so vancomycin discontinued on 04/30 * Continue Zosyn for now but hope to discontinue in the next 24-48 hours depending on fever curve * Follow cultures * If white blood cell count increased further tomorrow, may need to re-initiate workup for additional source of infection. However patient has had extensive evaluation to this point. * Discontinue contact precautions as this is not indicated for staph epi * Close to baseline, could likely discharge home if afebrile for 24-36 hours and WBCs declining * Repeat CBC daily SVT, resolved Admission, the patient developed SVT with a rate ranging from 220-240. Received adenosine x3 without response. Was then cardioverted with return of normal sinus rhythm. He is remained in sinus rhythm since that time. * Continue to monitor as needed * Discontinued telemetry on 04/30 Hypoxemic respiratory failure Occurred in the setting of sepsis and SVT. Required BiPAP to maintain oxygenation. Now on room air. * Continue to monitor Cerebral palsy/DD Spastic quadriplegia Neurogenic bladder Hydrocephalus Seizure disorder At baseline, the patient is bed bound with limited communication skills, and blindness. Last valproic acid level was 56, Keppra level 73 * Continue usual outpatient medications including baclofen, clonazepam, Depakote, levetiracetam, mirtazapine, Valtoco Sacral decubitus ulcer, unstageable onset apparently during this hospitalization. Appreciate consult from Dr. Urbano -recommendations include daily skin inspections, dressing changes with Mepilex and zinc barrier cream, pressure offloading, frequent turning, and nutritional support. * monitor closely, offloading * [facility] * The patient with unstageable pressure injuries involving the sacrum and left buttock. * Recommend daily skin inspections, dressing changes with Mepilex and zinc barrier cream, pressure offloading, frequent turning, and nutritional support. * If full-thickness skin loss developed he may require surgical debridement. * Follow up at wound center after discharge. * (Dr Winters) Tube feeding, present on admission secondary to cerebral palsy dysphagia. * Continue tube feeding 750 mL per day with water flushes. Continues on home regimen/formula. Dietitian following closely. * continue Protonix, change to via tube Hyperkalemia, resolved Likely due to dehydration. Resolved with IV fluid hydration * Monitor as needed Code Status: * Full code Diet: * Tube feeds, detailed above Lines/Tubes: * Peripheral IV, Boggs DVT Prophylaxis: * Enoxaparin Discharge Planning: * Anticipate the patient will be ready to discharge in the next 2-3 days. He will discharge home with his mother who is his caregiver. Time based billing: * 35 minutes were involved evaluation of this patient including [id number] evaluation discussion with care team review of records objective findings microbiology medication lists and care management team Exam Vital Signs (past 8 hours): - 05/02/25 10:40 Temperature 99.7 F H Pulse Rate 98 H Respiratory Rate 26 H Blood Pressure 106/54 L Pulse Oximetry 97 Oxygen Flow Rate 0 Fraction of Inspired Oxygen 35 Oxygen Delivery Method Room Air Oxygen Flow Rate 0 Objective Labs 05/01/25 04:45 05/01/25 04:45 [facility] Medical History Prostatitis Intermittent self-catheterization of bladder Benign familial tremor History of developmental delay Cervical spine disease Chicken pox (~1977) Cataracts, bilateral Total blindness Impaired mobility and ADLs Spastic quadriplegia Neurogenic bladder Hydrocephalus, adult Leukomalacia, periventricular Cerebral atrophy Cerebellar atrophy Agenesis of corpus callosum Seizure disorder Recurrent UTI Urinary retention Cervical vertebral fusion Surgical History Anesthesia S/P percutaneous endoscopic gastrostomy (PEG) tube placement History of thoracic spinal fusion Family History Mother Hyperlipidemia Autoimmune disorder Gout Irritable bowel syndrome History of Graves' disease Sister Multiple myeloma History of kidney cancer History of Graves' disease Grandfather Diabetes mellitus Grandmother Alcoholism Tuberculosis Brother Irritable bowel syndrome Social History marital status: unmarried,single household members: family and caregiver Smoking Status: Never smoker alcohol intake: current caffeine: Yes Assessment & Plan Time-Based Coding :: [TOTAL MINUTES] spent with patient and on the chart (including review of chart, obtaining history, exam, reviewing outside data, placing orders, documenting exam and treatment plan, and counseling patient) on [DATE].
[2025-05-02 18:59] VITALS: BP 101/62; PULSE 98; RESP 18; TEMP 37.4; O2SAT 99
[2025-05-02 19:00] VITALS: BP 90/57; PULSE 98; RESP 17; TEMP 37.4; O2SAT 99
[2025-05-02] MEDS: MIRTAZAPINE 15 MG TABLET PO (21:05)
[2025-05-02] MEDS: DIVALPROEX DR 250 MG TABLET 1000 MG PO (21:05)
[2025-05-02] MEDS: LATANOPROST 0.005% OPHTH 2.5 ML 1 DROPS EYE-RIGHT (21:06)
[2025-05-03 05:00] VITALS: BP 88/60; PULSE 107; RESP 16; TEMP 37.2; O2SAT 97
[2025-05-03] MEDS: PIPERACILLIN/TAZO 3.375 GM in SODIUM CHLORIDE 0.9% 100 ML IV (05:45)
[2025-05-03] MEDS: ENOXAPARIN 40 MG/0.4 ML SYRINGE SUBCUT (10:09)
[2025-05-03] MEDS: FOLIC ACID 1 MG TABLET 0.25 MG PO (10:10)
[2025-05-03] MEDS: FAMOTIDINE 20 MG TABLET TUBE (10:10)
[2025-05-03] MEDS: BACLOFEN 10 MG TABLET 15 MG PO (10:13)
[2025-05-03] MEDS: MELOXICAM 7.5 MG TABLET 15 MG PO (10:14)
[2025-05-03] MEDS: DIVALPROEX DR 250 MG TABLET 500 MG PO (10:14)
--- NOTE | 2025-05-03 10:15 | CM.DPC ---
DCP Cont. Reviewed EMR and team rounds for pt's medical status and updates. Pt has been medically cleared for d/c home today w/his mother. No further CM d/c needs are identified at this time.
[2025-05-03] MEDS: SODIUM CHLORIDE 0.9% FLUSH 10 ML IV (10:16)
--- NOTE | 2025-05-03 10:37 | P.DS_ITS ---
History of Present Illness History of Present Illness Date Patient Seen: 05/03/25 Time Patient Seen: 10:37 Chief complaint: Fevers, Poss UTI Narrative: Chief complaint: Bed-bound cerebral palsy patient with quadriplegia with sepsis with encephalopathy secondary to UTI History of present illness: 04/22: 49-year-old male, patient of Dr. Mccauley, with cerebral palsy/DD, spastic quadriplegia, neurogenic bladder, hydrocephalus, leukomalacia, cerebral atrophy, seizure disorder, recurrent UTI, familial tremor, and tube feeding in addition to oral intake who presents with 2 days of noisy breathing and fever of 103.4. White blood count is 46.1 with creatinine 1.90 and 30-100 wbc's on UA. CXR shows no pneumonia. His last admission for a similar illness included leukocytosis and UTI. His grandma seizures are no more than 1 or 2 per year. He lives with his parents in [place] with caregiving assistance from adult brother and sister. He has a small dog who is his medical assistance animal and who will be staying with him in the hospital. He is able to swallow, take some of his nutrition by mouth but is very limited in communication and vision. Called by ER to see Mr. Weber for a HR of 200-240. 0, RR 30. Briefly this is a 49yo male with cerebral palsy/DD, spastic quadriplegia, neurogenic bladder, hydrocephalus, leukomalacia, cerebral atrophy, seizure disorder, recurrent UTI who presented to the ER with fever and confusion. The patien tis nonverbal and was agitated/restless. Physical exam notable for tachycardia, chronic contracture of LUE and BLE, lungs clear, abdomen benign. He was given ativan 1mg IV x1 for restlessness and straight cath performed in case urine retention was contributing to the tachycardia. Approximately 500ml obtained. Labs reviewed and notable for profound leukocytosis and bendemia with WBC 46 with 53% segmented neuts, 42% bands and only 2% lymphocytes. Labs also notable for K 5.9, Cr 1.9 (prior 0.88, 1.17). A 12 lead EKG obtained at 12:33 shows SVT at 205bpm. SBP 110, MAP 70, HR 22. Provided three doses of adenosine 6mg, 6mg and 12 mg with initial slowing of HR but rapid return to SVT with a rate above 200. Review of tele strips during slowing showed sinus mechanism. He was subsequently sedated with propofol and synchronized cardioversion at 120J x1 was performed with return of sinus tachycardia at approximately 120bpm. Repeat 12 Lead EKG at 1331 showed sinus tachy at 122bpm. Current vitals are SBP 133, MAP, HR 120bpm, RR, 35bpm, POx 92% at 3L. Around 1500, patient developed increased secretions which his Mom says happens every time he gets IVF. She notes that it usually responds to mucinex. Patient transiently required an increase in nasal cannula oxygen but was quickly de- escalated to 2 liters. He remained tachypneic with the secretions. Mucinex provided and patient given a trial of BIPAP. He was also repositioned on his side in the ER as his Mom reports that he typically sleeps on his abdomen because when he is prone, his tongue falls far back due to his high arched palate. With BIPAP and repositioning, the patient was more comfortable and his respiratory rate decreased from mid to high 30's to 14-20. Unable to prone patient in ER but ICU has beds for proning and this can be tried once he moves to the unit. Hospital course: 04/23: Yesterday the patient had a crisis involving SVT requiring adenosine and then electrical cardioversion. He was placed on BiPAP after experiencing increasing hypoxia. He has been stable overnight and appears to be breathing comfortably now. A chest x-ray will be done. On his ABG the pH was 7.23 with a pCO2 of 66. The potassium has come down to 4.6 from 5.6. He will be placed back on his home tube feedings of 750 mL per day with additional flush and fluid by IV. He was given vancomycin overnight which will be stopped now assuming the chest x-ray is favorable. The white blood count has dropped down to 38.5. His T-max is 100.8? with a heart rate currently in the 110-120 range and respiratory rate in the high 20s. Chest x-ray: Pulmonary interstitial prominence as above. This could represent developing edema versus airspace disease. 04/24: White blood count now down to 30.0. Urine culture growing E coli which is sensitive to ceftriaxone. Boggs catheter has clear urine. He was off BiPAP when I saw him this morning but later on in the day had to go back on it. We will be stopping his IV fluid today. His brother, mother and therapy dog are all visiting him during my interaction. His heart rate continues in the 110-120 range with sinus tachycardia. 04/25: He remains on BiPAP. His mother spends most of the time at bedside providing much of his care as she does at home. Urine culture growing E coli. Both blood cultures negative for 48 hours. FiO2 40% on BiPAP. Mild tachycardia, now at his baseline, per mother, of 100-115. White blood count down to 22.4. Hemoglobin 12.7. BMP normal. 04/26: Temperature up to 102.6 overnight with heart rate continuing in the 100- 120 range. Viral respiratory panel negative. Chest x-ray suggested left retrocardiac infiltrate. Antibiotic changed to Zosyn. He is more alert today. His therapy dog, Pip, and his mother are in attendance. Chest x-ray: Left retrocardiac opacity suspected which may represent pneumonia. 04/27: Persistent fever to 101?. Zosyn was started yesterday and vancomycin added today. 12 culture sites positive for Gram-positive cocci. Case reviewed with the patient's mother, as well as pharmacy and nursing in rounds. 04/28: Persistent fever to 103? F at 1:14 a.m.. Cultures unrevealing to date. No new events noted. 04/29: The patient had an unremarkable chest/abdomen/pelvis CT yesterday and improving white blood count with negative lactate. He had another fever this morning to 101? F. No new events. 04/30-05/02: Clinically stable treated on Zosyn T-max 101? 0.5 T now 99.7 blood pressure 82/43 05/03: No further fevers vital signs stable patient is discharged home Review of systems: Nonverbal No reported vomiting No reported seizure Physical examination: The patient is sleeping No labored respirations Patient nonverbal Assessment and plan: Sepsis, present on admission Healthcare associated pneumonia UTI, present on admission in the setting of neurogenic bladder managed with as needed straight cath Secondary to E coli UTI, blood cultures were no growth. CT scan consistent with cystitis, chest x-ray negative at presentation and he was started on ceftriaxone. Several days after admission, he developed fever to 102.6 and chest x-ray at that time showed a new left retrocardiac infiltrate. Respiratory viral panel was negative. At that time, antibiotics were switched to Zosyn and vancomycin. 1/2 blood cultures were then positive for staph epi likely contaminant. Leukocytosis has resolved but he is still having intermittent fevers. He went 24 hours without a fever and then developed low- grade fevers again. These fevers may not be infectious in origin. Need to consider drug fever or centrally mediated fever due to his spastic quadriplegia. * Patient with no history of MRSA, so vancomycin discontinued on 04/30 * Continue Zosyn for now but hope to discontinue in the next 24-48 hours depending on fever curve * Follow cultures * If white blood cell count increased further tomorrow, may need to re-initiate workup for additional source of infection. However patient has had extensive evaluation to this point. * Discontinue contact precautions as this is not indicated for staph epi * Close to baseline, could likely discharge home if afebrile for 24-36 hours and WBCs declining * Repeat CBC daily SVT, resolved Admission, the patient developed SVT with a rate ranging from 220-240. Received adenosine x3 without response. Was then cardioverted with return of normal sinus rhythm. He is remained in sinus rhythm since that time. * Continue to monitor as needed * Discontinued telemetry on 04/30 Hypoxemic respiratory failure Occurred in the setting of sepsis and SVT. Required BiPAP to maintain oxygenation. Now on room air. * Continue to monitor Cerebral palsy/DD Spastic quadriplegia Neurogenic bladder Hydrocephalus Seizure disorder At baseline, the patient is bed bound with limited communication skills, and blindness. Last valproic acid level was 56, Keppra level 73 * Continue usual outpatient medications including baclofen, clonazepam, Depakote, levetiracetam, mirtazapine, Valtoco Sacral decubitus ulcer, unstageable onset apparently during this hospitalization. Appreciate consult from Dr. Urbano -recommendations include daily skin inspections, dressing changes with Mepilex and zinc barrier cream, pressure offloading, frequent turning, and nutritional support. * monitor closely, offloading * Follow-up at [facility] * The patient with unstageable pressure injuries involving the sacrum and left buttock. * Recommend daily skin inspections, dressing changes with Mepilex and zinc barrier cream, pressure offloading, frequent turning, and nutritional support. * If full-thickness skin loss developed he may require surgical debridement. * Follow up at wound center after discharge. * (Dr Winters) Tube feeding, present on admission secondary to cerebral palsy dysphagia. * Continue tube feeding 750 mL per day with water flushes. Continues on home regimen/formula. Dietitian following closely. * continue Protonix, change to via tube Hyperkalemia, resolved Likely due to dehydration. Resolved with IV fluid hydration * Monitor as needed Code Status: * Full code Diet: * Tube feeds, detailed above Lines/Tubes: * Peripheral IV, Boggs DVT Prophylaxis: * Enoxaparin Discharge Planning: * Discharge to home today Time based billing: * 35 minutes were involved evaluation of this patient including [id number] evaluation discussion with care team review of records objective findings microbiology medication lists and care management team Discharge Providers Provider Date of admission: 04/22/25 09:21 Discharge Date: 05/03/25 Primary care physician: Prateek Mccauley MD Consults: 04/22/25 10:22 Consult to Dietitian, Adult Routine Comment: Reason For Exam: Tube Feeding 04/22/25 17:43 Consult to Discharge Planning Routine Comment: 04/22/25 18:24 Consult to Pharmacy Routine Comment: all meds to be given via G-Tube. Thanks 04/27/25 05:55 Consult to Inpatient Wound Care Nurse Routine Comment: Reason for consultation: wounds found to left buttock and right sacrum Has provider been notified: Yes 04/29/25 10:58 Consult to Physician Routine Comment: Consulting Provider: Jose Elias Winters Reason for consultation: wound consult for decubitus ulcer Has provider been notified: Yes Discharge provider: Som Alexandra MD Exam Vital Signs (past 8 hours): - 05/03/25 05:00 Temperature 99.0 F Pulse Rate 107 H Respiratory Rate 16 Blood Pressure 88/60 L Pulse Oximetry 97 Oxygen Flow Rate 0 Fraction of Inspired Oxygen 35 Oxygen Delivery Method Room Air Oxygen Flow Rate 0 Objective Labs 05/01/25 04:45 05/01/25 04:45 [facility] Medical History Prostatitis Intermittent self-catheterization of bladder Benign familial tremor History of developmental delay Cervical spine disease Chicken pox (~1977) Cataracts, bilateral Total blindness Impaired mobility and ADLs Spastic quadriplegia Neurogenic bladder Hydrocephalus, adult Leukomalacia, periventricular Cerebral atrophy Cerebellar atrophy Agenesis of corpus callosum Seizure disorder Recurrent UTI Urinary retention Cervical vertebral fusion Surgical History Anesthesia S/P percutaneous endoscopic gastrostomy (PEG) tube placement History of thoracic spinal fusion Family History Mother Hyperlipidemia Autoimmune disorder Gout Irritable bowel syndrome History of Graves' disease Sister Multiple myeloma History of kidney cancer History of Graves' disease Grandfather Diabetes mellitus Grandmother Alcoholism Tuberculosis Brother Irritable bowel syndrome Social History marital status: unmarried,single household members: family and caregiver Smoking Status: Never smoker alcohol intake: current caffeine: Yes Discharge Plan Discharge Plan Patient Disposition: Home Discharge orders & Medications Prescriptions: New cefdinir 300 mg capsule 300 mg feeding tube BID 10 Days Qty: 20 0RF Patient Comments: rx by ED today Continued latanoprost 0.005 % Drops 1 drp OPHTH HS Qty: 2.5 acetaminophen 500 mg Tablet 500 mg PO BID Qty: 0 Disabled Parking Permit 1 ea Not Applicable DAILY Qty: 1 0RF pantoprazole [address] for susp in packet 40 mg PO DAILY 30 Days Qty: 30 11RF clonazepam 1 mg tablet 1.5 mg PO 2XD Qty: 42 0RF baclofen 15 mg tablet 15 mg PO BID Rx Instructions: BEVERLY Ricks cholecalciferol (vitamin D3) 50 mcg (2,000 unit) capsule 50 mcg PO DAILY levetiracetam 750 mg tablet 750 mg PO BID Rx Instructions: BEVERLY Ricks divalproex 500 mg tablet,delayed release (DR/EC) 500 mg PO BID Rx Instructions: 500mg in AM and 1000mg in PM BEVERLY Rciks meloxicam 15 mg tablet 15 mg PO DAILY Qty: 90 0RF mirtazapine 15 mg tablet 15 mg PO HS Qty: 90 3RF ascorbic acid (vitamin C) 500 mg tablet 500 mg PO DAILY folic acid 400 mcg tablet 200 mcg PO DAILY Nutren 2.0 0.08 gram-2 kcal/mL liquid 1 ea feeding tube BID Patient Comments: NUTRIN 2 Valtoco 10 mg/spray (0.1 mL) spray,non-aerosol 10 mg intranasal PRN PRN (Reason: Seizure Activity) Follow up/Referrals: Prateek Mccauley MD [Primary Care Provider, Internal Medicine] Visit Report/Discharge Packet Stand Alone Forms: [employer], Patient Portal/API, Stroke Signs & Symptoms, Influenza Vaccine Info, Notice of Privacy Practices, Inpatient vs Outpatient, Pneumococcal Vaccine Info, Pt. Rights & Responsibilities Discharge Data Primary Care Provider: Prateek Mccauley V
[2025-05-03 10:45] VITALS: BP 89/54; PULSE 114; RESP 22; TEMP 36.7; O2SAT 97
--- NOTE | 2025-05-03 10:47 | PC.NURSE ---
0700 pt and mom sleeping during report; pt continues to rest in bed prone; mom is nearby; 0800 still sleeping and appears comfortable while prone; IV in place med infusing. branham patent. straw urine flowing. 0950 pt stirring a little; mom awake; pt's mom informed RN of am process; meds given per usual- mom gives crushed meds; mom gave these about 1010; MD rounded and updated mom of plans for discharge; Lead PC RN and MD will follow with plan of care for home meds due to holiday pharmacy hours. 1030 mom assuming pt care for incont. pt repositioned by RN with mom's assistance onto pt's back; feeding tube site intact; right knee dressing is intact; dressing to buttock site intact.
--- NOTE | 2025-05-03 11:48 | PC.NURSE ---
mom has reviewed all pt's home care discharge information; questions all addressed; meds concerns resolved; home med by pharmacy dispensed with instructions and mom gave great teach back. IV and branham have been removed; support for getting pt ready for going home has been offered; pt's mom will call for any assistance she needs; staff will assist with getting pt into his mom's van. pt continues to appear relaxed.
--- NOTE | 2025-05-03 11:53 | PC.NURSE ---
1045 mom gave demo of home device use for BP assessment; this read 101/55 on leg; hospital BP assessment lower, but all pt's pulses are strong; ext are pink; anticipate lower BP with this pt. stable for his baseline and appears ready for home.
--- NOTE | 2025-05-03 13:50 | PC.NURSE ---
mom and RN reviewed all teaching information about 1100 for UTI and Pneumonia; mom preferred doing most care and packing her things; ate lunch; had a family member attend for discharge of pt; all left with pt in his own wheel chair about 1340.pt stable and in family's care.
== END 2025-05-03 13:57 | disposition home or self-care (01) | DRG 871 ==
LOC: ED 07:40 → AC 09:21 → ICU 17:13 → AC 04-26 14:50
PROVIDERS: Emergency Medicine; Internal Medicine Infectious Disease; Admitting Provider Family Medicine; Emergency Provider Emergency Medicine; Family Provider Internal Medicine; PCP Internal Medicine; Referring Provider Emergency Medicine; Visit Provider Family Medicine
DX: A41.9 Sepsis, unspecified organism (principal); G80.0 Spastic quadriplegic cerebral palsy; J96.91 Respiratory failure, unspecified with hypoxia; J18.9 Pneumonia, unspecified organism; I47.10 Supraventricular tachycardia, unspecified; G91.9 Hydrocephalus, unspecified; N17.9 Acute kidney failure, unspecified; N31.9 Neuromuscular dysfunction of bladder, unspecified; H54.7 Unspecified visual loss; R13.10 Dysphagia, unspecified; R65.20 Severe sepsis without septic shock; G40.909 Epilepsy, unspecified, not intractable, without status epilepticus; E87.5 Hyperkalemia; E86.0 Dehydration; B96.20 Unspecified Escherichia coli [E. coli] as the cause of diseases classified elsewhere; R45.1 Restlessness and agitation; L89.150 Pressure ulcer of sacral region, unstageable; L89.320 Pressure ulcer of left buttock, unstageable; N30.90 Cystitis, unspecified without hematuria; Z87.440 Personal history of urinary (tract) infections; Z74.01 Bed confinement status; Z93.1 Gastrostomy status
CPT/HCPCS: 36415; 36600; 71045; 71250; 74176; 80048; 80053; 80164; 80177; 80202; 81003; 81015; 82607; 82746; 82805; 82962; 83605; 83735; 84132; 85007; 85025; 87040; 87077; 87086; 87154; 87186; 87633; 87797; 92960; 93005; 93010; 94660; 96361; 96365; 96366; 96367; 96375; 99285; A9270; J0153; J0696; J1650; J2060; J2470; J2543; J2704; J3360; J3374; J3375; J3475; J7030; J7040; J7050